=== PATIENT | female | born 1950 | race Caucasian/White ===

== ENCOUNTER 2019-09-06 15:28 | Inpatient (IN) | payer MEDICARE, SELFPAY ==
[2019-09-06] VITALS (25 sets, daily range): BP systolic 165–260; BP diastolic 93–161; PULSE 73–116; RESP 15–26; TEMP 36.6–37; O2SAT 94–97; BMI 30.2; BMI 29.3
--- NOTE | 2019-09-06 15:40 | CT_ITS ---
STUDY: CT BRAIN WITHOUT CONTRAST REASON FOR EXAM: Female, 69 years old. BLURRED VISION RADIATION DOSAGE (If Supplied By Facility): CTDIvol = ( 44.99 ) mGy, DLP = ( 796.11 ) mGycm TECHNIQUE: Transaxial CT imaging of the brain was performed without administration of intravenous contrast material. Individualized dose optimization techniques were used for this CT. COMPARISON: No relevant priors. FINDINGS: Normal soft tissue structures. Normal calvarium. Normal size ventricles and extra-axial spaces for the patient''s age. There are areas of decreased attenuation within the white matter tracts of the supratentorial brain, consistent with microvascular disease changes. Normal basal ganglia and thalami. Normal brainstem. Normal cerebellum. There is no intracranial hemorrhage. There are no findings of an acute ischemic infarction. Normal visualized paranasal sinuses. CT/Brain/Head without Contrast IMPRESSION: No acute abnormality. Moderately extensive diffuse white matter disease probably from small vessel ischemia. Electronically Signed: Jose Payne MD at 17:33 EST , Service support ,
--- NOTE | 2019-09-06 15:40 | EKG12_ITS ---
Test Reason : HTN Blood Pressure : / mmHG Vent. Rate : 103 BPM Atrial Rate : 103 BPM P-R Int : 172 ms QRS Dur : 084 ms QT Int : 342 ms P-R-T Axes : 044 -24 071 degrees QTc Int : 448 ms Sinus tachycardia Left ventricular hypertrophy with repolarization abnormality Cannot rule out Anteroseptal infarct , age undetermined Abnormal ECG Confirmed by LYNETTE IQBAL, THOMPSON ([id number]), technical writer and editor OMER MONDRAGON ([id number]) on 09/08/2019 10:05:46 AM Referred By: No Primary Care Physician Confirmed By:MARY OJEDA MD
--- NOTE | 2019-09-06 15:40 | RAD_ITS ---
STUDY: X-RAY CHEST REASON FOR EXAM: Female, 69 years old. Elevated blood pressure TECHNIQUE: Single AP portable view of the chest. COMPARISON: None. FINDINGS: The lungs are clear and expanded. There is no demonstrated pleural abnormality. Normal size heart. Normal mediastinum and nicole. Normal visualized pulmonary arteries. There is atherosclerotic tortuosity of the aortic arch and descending thoracic aorta. There are diffuse degenerative changes of the visualized thoracic spine. There is degenerative osteoarthritis of the bilateral shoulders. There is no demonstrated abnormality of the visualized soft tissue structures of the upper abdomen. RAD/Chest 1 View (Portable) IMPRESSION: No acute chest disease. Electronically Signed: Jose Payne MD at 16:11 EST , Service support ,
--- NOTE | 2019-09-06 15:41 | CT_ITS ---
STUDY: CT ABDOMEN AND PELVIS WITH CONTRAST REASON FOR EXAM: Female, 69 years old. VAGINAL BLEEDING X 2 MONTHS RADIATION DOSAGE (If Supplied By Facility): CTDIvol = ( 18.39 ) mGy, DLP = ( 1907.56 ) mGycm TECHNIQUE: Transaxial images were obtained from the dome of the diaphragm to the symphysis pubis without oral contrast. IV 100mL Isovue-300 was administered. Sagittal and coronal images were reconstructed. Individualized dose optimization techniques were used for this CT. COMPARISON: None. FINDINGS: The visualized lung bases are unremarkable. The visualized portions of the heart are within normal limits. Normal liver with several incidental subcentimeter cysts. Distended gallbladder with no definite stones, normal extrahepatic biliary system. Normal spleen. Normal pancreas. Normal bilateral adrenal glands. Normal right kidney. Mild to moderate hydronephrosis. Moderate left hydronephrosis related to obstruction from the large pelvic mass. Evaluation of the GI tract is limited by absence of oral contrast. Cannot exclude stomach wall thickening. No dilated loops of bowel or evidence for obstruction. Cannot exclude segmental thickening of the thompson of the small or large bowel. Cannot exclude enteritis or colitis. Moderate diffuse fecal retention. Appendix within normal limits. Normal abdominal aorta. Normal inferior vena cava. Normal retroperitoneum. Normal urinary bladder. Large mass in the pelvis involving the uterus. Greatest dimension approximately 13.6 x 10.8 x 14.4 cm. Possible extensive fibroids but neoplasm is not excluded. Normal abdominal wall. Normal osseous structures. CT/Abdomen/Pelvis W IV Cont ONLY IMPRESSION: Very large pelvic mass probably arising from the uterus. Likely extensive fibroids but neoplasm is not excluded. This causing obstruction and hydronephrosis of the left kidney and collecting system. Electronically Signed: Jose Payne MD at 17:31 EST , Service support ,
--- NOTE | 2019-09-06 15:43 | ED.DCSUM_ITS ---
- ER Visit Summary Date of Service: 09/06/19 Chief Complaint: [Hypertension ] History of Present Illness: The patient is a 69 F [presents to the emergency department with complaint of elevated blood pressure that was noticed today when she was visiting Dr. Medina for abnormal uterine bleeding x2 months. Patient states that she had high blood pressure 20 years ago but her insurance company stopped paying for her medications so she made some lifestyle modifications and got her blood pressure down into the 120s systolic at that time. Patient does not see a primary care physician currently. Patient states about a month ago she started hearing her heartbeat in her ears. Patient has had intermittent headaches. 2 months ago she started with abnormal vaginal bleeding. She complains of lower abdominal pain. Patient denies any blood in her stool or black tarry stools.] She denies current illness. Physical Examination: [HEENT-PERRLA, EOMI. Cranial nerves II through XII grossly intact. TMs clear. Mucous membranes moist. No adenopathy. Cardiovascular-regular rate and rhythm with 2 out of 6 systolic ejection murmur. Lungs-clear to auscultation, chest wall stable without crepitus or subcu emphysema Abdomen-normoactive bowel sounds, soft with tenderness palpation over the lower abdomen diffusely. Patient is some guarding. Some fullness palpated to the lower abdomen. Extremities-intact ?4, normal range of motion, normal pulses, atraumatic] Test Results: [EKG obtained on arrival showed a sinus rhythm with a ventricular rate of 103 bpm with LVH. CBC with differential showing a 10.8, hemoglobin 13, hematocrit 40, placed 263. Chemistries unremarkable. LFTs were normal. Troponin less than 0.15. Chest x-ray showed nothing acute. CT scan of the abdomen pelvis with IV contrast showed a large pelvic mass likely emanating from the uterus causing left ureteral obstruction. CT scan of the brain without contrast on my interpretation appears unremarkable official report pending from radiology.] Emergency Department Course and Treatment: [Patient was treated with labetalol in the department. Case was discussed with Dr. Medina as well as hospitalist will evaluate patient for admission] Treatment Plan: [Admit] Disposition: [Admit] Impression: [Hypertensive emergency Pelvic mass Left ureteral obstruction] This note was generated with [employer] Identityation software. It may contain incorrect words, spelling, and punctuation that were not noted in review of the chart prior to signing ED Disposition - Plan for ED Patient: Referrals: NOT,DEFINED [NON-STAFF] -
--- NOTE | 2019-09-06 15:49 | NURSING ---
NO OLD EKGS
[2019-09-06 16:07] LABS: Absolute Lymphocyte Count 1.61 X10^3/uL (0.83-4.51); Absolute Neutrophil Count 8.4 X10^3/uL (2.0-7.7); Basophil# 0.05 X10^3/uL; Basophil% 0.5 % (0-1); Eosinophil# 0.05 X10^3/uL; Eosinophils% 0.5 % (0-5); Hemoglobin 13.4 g/dL (12.0-15.0); Lymphocyte # 1.61 X10^3/ul (4.0); Lymphocyte % 14.9 % (19-41); Mean Corp Hgb Conc 33.5 g/dL (32-36); Mean Corpuscular Hgb 29.5 pg (27.0-32.0); Mean Corpuscular Volume 88.1 fL (81-99); Mean Platelet Vol. 10.4 fl (6.2-12.0); Monocyte% 5.6 % (0-10); NRBC Flagged by Analyzer 0 % (0-5); Neutrophil # 8.43 X10^3/uL (2.7-7.7); Neutrophil % 78.2 % (47-70); Platelet Count 263 K/mm3 (150-450); RBC Distribution Width CV 12.1 % (11.6-14.6); RBC Distribution Width SD 38.9 fl (35.1-43.9); Red Blood Count 4.54 M/mm3 (4.2-5.4); White Blood Count 10.8 K/mm3 (4.4-11.0)
[2019-09-06 16:44] LABS: ALB/GLOB Ratio 0.9 RATIO (0.9-2.4); AST(SGOT) 12 U/L (15-37); Alanine Aminotransfer ALT/SGPT 29 U/L (13-56); Albumin, Serum 3.6 g/dL (3.2-5.0); Alkaline Phosphatase 88 U/L (45-117); Anion Gap 7 (5-15); BUN 15 mg/dL (7-18); Chloride 107 mmol/L (98-107); Creatinine, Serum 0.79 mg/dL (0.55-1.02); EST Glomerular Filtration Rate 77 mL/min (>60); Est Glom Filt Rate - Afr Amer 93 mL/min (>60); Globulin 3.8 g/dL (2.2-4.2); Glucose 111 mg/dL (74-106); Potassium 3.1 mmol/L (3.5-5.1); Protein, Total 7.4 g/dL (6.4-8.2); Sodium Level 139 mmol/L (136-145)
[2019-09-06 17:13] LABS: Bacteria 0 SEEN /hpf (None Seen); Mucous, Urine 0 SEEN /hpf (<or=2+); White Blood Cells 0 SEEN /hpf (0-5)
[2019-09-06 17:23] LABS: Color, Urine Yellow (Yellow); Glucose, Dipstick Normal (Normal); Ketone-Dipstick Negative (Negative); Leukocyte Esterase-Dipstick Negative /ul (Negative); Nitrite-Dipstick Negative (Negative); Occult Blood-Urine 150 /ul (Negative); Protein-Dipstick 100 mg/dl (Negative); Urine Bilirubin Dipstick Negative (Negative); Urine Clarity Clear (Clear); Urine Urobilinogen Normal (Normal)
[2019-09-06] MEDS: 0.9% Normal Saline 1,000 ML 15 ML IV (17:23)
[2019-09-06 17:34] LABS: Red Blood Cells-Urine 5-10 SEEN /hpf (0-5); Squamous Epithelial Cells - UA 0-5 SEEN /hpf (5-10)
--- NOTE | 2019-09-06 17:51 | PCM.HP.STD ---
History of Present Illness Date of Admission: 09/06/19 Chief Complaint: elevatd blood pressure The patient is a 69 year old F with no known past medical history. She she has not seen a doctor in over 20 years. She went to see a claims auditor today with a complaint of vaginal bleeding which have been going on intermittently for some months. Also in the claims auditor office, blood pressure was checked and it was markedly elevated, been in the 260s systolic. She was therefore sent to the ED for evaluation. She denied any headache or blurred vision but did admit to ringing in her ears especially at night. She complained of shortness of breath but she thinks that she thought it was due to fullness in her abdomen. She denied any chest pain or palpitations, dizziness, headache, diarrhea vomiting. Review of systems otherwise negative. At time of review in the ED, blood pressure was 233/135 with respiratory rate of 19 though went up to 28 to my review. She was saturating at 96% on room air. Chemistry showed potassium of 3.1, CBC was unremarkable. Initial troponin was negative. Chest x-ray showed normal-sized heart with no acute chest disease. CT of the brain showed no acute intracranial process and showed moderately extensive diffuse white matter disease probably from small vessel ischemia. She had abdominopelvic CT done at the request of her claims auditor which showed very large pelvic mass probably arising from the uterus which was causing obstruction and hydronephrosis of the left kidney and collecting system. She has been admitted to be managed for hypertensive emergency as well as large pelvic mass likely malignancy. [] Past Medical History Allergies No Known Allergies Allergy (Verified 09/06/19 15:29) Home Medications: Ambulatory Orders Medication Instructions Recorded Acetaminophen [Tylenol Extra 1,000 mg PO Q6H PRN PRN 09/06/19 Strength] Aspirin E.C. [Ecotrin] 325 mg PO DAILY@0800 09/06/19 [employer] 1 ea PO DAILY 09/06/19 Zinc Amino Acid Chelate [Zinc] 100 mg PO DAILY 09/06/19 Surgical History: no surgical history Psychiatric History: No pertinent psych hx [employer] History: No pertinent [employer] history Lives: Alone Smoking Status: Former smoker Tobacco Use: Cigarettes Alcohol: None Drugs: None - *Family History Maternal History Items: Heart Disease, Hypertension Paternal History Items: Heart Disease, Hypertension Review of Systems Constitutional: Denies: Chills, Fever, Malaise, Weakness, Weight Change, Fatigue Eyes: Denies: Blurred vision HEENT: Denies: Head Aches, Sinus Congestion, Sinus Drainage Cardiovascular: Denies: Chest Pain, Palpitations Respiratory: Denies: Cough, Shortness of Breath, Shortness of breath at rest, Shortness of breath upon exertion, Sputum production Gastrointestinal: Denies: Abdominal Pain, Nausea, Vomiting Genitourinary: Denies: Dysuria Gynecological: Reports: Vaginal bleeding Musculoskeletal: Denies: Joint Pain, Joint Tenderness Skin: Denies: Rash, Wounds Neurological: Denies: Numbness, Tingling, Focal weakness Psychiatric: Denies: Anxiety, Depression, Homicidal Ideations, Suicidal Ideations Hematologic/ Lymphatic: Denies: Easy Bruising, Easy Bleeding VTE Information - Inpt Only VTE Present on Admission: No VTE Mechan Device Prophylaxis: SCD's VTE Pharm Prophylaxis ordered?: No Reason prophylaxis not ordered:: Medical Contraindication - vaginal bleeding - Physical Exam Vitals/I&O's: Vital Signs Temp Pulse Resp BP Pulse Ox 98.6 F 91 19 H 233/135 H 96 09/06/19 15:29 09/06/19 17:25 09/06/19 17:25 09/06/19 17:25 09/06/19 17:25 Oxygen Delivery Method Room Air Weight: 187 lb Body Mass Index (BMI) 30.2 General: Alert, Oriented x3, Cooperative, No apparent distress HEENT: Atraumatic, PERRLA, EOMI, Normocephalic Oral: Moist Mucosa Neck: Supple, No JVD, Negative Carotid Bruits Lungs: Clear to auscultation, Normal air movement, No rhonchi, No wheeze, No rales Cardiovascular: Regular rate, Regular Rhythm, Normal S1, Normal S2, No murmurs Abdomen: Bowel Sounds Present, Soft, Non Tender, Non-Distended, No Hepato-splenomegaly Extremities: No edema, Capillary Refill Less than 3 Seconds Skin: No rashes, No breakdown Musculoskeletal: No Tenderness to Palpation of Joints or Extremities Neurological: Cranial nerves II-XII grossly intact, Neuro grossly intact, Motor Exam 5/5 strength throughout Psych/Mental Status: Normal Affect, Appropriate, Alert and oriented to time, place, person, mood and affect Laboratory Results 09/06/19 15:53: WBC 10.8, RBC 4.54, Hgb 13.4, Hct 40.0, MCV 88.1, MCH 29.5, MCHC 33.5, RDW Std Deviation 38.9, RDW Coeff of Fernie 12.1, Plt Count 263, MPV 10.4, Immature Gran % (Auto) 0.300, Neut % (Auto) 78.2 H, Lymph % (Auto) 14.9 L, [place] % (Auto) 5.6, Eos % (Auto) 0.5, Baso % (Auto) 0.5, Absolute Neuts (auto) 8.4 H, Absolute Lymphs (auto) 1.61, Nucleated RBC % 0 09/06/19 15:53: Sodium 139, Potassium 3.1 L, Chloride 107, Carbon Dioxide 25.0, Anion Gap 7, BUN 15, Creatinine 0.79, Estim Creat Clear Calc 49.00, Est GFR (MDRD) Af Amer 93, Est GFR (MDRD) Non-Af 77, BUN/Creatinine Ratio 19.0, Glucose 111 H, Calcium 10.0, Total Bilirubin 0.40, AST 12 L, ALT 29, Alkaline Phosphatase 88, Troponin I < 0.015, Total Protein 7.4, Albumin 3.6, Globulin 3.8, Albumin/Globulin Ratio 0.9 09/06/19 17:09: Urine Color Yellow, Urine Clarity Clear, Urine pH 7.0, Ur Specific [place] 1.010, Urine Protein 100 H, Urine Glucose (UA) Normal, Urine Ketones Negative, Urine Occult Blood 150 H, Urine Nitrite Negative, Urine Bilirubin Negative, Urine Urobilinogen Normal, Ur Leukocyte Esterase Negative, Urine RBC 5-10 SEEN, Urine WBC 0 SEEN, Ur Squamous Epith Cells 0-5 SEEN, Urine Bacteria 0 SEEN, Urine Mucus 0 SEEN Diagnostic Data Brain CT 09/06/19 15:40 IMPRESSION: No acute abnormality. Moderately extensive diffuse white matter disease probably from small vessel ischemia. Electronically Signed: Jose Payne MD at 17:33 EST , Service support , Chest X-Ray 09/06/19 15:40 IMPRESSION: No acute chest disease. Electronically Signed: Jose Payne MD at 16:11 EST , Service support , Abdomen/Pelvis CT 09/06/19 15:41 IMPRESSION: Very large pelvic mass probably arising from the uterus. Likely extensive fibroids but neoplasm is not excluded. This causing obstruction and hydronephrosis of the left kidney and collecting system. Electronically Signed: Jose Payne MD at 17:31 EST , Service support , Current Medications Sodium Chloride () 1,000 mls @ 15 mls/hr IV .Q48H SAPNA Last Admin: 09/06/19 17:23 Dose: 15 mls/hr Documented by: Labetalol HCl (Trandate) 10 mg IV Q10M PRN PRN PRN Reason: Hypertensive Emergency Last Admin: 09/06/19 17:22 Dose: 10 mg Documented by: Assessment/Plan 89-year-old admitted from her oncologist office with an incidental finding on markedly elevated blood pressure. 1. Hypertensive emergency admit to ICU. She complains of shortness of breath, received IV labetalol in ED. start IV labetalol drip for target BP <160/110 EKG showed no acute ST changes. CXR showed no acute cardiopulmonary process. consult machine tool designer 2D echo 2. hyperkalemia: K is 3.1. Will replace and monitor 3. Uterine mass, likely malignancy seen by per gyneocologist today o/a of intermittent genital bleeding. Abdominopelvic CT done showed large mass likely originating from the uterus and causing left hydronephrosis. Discussed with Dr Medina on phone; Dr. Medina, patient has no acute need from gynecology perspective was in the hospital now. Her work-up will be completed on an outpatient basis and plan is to refer her to a uro-claims auditor. We will therefore hold off on consult to Dr. Medina. 4. Left Hydronephrosis: as per CT abdomen. Is an obstructive hydronephrosis due to uterine mass. Patient passing urine. Currently stable. To follow with claims auditor about pellvic mass which is causing hydronephrosis DVT prophylaxis: SCDs on account of vaginal bleeding. CODE STATUS: Full code Patient counseled extensively about different types of CODE STATUS including full code, DNR CCA and DNR CCA. Patient elects to be full code. Total [id number] time 17 minutes. Code Visit Inpatient E&M: 33283 Init Hosp L3 Procedures: 48738 Advncd Care Plan 30 Min
--- NOTE | 2019-09-06 17:59 | NURSING ---
[id number] HYPERTENSIVE EMERGENCY [facility]
[2019-09-06] MEDS: Ondansetron 4 MG/2 ML Vial IV (23:25)
[2019-09-06] MEDS: 0.9% Saline Lock 10 ML Syringe IV (23:25)
[2019-09-07] VITALS (24 sets, daily range): BP systolic 137–175; BP diastolic 73–97; PULSE 65–77; RESP 16–26; TEMP 36.6–37.1; O2SAT 93–96
[2019-09-07] MEDS: Acetaminophen 500 MG Tablet 1000 MG PO (00:30)
[2019-09-07 04:06] LABS: Absolute Lymphocyte Count 1.25 X10^3/uL (0.83-4.51); Absolute Neutrophil Count 8.5 X10^3/uL (2.0-7.7); Basophil# 0.04 X10^3/uL; Basophil% 0.4 % (0-1); Eosinophil# 0.01 X10^3/uL; Eosinophils% 0.1 % (0-5); Hematocrit 34.6 % (37-47); Hemoglobin 11.4 g/dL (12.0-15.0); Lymphocyte # 1.25 X10^3/ul (4.0); Lymphocyte % 12.1 % (19-41); Mean Corp Hgb Conc 32.9 g/dL (32-36); Mean Corpuscular Hgb 29.4 pg (27.0-32.0); Mean Corpuscular Volume 89.2 fL (81-99); Mean Platelet Vol. 10.1 fl (6.2-12.0); Monocyte# 0.52 X10^3/uL; NRBC Flagged by Analyzer 0 % (0-5); Neutrophil # 8.51 X10^3/uL (2.7-7.7); Neutrophil % 82.2 % (47-70); Platelet Count 224 K/mm3 (150-450); RBC Distribution Width CV 12.7 % (11.6-14.6); Red Blood Count 3.88 M/mm3 (4.2-5.4); White Blood Count 10.4 K/mm3 (4.4-11.0)
[2019-09-07 04:31] LABS: Anion Gap 4 (5-15); BUN 16 mg/dL (7-18); Calcium,Total 8.4 mg/dL (8.5-10.1); Chloride 108 mmol/L (98-107); EST Glomerular Filtration Rate 75 mL/min (>60); Est Glom Filt Rate - Afr Amer 91 mL/min (>60); Estimated Creatinine Clearance 61.26 ml/min; Glucose 124 mg/dL (74-106); Potassium 3.5 mmol/L (3.5-5.1); Sodium Level 141 mmol/L (136-145)
--- NOTE | 2019-09-07 05:55 | ECHOD_ITS ---
Reason For Study: HTN Emergency Procedure This was a 2D Doppler, Color Flow transthoracic echocardiogram. Exam performed portable in ICU/CCU. Left Ventricle Normal LV size. The estimated ejection fraction is 65 %. No evidence for diastolic dysfunction. No regional wall motion abnormalities noted. Right Ventricle Normal RV size. Normal systolic function. Atria Normal left atrium. Normal right atrium. No doppler evidence for ASD. Mitral Valve There is no mitral valve stenosis. Trivial mitral valve insufficiency. Tricuspid Valve There is no tricuspid stenosis. Mild tricuspid valve insufficiency. Pulmonary artery systolic pressure is 35 mmHg. Aortic Valve Trisinus/trileaflet aortic valve. Mild diffuse aortic valve thickening. Mild aortic stenosis. Trivial aortic valve insufficiency. Pulmonic Valve There is no pulmonic valvular stenosis. No pulmonic valve insufficiency. Great Vessels Normal aortic root. Pericardium/Pleural No pericardial effusion. MMode/2D Measurements & Calculations LVIDd: 3.2 cm IVSd: 1.2 cm LVOT diam: 1.9 cm LVIDs: 1.8 cm LVPWd: 1.2 cm LVOT area: 2.9 cm2 RVDd: 2.9 cm FS: 42.4 % Ao root diam: 3.6 cm LAV(MOD-bp): 58.6 ml LA A4 area: 15.9 cm2 LAV(MOD-bp) Indexed: 30.1 ml/m2 LAV(MOD-sp2): 68.3 ml LAV(MOD-sp4): 39.0 ml LA dimension(2D): 3.2 cm RA A4 area: 12.3 cm2 Doppler Measurements & Calculations MV E max von: 83.1 cm/sec Lat Peak E' Von: 6.7 cm/sec Med Peak E' Von: 4.8 cm/sec MV A max von: 127.9 cm/sec E/E' lat: 12.4 E/E' med: 17.1 MV E/A: 0.65 MV V2 max: 126.0 cm/sec MV P1/2t max von: 100.1 cm/sec Ao V2 max: 195.8 cm/sec MV max P.3 mmHg MV P1/2t: 90.4 msec Ao max P.3 mmHg MV V2 mean: 85.4 cm/sec MV dec slope: 324.2 cm/sec2 Ao V2 mean: 142.5 cm/sec MV mean P.1 mmHg MVA(P1/2t): 2.4 cm2 Ao mean P.2 mmHg MV V2 VTI: 38.0 cm Ao V2 VTI: 42.6 cm MVA(VTI): 3.7 cm2 TORRES(I,D): 3.3 cm2 TORRES(V,D): 3.1 cm2 LV V1 max: 211.4 cm/sec SV(LVOT): 141.7 ml PA V2 max: 91.2 cm/sec LV V1 max P.9 mmHg LV V1 mean P.1 mmHg LV V1 mean: 157.5 cm/sec LV V1 VTI: 49.2 cm TR max von: 255.5 cm/sec TR max P.2 mmHg Interpretation Summary The estimated ejection fraction is 65 %. No evidence for diastolic dysfunction. Trivial mitral valve insufficiency. Mild tricuspid valve insufficiency. Pulmonary artery systolic pressure is 35 mmHg. Mild diffuse aortic valve thickening. Mild aortic stenosis. Trivial aortic valve insufficiency. Ordering Physician: Ryann Aviles Referring Physician: Care Physician, No Primary Performed By: Roberta Banda RDCS
--- NOTE | 2019-09-07 06:22 | PCM.CON.CC ---
Reason for Consult Date of Consultation: 09/07/19 Reason for Consultation: Hypertensive emergency History of Present Illness: The patient is a 69-year-old female, with a history as outlined below, who presented to the emergency department on September 06 after having been referred there by the office of Dr. Medina for elevated blood pressure readings. She was apparently being evaluated in the office of Dr. Medina for abnormal uterine bleeding. The patient does report having been on antihypertensives 15+ years ago, but states that she has not required any medication intervention for elevated blood pressure since that time. On presentation to the emergency department, the patient was noted to be afebrile and hypertensive with an initial systolic pressure in excess of 200 mmHg. She was, nevertheless, maintaining appropriate oxygen saturations on room air. CBC with differential was largely unremarkable. Chemistry profile was notable for a potassium of 3.1. Creatinine was within normal limits. Troponin was negative. CT head revealed extensive diffuse white matter disease, likely secondary to small vessel ischemia. Given the patient's complaints of abnormal uterine bleeding, a CT abdomen and pelvis with contrast was obtained. A large pelvic mass involving the uterus was noted. There is also note of moderate left-sided hydronephrosis related to obstruction from the patient's large pelvic mass. The patient was subsequently started on a labetalol drip and admitted to the medical intensive care unit for further management. No issues were identified overnight by the nursing staff. The patient was able to be weaned off of the labetalol drip and is currently hemodynamically stable with a blood pressure of 157/77 mmHg. 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 Lives: Alone Smoking Status: Former smoker Tobacco Use: Cigarettes Alcohol: None Drugs: None - *Family History Maternal History Items: Heart Disease, Hypertension Paternal History Items: Heart Disease, Hypertension Review of Systems Constitutional: Denies: Chills, Fever, Weight Change HEENT: Denies: Head Aches, Sinus Congestion, Sinus Drainage Cardiovascular: Denies: Chest Pain, Palpitations Respiratory: Denies: Cough, Shortness of breath at rest, Sputum production Gastrointestinal: Denies: Abdominal Pain, Nausea, Vomiting Genitourinary: Denies: Dysuria Gynecological: Reports: Vaginal bleeding Musculoskeletal: Denies: Joint Pain, Joint Tenderness Skin: Denies: Rash, Wounds Neurological: Reports: Headaches Psychiatric: Denies: Anxiety, Depression, Homicidal Ideations, Suicidal Ideations Hematologic/ Lymphatic: Denies: Easy Bruising, Easy Bleeding Objective: The patient's most recent lab work, culture data and imaging studies have all been personally reviewed. - Physical Exam Vitals/I&O's: Vital Signs Temp Pulse Resp BP Pulse Ox 98.1 F 65 16 159/73 H 94 09/07/19 04:00 09/07/19 06:00 09/07/19 06:00 09/07/19 06:00 09/07/19 06:00 Oxygen Delivery Method Room Air Weight: 188 lb 4.396 oz Body Mass Index (BMI) 29.3 Intake and Output for Last 24 Hours 09/05/19 09/06/19 09/07/19 23:59 23:59 23:59 Intake Total 972.00 / 1153.75 493.66 / 493.66 Output Total 300 / 300 Balance 672.00 / 853.75 493.66 / 493.66 General: Alert, Cooperative, No apparent distress HEENT: Atraumatic, PERRLA, Normocephalic Oral: No Gingival or Mucosal Lesions/ Ulcerations Neck: Supple, No Nodes, Trachea Midline Lungs: Normal air movement, No rhonchi, No wheeze, No rales Cardiovascular: Regular rate, Regular Rhythm, Normal S1, Normal S2 Abdomen: Bowel Sounds Present, Soft, Non Tender Extremities: No clubbing, No cyanosis, No edema Skin: No breakdown Musculoskeletal: No Tenderness to Palpation of Joints or Extremities Lymphatic: No Cervical, Supraclavicular, or Inguinal Adenopathy Neurological: Neuro grossly intact Psych/Mental Status: Alert and oriented to time, place, person, mood and affect Labs (Last 48 Hours) 09/06/19 09/06/19 09/06/19 15:53 15:53 17:09 WBC 10.8 RBC 4.54 Hgb 13.4 Hct 40.0 MCV 88.1 MCH 29.5 MCHC 33.5 RDW Std Deviation 38.9 RDW Coeff of Fernie 12.1 Plt Count 263 MPV 10.4 Immature Gran % (Auto) 0.300 Neut % (Auto) 78.2 H Lymph % (Auto) 14.9 L Borden % (Auto) 5.6 Eos % (Auto) 0.5 Baso % (Auto) 0.5 Absolute Neuts (auto) 8.4 H Absolute Lymphs (auto) 1.61 Nucleated RBC % 0 Sodium 139 Potassium 3.1 L Chloride 107 Carbon Dioxide 25.0 Anion Gap 7 BUN 15 Creatinine 0.79 Estim Creat Clear Calc 49.00 Est GFR (MDRD) Af Amer 93 Est GFR (MDRD) Non-Af 77 BUN/Creatinine Ratio 19.0 Glucose 111 H Calcium 10.0 Total Bilirubin 0.40 AST 12 L ALT 29 Alkaline Phosphatase 88 Troponin I < 0.015 Total Protein 7.4 Albumin 3.6 Globulin 3.8 Albumin/Globulin Ratio 0.9 Urine Color Yellow Urine Clarity Clear Urine pH 7.0 Ur Specific [place] 1.010 Urine Protein 100 H Urine Glucose (UA) Normal Urine Ketones Negative Urine Occult Blood 150 H Urine Nitrite Negative Urine Bilirubin Negative Urine Urobilinogen Normal Ur Leukocyte Esterase Negative Urine RBC 5-10 SEEN Urine WBC 0 SEEN Ur Squamous Epith Cells 0-5 SEEN Urine Bacteria 0 SEEN Urine Mucus 0 SEEN 09/07/19 09/07/19 03:55 03:55 WBC 10.4 RBC 3.88 L Hgb 11.4 L Hct 34.6 L MCV 89.2 MCH 29.4 MCHC 32.9 RDW Std Deviation 41.0 RDW Coeff of Fernie 12.7 Plt Count 224 MPV 10.1 Immature Gran % (Auto) 0.200 Neut % (Auto) 82.2 H Lymph % (Auto) 12.1 L Borden % (Auto) 5.0 Eos % (Auto) 0.1 Baso % (Auto) 0.4 Absolute Neuts (auto) 8.5 H Absolute Lymphs (auto) 1.25 Nucleated RBC % 0 Sodium 141 Potassium 3.5 Chloride 108 H Carbon Dioxide 29.0 Anion Gap 4 L BUN 16 Creatinine 0.80 Estim Creat Clear Calc 61.26 Est GFR (MDRD) Af Amer 91 Est GFR (MDRD) Non-Af 75 BUN/Creatinine Ratio 20.0 Glucose 124 H Calcium 8.4 L Total Bilirubin AST ALT Alkaline Phosphatase Troponin I Total Protein Albumin Globulin Albumin/Globulin Ratio Urine Color Urine Clarity Urine pH Ur Specific [place] Urine Protein Urine Glucose (UA) Urine Ketones Urine Occult Blood Urine Nitrite Urine Bilirubin Urine Urobilinogen Ur Leukocyte Esterase Urine RBC Urine WBC Ur Squamous Epith Cells Urine Bacteria Urine Mucus Clinical Impression(s) from Imaging Studies Brain CT 09/06/19 15:40 IMPRESSION: No acute abnormality. Moderately extensive diffuse white matter disease probably from small vessel ischemia. Electronically Signed: Jose Payne MD at 17:33 EST , Service support , Chest X-Ray 09/06/19 15:40 IMPRESSION: No acute chest disease. Electronically Signed: Jose Payne MD at 16:11 EST , Service support , Abdomen/Pelvis CT 09/06/19 15:41 IMPRESSION: Very large pelvic mass probably arising from the uterus. Likely extensive fibroids but neoplasm is not excluded. This causing obstruction and hydronephrosis of the left kidney and collecting system. Electronically Signed: Jose Payne MD at 17:31 EST , Service support , Current Medications Acetaminophen (Tylenol) 1,000 mg PO Q6H PRN PRN PRN Reason: Pain 1-10 or Fever Last Admin: 09/07/19 00:30 Dose: 1,000 mg Documented by: Aspirin (Ecotrin) 325 mg PO DAILY@0800 SAPNA Glucagon () 1 mg IM .X1 PRN PRN Reason: Hypoglycemia Sodium Chloride () 1,000 mls @ 15 mls/hr IV .Q48H SAPNA Last Infusion: 09/07/19 03:55 Dose: 0 mls/hr Documented by: Labetalol HCl 200 mg/ Sodium (Chloride) 250 mls @ 37.5 mls/hr CONT INF .Q6H40M SAPNA; Protocol Last Titration: 09/07/19 06:00 Dose: 0 mg/min, 0 mls/hr Documented by: Dextrose (Dextrose 10%-Water) 250 mls @ 999 mls/hr IV .Q16M PRN; Protocol PRN Reason: HYPOGLYCEMIA Nitroglycerin (Nitrostat) 0.4 mg SUBLINGUAL Q5M PRN PRN Reason: CARDIAC/CHEST PAIN Ondansetron HCl (Zofran) 4 mg IV Q8H PRN PRN PRN Reason: NAUSEA/VOMITING Last Admin: 09/06/19 23:25 Dose: 4 mg Documented by: Sodium Chloride () 10 - 40 ml IV UD PRN PRN Reason: SALINE FLUSH Last Admin: 09/06/19 23:25 Dose: 20 ml Documented by: Assessment/Plan RECOMMENDATIONS: 1. Discontinue labetalol. 2. Start p.o. antihypertensive regimen. 3. Okay to transfer from ICU setting. Will sign off at this time. IMPRESSIONS: 1. Hypertensive urgency The patient initially presented to the hospital with systolic pressures in excess of 200 mmHg. While she did require initiation of IV labetalol infusion, she has since been weaned from said medication. The patient is asymptomatic. At this time, I would recommend that she be started on a p.o. antihypertensive regimen. I will defer the initiation of said medication regimen to the hospitalist. 2. Uterine mass with associated hydronephrosis Plan for outpatient follow-up with Dr. Medina. This note was generated with [employer] dictation software. It may contain incorrect words, spelling, and punctuation that were not noted in checking the note before signing. Code Visit Inpatient E&M: 01103 Init Hosp L3
--- NOTE | 2019-09-07 11:01 | PCM.DC ---
You will use the following diet at home:: No restrictions Your food should be the consistency of: Regular Your liquids should be the consistency of: Regular/Thin Discharge Activity: Return to Normal Activity Weight Bearing Status: Full weight bearing Allergies/Adverse Reactions: Allergies No Known Allergies Allergy (Verified 09/06/19 15:29) Medications to take at Discharge Acetaminophen [Tylenol Extra Strength] 1,000 mg PO Q6H PRN PRN 09/06/19 [place] [employer] 1 ea PO DAILY 09/06/19 Zinc Amino Acid Chelate [Zinc] 100 mg PO DAILY 09/06/19 Lisinopril [Zestril] 40 mg PO DAILY #30 tab 09/07/19 hydroCHLOROthiazide [Hydrochlorothiazide] 12.5 mg PO DAILY #30 cap 09/07/19 The following prescriptions were given: hydroCHLOROthiazide [Hydrochlorothiazide] 12.5 mg PO DAILY #30 cap Transmission Status: Pending to [facility] Lisinopril [Zestril] 40 mg PO DAILY #30 tab Transmission Status: Pending to [facility] Primary Care Physician: NOT,DEFINED [NON-STAFF] - Test Results: Test results from this visit will be discussed in further detail at your follow-up appointment, if applicable. Please Follow Up With: [facility] physician When: in 5-7 days
[2019-09-07] MEDS: hydroCHLOROthiazide 12.5mg 12.5 MG PO (11:46)
[2019-09-07] MEDS: Lisinopril 40 MG Tablet PO (11:47)
--- NOTE | 2019-09-07 12:19 | CASEMGMT ---
RN TOYIN Assessment Presentation: Hypertensive Emergency, placed on Labetelol gtt. Intro role of CM to patient in room. Pt is dressed, ready to be dc'd. Pt states she is independent, able to care for self, and no care needs. PCP: no physician, however pt has list of area doctors and RN TOYIN gave her brochure of area physicians also. Pt is aware of process and states will make call to set up. Pharmacy: [facility] retail pharmacy Prescription coverage: yes Living arrangements: independent, no care needs DME: cane only Pt's dc plan: HOME DC PLAN: home. Val GALLEGOS RN ACM
--- NOTE | 2019-09-10 09:16 | DS.PCM_ITS ---
Discharge Date and Diagnosis Date of Admission: 09/06/19 Date of Discharge: 09/07/19 - Primary Discharge Diagnosis #1 hypertensive urgency #2 large uterine mass-etiology unknown #3 hydronephrosis-probably secondary to uterine mass #4 noncompliance with medical regimen No evidence for hypertensive emergency Hospital Course and Treatment Operations: None Procedures: None Summary of Care Provided: The patient is a 69 year old F who was seen in the emergency room at [facility] with a chief complaint of elevated blood pressure after being sent over by her OB GEN physician to the emergency room for evaluation due to her blood pressure elevation. Patient has had abnormal uterine bleeding x2 months and was at the OB GEN office for evaluation. Patient has a known history of hypertension but stopped taking her medications due to the cost of her medications. Patient was not active and seeing a primary care physician. Evaluation in the emergency room included an EKG which showed sinus tachycardia with a rate of 103, CBC was unremarkable, chemistries were unremarkable, LFTs were unremarkable, troponin was normal. Chest x-ray showed no acute process, CT scan of the abdomen and pelvis with IV contrast showed a large pelvic mass likely emanating from the uterus causing left ureteral obstruction and hydronephrosis. Patient was given labetalol in the emergency room, she was admitted to ICU for further care and seen in consultation by critical care. Patient responded well to administration of blood pressure medications, there were no signs of a hypertensive emergency. I had a brief discussion with the patient by phone after she was discharged home, she was instructed to follow-up with the urologist next week concerning her hydronephrosis. I attempted to contact her OB GEN physician but was unable to contact her. On 09/07/2019, patient was seen and examined: On examination she appeared in good health and spirits. Vital signs as documented. Skin warm and dry and without overt rashes. Neck without JVD. Lungs clear. Heart exam notable for regular rhythm, normal sounds and absence of murmurs, rubs or gallops. Abdomen unremarkable and without evidence of organomegaly, masses, or abdominal aortic enlargement. Extremities nonedematous. Neuro: Cranial nerves II through XII are grossly intact, no focal motor deficits were noted, sensation to light touch and pinprick is intact. Psych: Patient is alert and oriented x3, she does not appear anxious or depressed On 09/07/2019, patient was seen and examined and felt to be in stable condition for discharge home - Physical Exam Vitals/I&O's: Vital Signs Temp Pulse Resp BP Pulse Ox 98.7 F 76 26 H 156/97 H 94 09/07/19 11:45 09/07/19 11:45 09/07/19 11:45 09/07/19 11:45 09/07/19 11:45 Oxygen Delivery Method Room Air Weight: 85.4 kg Body Mass Index (BMI) 29.3 Discharge Activity: Return to Normal Activity Weight Bearing Status: Full weight bearing Home Medications: Medications to take at Discharge Acetaminophen [Tylenol Extra Strength] 1,000 mg PO Q6H PRN PRN 09/06/19 [place] [employer] 1 ea PO DAILY 09/06/19 Zinc Amino Acid Chelate [Zinc] 100 mg PO DAILY 09/06/19 Lisinopril [Zestril] 40 mg PO DAILY #30 tab 09/07/19 hydroCHLOROthiazide [Hydrochlorothiazide] 12.5 mg PO DAILY #30 cap 09/07/19 Following Prescrptions Were Given to Patient: hydroCHLOROthiazide [Hydrochlorothiazide] 12.5 mg PO DAILY #30 cap Transmission Status: Received by [facility] Lisinopril [Zestril] 40 mg PO DAILY #30 tab Transmission Status: Received by [facility] Primary Care Physician: NOT,DEFINED [NON-STAFF] - Please Follow Up With: [facility] physician When: in 5-7 days Disposition: Home Minutes spent on discharge:: 32 Patient Condition:: Stable Medical Necessity - Tobacco Use Smoking Status: Former smoker Tobacco Use: Cigarettes Meaningful Use Info Meaningful Use Diagnoses (Choose all that apply): None applicable Code Visit Inpatient E&M: 23495 Disch Hosp
== END 2019-09-07 12:20 | disposition home or self-care (01) | DRG 305 ==
LOC: ED 16:09 → ICU 17:55
PROVIDERS: Admitting Provider Student in an Organized Health Care Education/Training Program; Emergency Provider Emergency Medicine; Visit Provider Internal Medicine
DX: I16.0 Hypertensive urgency (principal); N13.1 Hydronephrosis with ureteral stricture, not elsewhere classified; Z91.120 Patient's intentional underdosing of medication regimen due to financial hardship; T50.906A Underdosing of unspecified drugs, medicaments and biological substances, initial encounter; Y92.9 Unspecified place or not applicable; N85.9 Noninflammatory disorder of uterus, unspecified; E87.6 Hypokalemia; Z91.19 Patient's noncompliance with other medical treatment and regimen; Z23 Encounter for immunization; Z79.82 Long term (current) use of aspirin; Z79.899 Other long term (current) drug therapy; Z87.891 Personal history of nicotine dependence
CPT/HCPCS: 70450; 71045; 74177; 80048; 80053; 81001; 84484; 85025; 93005; 93306; 99285; G0008; J7030; J7050; Q9967; 90686; A4216; J2405

== ENCOUNTER 2019-09-20 13:49 | Day surgery (SDC) | payer MEDICARE, SELFPAY ==
[2019-09-06 18:42] VITALS: BMI 29.3
[2019-09-20 14:11] VITALS: BP 200/103; PULSE 80; RESP 16; TEMP 37; O2SAT 97; BMI 28.9
[2019-09-20] MEDS: Lactated Ringers 1,000 ML 100 ML IV (14:31)
[2019-09-20] MEDS: Cefazolin 2 GM in 0.9% Normal Saline 100 ML IV (15:48)
--- NOTE | 2019-09-20 15:54 | PCM.DC.URO ---
Discharge Diet: Light diet - advance as tolerated Discharge Activity: Return to Normal Activity Call your doctor if you observe: Fever of 101 or Higher Allergies/Adverse Reactions: Allergies No Known Allergies Allergy (Verified 09/20/19 14:00) Medications to take at Discharge Acetaminophen [Tylenol Extra Strength] 1,000 mg PO Q6H PRN PRN 09/06/19 [place] [employer] 1 ea PO DAILY 09/06/19 Zinc Amino Acid Chelate [Zinc] 100 mg PO DAILY 09/06/19 Lisinopril [Zestril] 40 mg PO DAILY #30 tab 09/07/19 hydroCHLOROthiazide [Hydrochlorothiazide] 12.5 mg PO DAILY #30 cap 09/07/19 Atenolol [Tenormin (beta [place])] 25 mg PO DAILY 09/19/19 Ciprofloxacin [Cipro] 500 mg PO BID #6 tab 09/20/19 Ibuprofen 600 mg PO Q6H PRN PRN 7 Days #20 tab 09/20/19 The following prescriptions were given: Ciprofloxacin [Cipro] 500 mg PO BID #6 tab Transmission Status: Pending to [facility] Ibuprofen 600 mg PO Q6H PRN PRN 7 Days #20 tab PRN Reason: Pain Score 1-10/10 Transmission Status: Pending to [facility] Primary Care Physician: Liv Winchester MD [Primary Care Provider] - Test Results: Test results from this visit will be discussed in further detail at your follow-up appointment, if applicable. Please Follow Up With: Mekhi Joseph MD When: in 2-3 weeks, please call to make an appointment.
--- NOTE | 2019-09-20 16:10 | OP.PCM_ITS ---
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 She also has vaginal bleeding. Because of this we can proceed with a cystoscopy and left stent placement to alleviate the obstruction from this mass to the left kidney she understands the stent is temporary and will need to be changed every 3 months. 69-year-old female taken back to the operating room underwent general anesthesia. Urethrovaginal area prepped and draped in usual fashion. She had ongoing vaginal bleeding. Looked inside the bladder through the urethra with a cystoscope. She has a large pelvic mass pushing on the bladder. No pathology inside her bladder the urothelium nice and clear no tumors inside the bladder but she had an obvious mass pressing on the bladder. I then identified the trigone which was distended and pulled away and oblong because of this mass. Causing mass-effect in the left trigone area. I cannulated the left ureter ureteral orifice with a wire advanced a wire up in the kidney. Performed a retrograde pyelogram could see the contrast going up coiling in the ureter and also tortuous ureter and hydronephrotic kidney. I used a Glidewire to straighten out the ureter and then over the wire advanced a stent stent went up into the kidney and coiled in the kidney and bladder good position it was a 6 [place] by 28 cm stent. Once the stent was in good position I pulled the wire repositioned the distal end of the stent so that the coil was in the bladder and the coils up in the kidney drained the bladder patient anesthetic was reversed and she is plan to see her oncologist next week told her she needs see me in a few weeks for checkup and will plan to change the stent or remove the stent in 3 months depending on her situation. Type of Anesthesia:: General Drains: stent left side. - Admit VTE Documentation VTE Present on Admission: No
[2019-09-20 16:19] VITALS: BP 125/85; BP 155/87; PULSE 74; RESP 16; TEMP 36.9; O2SAT 96
[2019-09-20 16:30] VITALS: BP 125/85; BP 149/76; PULSE 70; RESP 16; TEMP 36.9; O2SAT 96
[2019-09-20 17:43] VITALS: BP 125/85; BP 184/103; PULSE 78; RESP 16; TEMP 36.5; O2SAT 99
== END 2019-09-20 17:54 | disposition home or self-care (01) ==
LOC: SDC 13:50 → AC 13:52
PROVIDERS: PCP Internal Medicine; Referring Provider Urology; Visit Provider Urology
PROC: (CPT 52332; principal; 2019-09-20 15:40)
DX: N13.39 Other hydronephrosis (principal); R19.00 Intra-abdominal and pelvic swelling, mass and lump, unspecified site; N93.9 Abnormal uterine and vaginal bleeding, unspecified; R32 Unspecified urinary incontinence; I10 Essential (primary) hypertension; K21.9 Gastro-esophageal reflux disease without esophagitis; Z78.0 Asymptomatic menopausal state; Z79.899 Other long term (current) drug therapy; Z87.891 Personal history of nicotine dependence
CPT/HCPCS: 00910; 52332; 76000; J7120; C1769; J2405

== ENCOUNTER 2025-05-20 12:42 | Emergency (ER) | payer MEDICARE, MEDICAID, SELFPAY ==
--- OUTSIDE RECORDS SUMMARY | 2025-02-06 11:26 | XMS RPT_ITS ---
Author Name Auto Generated Organization [facility] Care Team Providers Care Passenger Car Conductor Name Role Phone COLLETTE PEREZ Primary Care Unavailable SELF Referring Unavailable EMILIA MARLOW Attending Unavailable COLLETTE PEREZ Primary Care Unavailable EMILIA MARLOW Referring Unavailable COLLETTE PEREZ Primary Care Unavailable EMILIA MARLOW Referring Unavailable EMILIA MARLOW Attending Unavailable PROBLEMS DATE TYPE CONDITION / CODE ATTENDING STATUS [facility] 02/06/2025 Active Chronic pain of both knees / M25.561(ICD-10) EMILIA MARLOW Active [facility] 02/06/2025 Active Chronic pain of both knees / M25.562(ICD-10) EMILIA MARLOW Active [facility] 02/06/2025 Active Chronic pain of both knees / G89.29(ICD-10) EMILIA MARLOW Active [facility] 02/06/2025 Active Neutrophilia / D72.828(ICD-10) EMILIA MARLOW Active [facility] 07/23/2022 Active Obesity (BMI 30- 39.9) / E66.9(ICD-10) EMILIA MARLOW Active [facility] 07/23/2022 Active Primary hyperten chi / I10(ICD-10) PB EMILIA Active [facility] 11/27/2019 Active 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) EMILIA MARLOW Active [facility] 11/14/2019 Active Hypokalemia / E87.6(ICD-10) PB EMILIA Active [facility] 01/23/2025 Active White coat syndr ome with diagnosis of hypertension / I10(ICD-10) EMILIA MARLOW Active [facility] 01/23/2025 Active Osteopenia of ayanna th hips / M85.851(ICD-10) [facility] Osteopenia of ayanna th hips / M85.852(ICD-10) PB [facility] 01/23/2025 Active Encounter for im munization / Z23(ICD-10) PB [facility] 01/23/2025 Active Screening for co ariel cancer / Z12.11(ICD-10) PB [facility] 01/23/2025 Active Screening for de pression / Z13.31(ICD-10) PB [facility] 01/23/2025 Active Encounter for sc reening examination for other mental health and behavioral disorders / Z13.39(ICD-10) PB [facility] 01/23/2025 Active Vitamin D defici ency / E55.9(ICD-10) MARLOW [facility] 01/23/2025 Active Other specified abnormal findings of blood chemistry / R79.89(ICD-10) PB [facility] 01/23/2025 Active Personal history of antineoplastic chemotherapy / Z92.21(ICD-10) PB [facility] 01/23/2025 Active Encounter for lo ng-term current use of medication / Z79.899(ICD-10) PB [facility] 01/23/2025 Active Hypomagnesemia / E83.42(ICD-10) PB [facility] PROCEDURES No Procedure Records Found RESULTS PROGRESS Observed: 04/19/2025 11:00 AM Status: COMPLETED Source: [facility] HNO ID: [id number] Author: SHAUN WOLF RN Service: ? Author Type: Registered Nurse Type: Progress Notes Filed: 04/19/2025 11:02 Note Text: Value Based Care Coordination Chart Review Provider Action / FYI: Upon review of patient chart, the patient is excluded from Chronic Disease Management Patient is not a candidate for CDM at this time and placed in the following status: Deferred Action taken: No action needed . Shaun Wolf RN April 19, 2025 11:00 AM CNPSAMREEN Observed: 04/19/2025 12:00 AM Status: COMPLETED Source: [facility] Patient Outreach ([facility]) MARLENE VILLATORO ([id number]) 1950 F Date Time Provider Department 04/19/25 SHAUN WOLF [facility] [place] During your visit today, we recorded the following information about you: Shaun Wolf RN 04/19/2025 11:02 AM Signed Value Based Care Coordination Chart Review Provider Action / FYI: Upon review of patient chart, the patient is excluded from Chronic Disease Management Patient is not a candidate for CDM at this time and placed in the following status: Deferred Action taken: No action needed . Shaun Wolf RN April 19, 2025 11:00 AM Allergies As of Date: 04/19/2025 Noted Allergy Reaction LISINOPRIL 11/13/2019 3 - Cough Date Reviewed: 02/06/2025 Reviewed by: Emilia Marlow APRN.CHEMICAL TANK WORKER - Fully Assessed Reason for Visit: Care Coordination [3861] Cmt: Chart review Prescriptions as of 04/19/2025 - cholecalciferol (VITAMIN D3) 1,000 unit tab tablet Take 1 tablet by mouth once daily. - amLODIPine (NORVASC) 10 mg tablet Take 1 tablet by mouth once daily. - atenolol (TENORMIN) 100 mg tablet Take 1 tablet by mouth two times a day. - cloNIDine HCl (CATAPRES) 0.1 mg tablet Take 2 tablets by mouth two times a day. - losartan (COZAAR) 100 mg tablet Take 1 tablet by mouth once daily. - spironolactone (ALDACTONE) 25 mg tablet Take 1 tablet by mouth once daily. for blood pressure and leg swelling - potassium chloride ER (KLOR-CON) 20 mEq tablet Take 1 tablet by mouth once daily. - magnesium oxide (MAG-OX) 400 mg (241.3 mg magnesium) tablet Take 1 tablet by mouth twice daily. - calcium carbonate 600 mg-cholecalciferol 200 units (CALCIUM 600 + D,3,) 600 mg(1,500mg) -200 unit tab Take 1 tablet by mouth twice daily. calcium supplement - acetaminophen (TYLENOL) 500 mg tablet Take 500-750 mg by mouth every 8 hours. 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 Author Type: Nurse Specialist Type: Progress Notes Filed: 02/06/2025 12:08 Note Text: Subjective Patient ID: Marlene is a 74 year old female who presents for Follow Up (Blood pressure ). HPI Presents for routine visit today. Hypertension: - Blood pressure readings have improved since starting medication. - Denies chest pain, dyspnea, or tinnitus. - Initially experienced headaches before starting medication, but none since. Arthralgias: - Generalized aching today, possibly related to sugar intake. - Consumed tea with sugar yesterday; dislikes artificial sweeteners but tolerates Stevia. - Prefers not to take medication for pain, occasionally uses half a Tylenol or half an aspirin. - Concerned about liver and kidney health due to medication use. - Takes vitamin D inconsistently. - Bilateral knee pain, previously discussed; Marlene is hesitant to see orthopedics due to financial concerns. - Ambulates around the house regularly, walks around the house four times before bed. HTN: Without report headache, chest pain, palpitations, dyspnea, peripheral edema, orthopnea, fatigue, and PND. Last 14 Encounter BP Readings: Date: BP: 02/06/2025 164/90 01/23/2025 218/128 09/24/2023 153/101 03/16/2023 142/82 07/23/2022 162/96[bp average[ 01/13/2022 138/78 06/17/2021 180/90 12/13/2020 130/68 04/11/2020 150/86 04/02/2020 172/100[checked 4 times[ 04/02/2020 199/105 03/13/2020 165/92 03/12/2020 157/90 02/20/2020 168/98[taken manually right arm[ ROS Head: (-) headache Ears/Nose/Mouth/Throat: (-) tinnitus Cardiovascular: (-) chest pain Respiratory: (-) dyspnea Musculoskeletal: (+) diffuse myalgias, (+) bilateral knee pain Objective BP 164/90 Pulse 81 Resp 16 Wt 90.6 kg (199 lb 11.8 oz) SpO2 99% BMI 34.52 kg/m? Physical Exam Vitals and nursing note reviewed. Constitutional: Appearance: Normal appearance. HENT: Head: Normocephalic and atraumatic. Eyes: Conjunctiva/sclera: Conjunctivae normal. Neck: Thyroid: No thyroid mass or thyromegaly. Vascular: Normal carotid pulses. No carotid bruit or JVD. Cardiovascular: Rate and Rhythm: Normal rate and regular rhythm. Pulses: Carotid pulses are 2+ on the right side and 2+ on the left side. Radial pulses are 2+ on the right side and 2+ on the left side. Heart sounds: Normal heart sounds. Pulmonary: Effort: Pulmonary effort is normal. Breath sounds: Normal breath sounds. Musculoskeletal: Right knee: Decreased range of motion. Tenderness present. Left knee: Decreased range of motion. Tenderness present. Right lower leg: No edema. Left lower leg: No edema. Skin: General: Skin is warm and dry. Neurological: General: No focal deficit present. Mental Status: She is alert and oriented to person, place, and time. Latest Ref Rng 01/23/2025 WBC 3.70 - 11.00 k/uL 15.07 (H) RBC 3.90 - 5.20 m/uL 4.80 Hemoglobin 11.5 - 15.5 g/dL 14.7 Hematocrit 36.0 - 46.0 % 44.1 MCV 80.0 - 100.0 fL 91.9 MCH 26.0 - 34.0 pg 30.6 MCHC 30.5 - 36.0 g/dL 33.3 RDW-CV 11.5 - 15.0 % 12.3 Platelet Count 150 - 400 k/uL 261 MPV 9.0 - 12.7 fL 11.3 Neut% % 84.1 Abs Neut (ANC) 1.45 - 7.50 k/uL 12.67 (H) Lymph% % 9.2 Abs Lymph 1.00 - 4.00 k/uL 1.39 Power% % 5.7 Abs Power <0.87 k/uL 0.86 Eosin% % 0.2 Abs Eosin <0.46 k/uL 0.03 Baso% % 0.5 Abs Baso <0.11 k/uL 0.07 Immature Gran % % 0.3 IMMATURE GRANS (ABS) <0.10 k/uL 0.05 NRBC /100 WBC 0.0 Absolute nRBC <0.01 k/uL <0.01 DTYPE Auto Protein, Total 6.3 - 8.0 g/dL 7.6 Albumin 3.9 - 4.9 g/dL 4.5 Calcium 8.5 - 10.2 mg/dL 9.5 Bilirubin, Total 0.2 - 1.3 mg/dL 0.4 Alkaline Phosphatase 34 - 123 U/L 109 AST 13 - 35 U/L 14 ALT 7 - 38 U/L 11 Glucose 74 - 99 mg/dL 108 (H) BUN 7 - 21 mg/dL 19 Creatinine 0.58 - 0.96 mg/dL 0.59 Sodium 136 - 144 mmol/L 139 Potassium 3.7 - 5.1 mmol/L 3.5 (L) Chloride 98 - 107 mmol/L 101 CO2 22 - 30 mmol/L 22 Anion Gap 8 - 15 mmol/L 16 (H) eGFR >=60 mL/min/1.73m? 94 Total Cholesterol, Nonfasting <200 mg/dL 206 (H) Triglycerides, Nonfasting <150 mg/dL 123 HDL Cholesterol, Nonfasting >39 mg/dL 63 LDL Cholesterol Calculated, Nonfasting <100 mg/dL 121 (H) Non HDL Cholesterol, Nonfasting <130 mg/dL 143 (H) VLDL Cholesterol, Nonfasting <30 mg/dL 21 Total Chol/HDL Ratio, Nonfasting <5.10 mg/dL 3.27 LDL/HDL Ratio, Nonfasting <2.54 mg/dL 1.92 Hemoglobin A1C 4.3 - 5.6 % 5.4 Estimated Average Glucose mg/dL 108 TSH 0.270 - 4.200 mIU/L 0.499 Vitamin D 25 Hydroxy 31.0 - 80.0 ng/mL 18.1 (L) 1. Primary hypertension (I10) - Blood pressure readings have improved with current medication regimen. - No changes to antihypertensive therapy at this time. 2. Chronic pain of both knees (M25.561) - Discussed potential referral to orthopedics; initially declined due to concerns about medical debt. - Educated patient on Medicare and Medicaid coverage for hospital stays and potential surgical interventions. - Placed orthopedic consult, valid for one year, for further evaluation and management. Declines medication at this time. 3. Vitamin D deficiency (E55.9) - Inconsistently taking vitamin D supplements. - Reinforced importance of daily vitamin D supplementation, may help with musculoskeletal pain. Addendum January 26, 2025. Hemoglobin A1c and TSH are normal. Vitamin D is low. WBC and neutrophils trending upward. Recommend seeing hematology. Metabolic panel is in acceptable range. Has not yet scheduled. She has concern for medical bills for her family. Endorse medication, XR, and orthopedic visit for chronic bilateral knee pain if/when willing. Medical Decision Making: Problems: Moderate: 1+ chronic illnesses with change Data: Unique test result(s) reviewed: 3+ Unique test(s) ordered: 1 Risk: Moderate: Drug management Medical Decision Making Level: 4 - Moderate CNOV Observed: 02/06/2025 11:40 AM Status: COMPLETED Source: [facility] Office Visit (INTM[facility]) MARLENE VILLATORO ([id number]) 1950 F Date Time Provider Department 02/06/25 11:40 AM EMILIA MARLOW [facility] During your visit today, we recorded the following information about you: Pulse Respiration Blood pressure Weight 81/minute 16/minute 164/90 90.6 kg Franklin MarlowJJ ravi.CHEMICAL TANK WORKER 02/06/2025 12:08 PM Signed Subjective Patient ID: Marlene is a 74 year old female who presents for Follow Up (Blood pressure ). HPI Presents for routine visit today. Hypertension: - Blood pressure readings have improved since starting medication. - Denies chest pain, dyspnea, or tinnitus. - Initially experienced headaches before starting medication, but none since. Arthralgias: - Generalized aching today, possibly related to sugar intake. - Consumed tea with sugar yesterday; dislikes artificial sweeteners but tolerates Stevia. - Prefers not to take medication for pain, occasionally uses half a Tylenol or half an aspirin. - Concerned about liver and kidney health due to medication use. - Takes vitamin D inconsistently. - Bilateral knee pain, previously discussed; Marlene is hesitant to see orthopedics due to financial concerns. - Ambulates around the house regularly, walks around the house four times before bed. HTN: Without report headache, chest pain, palpitations, dyspnea, peripheral edema, orthopnea, fatigue, and PND. Last 14 Encounter BP Readings: Date: BP: 02/06/2025 164/90 01/23/2025 218/128 09/24/2023 153/101 03/16/2023 142/82 07/23/2022 162/96[bp average[ 01/13/2022 138/78 06/17/2021 180/90 12/13/2020 130/68 04/11/2020 150/86 04/02/2020 172/100[checked 4 times[ 04/02/2020 199/105 03/13/2020 165/92 03/12/2020 157/90 02/20/2020 168/98[taken manually right arm[ ROS Head: (-) headache Ears/Nose/Mouth/Throat: (-) tinnitus Cardiovascular: (-) chest pain Respiratory: (-) dyspnea Musculoskeletal: (+) diffuse myalgias, (+) bilateral knee pain Objective BP 164/90 Pulse 81 Resp 16 Wt 90.6 kg (199 lb 11.8 oz) SpO2 99% BMI 34.52 kg/m? Physical Exam Vitals and nursing note reviewed. Constitutional: Appearance: Normal appearance. HENT: Head: Normocephalic and atraumatic. Eyes: Conjunctiva/sclera: Conjunctivae normal. Neck: Thyroid: No thyroid mass or thyromegaly. Vascular: Normal carotid pulses. No carotid bruit or JVD. Cardiovascular: Rate and Rhythm: Normal rate and regular rhythm. Pulses: Carotid pulses are 2+ on the right side and 2+ on the left side. Radial pulses are 2+ on the right side and 2+ on the left side. Heart sounds: Normal heart sounds. Pulmonary: Effort: Pulmonary effort is normal. Breath sounds: Normal breath sounds. Musculoskeletal: Right knee: Decreased range of motion. Tenderness present. Left knee: Decreased range of motion. Tenderness present. Right lower leg: No edema. Left lower leg: No edema. Skin: General: Skin is warm and dry. Neurological: General: No focal deficit present. Mental Status: She is alert and oriented to person, place, and time. Latest Ref [facility] 01/23/2025 WBC 3.70 - 11.00 k/uL 15.07 (H) RBC 3.90 - 5.20 m/uL 4.80 Hemoglobin 11.5 - 15.5 g/dL 14.7 Hematocrit 36.0 - 46.0 % 44.1 MCV 80.0 - 100.0 fL 91.9 MCH 26.0 - 34.0 pg 30.6 MCHC 30.5 - 36.0 g/dL 33.3 RDW-CV 11.5 - 15.0 % 12.3 Platelet Count 150 - 400 k/uL 261 MPV 9.0 - 12.7 fL 11.3 Neut% % 84.1 Abs Neut (ANC) 1.45 - 7.50 k/uL 12.67 (H) Lymph% % 9.2 Abs Lymph 1.00 - 4.00 k/uL 1.39 Power% % 5.7 Abs Power <0.87 k/uL 0.86 Eosin% % 0.2 Abs Eosin <0.46 k/uL 0.03 Baso% % 0.5 Abs Baso <0.11 k/uL 0.07 Immature Gran % % 0.3 IMMATURE GRANS (ABS) <0.10 k/uL 0.05 NRBC /100 WBC 0.0 Absolute nRBC <0.01 k/uL <0.01 DTYPE Auto Protein, Total 6.3 - 8.0 g/dL 7.6 Albumin 3.9 - 4.9 g/dL 4.5 Calcium 8.5 - 10.2 mg/dL 9.5 Bilirubin, Total 0.2 - 1.3 mg/dL 0.4 Alkaline Phosphatase 34 - 123 U/L 109 AST 13 - 35 U/L 14 ALT 7 - 38 U/L 11 Glucose 74 - 99 mg/dL 108 (H) BUN 7 - 21 mg/dL 19 Creatinine 0.58 - 0.96 mg/dL 0.59 Sodium 136 - 144 mmol/L 139 Potassium 3.7 - 5.1 mmol/L 3.5 (L) Chloride 98 - 107 mmol/L 101 CO2 22 - 30 mmol/L 22 Anion Gap 8 - 15 mmol/L 16 (H) eGFR >=60 mL/min/1.73m? 94 Total Cholesterol, Nonfasting <200 mg/dL 206 (H) Triglycerides, Nonfasting <150 mg/dL 123 HDL Cholesterol, Nonfasting >39 mg/dL 63 LDL Cholesterol Calculated, Nonfasting <100 mg/dL 121 (H) Non HDL Cholesterol, Nonfasting <130 mg/dL 143 (H) VLDL Cholesterol, Nonfasting <30 mg/dL 21 Total Chol/HDL Ratio, Nonfasting <5.10 mg/dL 3.27 LDL/HDL Ratio, Nonfasting <2.54 mg/dL 1.92 Hemoglobin A1C 4.3 - 5.6 % 5.4 Estimated Average Glucose mg/dL 108 TSH 0.270 - 4.200 mIU/L 0.499 Vitamin D 25 Hydroxy 31.0 - 80.0 ng/mL 18.1 (L) 1. Primary hypertension (I10) - Blood pressure readings have improved with current medication regimen. - No changes to antihypertensive therapy at this time. 2. Chronic pain of both knees (M25.561) - Discussed potential referral to orthopedics; initially declined due to concerns about medical debt. - Educated patient on Medicare and Medicaid coverage for hospital stays and potential surgical interventions. - Placed orthopedic consult, valid for one year, for further evaluation and management. Declines medication at this time. 3. Vitamin D deficiency (E55.9) - Inconsistently taking vitamin D supplements. - Reinforced importance of daily vitamin D supplementation, may help with musculoskeletal pain. Addendum January 26, 2025. Hemoglobin A1c and TSH are normal. Vitamin D is low. WBC and neutrophils trending upward. Recommend seeing hematology. Metabolic panel is in acceptable range. Has not yet scheduled. She has concern for medical bills for her family. Endorse medication, XR, and orthopedic visit for chronic bilateral knee pain if/when willing. Medical Decision Making: Problems: Moderate: 1+ chronic illnesses with change Data: Unique test result(s) reviewed: 3+ Unique test(s) ordered: 1 Risk: Moderate: Drug management Medical Decision Making Level: 4 - Moderate Referring Provider: EMILIA MARLOW [[id number]] Allergies As of Date: 02/06/2025 Noted Allergy Reaction LISINOPRIL 11/13/2019 3 - Cough Date Reviewed: 02/06/2025 Reviewed by: Emilia Marlow APRN.CHEMICAL TANK WORKER - Fully Assessed Reason for Visit: Follow Up [171] Cmt: Blood pressure Primary Visit Diagnosis:Primary hypertension [I10] Other Visit Diagnoses:Chronic pain of both knees [M25.561, M25.562, G89.29] Vitamin D deficiency [E55.9] Neutrophilia [D72.828] Order(s):CONSULT TO ORTHOPAEDICS [9072] Order #: [id number]: 1 FUTURE COMPLETE BLOOD COUNT AND DIFFERENTIAL [SQCBCDIF] Order #: [id number] FUTURE Prescriptions as of 02/06/2025 - cholecalciferol (VITAMIN D3) 1,000 unit tab tablet Take 1 tablet by mouth once daily. - amLODIPine (NORVASC) 10 mg tablet Take 1 tablet by mouth once daily. - atenolol (TENORMIN) 100 mg tablet Take 1 tablet by mouth two times a day. - cloNIDine HCl (CATAPRES) 0.1 mg tablet Take 2 tablets by mouth two times a day. - losartan (COZAAR) 100 mg tablet Take 1 tablet by mouth once daily. - spironolactone (ALDACTONE) 25 mg tablet Take 1 tablet by mouth once daily. for blood pressure and leg swelling - potassium chloride ER (KLOR-CON) 20 mEq tablet Take 1 tablet by mouth once daily. - magnesium oxide (MAG-OX) 400 mg (241.3 mg magnesium) tablet Take 1 tablet by mouth twice daily. - calcium carbonate 600 mg-cholecalciferol 200 units (CALCIUM 600 + D,3,) 600 mg(1,500mg) -200 unit tab Take 1 tablet by mouth twice daily. calcium supplement - acetaminophen (TYLENOL) 500 mg tablet Take 500-750 mg by mouth every 8 hours. 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] 11/27/2019 Level of Service: OFFICE/OUTPATIENT ESTABLISHED MOD MDM 30 MIN [57252] Additional E/M codes: VISIT CPLX INHERENT EANDM ASSOC WITH MED * Encounter Status:Closed by EMILIA MARLOW on 02/06/25 COMP METAB 2000 PNL SERPL Collected: 12:53 PM Status: F Source: [facility] Order Comment: Specimen Type : BLOOD SPECIMEN Ordering Facility: [facility] Address: [address] [place] [address] TYPE CODE TESTS RESULT OUT OF RANGE REFERENCE UNITS LAB 2885-2(LOINC) Prot SerPl-mCnc 7.6 6.3-8.0 g/dL LAB 1751-7(LOINC) Albumin SerPl-mCnc 4.5 3.9-4.9 g/dL LAB 57420-5(LOINC) Calcium SerPl-mCnc 9.5 8.5-10.2 mg/dL LAB 1975-2(LOINC) Bilirub SerPl-mCnc 0.4 0.2-1.3 mg/dL LAB 6768-6(LOINC) ALP SerPl-cCnc 109 34-123 U/L LAB 1920-8(LOINC) AST SerPl-cCnc 14 13-35 U/L LAB 1742-6(LOINC) ALT SerPl-cCnc 11 7-38 U/L LAB 2345-7(LOINC) Glucose SerPl-mCnc 108 High 74-99 mg/dL Result Comment: The [place] [employer] Association (ADA) provides guidance for cutoff values for fasting glucose and random glucose. The ADA defines fasting as no caloric intake for at least 8 hours. Fasting plasma glucose results between 100 to 125 mg/dL indicate increased risk for diabetes (prediabetes). Fasting plasma glucose results greater than or equal to 126 mg/dL meet the criteria for diagnosis of diabetes. In the absence of unequivocal hyperglycemia, results should be confirmed by repeat testing. In a patient with classic symptoms of hyperglycemia or hyperglycemic crisis, random plasma glucose results greater than or equal to 200 mg/dL meet the criteria for diagnosis of diabetes. Reference: Standards of Medical Care in Diabetes 2016, [place] [employer]. Diabetes Care. 2016.39(Suppl 1). LAB 3094-0(LOINC) BUN SerPl-mCnc 19 7-21 mg/ dL LAB 2160-0(LOINC) Creat SerPl-mCnc 0.59 0.58-0.96 mg/dL LAB 2951-2(LOINC) Sodium SerPl-sCnc 139 136-144 mmol/L LAB 2823-3(LOINC) Potassium SerPl-sCnc 3.5 Low 3.7-5.1 mmol/L LAB 2075-0(LOINC) Chloride SerPl-sCnc 101 98-107 mmol/L LAB 2028-9(LOINC) CO2 SerPl-sCnc 22 22-30 mmo l/L LAB 97143-8(LOINC) Anion Gap SerPl-sCnc 16 High 8-15 mmol/L LAB 48692-4(LOINC) Creatinine + eGFR Pnl SerPlBld 94 >=60 mL/min/1 .73m??? Result Comment: Estimated Gl omerular Filtration Rate (eGFR) is calculated using the 202 CKD-EPI creatinine equation. This equation utilizes serum creatinine, sex, and age as parameters. The creatinine assay has traceable calibration to isotope dilution-mass spectrometry. Refer to KDIGO guidelines for clinical interpretation. In patients with unstable renal function, e.g. those with acute kidney injury, the eGFR may not accurately reflect actual GFR. Performed By: #### LIPNF, 24 323-8, 3016-3 #### [facility] CLIA [id number] [address] [place] [address] [place] LIPID PANEL, NONFASTING Collected: 10/2024 12:53 PM Status: F Source: [facility] Order Comment: Specimen Type : BLOOD SPECIMEN Ordering Facility: [facility] Address: [place] [address] TYPE CODE TESTS RESULT OUT OF RANGE REFERENCE UNITS LAB CHOLNF TOTAL CHOLESTEROL NF 206 High <200 mg/dL Result Comment: <200 mg/dL, Desirable 200-239 mg/dL, Borderline high >239 mg/dL, High LAB TRIGNF TRIGLYCERIDES, NF 123 <150 mg/dL Result Comment: <150 mg/dL, Normal 150-199 mg/dL, Borderline high 200-499 mg/dL, High >499 mg/dL, Very high LAB HDLNF HDL CHOLESTEROL, NF 63 >39 mg/dL Result Comment: 40-59 mg/dL, Acceptable >59 mg/dL, High: Negative risk factor for coronary heart disease <40 mg/dL, Low: Positive risk factor for coronary heart disease LAB LDLNF LDL CHOLESTEROL CALCULATED, NF 121 High <100 mg/dL Result Comment: <100 mg/dL, Optimal 100-129 mg/dL, Near optimal/above optimal 130-159 mg/dL, Borderline high 160-189 mg/dL, High >189 mg/dL, Very high Secondary prevention optimal LDL Cholesterol levels are recommended to be <70 mg/dL LDL cholesterol is calculated using the Spears-NIH equation. LAB NOHDLN NON HDL CHOL, NF 143 High <130 mg/dL Result Comment: <130 mg/dL, Optimal 130-159 mg/dL, Near optimal/above optimal 160-189 mg/dL, Borderline high 190-219 mg/dL, High >219 mg/dL, Very high Secondary prevention optimal non HDL Cholesterol levels are recommended to be <100 mg/dL LAB VLDLNF VLDL CHOLESTEROL, NF 21 <30 mg/dL LAB TCHDLN T CHOL/HDL RATIO NF 3.27 <5.10 mg/dL LAB LDLHDN LDL/HDL RATIO, NF 1.92 <2.54 mg/dL Result Comment: Reference: 1. National Cholesterol Education Program ATP III Guideline At-A-Glance Quick Desk Reference: National Heart, Lung, and Blood [place]. National Institutes of Health. 2001: NIH Publication No. 01-3305. 2. An International Atherosclerosis Society position paper: global recommendations for the management of dyslipidemia: executive summary, Atherosclerosis. 2014: 232(2):410-413. Performed By: #### JOSESITONF, 24 323-8, 3016-3 #### [facility] CLIA [id number] [address] [place], [place] [id number] [place] TSH SERPL-ACNC Collected: 12:53 PM Status: F Source: [facility] Order Comment: Specimen Type : BLOOD SPECIMEN Ordering Facility: [facility] Address: [address] [place] [address] TYPE CODE TESTS RESULT OUT OF RANGE REFERENCE UNITS LAB 3015-3(LOINC) TSH SerPl-aCnc 0.499 0.270-4.200 mIU/L Performed By: #### JOSESITONF, 24 323-8, 3015-3 #### [facility] CLIA [id number] [address] [place] [address] [place] 25(OH)D3 SERPL-MCNC Collected: 01/24/20 12:53 PM Status: F Source: [facility] Comment: Specimen Type : BLOOD SPECIMEN Ordering Facility: [facility] Address: [address] [place] [address] TYPE CODE TESTS RESULT OUT OF RANGE REFERENCE UNITS LAB 1988-3(LOINC) 25(OH)D3 SerPl-mCnc 18.1 Low 31.0-80.0 ng/mL Result Comment: Classificati on of 25 [place] Vitamin D status: Deficiency/Insufficiency: < or = 30 ng/ml. Sufficiency/Optimal Levels: 31-80 ng/mL Toxicity: > 100 ng/mL. Test performed by chemiluminescent immunoassay. Performed By: #### 1988-10 ## ## [facility] CLIA [id number] [address] [place], [place] [id number] [place] CBC W AUTO DIFF BLD Collected: 01/23/2025 12:53 PM S tatus: F Source: [facility] Comment: Specimen Type : BLOOD SPECIMEN Ordering Facility: [facility] Address: [address] [place] [address] TYPE CODE TESTS RESULT OUT OF RANGE REFERENCE UNITS LAB 6690-2(LOINC) WBC # Bld Auto 15.07 High 3.70-11.00 k/uL LAB 789-8([facility]) RBC # Bld Auto 4.80 3.90-5.20 m/ uL LAB 718-7([facility]) Hgb Bld-mCnc 14.7 11.5-15.5 g/dL LAB 4544-3([facility]) Hct VFr Bld Auto 44.1 36.0-46.0 % LAB 787-2([facility]) MCV RBC Auto 91.9 80.0-100.0 fL LAB 785-6([facility]) MCH RBC Qn Auto 30.6 26.0-34.0 p g LAB 786-4([facility]) MCHC RBC Auto-mCnc 33.3 30.5-36.0 g/dL LAB 72524-5([facility]) RDW RBC-Rto 12.3 11.5-15.0 % LAB 777-3([facility]) Platelet # Bld Auto 261 150-400 k/uL LAB 25079-7([facility]) PMV Bld Auto 11.3 9.0-12.7 fL LAB 770-8([facility]) Neutrophils/leuk NFr Bld Auto 84.1 % LAB 751-8([facility]) Neutrophils # Bld Auto 12.67 High 1.45-7.50 k/uL LAB 736-9([facility]) Lymphocytes/leuk NFr Bld Auto 9.2 % LAB 731-0([facility]) Lymphocytes # Bld Auto 1.39 1.00-4.00 k/uL LAB 5905-5([facility]) Monocytes/leuk NFr Bld Auto 5.7 % LAB 742-7([facility]) Monocytes # Bld Auto 0.86 <0.87 k/uL LAB 713-8([facility]) Eosinophil/leuk NFr Bld Auto 0.2 % LAB 711-2([facility]) Eosinophil # Bld Auto 0.03 <0.46 k/uL LAB 706-2([facility]) Basophils/leuk NFr Bld Auto 0.5 % LAB 704-7([facility]) Basophils # Bld Auto 0.07 <0.11 k/uL LAB 48280-6([facility]) Imm Granulocytes/albert k NFr Bld Auto 0.3 % LAB 88621-1(LOINC) Imm Granulocytes # Bld Auto 0.05 <0.10 k/uL LAB 14452-1(LOINC) nRBC/100 WBC Bld-Rto 0.0 /100 WBC [facility] nRBC # Bld Auto <0.01 <0.01 k/u L LAB 39281-6([facility]) Differential method Bld Auto Performed By: #### 24582-8 # ### [facility] CLIA [id number] [address] [place] [address] OF [place] DEPRECATED HGB A1C BLD Collected: 01/23 12:53 PM Status: F Source: [facility] Order Comment: Specimen Type : BLOOD SPECIMEN Ordering Facility: [facility] Address: [address] [place] [address] TYPE CODE TESTS RESULT OUT OF RANGE REFERENCE UNITS LAB 4548-4([facility]) HbA1c MFr Bld 5.4 4.3-5.6 % Result Comment: [place] [employer] guidelines indicate that patients with HgbA1c in the range 5.7-6.4% are at increased risk for development of diabetes, and intervention by lifestyle modification may be beneficial. HgbA1c greater or equal to 6.5% is considered diagnostic of diabetes. LAB 93679-3(INC) Est. average glucose Bld gHb Est-mCnc 108 mg/dL Result Comment: eAG: (Estima radha average glucose) is a calculated value from HgbA1c and is mechanical service representative of the average blood glucose level in the last 2-3 month period. Performed By: #### 36784-6 # ### [facility] CLIA [id number] [address] [place] [address] [place] PROGRESS Observed: 01/23/2025 11:54 AM Status: COMPLETED Source: [facility] HNO ID: [id number] Author: EMILIA MARLOW APRN.CHEMICAL TANK WORKER Service: ? Author Type: Nurse Specialist Type: Progress Notes Filed: 01/26/2025 16:24 Note Text: Subjective Patient ID: Marlene is a 74 year old female who presents for Yearly Exam. HPI Presents for routine visit today. On arrival indicates she has been out of medication for her blood pressure for some time. Review in [facility] shows no recent fill of any medications. Reports she had a back log of medications, has continued on atenolol and clonidine. Hypertension: - Missed last appointment; has not been seen for a while. - Out of losartan, amlodipine, and spironolactone for a couple of months. - Continues to take atenolol BID and clonidine 0.1 mg two BID. - Reports a backlog of medication supply from [facility], leading to excess atenolol and clonidine. - Reports previously took 3 clonidine tablets daily, now taking 2 tablets BID due to limited supply. - Last BP reading approximately one month ago was 150/80 mmHg at home. - Morning headaches relieved by tea; denies chest pain, dyspnea, palpitations, or leg edema. - Reports less leg edema since last seen. - Reports not taking vitamin D supplements. - Expresses anxiety about current events, but denies significant anxiety or depression. - Lives independently; has difficulty ambulating due to knee pain. - Reluctant to see an orthopedic doctor or undergo surgery due to financial concerns. - No longer drives; relies on grandson for transportation. - Interested in receiving a [employer] booster. - Declines colon cancer screening, citing previous unpleasant experience. - Reports cessation of rectal bleeding after discontinuing aspirin use. - Has a history of hemorrhoids , now resolved. Last 14 Encounter BP Readings: Date: BP: 01/23/2025 218/128 09/24/2023 153/101 03/16/2023 142/82 07/23/2022 162/96[bp average[ 01/13/2022 138/78 06/17/2021 180/90 12/13/2020 130/68 04/11/2020 150/86 04/02/2020 172/100[checked 4 times[ 04/02/2020 199/105 03/13/2020 165/92 03/12/2020 157/90 02/20/2020 168/98[taken manually right arm[ 01/31/2020 158/86 ROS Head: (+) morning headache Cardiovascular: (-) chest pain, (-) palpitations, (-) leg swelling Respiratory: (+) dyspnea on deep inspiration Gastrointestinal: (-) change in bowel habits, (-) rectal bleeding Genitourinary: (-) dysuria Musculoskeletal: (+) knee pain, (+) gait instability Neurological: (+) word-finding difficulty Psychiatric: (-) anxiety, (-) depressed mood Objective BP (!) 218/128 Pulse 96 Resp 16 Ht 162 cm (5' 3.78) Wt 90 kg (198 lb 6.6 oz) BMI 34.29 kg/m? Physical Exam Vitals and nursing note reviewed. Constitutional: Appearance: Normal appearance. HENT: Head: Normocephalic and atraumatic. Eyes: Conjunctiva/sclera: Conjunctivae normal. Neck: Thyroid: No thyroid mass or thyromegaly. Vascular: Normal carotid pulses. No carotid bruit or JVD. Cardiovascular: Rate and Rhythm: Normal rate and regular rhythm. Pulses: Carotid pulses are 2+ on the right side and 2+ on the left side. Radial pulses are 2+ on the right side and 2+ on the left side. Heart sounds: Normal heart sounds. Pulmonary: Effort: Pulmonary effort is normal. Breath sounds: Normal breath sounds. Musculoskeletal: Right lower leg: No edema. Left lower leg: No edema. Skin: General: Skin is warm and dry. Neurological: General: No focal deficit present. Mental Status: She is alert and oriented to person, place, and time. Latest Ref Rng 01/13/2022 09/24/2023 Protein, Total 6.3 - 8.0 g/dL 7.4 7.4 Albumin 3.9 - 4.9 g/dL 4.4 4.1 Calcium 8.5 - 10.2 mg/dL 10.3 (H) 9.9 Bilirubin, Total 0.2 - 1.3 mg/dL 0.7 0.3 Alkaline Phosphatase 34 - 123 U/L 105 110 AST 13 - 35 U/L 15 24 ALT 7 - 38 U/L 13 31 Glucose 74 - 99 mg/dL 118 (H) 114 (H) BUN 7 - 21 mg/dL 16 16 Creatinine 0.58 - 0.96 mg/dL 0.67 0.68 Sodium 136 - 144 mmol/L 135 (L) 137 Potassium 3.7 - 5.1 mmol/L 3.8 3.7 Chloride 97 - 105 mmol/L 96 (L) 99 CO2 22 - 30 mmol/L 26 22 Anion Gap 9 - 18 mmol/L 13 16 eGFR >=60 mL/min/1.73m? 93 92 WBC 3.70 - 11.00 k/uL 11.65 (H) 12.55 (H) RBC 3.90 - 5.20 m/uL 4.60 4.33 Hemoglobin 11.5 - 15.5 g/dL 14.3 13.6 Hematocrit 36.0 - 46.0 % 42.5 39.6 MCV 80.0 - 100.0 fL 92.4 91.5 MCH 26.0 - 34.0 pg 31.1 31.4 MCHC 30.5 - 36.0 g/dL 33.6 34.3 RDW-CV 11.5 - 15.0 % 12.1 12.2 Platelet Count 150 - 400 k/uL 265 285 MPV 9.0 - 12.7 fL 10.2 10.6 Absolute nRBC <0.01 k/uL <0.01 <0.01 Total Cholesterol, Nonfasting <200 mg/dL 230 (H) 210 (H) Triglycerides, Nonfasting <150 mg/dL 96 97 HDL Cholesterol, Nonfasting >39 mg/dL 70 65 LDL Cholesterol Calculated, Nonfasting <100 mg/dL 141 (H) 126 (H) Non HDL Cholesterol, Nonfasting <130 mg/dL 160 (H) 145 (H) VLDL Cholesterol, Nonfasting <30 mg/dL 19 19 Total Chol/HDL Ratio, Nonfasting <5.10 mg/dL 3.29 3.23 LDL/HDL Ratio, Nonfasting <2.54 mg/dL 2.01 1.94 Hemoglobin A1C 4.3 - 5.6 % 5.4 Estimated Average Glucose mg/dL 108 Magnesium 1.7 - 2.3 mg/dL 1.7 1.6 (L) Vitamin D 25 Hydroxy 31.0 - 80.0 ng/mL 28.8 (L) 13.5 (L) 1. Primary hypertension (I10) - Blood pressure recorded at 150/80 mmHg one month ago; current reading is significantly elevated. - Resumed losartan, amlodipine, and spironolactone. - Continue atenolol 50 mg BID and clonidine 0.1 mg two tablets BID. - Refills sent to [facility] in [place]. - Advised on the importance of medication adherence to prevent complications such as stroke. - Scheduled follow-up in one week to reassess blood pressure control. - Instructed to seek immediate medical attention if experiencing chest pain, shortness of breath, or neurological symptoms. 2. Malignant neoplasm of left ovary (HCC) (C56.2) - No current issues reported. - Continue regular follow-up with oncology per recommendations. 3. Obesity (BMI 30-39.9) (E66.9) - Discussed the importance of weight management in controlling hypertension. 5. Osteopenia of both hips (M85.851) - Not currently taking vitamin D supplements. - Recommended initiation of vitamin D supplementation. Consider follow up BMD 6. Encounter for immunization (Z23) - Administered COVID-19 booster. 7. Screening for colon cancer (Z12.11) - Declined further colon cancer screening. 8. Screening for depression (Z13.31) 9. Encounter for screening examination for other mental health and behavioral disorders (Z13.39) - No signs of depression or anxiety reported. 10. Vitamin D deficiency (E55.9) - Not currently taking vitamin D supplements. - Recommended initiation of vitamin D supplementation. 11. Other specified abnormal findings of blood chemistry (R79.89) - Ordered lab work to assess current status. 12. Personal history of antineoplastic chemotherapy (Z92.21) - No current issues reported. Addendum January 26, 2025. Hemoglobin A1c and TSH are normal. Vitamin D is low. WBC and neutrophils trending upward. Recommend seeing hematology. Metabolic panel is in acceptable range. Medical Decision Making: Problems: Moderate: 2+ stable chronic illnesses Data: Unique test(s) ordered: 3+ Risk: Moderate: Drug management Medical Decision Making Level: 4 - Moderate CNOV Observed: 01/23/2025 11:40 AM Status: COMPLETED Source: [facility] Office Visit (INTMWS) MARLENE VILLATORO ([id number]) 1950 F Date Time Provider Department 01/23/25 11:40 AM EMILIA MARLOW INTMWS During your visit today, we recorded the following information about you: Pulse Respiration Blood pressure Weight 96/minute 16/minute 218/128 90 kg Height 1.62 m Emilia Marlow APRN.JÚNIOR 01/26/2025 4:24 PM Addendum Subjective Patient ID: Marlene is a 74 year old female who presents for Yearly Exam. HPI Presents for routine visit today. On arrival indicates she has been out of medication for her blood pressure for some time. Review in [facility] shows no recent fill of any medications. Reports she had a back log of medications, has continued on atenolol and clonidine. Hypertension: - Missed last appointment; has not been seen for a while. - Out of losartan, amlodipine, and spironolactone for a couple of months. - Continues to take atenolol BID and clonidine 0.1 mg two BID. - Reports a backlog of medication supply from [facility], leading to excess atenolol and clonidine. - Reports previously took 3 clonidine tablets daily, now taking 2 tablets BID due to limited supply. - Last BP reading approximately one month ago was 150/80 mmHg at home. - Morning headaches relieved by tea; denies chest pain, dyspnea, palpitations, or leg edema. - Reports less leg edema since last seen. - Reports not taking vitamin D supplements. - Expresses anxiety about current events, but denies significant anxiety or depression. - Lives independently; has difficulty ambulating due to knee pain. - Reluctant to see an orthopedic doctor or undergo surgery due to financial concerns. - No longer drives; relies on grandson for transportation. - Interested in receiving a COVID booster. - Declines colon cancer screening, citing previous unpleasant experience. - Reports cessation of rectal bleeding after discontinuing aspirin use. - Has a history of hemorrhoids , now resolved. Last 14 Encounter BP Readings: Date: BP: 01/23/2025 218/128 09/24/2023 153/101 03/16/2023 142/82 07/23/2022 162/96[bp average[ 01/13/2022 138/78 06/17/2021 180/90 12/13/2020 130/68 04/11/2020 150/86 04/02/2020 172/100[checked 4 times[ 04/02/2020 199/105 03/13/2020 165/92 03/12/2020 157/90 02/20/2020 168/98[taken manually right arm[ 01/31/2020 158/86 ROS Head: (+) morning headache Cardiovascular: (-) chest pain, (-) palpitations, (-) leg swelling Respiratory: (+) dyspnea on deep inspiration Gastrointestinal: (-) change in bowel habits, (-) rectal bleeding Genitourinary: (-) dysuria Musculoskeletal: (+) knee pain, (+) gait instability Neurological: (+) word-finding difficulty Psychiatric: (-) anxiety, (-) depressed mood Objective BP (!) 218/128 Pulse 96 Resp 16 Ht 162 cm (5' 3.78) Wt 90 kg (198 lb 6.6 oz) BMI 34.29 kg/m? Physical Exam Vitals and nursing note reviewed. Constitutional: Appearance: Normal appearance. HENT: Head: Normocephalic and atraumatic. Eyes: Conjunctiva/sclera: Conjunctivae normal. Neck: Thyroid: No thyroid mass or thyromegaly. Vascular: Normal carotid pulses. No carotid bruit or JVD. Cardiovascular: Rate and Rhythm: Normal rate and regular rhythm. Pulses: Carotid pulses are 2+ on the right side and 2+ on the left side. Radial pulses are 2+ on the right side and 2+ on the left side. Heart sounds: Normal heart sounds. Pulmonary: Effort: Pulmonary effort is normal. Breath sounds: Normal breath sounds. Musculoskeletal: Right lower leg: No edema. Left lower leg: No edema. Skin: General: Skin is warm and dry. Neurological: General: No focal deficit present. Mental Status: She is alert and oriented to person, place, and time. Latest Ref Rng 01/13/2022 09/24/2023 Protein, Total 6.3 - 8.0 g/dL 7.4 7.4 Albumin 3.9 - 4.9 g/dL 4.4 4.1 Calcium 8.5 - 10.2 mg/dL 10.3 (H) 9.9 Bilirubin, Total 0.2 - 1.3 mg/dL 0.7 0.3 Alkaline Phosphatase 34 - 123 U/L 105 110 AST 13 - 35 U/L 15 24 ALT 7 - 38 U/L 13 31 Glucose 74 - 99 mg/dL 118 (H) 114 (H) BUN 7 - 21 mg/dL 16 16 Creatinine 0.58 - 0.96 mg/dL 0.67 0.68 Sodium 136 - 144 mmol/L 135 (L) 137 Potassium 3.7 - 5.1 mmol/L 3.8 3.7 Chloride 97 - 105 mmol/L 96 (L) 99 CO2 22 - 30 mmol/L 26 22 Anion Gap 9 - 18 mmol/L 13 16 eGFR >=60 mL/min/1.73m? 93 92 WBC 3.70 - 11.00 k/uL 11.65 (H) 12.55 (H) RBC 3.90 - 5.20 m/uL 4.60 4.33 Hemoglobin 11.5 - 15.5 g/dL 14.3 13.6 Hematocrit 36.0 - 46.0 % 42.5 39.6 MCV 80.0 - 100.0 fL 92.4 91.5 MCH 26.0 - 34.0 pg 31.1 31.4 MCHC 30.5 - 36.0 g/dL 33.6 34.3 RDW-CV 11.5 - 15.0 % 12.1 12.2 Platelet Count 150 - 400 k/uL 265 285 MPV 9.0 - 12.7 fL 10.2 10.6 Absolute nRBC <0.01 k/uL <0.01 <0.01 Total Cholesterol, Nonfasting <200 mg/dL 230 (H) 210 (H) Triglycerides, Nonfasting <150 mg/dL 96 97 HDL Cholesterol, Nonfasting >39 mg/dL 70 65 LDL Cholesterol Calculated, Nonfasting <100 mg/dL 141 (H) 126 (H) Non HDL Cholesterol, Nonfasting <130 mg/dL 160 (H) 145 (H) VLDL Cholesterol, Nonfasting <30 mg/dL 19 19 Total Chol/HDL Ratio, Nonfasting <5.10 mg/dL 3.29 3.23 LDL/HDL Ratio, Nonfasting <2.54 mg/dL 2.01 1.94 Hemoglobin A1C 4.3 - 5.6 % 5.4 Estimated Average Glucose mg/dL 108 Magnesium 1.7 - 2.3 mg/dL 1.7 1.6 (L) Vitamin D 25 Hydroxy 31.0 - 80.0 ng/mL 28.8 (L) 13.5 (L) 1. Primary hypertension (I10) - Blood pressure recorded at 150/80 mmHg one month ago; current reading is significantly elevated. - Resumed losartan, amlodipine, and spironolactone. - Continue atenolol 50 mg BID and clonidine 0.1 mg two tablets BID. - Refills sent to [facility] pharmacy in [place]. - Advised on the importance of medication adherence to prevent complications such as stroke. - Scheduled follow-up in one week to reassess blood pressure control. - Instructed to seek immediate medical attention if experiencing chest pain, shortness of breath, or neurological symptoms. 2. Malignant neoplasm of left ovary (HCC) (C56.2) - No current issues reported. - Continue regular follow-up with oncology per recommendations. 3. Obesity (BMI 30-39.9) (E66.9) - Discussed the importance of weight management in controlling hypertension. 5. Osteopenia of both hips (M85.851) - Not currently taking vitamin D supplements. - Recommended initiation of vitamin D supplementation. Consider follow up BMD 6. Encounter for immunization (Z23) - Administered COVID-19 booster. 7. Screening for colon cancer (Z12.11) - Declined further colon cancer screening. 8. Screening for depression (Z13.31) 9. Encounter for screening examination for other mental health and behavioral disorders (Z13.39) - No signs of depression or anxiety reported. 10. Vitamin D deficiency (E55.9) - Not currently taking vitamin D supplements. - Recommended initiation of vitamin D supplementation. 11. Other specified abnormal findings of blood chemistry (R79.89) - Ordered lab work to assess current status. 12. Personal history of antineoplastic chemotherapy (Z92.21) - No current issues reported. Addendum January 26, 2025. Hemoglobin A1c and TSH are normal. Vitamin D is low. WBC and neutrophils trending upward. Recommend seeing hematology. Metabolic panel is in acceptable range. Medical Decision Making: Problems: Moderate: 2+ stable chronic illnesses Data: Unique test(s) ordered: 3+ Risk: Moderate: Drug management Medical Decision Making Level: 4 - Moderate Emilia Marlow APRN.CHEMICAL TANK WORKER 01/23/2025 12:24 PM Signed - Restart all your blood pressure medicines and pickling operator refills today at [facility]: Losartan Amlodipine Spironolactone Continue clonidine 2 tablets twice daily Continue atenolol twice daily (morning and evening) - Lab work was drawn today; we will review the results at your next visit. - You received a COVID-19 booster vaccine today. - Consider creating a living will and naming a healthcare proxy (for example, Christopher or your [id number]-law). - Schedule a follow-up visit in about one week (Wednesday or ) to check your blood pressure; coordinate the exact day and time with your grandson. - Seek emergency care at the hospital if you develop chest pain, shortness of breath, sudden vision or speech changes, or new weakness. Emilia Marlow APRN.CNS 01/26/2025 4:24 PM Signed Addended by: EMILIA MARLOW on: 01/26/2025 04:24 PM Modules accepted: Orders Referring Provider: SELF [200] Allergies As of Date: 01/23/2025 Noted Allergy Reaction LISINOPRIL 11/13/2019 3 - Cough Date Reviewed: 01/23/2025 Reviewed by: Emilia Marlow APRN.CHEMICAL TANK WORKER - Fully Assessed Reason for Visit: Yearly Exam [187] Primary Visit Diagnosis:Primary hypertension [I10] Other Visit Diagnoses:Malignant neoplasm of left ovary (HCC) [C56.2] Personal history of antineoplastic chemotherapy [Z92.21] Obesity (BMI 30-39.9) [E66.9] White coat syndrome with diagnosis of hypertension [I10] Osteopenia of both hips [M85.851, M85.852] Encounter for immunization [Z23] Screening for colon cancer [Z12.11] Screening for depression [Z13.31] Encounter for screening examination for other mental health and behavioral disorders [Z13.39] Vitamin D deficiency [E55.9] Other specified abnormal findings of blood chemistry [R79.89] Encounter for long-term current use of medication [Z79.899] Hypomagnesemia [E83.42] Hypokalemia [E87.6] Neutrophilia [D72.828] Order(s):[employer] COVID-19 VACCINE AGE 12+ YR (COMIRNATY) [50377EOO] Order #: [id number] ADVANCE CARE PLAN DISCUSSION [] Order #: [id number]: 1 DEPRESSION SCREENING [] Order #: [id number]: 1 ANXIETY SCREENING [] Order #: [id number]: 1 [employer] PRINTED PHARMACY INSTRUCTIONS [1014340] Order #: [id number]: 1 [employer] PRINTED PHARMACY INSTRUCTIONS [2038385] Order #: [id number]: 1 [employer] PRINTED PHARMACY INSTRUCTIONS [6153892] Order #: [id number]: 1 COMPREHENSIVE METABOLIC PANEL [SQCMP] Order #: [id number] FUTURE COMPLETE BLOOD COUNT AND DIFFERENTIAL [SQCBCDIF] Order #: [id number] FUTURE HEMOGLOBIN A1C [WRHNG6D] Order #: [id number] FUTURE LIPID PANEL, FASTING [SQLIPB] Order #: [id number] FUTURE THYROID STIMULATING HORMONE [SQTSH] Order #: [id number] FUTURE VITAMIN D 25 HYDROXY [SQVITD] Order #: [id number] FUTURE cholecalciferol (VITAMIN D3) 1,000 unit tab tabletTake 1 tablet by mouth once daily.Disp: 90 tabletRfl: 3 LIPID PANEL, NONFASTING [SQLIPNF] Order #: [id number] FUTURE amLODIPine (NORVASC) 10 mg tabletTake 1 tablet by mouth once daily.Disp: 90 tabletRfl: 3 atenolol (TENORMIN) 100 mg tabletTake 1 tablet by mouth two times a day.Disp: 180 tabletRfl: 3 cloNIDine HCl (CATAPRES) 0.1 mg tabletTake 2 tablets by mouth two times a day.Disp: 360 tabletRfl: 3 losartan (COZAAR) 100 mg tabletTake 1 tablet by mouth once daily.Disp: 90 tabletRfl: 3 spironolactone (ALDACTONE) 25 mg tabletTake 1 tablet by mouth once daily. for blood pressure and leg swellingDisp: 90 tabletRfl: 3 VITAMIN D 25 HYDROXY [SQVITD] Order #: [id number] FUTURE CONSULT TO HEMATOLOGY [9073] Order #: [id number]: 1 FUTURE Prescriptions as of 01/26/2025 - cholecalciferol (VITAMIN D3) 1,000 unit tab tablet Take 1 tablet by mouth once daily. - amLODIPine (NORVASC) 10 mg tablet Take 1 tablet by mouth once daily. - atenolol (TENORMIN) 100 mg tablet Take 1 tablet by mouth two times a day. - cloNIDine HCl (CATAPRES) 0.1 mg tablet Take 2 tablets by mouth two times a day. - losartan (COZAAR) 100 mg tablet Take 1 tablet by mouth once daily. - spironolactone (ALDACTONE) 25 mg tablet Take 1 tablet by mouth once daily. for blood pressure and leg swelling - potassium chloride ER (KLOR-CON) 20 mEq tablet Take 1 tablet by mouth once daily. - magnesium oxide (MAG-OX) 400 mg (241.3 mg magnesium) tablet Take 1 tablet by mouth twice daily. - calcium carbonate 600 mg-cholecalciferol 200 units (CALCIUM 600 + D,3,) 600 mg(1,500mg) -200 unit tab Take 1 tablet by mouth twice daily. calcium supplement - acetaminophen (TYLENOL) 500 mg tablet Take 500-750 mg by mouth every 8 hours. Problem List As Of Date 01/23/2025 Noted Resolved Endometrial cancer (HCC) [C54.1] 11/09/2019 Postoperative state [Z98.890] 11/10/2019 Postoperative pain [G89.18] 11/10/2019 Hypokalemia [E87.6] 11/10/2019 Primary hypertension [I10] 11/10/2019 Obesity (BMI 30-39.9) [E66.9] 11/10/2019 Former smoker [Z87.891] 11/10/2019 Malignant neoplasm of left ovary (HCC) [C56.2] 11/27/2019 Other instructions from your clinician: - Restart all your blood pressure medicines and pickling operator refills today at [facility] in [place]: Losartan Amlodipine Spironolactone Continue clonidine 2 tablets twice daily Continue atenolol twice daily (morning and evening) - Lab work was drawn today; we will review the results at your next visit. - You received a COVID-19 booster vaccine today. - Consider creating a living will and naming a healthcare proxy (for example, Christopher or your [id number]-law). - Schedule a follow-up visit in about one week (Wednesday or ) to check your blood pressure; coordinate the exact day and time with your grandson. - Seek emergency care at the hospital if you develop chest pain, shortness of breath, sudden vision or speech changes, or new weakness. Prescriptions ordered this encounter Disp Refills Start End AMLODIPINE 10 MG TABLET 90 e* 3 01/23/2025 01/23/2025 Route: PO Sig: Take 1 tablet by mouth once daily. ATENOLOL 100 MG TABLET 180 * 3 01/23/2025 01/23/2025 Route: PO Sig: Take 1 tablet by mouth two times a day. CHOLECALCIFEROL (VITAMIN D3) 25 MCG * 90 t* 3 01/23/2025 Route: PO Sig: Take 1 tablet by mouth once daily. LOSARTAN 100 MG TABLET 90 t* 3 01/23/2025 01/23/2025 Route: PO Sig: Take 1 tablet by mouth once daily. CLONIDINE HCL 0.1 MG TABLET 360 * 3 01/23/2025 01/23/2025 Route: PO Sig: Take 2 tablets by mouth two times a day. SPIRONOLACTONE 25 MG TABLET 90 t* 3 01/23/2025 01/23/2025 Route: PO Sig: Take 1 tablet by mouth once daily. for blood pressure and leg swelling AMLODIPINE 10 MG TABLET 90 t* 3 01/23/2025 Route: PO Sig: Take 1 tablet by mouth once daily. ATENOLOL 100 MG TABLET 180 * 3 01/23/2025 Route: PO Sig: Take 1 tablet by mouth two times a day. CLONIDINE HCL 0.1 MG TABLET 360 * 3 01/23/2025 Route: PO Sig: Take 2 tablets by mouth two times a day. LOSARTAN 100 MG TABLET 90 t* 3 01/23/2025 Route: PO Sig: Take 1 tablet by mouth once daily. SPIRONOLACTONE 25 MG TABLET 90 t* 3 01/23/2025 Route: PO Sig: Take 1 tablet by mouth once daily. for blood pressure and leg swelling Medications Discontinued During This Encounter Prescriptions - cholecalciferol (VITAMIN D3) 1,000 unit tab tablet (Discontinued) Take 1 tablet by mouth once daily. - losartan (COZAAR) 100 mg tablet (Discontinued) Take 1 tablet by mouth once daily. - amLODIPine (NORVASC) 10 mg tablet (Discontinued) Take 1 tablet by mouth once daily. - cloNIDine HCl (CATAPRES) 0.1 mg tablet (Discontinued) Take 2 tablets by mouth two times a day. - atenolol (TENORMIN) 100 mg tablet (Discontinued) Take 1 tablet by mouth two times a day. - spironolactone (ALDACTONE) 25 mg tablet (Discontinued) Take 1 tablet by mouth once daily. for blood pressure and leg swelling - amLODIPine (NORVASC) 10 mg tablet (Discontinued) Take 1 tablet by mouth once daily. - atenolol (TENORMIN) 100 mg tablet (Discontinued) Take 1 tablet by mouth two times a day. - losartan (COZAAR) 100 mg tablet (Discontinued) Take 1 tablet by mouth once daily. - cloNIDine HCl (CATAPRES) 0.1 mg tablet (Discontinued) Take 2 tablets by mouth two times a day. - spironolactone (ALDACTONE) 25 mg tablet (Discontinued) Take 1 tablet by mouth once daily. for blood pressure and leg swelling Level of Service: OFFICE/OUTPATIENT ESTABLISHED MOD MDM 30 MIN [81074] Additional E/M codes: VISIT CPLX INHERENT EANDM ASSOC WITH MED * Follow-up and Disposition History for Encounter Date Provider Department Center 01/23/2025 [id number] MARLOW [facility] Encounter Status:Closed by EMILIA MARLOW on 01/23/25 PROGRESS Observed: 01/17/2025 10:49 AM Status: COMPLETED Source: [facility] HNO ID: [id number] Author: SALINA CONNOR MA Service: ? Author Type: Hot Worker Type: Progress Notes Filed: 01/17/2025 10:50 Note Text: OPENED IN ERROR PROGRESS Observed: 01/17/2025 9:56 AM Status: COMPLETED Source: [facility] HNO ID: [id number] Author: SALINA CONNOR MA Service: ? Author Type: Hot Worker Type: Progress Notes Filed: 01/17/2025 10:02 Note Text: POPULATION HEALTH NAVIGATION OUTREACH Action/FYI Unable to LVM NO MYCHART LETTER MAILED Topic Due (Y or N) Comments Medicare Wellness y PCP Follow up Colorectal Cancer Screening y Controlling Blood Pressure y A1C HCC y Flu Vaccine Care Everywhere Reviewed MyChart Activation Updated Appointment Note Reason for Outreach Care Gap/HCC or Scheduling Wellness Visits Care Gaps due: Medicare Annual Wellness Visit Controlling Blood Pressure Colorectal Cancer Screening Patient Contacted: Unable or unnecessary to reach patient: Unable to leave message Letter mailed HCC related Navigation Signature: Salina Connor MA January 17, 2025 9:56 AM CNPTOUTREACH Observed: 01/17/2025 12:00 AM Status: COMPLETED Source: [facility] Patient Outreach (NETNAV) MARLENE VILLATORO ([id number]) 1950 F Date Time Provider Department 01/17/25 SALINA CONNOR During your visit today, we recorded the following information about you: Salina Connor MA 01/17/2025 10:02 AM Signed POPULATION HEALTH NAVIGATION OUTREACH Action/FYI Unable to LVM NO MYCHART LETTER MAILED Topic Due (Y or N) Comments Medicare Wellness y PCP Follow up Colorectal Cancer Screening y Controlling Blood Pressure y A1C HCC y Flu Vaccine Care Everywhere Reviewed MyChart Activation Updated Appointment Note Reason for Outreach Care Gap/HCC or Scheduling Wellness Visits Care Gaps due: Medicare Annual Wellness Visit Controlling Blood Pressure Colorectal Cancer Screening Patient Contacted: Unable or unnecessary to reach patient: Unable to leave message Letter mailed HCC related Navigation Signature: Salina Connor MA January 17, 2025 9:56 AM Allergies As of Date: 01/17/2025 Noted Allergy Reaction LISINOPRIL 11/13/2019 3 - Cough Date Reviewed: 09/24/2023 Reviewed by: Emilia Marlow APRN.CHEMICAL TANK WORKER - Fully Assessed Reason for Visit: Population Health Navigation Outreach [3910] Cmt: KEELEY BARAJAS PCSA Prescriptions as of 01/17/2025 - losartan (COZAAR) 100 mg tablet Take 1 tablet by mouth once daily. - amLODIPine (NORVASC) 10 mg tablet Take 1 tablet by mouth once daily. - cloNIDine HCl (CATAPRES) 0.1 mg tablet Take 2 tablets by mouth two times a day. - atenolol (TENORMIN) 100 mg tablet Take 1 tablet by mouth two times a day. - spironolactone (ALDACTONE) 25 mg tablet Take 1 tablet by mouth once daily. for blood pressure and leg swelling - potassium chloride ER (KLOR-CON) 20 mEq tablet Take 1 tablet by mouth once daily. - magnesium oxide (MAG-OX) 400 mg (241.3 mg magnesium) tablet Take 1 tablet by mouth twice daily. - calcium carbonate 600 mg-cholecalciferol 200 units (CALCIUM 600 + D,3,) 600 mg(1,500mg) -200 unit tab Take 1 tablet by mouth twice daily. calcium supplement - cholecalciferol (VITAMIN D3) 1,000 unit tab tablet Take 1 tablet by mouth once daily. - acetaminophen (TYLENOL) 500 mg tablet Take 500-750 mg by mouth every 8 hours. Problem List As Of Date 01/17/2025 Noted Resolved Endometrial cancer (HCC) [C54.1] 11/09/2019 Postoperative state [Z98.890] 11/10/2019 Postoperative pain [G89.18] 11/10/2019 Hypokalemia [E87.6] 11/10/2019 Primary hypertension [I10] 11/10/2019 Obesity (BMI 30-39.9) [E66.9] 11/10/2019 Former smoker [Z87.891] 11/10/2019 Malignant neoplasm of left ovary (HCC) [C56.2] 11/27/2019 Letter Text Encounter Status:Closed by SALINA CONNOR on 01/17/25 PROGRESS Observed: 01/08/2025 10:50 AM Status: COMPLETED Source: [facility] HNO ID: [id number] Author: FRANSISCA DOMINIQUE MA Service: ? Author Type: Hot Worker Type: Progress Notes Filed: 01/10/2025 13:39 Note Text: POPULATION HEALTH NAVIGATION OUTREACH Action/FYI Letter received and sent to be mailed Fransisca Dominique MA Navigation Signature: Fransisca Dominique MA January 10, 2025 1:39 PM POPULATION HEALTH NAVIGATION OUTREACH Action/FYi Unable to LVM NO MYCHART letter mailed Topic Due (Y or N) Comments Medicare Wellness Y PCP Follow up Colorectal Cancer Screening Controlling Blood Pressure Y A1C HCC Y Flu Vaccine Care Everywhere Reviewed MyChart Activation Updated Appointment Note A Reason for Outreach Care Gap/HCC or Scheduling Wellness Visits Care Gaps due: Medicare Annual Wellness Visit Controlling Blood Pressure Colorectal Cancer Screening Patient Contacted: Unable or unnecessary to reach patient: Unable to leave message Letter mailed HCC related Navigation Signature: Salina Connor MA January 08, 2025 10:50 AM CNPTOUTREACH Observed: 01/08/2025 12:00 AM Status: COMPLETED Source: [facility] Patient Outreach (NETNAV) MARLENE VILLATORO ([id number]) 1950 F Date Time Provider Department 01/08/25 SALINA CONNOR During your visit today, we recorded the following information about you: Salina Connor MA 01/08/2025 10:59 AM Addendum POPULATION HEALTH NAVIGATION OUTREACH Action/FYI Letter received and sent to be mailed Fransisca Dominique MA Navigation Signature: Fransisca Dominique MA January 10, 2025 1:39 PM POPULATION HEALTH NAVIGATION OUTREACH Action/FYi Unable to LVM NO MYCHART letter mailed Topic Due (Y or N) Comments Medicare Wellness Y PCP Follow up Colorectal Cancer Screening Controlling Blood Pressure Y A1C HCC Y Flu Vaccine Care Everywhere Reviewed MyChart Activation Updated Appointment Note A Reason for Outreach Care Gap/HCC or Scheduling Wellness Visits Care Gaps due: Medicare Annual Wellness Visit Controlling Blood Pressure Colorectal Cancer Screening Patient Contacted: Unable or unnecessary to reach patient: Unable to leave message Letter mailed HCC related Navigation Signature: Salina Connor MA January 08, 2025 10:50 AM Allergies As of Date: 01/08/2025 Noted Allergy Reaction LISINOPRIL 11/13/2019 3 - Cough Date Reviewed: 09/24/2023 Reviewed by: Emilia Marlow APRN.CHEMICAL TANK WORKER - Fully Assessed Reason for Visit: Population Health Navigation Outreach [3910] Cmt: KEELEY VALENZUELAA Prescriptions as of 01/10/2025 - losartan (COZAAR) 100 mg tablet Take 1 tablet by mouth once daily. - amLODIPine (NORVASC) 10 mg tablet Take 1 tablet by mouth once daily. - cloNIDine HCl (CATAPRES) 0.1 mg tablet Take 2 tablets by mouth two times a day. - atenolol (TENORMIN) 100 mg tablet Take 1 tablet by mouth two times a day. - spironolactone (ALDACTONE) 25 mg tablet Take 1 tablet by mouth once daily. for blood pressure and leg swelling - potassium chloride ER (KLOR-CON) 20 mEq tablet Take 1 tablet by mouth once daily. - magnesium oxide (MAG-OX) 400 mg (241.3 mg magnesium) tablet Take 1 tablet by mouth twice daily. - calcium carbonate 600 mg-cholecalciferol 200 units (CALCIUM 600 + D,3,) 600 mg(1,500mg) -200 unit tab Take 1 tablet by mouth twice daily. calcium supplement - cholecalciferol (VITAMIN D3) 1,000 unit tab tablet Take 1 tablet by mouth once daily. - acetaminophen (TYLENOL) 500 mg tablet Take 500-750 mg by mouth every 8 hours. Problem List As Of Date 01/08/2025 Noted Resolved Endometrial cancer (HCC) [C54.1] 11/09/2019 Postoperative state [Z98.890] 11/10/2019 Postoperative pain [G89.18] 11/10/2019 Hypokalemia [E87.6] 11/10/2019 Primary hypertension [I10] 11/10/2019 Obesity (BMI 30-39.9) [E66.9] 11/10/2019 Former smoker [Z87.891] 11/10/2019 Malignant neoplasm of left ovary (HCC) [C56.2] 11/27/2019 Letter Text Encounter Status:Closed by SALINA CONNOR on 01/08/25 CNPTOUTREACH Observed: 01/04/2025 12:00 AM Status: COMPLETED Source: [facility] Patient Outreach (PEDSWS) MARLENE VILLATORO ([id number]) 1950 F Date Time Provider Department 01/04/25 COLLETTE PEREZ PEDSWS During your visit today, we recorded the following information about you: Allergies As of Date: 01/04/2025 Noted Allergy Reaction LISINOPRIL 11/13/2019 3 - Cough Date Reviewed: 09/24/2023 Reviewed by: Emilia Marlow APRN.CHEMICAL TANK WORKER - Fully Assessed Prescriptions as of 02/05/2025 - cholecalciferol (VITAMIN D3) 1,000 unit tab tablet Take 1 tablet by mouth once daily. - amLODIPine (NORVASC) 10 mg tablet Take 1 tablet by mouth once daily. - atenolol (TENORMIN) 100 mg tablet Take 1 tablet by mouth two times a day. - cloNIDine HCl (CATAPRES) 0.1 mg tablet Take 2 tablets by mouth two times a day. - losartan (COZAAR) 100 mg tablet Take 1 tablet by mouth once daily. - spironolactone (ALDACTONE) 25 mg tablet Take 1 tablet by mouth once daily. for blood pressure and leg swelling - potassium chloride ER (KLOR-CON) 20 mEq tablet Take 1 tablet by mouth once daily. - magnesium oxide (MAG-OX) 400 mg (241.3 mg magnesium) tablet Take 1 tablet by mouth twice daily. - calcium carbonate 600 mg-cholecalciferol 200 units (CALCIUM 600 + D,3,) 600 mg(1,500mg) -200 unit tab Take 1 tablet by mouth twice daily. calcium supplement - acetaminophen (TYLENOL) 500 mg tablet Take 500-750 mg by mouth every 8 hours. Problem List As Of Date 01/04/2025 Noted Resolved Endometrial cancer (HCC) [C54.1] 11/09/2019 Postoperative state [Z98.890] 11/10/2019 Postoperative pain [G89.18] 11/10/2019 Hypokalemia [E87.6] 11/10/2019 Primary hypertension [I10] 11/10/2019 Obesity (BMI 30-39.9) [E66.9] 11/10/2019 Former smoker [Z87.891] 11/10/2019 Malignant neoplasm of left ovary (HCC) [C56.2] 11/27/2019 Encounter Status:Closed by AGATA SANCHEZUSER on 02/05/25 PROGRESS Observed: 12/26/2024 9:54 AM Status: COMPLETED Source: [facility] ID: [id number] Author: CHANTELLE ARNDT MA Service: ? Author Type: Hot Worker Type: Progress Notes Filed: 12/26/2024 09:54 Note Text: POPULATION HEALTH NAVIGATION OUTREACH Action/FYI Letter received and sent to be mailed Chantelle Arndt MA Navigation Signature: Chantelle Arndt MA December 26, 2024 9:54 AM PROGRESS Observed: 12/07/2024 2:34 PM Status: COMPLETED Source: [facility] HNO ID: [id number] Author: SALINA CONNOR MA Service: ? Author Type: Hot Worker Type: Progress Notes Filed: 12/07/2024 15:53 Note Text: POPULATION HEALTH NAVIGATION OUTREACH Action/FYI Someone pickling operator the phone and hung up. No MyChart [id number] mailed Topic Due (Y or N) Comments Medicare Wellness Y PCP Follow up Colorectal Cancer Screening Y Controlling Blood Pressure Y A1C HCC Y Flu Vaccine Care Everywhere Reviewed MyChart Activation Updated Appointment Note Reason for Outreach Care Gap/HCC or Scheduling Wellness Visits Care Gaps due: Medicare Annual Wellness Visit Controlling Blood Pressure Colorectal Cancer Screening Patient Contacted: Unable or unnecessary to reach patient: Unable to leave message Letter mailed HCC related Navigation Signature: Salina Connor MA December 07, 2024 2:35 PM CNPTOUTREACH Observed: 12/07/2024 12:00 AM Status: COMPLETED Source: [facility] Patient Outreach (NETNAV) MARLENE VILLATORO ([id number]) 1950 F Date Time Provider Department 12/07/24 SALINA CONNOR During your visit today, we recorded the following information about you: Salina Connor MA 12/07/2024 3:53 PM Signed POPULATION HEALTH NAVIGATION OUTREACH Action/FYI Someone pickling operator the phone and hung up. No MyChart [id number] mailed Topic Due (Y or N) Comments Medicare Wellness Y PCP Follow up Colorectal Cancer Screening Y Controlling Blood Pressure Y A1C HCC Y Flu Vaccine Care Everywhere Reviewed MyChart Activation Updated Appointment Note Reason for Outreach Care Gap/HCC or Scheduling Wellness Visits Care Gaps due: Medicare Annual Wellness Visit Controlling Blood Pressure Colorectal Cancer Screening Patient Contacted: Unable or unnecessary to reach patient: Unable to leave message Letter mailed HCC related Navigation Signature: Salina Connor MA December 07, 2024 2:35 PM Chantelle Arndt MA 12/26/2024 9:54 AM Signed POPULATION HEALTH NAVIGATION OUTREACH Action/FYI Letter received and sent to be mailed Chantelle Arndt MA Navigation Signature: Chantelle Arndt MA December 26, 2024 9:54 AM Allergies As of Date: 12/07/2024 Noted Allergy Reaction LISINOPRIL 11/13/2019 3 - Cough Date Reviewed: 09/24/2023 Reviewed by: Emilia Marlow APRN.CHEMICAL TANK WORKER - Fully Assessed Reason for Visit: Population Health Navigation Outreach [3910] Cmt: ACO WORKBENCH BARAJAS PCSA Prescriptions as of 12/26/2024 - losartan (COZAAR) 100 mg tablet Take 1 tablet by mouth once daily. - amLODIPine (NORVASC) 10 mg tablet Take 1 tablet by mouth once daily. - cloNIDine HCl (CATAPRES) 0.1 mg tablet Take 2 tablets by mouth two times a day. - atenolol (TENORMIN) 100 mg tablet Take 1 tablet by mouth two times a day. - spironolactone (ALDACTONE) 25 mg tablet Take 1 tablet by mouth once daily. for blood pressure and leg swelling - potassium chloride ER (KLOR-CON) 20 mEq tablet Take 1 tablet by mouth once daily. - magnesium oxide (MAG-OX) 400 mg (241.3 mg magnesium) tablet Take 1 tablet by mouth twice daily. - calcium carbonate 600 mg-cholecalciferol 200 units (CALCIUM 600 + D,3,) 600 mg(1,500mg) -200 unit tab Take 1 tablet by mouth twice daily. calcium supplement - cholecalciferol (VITAMIN D3) 1,000 unit tab tablet Take 1 tablet by mouth once daily. - acetaminophen (TYLENOL) 500 mg tablet Take 500-750 mg by mouth every 8 hours. Problem List As Of Date 12/07/2024 Noted Resolved Endometrial cancer (HCC) [C54.1] 11/09/2019 Postoperative state [Z98.890] 11/10/2019 Postoperative pain [G89.18] 11/10/2019 Hypokalemia [E87.6] 11/10/2019 Primary hypertension [I10] 11/10/2019 Obesity (BMI 30-39.9) [E66.9] 11/10/2019 Former smoker [Z87.891] 11/10/2019 Malignant neoplasm of left ovary (HCC) [C56.2] 11/27/2019 Letter Text Encounter Status:Closed by SALINA CONNOR on 12/07/24 PROGRESS Observed: 11/09/2024 8:40 AM Status: COMPLETED Source: [facility] HNO ID: [id number] Author: HUMERA BOONE MA Service: ? Author Type: Hot Worker Type: Progress Notes Filed: 11/09/2024 08:42 Note Text: POPULATION HEALTH NAVIGATION OUTREACH Action/FYI Letter not sent due to one was already sent for HM in 2024. Navigation Signature: Humera Boone MA November 09, 2024 8:40 AM PROGRESS Observed: 11/02/2024 3:37 PM Status: COMPLETED Source: [facility] HNO ID: [id number] Author: SALINA CONNOR MA Service: ? Author Type: Hot Worker Type: Progress Notes Filed: 11/02/2024 15:46 Note Text: POPULATION HEALTH NAVIGATION OUTREACH Action/FYI UNABLE TO LVM,MAILBOX ISN'T SET UP NO MYCHART LETTER MAIL Topic Due (Y or N) Comments Medicare Wellness Y PCP Follow up Colorectal Cancer Screening Y Controlling Blood Pressure Y A1C HCC Y Flu Vaccine Y Care Everywhere Reviewed MyChart Activation Updated Appointment Note Reason for Outreach Care Gap/HCC or Scheduling Wellness Visits Care Gaps due: Medicare Annual Wellness Visit Controlling Blood Pressure Colorectal Cancer Screening Flu Vaccine Patient Contacted: Unable or unnecessary to reach patient: Unable to leave message Letter mailed Navigation Signature: Salina Connor MA November 02, 2024 3:37 PM CNPTOUTREACH Observed: 11/02/2024 12:00 AM Status: COMPLETED Source: [facility] Patient Outreach (NETNAV) SHAUNAMARLENE Peña ([id number]) 1950 F Date Time Provider Department 11/02/24 SALINA CONNOR During your visit today, we recorded the following information about you: Salina Connor MA 11/02/2024 3:46 PM Signed POPULATION HEALTH NAVIGATION OUTREACH Action/FYI UNABLE TO LVM,MAILBOX ISN'T SET UP NO MYCHART LETTER MAIL Topic Due (Y or N) Comments Medicare Wellness Y PCP Follow up Colorectal Cancer Screening Y Controlling Blood Pressure Y A1C HCC Y Flu Vaccine Y Care Everywhere Reviewed MyChart Activation Updated Appointment Note Reason for Outreach Care Gap/HCC or Scheduling Wellness Visits Care Gaps due: Medicare Annual Wellness Visit Controlling Blood Pressure Colorectal Cancer Screening Flu Vaccine Patient Contacted: Unable or unnecessary to reach patient: Unable to leave message Letter mailed Navigation Signature: Salina Connor MA November 02, 2024 3:37 PM Humera Boone MA 11/09/2024 8:42 AM Addendum POPULATION HEALTH NAVIGATION OUTREACH Action/FYI Letter not sent due to one was already sent for in 2024. Navigation Signature: Humera Boone MA November 09, 2024 8:40 AM Allergies As of Date: 11/02/2024 Noted Allergy Reaction LISINOPRIL 11/13/2019 3 - Cough Date Reviewed: 09/24/2023 Reviewed by: Emilia Marlow APRN.CHEMICAL TANK WORKER - Fully Assessed Reason for Visit: Population Health Navigation Outreach [3910] Cmt: ACO WORKBENC KARL PCSA Prescriptions as of 11/09/2024 - losartan (COZAAR) 100 mg tablet Take 1 tablet by mouth once daily. - amLODIPine (NORVASC) 10 mg tablet Take 1 tablet by mouth once daily. - cloNIDine HCl (CATAPRES) 0.1 mg tablet Take 2 tablets by mouth two times a day. - atenolol (TENORMIN) 100 mg tablet Take 1 tablet by mouth two times a day. - spironolactone (ALDACTONE) 25 mg tablet Take 1 tablet by mouth once daily. for blood pressure and leg swelling - potassium chloride ER (KLOR-CON) 20 mEq tablet Take 1 tablet by mouth once daily. - magnesium oxide (MAG-OX) 400 mg (241.3 mg magnesium) tablet Take 1 tablet by mouth twice daily. - calcium carbonate 600 mg-cholecalciferol 200 units (CALCIUM 600 + D,3,) 600 mg(1,500mg) -200 unit tab Take 1 tablet by mouth twice daily. calcium supplement - cholecalciferol (VITAMIN D3) 1,000 unit tab tablet Take 1 tablet by mouth once daily. - acetaminophen (TYLENOL) 500 mg tablet Take 500-750 mg by mouth every 8 hours. Problem List As Of Date 11/02/2024 Noted Resolved Endometrial cancer (HCC) [C54.1] 11/09/2019 Postoperative state [Z98.890] 11/10/2019 Postoperative pain [G89.18] 11/10/2019 Hypokalemia [E87.6] 11/10/2019 Primary hypertension [I10] 11/10/2019 Obesity (BMI 30-39.9) [E66.9] 11/10/2019 Former smoker [Z87.891] 11/10/2019 Malignant neoplasm of left ovary (HCC) [C56.2] 11/27/2019 Letter Text Encounter Status:Closed by SALINA CONNOR on 11/02/24 PROGRESS Observed: 09/29/2024 9:34 AM Status: COMPLETED Source: [facility] HNO ID: [id number] Author: HUMERA BOONE MA Service: ? Author Type: Hot Worker Type: Progress Notes Filed: 09/29/2024 09:35 Note Text: POPULATION HEALTH NAVIGATION OUTREACH Action/FYI Letter received and sent to be mailed. Navigation Signature: Humera Boone MA September 29, 2024 9:34 AM PROGRESS Observed: 09/26/2024 7:50 AM Status: COMPLETED Source: [facility] HNO ID: [id number] Author: SALINA CONNOR MA Service: ? Author Type: Hot Worker Type: Progress Notes Filed: 09/26/2024 09:11 Note Text: POPULATION HEALTH NAVIGATION OUTREACH Action/FYI UNABLE TO LVM. MAILBOX ISN'T SETUP. NO MYCHART LETTER MAILED Topic Due (Y or N) Comments Medicare Wellness Y PCP Follow up Mammogram Colorectal Cancer Screening Y A1C Dilated Retinal Exam (EVY) KED (UACR and eGFR) HCC Y Flu Vaccine Y Care Everywhere Reviewed MyChart Activation Updated Appointment Note BP CONTROL Y Reason for Outreach Care Gap/HCC or Scheduling Wellness Visits Care Gaps due: Medicare Annual Wellness Visit Controlling Blood Pressure Colorectal Cancer Screening Flu Vaccine Patient Contacted: Unable or unnecessary to reach patient: Unable to leave message Letter mailed HCC related Navigation Signature: Salina Connor MA September 26, 2024 7:50 AM CNPTOUTREACH Observed: 09/26/2024 12:00 AM Status: COMPLETED Source: [facility] Patient Outreach (NETNAV) MARLENE VILLATORO ([id number]) 1950 F Date Time Provider Department 09/26/24 SALINA CONNOR NETHANNAV During your visit today, we recorded the following information about you: Salina Connor MA 09/26/2024 9:11 AM Signed POPULATION HEALTH NAVIGATION OUTREACH Action/FYI UNABLE TO LVM. MAILBOX ISN'T SETUP. NO MYCHART LETTER MAILED Topic Due (Y or N) Comments Medicare Wellness Y PCP Follow up Mammogram Colorectal Cancer Screening Y A1C Dilated Retinal Exam (EVY) KED (UACR and eGFR) HCC Y Flu Vaccine Y Care Everywhere Reviewed MyChart Activation Updated Appointment Note BP CONTROL Y Reason for Outreach Care Gap/HCC or Scheduling Wellness Visits Care Gaps due: Medicare Annual Wellness Visit Controlling Blood Pressure Colorectal Cancer Screening Flu Vaccine Patient Contacted: Unable or unnecessary to reach patient: Unable to leave message Letter mailed HCC related Navigation Signature: Salina Connor MA September 26, 2024 7:50 AM Humera Boone MA 09/29/2024 9:35 AM Signed POPULATION HEALTH NAVIGATION OUTREACH Action/FYI Letter received and sent to be mailed. Navigation Signature: Humera Boone MA September 29, 2024 9:34 AM Allergies As of Date: 09/26/2024 Noted Allergy Reaction LISINOPRIL 11/13/2019 3 - Cough Date Reviewed: 09/24/2023 Reviewed by: Emilia Marlow APRN.CHEMICAL TANK WORKER - Fully Assessed Reason for Visit: Population Health Navigation Outreach [3910] Cmt: KEELEY BARAJAS PCSA Prescriptions as of 09/29/2024 - losartan (COZAAR) 100 mg tablet Take 1 tablet by mouth once daily. - amLODIPine (NORVASC) 10 mg tablet Take 1 tablet by mouth once daily. - cloNIDine HCl (CATAPRES) 0.1 mg tablet Take 2 tablets by mouth two times a day. - atenolol (TENORMIN) 100 mg tablet Take 1 tablet by mouth two times a day. - spironolactone (ALDACTONE) 25 mg tablet Take 1 tablet by mouth once daily. for blood pressure and leg swelling - potassium chloride ER (KLOR-CON) 20 mEq tablet Take 1 tablet by mouth once daily. - magnesium oxide (MAG-OX) 400 mg (241.3 mg magnesium) tablet Take 1 tablet by mouth twice daily. - calcium carbonate 600 mg-cholecalciferol 200 units (CALCIUM 600 + D,3,) 600 mg(1,500mg) -200 unit tab Take 1 tablet by mouth twice daily. calcium supplement - cholecalciferol (VITAMIN D3) 1,000 unit tab tablet Take 1 tablet by mouth once daily. - acetaminophen (TYLENOL) 500 mg tablet Take 500-750 mg by mouth every 8 hours. Problem List As Of Date 09/26/2024 Noted Resolved Endometrial cancer (HCC) [C54.1] 11/09/2019 Postoperative state [Z98.890] 11/10/2019 Postoperative pain [G89.18] 11/10/2019 Hypokalemia [E87.6] 11/10/2019 Primary hypertension [I10] 11/10/2019 Obesity (BMI 30-39.9) [E66.9] 11/10/2019 Former smoker [Z87.891] 11/10/2019 Malignant neoplasm of left ovary (HCC) [C56.2] 11/27/2019 Encounter Status:Closed by SALINA CONNOR on 09/26/24 PROGRESS Observed: 07/25/2024 2:40 PM Status: COMPLETED Source: [facility] HNO ID: [id number] Author: WIL FIGUEROA MA Service: ? Author Type: Hot Worker Type: Progress Notes Filed: 07/25/2024 14:46 Note Text: POPULATION HEALTH NAVIGATION OUTREACH Action/FYI Called patient but was unable to leave message. Letter Printed. Reason for Outreach Care Gap/HCC or Scheduling Wellness Visits Care Gaps due: Medicare Annual Wellness Visit Controlling Blood Pressure Flu Vaccine Patient Contacted: Unable or unnecessary to reach patient: Unable to leave message Letter mailed Navigation Signature: Wil Figueroa MA July 25, 2024 2:40 PM CNPTOUTREACH Observed: 07/25/2024 12:00 AM Status: COMPLETED Source: [facility] Patient Outreach (NETNAV) MARLENE VILLATORO ([id number]) 1950 F Date Time Provider Department 07/25/24 WIL FIGUEROA During your visit today, we recorded the following information about you: Wil Figueroa MA 07/25/2024 2:46 PM Signed POPULATION HEALTH NAVIGATION OUTREACH Action/FYI Called patient but was unable to leave message. Letter Printed. Reason for Outreach Care Gap/HCC or Scheduling Wellness Visits Care Gaps due: Medicare Annual Wellness Visit Controlling Blood Pressure Flu Vaccine Patient Contacted: Unable or unnecessary to reach patient: Unable to leave message Letter mailed Navigation Signature: Wil Figueroa MA July 25, 2024 2:40 PM Allergies As of Date: 07/25/2024 Noted Allergy Reaction LISINOPRIL 11/13/2019 3 - Cough Date Reviewed: 09/24/2023 Reviewed by: Emilia Marlow APRN.CHEMICAL TANK WORKER - Fully Assessed Reason for Visit: Population Health Navigation Outreach [3910] Cmt: ACO QAE Surge list 2023 Prescriptions as of 07/25/2024 - losartan (COZAAR) 100 mg tablet Take 1 tablet by mouth once daily. - amLODIPine (NORVASC) 10 mg tablet Take 1 tablet by mouth once daily. - cloNIDine HCl (CATAPRES) 0.1 mg tablet Take 2 tablets by mouth two times a day. - atenolol (TENORMIN) 100 mg tablet Take 1 tablet by mouth two times a day. - spironolactone (ALDACTONE) 25 mg tablet Take 1 tablet by mouth once daily. for blood pressure and leg swelling - potassium chloride ER (KLOR-CON) 20 mEq tablet Take 1 tablet by mouth once daily. - magnesium oxide (MAG-OX) 400 mg (241.3 mg magnesium) tablet Take 1 tablet by mouth twice daily. - calcium carbonate 600 mg-cholecalciferol 200 units (CALCIUM 600 + D,3,) 600 mg(1,500mg) -200 unit tab Take 1 tablet by mouth twice daily. calcium supplement - cholecalciferol (VITAMIN D3) 1,000 unit tab tablet Take 1 tablet by mouth once daily. - acetaminophen (TYLENOL) 500 mg tablet Take 500-750 mg by mouth every 8 hours. Problem List As Of Date 07/25/2024 Noted Resolved Endometrial cancer (HCC) [C54.1] 11/09/2019 Postoperative state [Z98.890] 11/10/2019 Postoperative pain [G89.18] 11/10/2019 Hypokalemia [E87.6] 11/10/2019 Primary hypertension [I10] 11/10/2019 Obesity (BMI 30-39.9) [E66.9] 11/10/2019 Former smoker [Z87.891] 11/10/2019 Malignant neoplasm of left ovary (HCC) [C56.2] 11/27/2019 Encounter Status:Closed by WIL FIGUEROA on 07/25/24 CNCO Observed: 07/25/2024 12:00 AM Status: COMPLETED Source: [facility] Letter Text ALLERGIES DATE TYPE / CODE NAME / CODE REACTION SEVERITY SOURCE 11/13/2019 DRUG INGREDI/[id number](SN OMED CT) LISINOPRIL COUGH [facility] ENCOUNTERS ADMIT/DISCHARGE ACCOUNT NUMBER ADMITTING ENCOUNTER CLASS LOC ATION SOURCE 02/06/2025/ [id number] [facility] HospitalBuild ing:DHRUV [facility] 01/23/2025/ [id number] [facility] HospitalBuild ing:WILLAM [facility] 01/23/2025/ [id number] [facility] HospitalBuild ing:DHRUV [facility] PAYERS ENCOUNTER GUARANTOR PAYER SUBSCRIBER SOURCE 02/06/2025 Primary Insurance:MEDICARE A AND BPolicy Number: [id number] Date:[id number] Name:Annette MCHUGHROBERT: [id number] [place] [address] [facility] 01/23/2025 Primary Insurance:MEDICARE A AND BPolicy Number: [id number] Date:[id number] Name:Annette VASQUEZ EVELYN: [id number] [place] [address] [facility] 01/23/2025 Primary Insurance:MEDICARE A AND BPolicy Number: [id number] Date:[id number] Name:Annette VASQUEZ EVELYN: [id number] [address] [place] [address] [facility]
[2025-05-20] VITALS (15 sets, daily range): BP systolic 162–191; BP diastolic 92–119; PULSE 56–94; RESP 14–18; TEMP 36–36.7; O2SAT 96–100; BMI 32.3
--- NOTE | 2025-05-20 13:26 | CT_ITS ---
PROCEDURE: ABDOMEN/PELVIS WITHOUT CONT 05/20/2025 REASON FOR EXAM: HEMATURIA Abrupt hematuria today. No pain. History of stent in kidney. TECHNIQUE: Procedure Code: CTABDPEL Modality: CT Procedure: ABDOMEN/PELVIS WITHOUT CONT Noncontrast technique limits evaluation of the abdominal and pelvic viscera. Coronal and Sagittal reconstruction series were provided. One or more dose reduction techniques were used (e.g., Automated exposure control, adjustment of the mA and/or kV according to patient size, use of iterative reconstruction technique). RADIATION DOSE SUMMARY: CTDlvol: 13.9 mGy DLP: 712 mGycm FINDINGS: Lung bases: There is no atelectasis, consolidation, effusion or pneumonic infiltrate. Liver: There are several low-attenuation masses in the liver. The largest measures 13 mm. The 13 mm mass is larger when compared to the prior exam. Previously it appears to have measured a proximally 2 mm. Gallbladder: There are no stones identified. Spleen: A few splenic granulomas are seen. Pancreas: Diffuse fatty infiltration of the pancreas is noted. Adrenals: The right adrenal gland demonstrates normal contour and attenuation. The left adrenal gland is prominent along the most superior aspect and this may correlate to a small adenoma. Kidneys: The right kidney demonstrates normal size, contour and attenuation. There are no stones, masses or hydronephrosis. There is a left ureteral stent noted. There is a 2.3 cm increased attenuation identified in the midpole of the left kidney extending into the ureteral pelvic junction. There is a large hydroureter at this location and hydronephrosis. There is very subtle stranding of the perinephric fat surrounding the left kidney. Bladder: There is a Griffin catheter within the urinary bladder. A right ureteral stent tip is in the urinary bladder. There is a 3 cm increased attenuation identified in the urinary bladder. Reproductive Organs: There is a 12 mm low-attenuation mass in the right adnexal region. This may represent an ovarian cyst or bowel loop. Targeted ultrasound may be of value for further evaluation. Bowel: Small bowel and colonic loops are unremarkable. There is no evidence of ileus or bowel obstruction. A moderate amount of stool and gas is present throughout a nondistended colon. Lymph nodes: With a lack of IV contrast lymph node evaluation is suboptimal. No obvious lymphadenopathy is seen based upon CT criteria. Vasculature: Extensive arteriosclerotic vascular disease of the aorta is noted. No aortic aneurysms are noted. There is no ascites. Bones: Mild spondylosis of the thoracic and lumbar spine is noted. There is a proximally 3 mm of anterolisthesis of L4 in relationship to L5. The vertebral body heights are unremarkable. There is no spondylolysis. Degenerative disc disease is seen involving several of the lower thoracic and lumbar spine discs. CT/Abdomen/Pelvis without Cont IMPRESSION: There are several liver lesions seen. These have. Represent probable cysts ho wever targeted ultrasound is recommended of the liver for further evaluation. 1 of the masses is larger in size. There is prominence of the left adrenal gland along the superior margin. This may represent a small adenoma. Increased attenuation in the left kidney and urinary bladder may represent a st one or stent. Ultrasound is recommended for further evaluation. Reading Location: [id number]
--- NOTE | 2025-05-20 13:29 | ED.VIS.FEGU ---
HPI HPI - Female History of Present Illness Chief Complaint: Complaint Narrative Narrative: Chief complaint and HPI: 74-year-old female with past medical history of ovarian and endometrial cancer status post resection and total hysterectomy presents for evaluation of gross hematuria. Onset this morning. Associated symptom is abdominal fullness. She denies any fever, chills, shortness of breath, chest pain, abdominal pain, nausea, vomiting, diarrhea, dysuria, back pain. Patient states that she has a history of a left ureteral stent placement by a urologist in which she never had it removed. Review of systems: See HPI Medications: As listed on the chart Allergies: As listed on the chart PFSH: Per chart Vital signs: As listed on the chart. Reviewed. Physical exam: Gen: A&O x3, NAD Head: Normocephalic, atraumatic Eyes: No sclera icterus, conjunctiva clear ENT: Moist mucous membranes CV: RRR, no murmurs Resp: Lungs CTA BL, no w/r/c GI: Abd soft, non-distended, non-tender, no r/r/g : No CVA tenderness Musc: Full ROM, no deformity Skin: Warm, dry Neuro: Alert, oriented, grossly intact Psych: Cooperative, appropriate mood and affect [facility] Medical History (Updated 05/20/25 @ 16:[address] Santiago Ac DO) Former smoker Hypertension Home Medications ?Medication ?Instructions ?Recorded ?Last Taken ?Type acetaminophen 500 mg tablet 1,000 mg PO Q6H PRN PRN Pain 09/06/19 05/20/25 History zinc amino acid chelate 50 mg 100 mg PO DAILY cold prevention 09/06/19 09/05/19 History tablet amlodipine 10 mg tablet 10 mg PO DAILY 05/20/25 05/20/25 History aspirin 325 mg capsule 81.25 mg PO DAILY PRN pain 05/20/25 Unknown History atenolol 100 mg tablet 100 mg PO BID 05/20/25 05/20/25 History clonidine HCl 0.1 mg tablet 0.2 mg PO BID 05/20/25 05/20/25 History losartan 100 mg tablet 100 mg PO DAILY 05/20/25 05/20/25 History sodium chloride 1,000 mg soluble 1,000 mg PO DAILY 3 days #3 tabs 05/20/25 Unknown Rx tablet spironolactone 25 mg tablet 25 mg PO DAILY blood pressure 05/20/25 05/20/25 History Allergy/AdvReac Type Severity Reaction Status Date / Time No Known Allergies Allergy Verified 05/20/25 12:43 Social History Smoking Status: Former smoker EXAM Physical Exam Const Vital Signs: 05/20/25 12:46 05/20/25 14:43 05/20/25 15:00 Temperature 96.8 F L Temperature Source Temporal Pulse Rate 94 82 86 Respiratory Rate 18 14 14 Blood Pressure 178/101 H 162/105 H 165/102 H Blood Pressure Mean 126 124 123 Pulse Ox 97 98 98 Oxygen Delivery Method Room Air Room Air Room Air MDM MDM MDM Narrative Medical decision making narrative: 74-year-old female with past medical history of ovarian and endometrial cancer status post resection and total hysterectomy presents for evaluation of gross hematuria. Onset this morning. Associated symptom is abdominal fullness. On chart review, patient was seen by Dr. Linares on 09/20/2019. She had left hydronephrosis pelvic mass and vaginal bleeding. She had surgery with a left stent placement. The stent was supposed to be removed in 3 months. On presentation, patient no acute distress. She has gross hematuria. Griffin catheter in place with bladder irrigation. Basic labs ordered with CT abdomen pelvis. Differential diagnosis includes but is not limited to UTI, urolithiasis, cancer, stent migration. CBC with leukocytosis of 17.5. No anemia. Platelet count unremarkable. BMP shows mild dehydration with hyponatremia of 127. Previous labs are from 2019. No JUAN M. UA positive for blood. Negative for UTI. Patient states she has no history of hyponatremia that she knows of. She is asymptomatic from the hyponatremia. NS bolus ordered. Will place her on a couple days of salt tabs and have her repeat her sodium outpatient. Follow-up with primary care physician. She confirmed understanding. On reevaluation, urine is almost clear in the Griffin catheter. CT abdomen and pelvis pending. Patient signed out to oncoming provider who will await results and final disposition. Impression: 1. Gross hematuria 2. Mild dehydration 3. Asymptomatic hyponatremia Lab Data Labs: Laboratory Results - last 24 hr 05/20/25 13:40 WBC 17.5 H RBC 4.16 L Hgb 13.1 Hct 36.8 L MCV 88.5 MCH 31.5 MCHC 35.6 RDW Std Deviation 38.1 RDW Coeff of Fernie 11.9 Plt Count 304 MPV 10.1 Immature Gran % (Auto) 0.300 Neut % (Auto) 89.2 H Lymph % (Auto) 6.7 L [place] % (Auto) 3.3 Eos % (Auto) 0.1 Baso % (Auto) 0.4 Absolute Neuts (auto) 15.6 H Absolute Lymphs (auto) 1.17 Nucleated RBC % 0 Sodium 127 L Potassium 4.1 Chloride 94 L Carbon Dioxide 17.8 L Anion Gap 16 H BUN 17 Creatinine 0.90 Estim Creat Clear Calc 61.34 Est GFR (MDRD) Non-Af 67 BUN/Creatinine Ratio 18.8 Glucose 158 H Calcium 8.7 Urine Color Red Urine Clarity Turbid Urine pH 7.0 Ur Specific [place] 1.010 Urine Protein 500 H Urine Glucose (UA) Normal Urine Ketones Negative Urine Occult Blood 250 H Urine Nitrite Negative Urine Bilirubin Negative Urine Urobilinogen Normal Ur Leukocyte Esterase Negative Urine RBC > 100 SEEN Urine WBC 0 SEEN Ur Squamous Epith Cells 0 SEEN Urine Bacteria 0 SEEN Urine Mucus 0 SEEN Discharge Plan Triage Chief Complaint: Complaint ED Provider: Santiago Ac Dx/Rx/DC Orders Clinical Impression: Hyponatremia, Hematuria Prescriptions: New sodium chloride 1,000 mg tablet,soluble 1,000 mg PO DAILY 3 Days Qty: 3 0RF No Action acetaminophen 500 MG tablet 1,000 mg PO Q6H PRN PRN (Reason: Pain ) zinc amino acid chelate 50 MG tablet 100 mg PO DAILY clonidine HCl 0.1 mg tablet 0.2 mg PO BID atenolol 100 mg tablet 100 mg PO BID spironolactone 25 mg tablet 25 mg PO DAILY amlodipine 10 mg tablet 10 mg PO DAILY losartan 100 mg tablet 100 mg PO DAILY aspirin 325 mg capsule 81.25 mg PO DAILY PRN (Reason: pain) Other Ambulatory Orders: Basic Metabolic Profile (BMP) (Routine) Timeframe: 3 Days Facility: [facility] - Location: Laboratory Ordered By: Dr. Santiago Ac Primary Care Provider: Liv Winchester Referrals: Liv Winchester MD [Primary Care Provider, Internal Medicine] Print Language: Sami
[2025-05-20 13:51] LABS: Mucous, Urine 0 SEEN /hpf (<or=2+); Squamous Epithelial Cells - UA 0 SEEN /hpf (5-10)
[2025-05-20 13:55] LABS: Hematocrit 36.8 % (37-47); Hemoglobin 13.1 g/dL (12.0-15.0); Immature Granulocytes Count 0.060 X10^3/uL (0.0-0.0); Mean Corp Hgb Conc 35.6 g/dL (32-36); Mean Corpuscular Volume 88.5 fL (81-99); Mean Platelet Vol. 10.1 fl (6.2-12.0); NRBC Flagged by Analyzer 0 % (0-5); Platelet Count 304 K/mm3 (150-450); RBC Distribution Width CV 11.9 % (11.6-14.6); RBC Distribution Width SD 38.1 fl (35.1-43.9); Red Blood Count 4.16 M/mm3 (4.2-5.4); White Blood Count 17.5 K/mm3 (4.4-11.0)
[2025-05-20 14:00] LABS: Color, Urine Red (Yellow); Glucose, Dipstick Normal (Normal); Ketone-Dipstick Negative (Negative); Leukocyte Esterase-Dipstick Negative /ul (Negative); Nitrite-Dipstick Negative (Negative); Occult Blood-Urine 250 /ul (Negative); Protein-Dipstick 500 mg/dl (Negative); Specific Gravity, Urine 1.010 (1.002-1.030); Urine Bilirubin Dipstick Negative (Negative)
[2025-05-20 14:11] LABS: Red Blood Cells-Urine > 100 SEEN /hpf (0-5)
[2025-05-20 14:13] LABS: Anion Gap 16 (5-15); BUN 17 mg/dL (4-19); BUN/Creat Ratio 18.8 RATIO (10-20); Calcium,Total 8.7 mg/dL (7.6-11.0); Carbon Dioxide 17.8 mmol/L (21.0-32.0); Chloride 94 mmol/L (98-108); Estimated Creatinine Clearance 61.34 ml/min (50-250); Glucose 158 mg/dL (70-99); Potassium 4.1 mmol/L (3.3-5.1)
--- NOTE | 2025-05-20 16:09 | ED.RN ---
RADIOLOGY CALLED FOR DELAY IN CT RESULTS. RESPONSE THEY HAVE BEEN REALLY BEHIND, BUT I WILL CALL TO SEE
[2025-05-20] MEDS: 0.9% Normal Saline (1000mL) 1,000 ML 999 ML IV (16:56)
--- NOTE | 2025-05-20 17:10 | ED.RN ---
CT CALLED FOR DELAY IN RESULTS. RESPONSE THEY WERE HUNG UP ON A FEW. I WILL CALL AGAIN
--- NOTE | 2025-05-20 17:44 | ED.RN ---
CT CALLED AGAIN PER DOCTOR REQUEST. RESPONSE BY RADIOLOGY I HAS BEEN PICKED UP FOR AWHILE NOW. I CALLED [facility]
== END 2025-05-20 19:38 | disposition home or self-care (01) ==
PROVIDERS: Emergency Provider Surgery; PCP Internal Medicine; Visit Provider Surgery
DX: R31.0 Gross hematuria (principal); E86.0 Dehydration; E87.1 Hypo-osmolality and hyponatremia; I10 Essential (primary) hypertension; Z96.0 Presence of urogenital implants; Z79.82 Long term (current) use of aspirin; Z79.899 Other long term (current) drug therapy; Z87.891 Personal history of nicotine dependence
CPT/HCPCS: 51702; 74176; 80048; 81001; 82962; 85025; 96360; 96361; 99285; A4216

== ENCOUNTER 2025-06-15 08:54 | Day surgery (SDC) | payer MEDICARE, MEDICAID, SELFPAY ==
--- NOTE | 2025-06-07 12:30 | PAT.ANESEVAL ---
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 When Was Last Pacemaker Check QUESTION #4 FULL TEXT: You/Your Family Experience fever (hyperthermia) with Anesthesia Last Oral Intake Last Oral intake: Last Oral Intake NPO since Meds taken in AM with sips of water? Meds patient instructed to take am of surgery PONV PONV - vacuum bottle assembler: PONV - vacuum bottle assembler Female Yes 06/07/25 08:31 HX of Motion Sickness No 06/07/25 08:31 HX of N/V After Surgery No 06/07/25 08:31 Non-Smoker Yes 06/07/25 08:31 Duration of Surgery greater No 06/07/25 08:31 than 60 minutes Number of Risk Factors 2 06/07/25 08:31 PONV Score Moderate Risk 06/07/25 08:31 Height & Weight Height & Weight: Anesthesia: Height & Weight Height 5 ft 6 in 05/20/25 12:46 Respiratory Assessment Respiratory Assessment - vacuum bottle assembler: Respiratory Tract Infection Hx - vacuum bottle assembler Hx Respiratory Tract Infection No 06/07/25 08:31 STOP Sleep Apnea STOP Sleep Apnea - vacuum bottle assembler: STOP Sleep Apnea - vacuum bottle assembler Hx Hypertension Yes: ON MED, UNCONTROLLED 06/07/25 08:31 PER PT Hx Sleep Apnea No 06/07/25 08:31 CPAP No 06/07/25 08:31 BIPAP Do you snore loudly (louder No 06/07/25 08:31 than talking or can be heard Do you often feel tired/ No 06/07/25 08:31 fatigued/ sleepy during daytime? Has anyone observed you stop No 06/07/25 08:31 breathing during sleep? STOP Results Negative 06/07/25 08:31 QUESTION #5 FULL TEXT : Do you snore loudly (louder than talking or can be heard through closed doors)? 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 Specify any problems Hx of Preganancy in last 3 No 06/07/25 08:31 Months Nurse Filling Out Transfusion VCHRISTIN 06/07/25 08:31 & Questions: Date: 06/07/25 06/07/25 08:31 Time: 08:33 06/07/25 08:31 Patient unable to answer at this time (ie. confused, unrespo /Reproduction History /Reproductive History - vacuum bottle assembler: /Reproductive Hx- vacuum bottle assembler Hx Now No 06/07/25 08:31 Gestational Age (in weeks): EDC: Hx Hx Para Hx Section SAB No 06/07/25 08:31 PFSH Medical History (Updated 06/07/25 @ 08:31 by Conchita Tavares) Wears glasses Hx of hysterectomy Cancer Arthritis Kidney stone Back pain Difficulty swallowing History of IBS Gastric reflux Shortness of breath on exertion History of edema History of echocardiogram History of irregular heartbeat Former smoker Hypertension Home Medications Medication Instructions Recorded Last Taken Type acetaminophen 500 mg tablet 1,000 mg PO Q6H PRN PRN Pain 09/06/19 05/20/25 History zinc amino acid chelate 50 mg 100 mg PO DAILY cold prevention 09/06/19 09/05/19 History tablet amlodipine 10 mg tablet 10 mg PO DAILY 05/20/25 05/20/25 History atenolol 100 mg tablet 100 mg PO BID 05/20/25 05/20/25 History clonidine HCl 0.1 mg tablet 0.2 mg PO BID 05/20/25 05/20/25 History losartan 100 mg tablet 100 mg PO DAILY 05/20/25 05/20/25 History spironolactone 25 mg tablet 25 mg PO DAILY blood pressure 05/20/25 05/20/25 History Allergy/AdvReac Type Severity Reaction Status Date / Time Dressing: Non-Medicated Allergy Severe rash Verified 06/07/25 08:14 (band aid) latex Allergy Severe rash Verified 06/07/25 08:14 Surgical History (Updated 06/07/25 @ 08:31 by Conchita Tavares) Hx of vaginal surgery History of lumpectomy of both breasts History of cystoscopy Social History Smoking Status: Former smoker Audit: Pertinent Findings Pertinent Findings EKG Perinent findings: EKG 09/06/2019. Sinus tachycardia. Left ventricular hypertrophy with repolarization abnormality. Echo (EF%) pertinent findings: Echo 09/07/2019. The estimated ejection fraction is 65%. No evidence for diastolic dysfunction. Trivial mitral valve insufficiency. Mild tricuspid valve insufficiency. Pulmonary artery systolic pressure is 35 mmHg. Mild aortic stenosis. Recommendation Anesthesia Recommendation Anesthesia recommendation: OPTIMIZED for anesthesia
[2025-06-15] VITALS (9 sets, daily range): BP systolic 118–151; BP diastolic 79–125; PULSE 79–93; RESP 16–18; TEMP 36.5–36.8; O2SAT 97–100; BMI 31.9
[2025-06-15] MEDS: Lactated Ringers 1,000 ML 15 ML IV (09:36)
--- NOTE | 2025-06-15 10:46 | PCM.PRE.AN2 ---
ASA Classification* ASA Classification ASA Classification: 2 Assessment & Plan Anesthesia* Anesthesia Assessment Anesthesia Assessment: Discussed sedation and/or anesthesia options, risks, benefits, and alternatives with patient/parents/legal guardian/POA. Questions invited. The patient/parents/legal guardian/POA seems to understand and agrees to proceed with anesthesia plan. Reviewed the physical assessment, medical history, allergy history and patient home medications list prior to surgery/procedure/anesthetic and documented any changes. Performed airway and anesthesia risk assessments. Anesthesia Type Anesthesia Type: General (Patient has mild aortic stenosis. Avoid increased heart rate and decrease blood pressure. Phenylephrine is drug of choice.) History Source History Obtained from:: Patient and Chart Anesthesia Focused Assessment* Temperature: 98.2 F Pulse Rate: 79 Blood Pressure: 151/87 Respiratory Rate: 16 Pulse Ox: 98 Oxygen Delivery Method: Room Air Airway Assessment Mouth opens: >3 cm Mallampati Score: III Teeth Condition: Chipped/Broken (Multiple chipped and broken teeth.) and Missing (Multiple missing teeth. Rest are tight per the patient.) Neck Range of motion (ROM): Limited ROM (Somewhat Decreased) Labs Anesthesia Preop lab: CBC WBC, (4.4-11.0) 17.5 K/mm3 H 05/20/25, 13:40 RBC, (4.2-5.4) 4.16 M/mm3 L 05/20/25, 13:40 Hgb, (12.0-15.0) 13.1 g/dL 05/20/25, 13:40 Hct, (37-47) 36.8 % L 05/20/25, 13:40 Plt Count, (150-450) 304 K/mm3 05/20/25, 13:40 CHEMISTRY Potassium, (3.3-5.1) 4.1 mmol/L 05/20/25, 13:40 Sodium, (133-145) 127 mmol/L L 05/20/25, 13:40 BUN, (4-19) 17 mg/dL 05/20/25, 13:40 Creatinine, (0.70-1.20) 0.90 mg/dL 05/20/25, 13:40 Glucose, (70-99) 158 mg/dL H 05/20/25, 13:40 POC Glucose, (74-106) 113 mg/dL H 05/20/25, 18:32 COAG Pre-Assessment Diagnosis/Proposed Procedure Planned Operative Procedure(s): (L) L URETEROSCOPY AND STENT REMOVAL Anesthesia History 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 When Was Last Pacemaker Check QUESTION #4 FULL TEXT: You/Your Family Experience fever (hyperthermia) with Anesthesia Last Oral Intake Last Oral intake: Last Oral Intake NPO since 23:00 06/15/25 09:21 Meds taken in AM with sips of Yes 06/15/25 09:21 water? 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 Female Yes 06/07/25 08:31 HX of Motion Sickness No 06/07/25 08:31 HX of N/V After Surgery No 06/07/25 08:31 Non-Smoker Yes 06/07/25 08:31 Duration of Surgery greater No 06/07/25 08:31 than 60 minutes Number of Risk Factors 2 06/07/25 08:31 PONV Score Moderate Risk 06/07/25 08:31 Height & Weight Height & Weight: Anesthesia: Height & Weight Height 5 ft 6 in 06/15/25 09:21 Weight: 89.9 kg 06/15/25 09:21 Body Mass Index (BMI) 31.9 06/15/25 09:21 Respiratory Assessment Respiratory Assessment - metal riveting machine operator: Respiratory Tract Infection Hx - metal riveting machine operator Hx Respiratory Tract Infection No 06/07/25 08:31 STOP Sleep Apnea STOP Sleep Apnea - metal riveting machine operator: STOP Sleep Apnea - metal riveting machine operator Hx Hypertension Yes: ON MED, UNCONTROLLED 06/07/25 08:31 PER PT Hx Sleep Apnea No 06/07/25 08:31 CPAP No 06/07/25 08:31 BIPAP Do you snore loudly (louder No 06/07/25 08:31 than talking or can be heard Do you often feel tired/ No 06/07/25 08:31 fatigued/ sleepy during daytime? Has anyone observed you stop No 06/07/25 08:31 breathing during sleep? STOP Results Negative 06/07/25 08:31 QUESTION #5 FULL TEXT : Do you snore loudly (louder than talking or can be heard through closed doors)? 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 Specify any problems Hx of Preganancy in last 3 No 06/07/25 08:31 Months Nurse Filling Out Transfusion VCHRISTIN 06/07/25 08:31 & Questions: Date: 06/07/25 06/07/25 08:31 Time: 08:33 06/07/25 08:31 Patient unable to answer at this time (ie. confused, unrespo /Reproduction History /Reproductive History - metal riveting machine operator: /Reproductive Hx- metal riveting machine operator Hx Now No 06/07/25 08:31 Gestational Age (in weeks): EDC: Hx Hx Para Hx Section SAB No 06/07/25 08:31 Active Medications Active Medications: Current Medications Generic Name Dose Route Start Last Admin Trade Name Freq PRN Reason Stop Dose Admin Cefazolin Sodium 2 gm/ Sodium 110 mls @ 200 mls/hr 06/15/25 11:00 Chloride IV 06/15/25 11:32 INTRAOP ONE Lactated Ringer's 1,000 mls @ 15 mls/hr 06/15/25 09:15 06/15/25 09:36 IV 15 mls/hr .Q48H SAPNA Administration PFSH Medical History Wears glasses Hx of hysterectomy Cancer Arthritis Kidney stone Back pain Difficulty swallowing History of IBS Gastric reflux Shortness of breath on exertion History of edema History of echocardiogram History of irregular heartbeat Former smoker Hypertension Home Medications Medication Instructions Recorded Last Taken Type acetaminophen 500 mg tablet 1,000 mg PO Q6H PRN PRN Pain 09/06/19 05/20/25 History zinc amino acid chelate 50 mg 100 mg PO DAILY cold prevention 09/06/19 09/05/19 History tablet amlodipine 10 mg tablet 10 mg PO DAILY 05/20/25 06/15/25 06:30 History atenolol 100 mg tablet 100 mg PO BID 05/20/25 06/15/25 06:30 History clonidine HCl 0.1 mg tablet 0.2 mg PO BID 05/20/25 06/15/25 06:30 History losartan 100 mg tablet 100 mg PO DAILY 05/20/25 06/15/25 06:30 History spironolactone 25 mg tablet 25 mg PO DAILY blood pressure 05/20/25 05/20/25 History ciprofloxacin HCl 500 mg tablet 500 mg PO BID #10 tabs 06/15/25 Unknown Rx (Cipro) Allergy/AdvReac Type Severity Reaction Status Date / Time Dressing: Non-Medicated Allergy Severe rash Verified 06/15/25 09:17 (band aid) latex Allergy Severe rash Verified 06/15/25 09:17 Surgical History Hx of vaginal surgery History of lumpectomy of both breasts History of cystoscopy Social History Smoking Status: Former smoker Review of Systems (Anesthesia) ROS Narrative System reviewed and no additional complaints, except as documented.
--- NOTE | 2025-06-15 10:59 | DCINST_ITS ---
Discharge Instructions DC O2, CPAP, BIPAP needs Home O2 Discharge instructions: No Dressing / Incision Discharge Activity: Return to Normal Activity and May Not Drive (while taking narcotic pain medications.) Dressing / Incision Call your doctor if you observe: Fever of 101 or Higher Follow Up Care Please Follow Up With: Mekhi Joseph MD When: Call [phone] for an appointment Test Results: Test results from this visit will be discussed in further detail at your follow- up appointment, if applicable. Discharge Plan Admission Primary Reason for Your Visit: laser bladder stones Attending Provider: Mekhi Joseph Primary Care Provider: Liv Winchester Instructions Print Language: Belarusian Discharge Orders/Prescriptions Prescriptions: New ciprofloxacin HCl [Cipro] 500 mg tablet 500 mg PO BID Qty: 10 0RF Continued acetaminophen 500 MG tablet 1,000 mg PO Q6H PRN PRN (Reason: Pain ) zinc amino acid chelate 50 MG tablet 100 mg PO DAILY clonidine HCl 0.1 mg tablet 0.2 mg PO BID atenolol 100 mg tablet 100 mg PO BID spironolactone 25 mg tablet 25 mg PO DAILY amlodipine 10 mg tablet 10 mg PO DAILY losartan 100 mg tablet 100 mg PO DAILY Referrals / Follow Up: Mekhi Joseph MD [Med Staff - Active Staff, Urology] Liv Winchester MD [Primary Care Provider, Internal Medicine] Disposition Disposition (needs filled in before D/C Order can be placed): Home, Self Care
[2025-06-15] MEDS: Cefazolin 1 GM/5 ML Vial 2 GM IV (11:00)
--- NOTE | 2025-06-15 11:00 | MISC_PTH ---
PATIENT: PEDRO VILLATORO LOC: [facility] – [place] U#:[id number] AGE/SX: 75/F ROOM: RE06/15/[address]: Dr. Mekhi Joseph MD : 1950 BED: DIS: 06/15/2025 SPEC #: [id number] RECD: 06/15/25 14:05 STATUS: MANASA TOLENTINO #: [id number] HECTOR: 06/15/25 11:[address]: Mekhi Joseph DEPT: SURGICAL PATHOLOGY RECD BY: Ish Varma ENTERED: 06/15/25 15:29 [place] [facility] [place]: Dr. Liv Winchester MD Tissues: A - FOREIGN BODY Procedures: Surgery Specimen Level IV HEADER OPERATION: Stent removal, cysto lithopaxy, left ureteroscopy PRE-OP DIAGNOSIS: Calculus bladder, calculus of left kidney TISSUE SUBMITTED: A- Stent pieces MICROSCOPIC DIAGNOSIS A. Stent, cystoscopy lithopaxy, left ureteroscopy: - Fragments of benign urothelium. - Abundant fragmented calcific material consistent with uroloithasis. MICROSCOPIC DESCRIPTION Slides are reviewed. GROSS DESCRIPTION A. Received in formalin labeled with the patient's name and date of . Designated as " stent pieces" are 3 black synthetic fragments of hardware (consistent with stent) 4.4 cm to 10.4 cm in length by 0.2 cm in diameter. 2 of the fragments have firm, calcified adherent tissue. Additionally, there are tissue fragments free-floating within the container. Traffic Division Commanding Officer sections of the tissue are submitted in 1 cassette. PR 06/15/2025PT:[id number]
[2025-06-15] MEDS: Lidocaine 1% (5 ml sdv) 5 ML Vial IV (11:09)
[2025-06-15] MEDS: fentaNYL 100 MCG/2 ML Ampul IV (11:54)
--- NOTE | 2025-06-15 12:20 | PCM.OPRPT ---
Operative Report (Standard) Operative Information Date of Procedure: 06/15/25 Pre-Operative Diagnosis: Bladder stone, retained stent and retained broken stent fragments Post-Operative Diagnosis: Same Surgery/Procedure Performed: Cystoscopy litholapaxy and removal of large bladder stone 5 cm, right ureteroscopy removal of retained broken stent fragments and right stent placement right retrograde pyelogram oil heaterman: No Type of Anesthesia: General RN Documented Start/Stop Times: Operation Date: 06/15/25 11:00 Case Time Into Pre-Op 06/15/25 09:07 Out of Pre-Op 06/15/25 10:55 Anesthesia Start 06/15/25 11:00 Into Room 06/15/25 11:00 Procedure Start 06/15/25 11:13 Procedure End 06/15/25 12:19 Procedure Start Time: 11:13 Procedure Stop Time: 12:22 Select all DRAINS/GRAFTS/IMPLANTS that apply: Drains Drain details: 6 German by 26 cm stent Estimated Blood Loss: None Specimen collected: Yes Description of specimen(s) removed: Retained stents Description of surgery: Indication this is a 75-year-old female who several years ago I saw her as an emergency consultation for obstruction of her 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 she was instructed to follow-up in my office to have the stent removed at a future date or stent changed she had an appointment but she canceled her appointment and continued with her cancer care she then presents several years later to me in the office and her cancer is stable after treatment but CAT scan reveals that she has a large stone around the stent in the bladder and broken stent fragments in the ureter and a large stone around the stent up in the kidney in the renal pelvis so my plan is to approach this problem with 2 separate surgeries today plan to take her to surgery and use the ultrasonic lithotripter to remove the stone from her bladder and remove the fragment from her bladder and then we can attempt to remove the stone fragments in the ureter. Patient is taken back to the operating room after induction of anesthesia she was placed in dorsolithotomy position the urethrovaginal area prepped and draped in usual fashion went into the bladder with a offset cystoscope and used the Photo Rankr wand lithotripter with ultrasound lithotripter and there was a large 5 cm stone that was encased around the stent to quite some time to treat the stone completely but the stone was treated broken up small fragments and all suctioned out and then eventually the stent was free the stone was encrusted all the way around the stent completely after removing his large stone around the stent and the stent was removed from the bladder I then put a wire up on the right side we looked under fluoroscopy and under with a retrograde we could see that there was 2 broken stent fragments in the mid ureter and there was a large stone in the renal pelvis with also also a broken stent fragment attached to the stone in the renal pelvis at this point I was just can remove the broken stent fragments from the mid ureter I went up the ureter with a flexible ureteroscope and was able to identify the 2 pieces they look like they were straight and hard so I thought I should be able to to remove the stents there was a little bit narrow area right proximal to where the stents were we used a engage basket but the basket kept on coming off the stents so then we switched over to the helical basket to place a helical basket was able to get the basket around the end of the stent pull it tight and then very gently remove the encrusted stent from the mid ureter removed removed 2 fragments from the mid ureter and then I went up with the ureteroscope and checked there was no perforation or damage to the ureter but for safety sake I decided to place a stent to make sure the ureter heal properly after removing these encrusted stones so to put a stent up in that right kidney and put a new stent the stent coil in the kidney bladder good position she still has the old stone up in her kidney and a large stone in the renal pelvis encrusted around the prior stent shot to come back for a separate procedure to do a percutaneous removal of the stone fragment and stent patient understood this first part of the procedure with success patient anesthetic is being reversed and taken back to PACU in stable condition we will get her set up for the second part of procedure next week or two Surgical Findings: Successfully removed the stone from her bladder and remove the stent in her bladder and then successfully removed 2 broken stent fragments in the ureter new stent placed Complications Complications: No Admit VTE Documentation VTE Present on Admission: No VTE Mechan Device Prophylaxis: SCD's VTE Pharm Prophylaxis ordered?: No
--- NOTE | 2025-06-15 12:34 | PCM.POST.ANE ---
Anesthesia: Postop Eval I Current Vital Signs Temperature: 97.7 F Pulse Rate: 93 Blood Pressure: 132/107 Respiratory Rate: 18 Pulse Ox: 98 Assessment Airway patent: Yes Spontaneous unlabored respirations: Yes nausea: No Vomiting: No Anesthesia Complication: No Fluid Hydration Crystalloid volume administer (ml): 1,500 Total IV fluid infused: 1,500 Progress Note Anesthesia document: Postop Eval 1 completed: Yes
--- NOTE | 2025-06-15 13:52 | POSTOPAN2_ITS ---
Anesthesia Postop Eval I Sum Postop Eval Completion status Anesthesia document: Postop Eval 1 completed: Yes Anesthesia Postop Eval I Summary Anesthesia Postop Eval I Summary: Anesthesia Postop Eval I: Assessment Summary Airway patent Yes 06/15/25 12:34 NEON [email or web address] Spontaneous unlabored Yes 06/15/25 12:34 NEON [email or web address] respirations Mental status nausea No 06/15/25 12:34 NEON [email or web address] Vomiting No 06/15/25 12:34 NEON [email or web address] Anesthesia Postop Eval I: Fluid Summary Crystalloid volume administer 1,500 06/15/25 12:34 NEON [email or web address] (ml) Colloids volume administered ( ml) Blood Product volume administered (ml) Total IV fluid infused 1,500 06/15/25 12:34 NEON [email or web address] Anesthesia Postop Eval I: Summary Notes Anesthesia Complication No 06/15/25 12:34 NEON [email or web address] Anesthesia Complication Comment: Post-operative progress note Anesthesia: Postop Eval II Evaluation Mental status: Awake Pain Level: 2 nausea: No Vomiting: No
--- NOTE | 2025-06-15 13:52 | PCM.POSTANE2 ---
Anesthesia Postop Eval I Sum Postop Eval Completion status Anesthesia document: Postop Eval 1 completed: Yes Anesthesia Postop Eval I Summary Anesthesia Postop Eval I Summary: Anesthesia Postop Eval I: Assessment Summary Airway patent Yes 06/15/25 12:34 CARD TAPE CONVERTER [email or web address] Spontaneous unlabored Yes 06/15/25 12:34 CARD TAPE CONVERTER [email or web address].[email or web address] respirations Mental status nausea No 06/15/25 12:34 CARD TAPE CONVERTER [email or web address].[email or web address] Vomiting No 06/15/25 12:34 CARD TAPE CONVERTER [email or web address].[email or web address] Anesthesia Postop Eval I: Fluid Summary Crystalloid volume administer 1,500 06/15/25 12:34 CARD TAPE CONVERTER [email or web address].[email or web address] (ml) Colloids volume administered ( ml) Blood Product volume administered (ml) Total IV fluid infused 1,500 06/15/25 12:34 CARD TAPE CONVERTER [email or web address].[email or web address] Anesthesia Postop Eval I: Summary Notes Anesthesia Complication No 06/15/25 12:34 CARD TAPE CONVERTER [email or web address].[email or web address] Anesthesia Complication Comment: Post-operative progress note Anesthesia: Postop Eval II Evaluation Mental status: Awake Pain Level: 2 nausea: No Vomiting: No
== END 2025-06-15 13:54 | disposition home or self-care (01) ==
LOC: SDC 08:57 → AC 08:59
PROVIDERS: PCP Internal Medicine; Referring Provider Urology; Visit Provider Urology
PROC: 0TJ98ZZ Inspection of Ureter, Via Natural or Artificial Opening Endoscopic (ICD-10-PCS; CPT 52352; principal; 2025-06-15 10:45)
DX: N21.0 Calculus in bladder (principal); N20.0 Calculus of kidney; I10 Essential (primary) hypertension; T83.112A Breakdown (mechanical) of indwelling ureteral stent, initial encounter
CPT/HCPCS: 52318; 52332; 00910; 76000; 88300; 88305; C1769; C2617; J2405

== ENCOUNTER 2025-07-04 12:23 | Observation (INO) | payer MEDICARE, MEDICAID, SELFPAY ==
--- NOTE | 2025-06-26 10:55 | EKG12_ITS ---
Test Reason : PREOP Blood Pressure : */* mmHG Vent. Rate : 74 BPM Atrial Rate : 74 BPM P-R Int : 180 ms QRS Dur : 74 ms QT Int : 400 ms P-R-T Axes : 29 -17 10 degrees QTcB Int : 444 ms Normal sinus rhythm Moderate voltage criteria for LVH, may be normal variant Borderline ECG Confirmed by Ehsan Grover ([id number]), newspaper editor RUFINO PENG ([id number]) on 06/27/2025 7:16:49 AM Referred By: Mekhi Joseph Confirmed By: Ehsan Grover
--- NOTE | 2025-06-27 10:14 | PAT.ANESEVAL ---
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 When Was Last Pacemaker Check QUESTION #4 FULL TEXT: You/Your Family Experience fever (hyperthermia) with Anesthesia Last Oral Intake Last Oral intake: Last Oral Intake NPO since Meds taken in AM with sips of water? Meds patient instructed to take am of surgery PONV PONV - vice president of compliance: PONV - vice president of compliance Female Yes 06/22/25 08:42 HX of Motion Sickness Yes 06/22/25 08:42 HX of N/V After Surgery Yes 06/22/25 08:42 Non-Smoker Yes 06/22/25 08:42 Duration of Surgery greater No 06/22/25 08:42 than 60 minutes Number of Risk Factors 4 06/22/25 08:42 PONV Score Severe Risk 06/22/25 08:42 Height & Weight Height & Weight: Anesthesia: Height & Weight Height 5 ft 6 in 06/15/25 09:21 Respiratory Assessment Respiratory Assessment - vice president of compliance: Respiratory Tract Infection Hx - vice president of compliance Hx Respiratory Tract Infection No 06/22/25 08:42 STOP Sleep Apnea STOP Sleep Apnea - vice president of compliance: STOP Sleep Apnea - vice president of compliance Hx Hypertension Yes: ON MED, UNCONTROLLED 06/22/25 08:42 PER PT Hx Sleep Apnea No 06/22/25 08:42 CPAP No 06/22/25 08:42 BIPAP Do you snore loudly (louder No 06/22/25 08:42 than talking or can be heard Do you often feel tired/ No 06/22/25 08:42 fatigued/ sleepy during daytime? Has anyone observed you stop No 06/22/25 08:42 breathing during sleep? STOP Results Negative 06/22/25 08:42 QUESTION #5 FULL TEXT : Do you snore loudly (louder than talking or can be heard through closed doors)? 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 Specify any problems Hx of Preganancy in last 3 N/A 06/22/25 08:42 Months Nurse Filling Out Transfusion NBUCHER 06/22/25 08:42 & Questions: Date: 06/22/25 06/22/25 08:42 Time: 08:43 06/22/25 08:42 Patient unable to answer at this time (ie. confused, unrespo /Reproduction History /Reproductive History - vice president of compliance: /Reproductive Hx- vice president of compliance Hx Now No 06/22/25 08:42 Gestational Age (in weeks): EDC: Hx Hx Para Hx Section SAB No 06/22/25 08:42 PFSH Medical History Wears glasses Hx of hysterectomy Cancer Arthritis Kidney stone Back pain Difficulty swallowing History of IBS Gastric reflux Shortness of breath on exertion History of edema History of echocardiogram History of irregular heartbeat Former smoker Hypertension Home Medications ?Medication ?Instructions ?Recorded ?Last Taken ?Type acetaminophen 500 mg tablet 1,000 mg PO Q6H PRN PRN Pain 09/06/19 05/20/25 History zinc amino acid chelate 50 mg 100 mg PO DAILY cold prevention 09/06/19 09/05/19 History tablet amlodipine 10 mg tablet 10 mg PO DAILY 05/20/25 06/15/25 06:30 History atenolol 100 mg tablet 100 mg PO BID 05/20/25 06/15/25 06:30 History clonidine HCl 0.1 mg tablet 0.2 mg PO BID 05/20/25 06/15/25 06:30 History losartan 100 mg tablet 100 mg PO DAILY 05/20/25 06/15/25 06:30 History spironolactone 25 mg tablet 25 mg PO DAILY blood pressure 05/20/25 05/20/25 History Allergy/AdvReac Type Severity Reaction Status Date / Time Dressing: Non-Medicated Allergy Severe rash Verified 06/15/25 09:17 (band aid) latex Allergy Severe rash Verified 06/15/25 09:17 Environmental Allergies: AdvReac Severe Hives Verified 06/22/25 08:40 Uncoded (metals) Surgical History (Updated 06/22/25 @ 08:46 by Ayse Hayes) History of ureteroscopy Hx of vaginal surgery History of lumpectomy of both breasts History of cystoscopy Social History Smoking Status: Former smoker Audit: Pertinent Findings Pertinent Findings EKG Perinent findings: 08/2019: Sinus bradycardia , LVH with repolarization Echo (EF%) pertinent findings: 08/2019: The estimated ejection fraction is 65%. No evidence for diastolic dysfunction. Trivial mitral valve insufficiency. Mild tricuspid valve insufficiency. Pulmonary artery systolic pressure is 35 mmHg. Mild aortic stenosis. Recommendation Anesthesia Recommendation Anesthesia recommendation: OPTIMIZED for anesthesia (Patient recently had anesthesia, uncomplicated. )
--- NOTE | 2025-06-27 10:48 | PAT.ANESEVAL ---
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 When Was Last Pacemaker Check QUESTION #4 FULL TEXT: You/Your Family Experience fever (hyperthermia) with Anesthesia Last Oral Intake Last Oral intake: Last Oral Intake NPO since Meds taken in AM with sips of water? Meds patient instructed to take am of surgery PONV PONV - blending machine feeder: PONV - blending machine feeder Female Yes 06/22/25 08:42 HX of Motion Sickness Yes 06/22/25 08:42 HX of N/V After Surgery Yes 06/22/25 08:42 Non-Smoker Yes 06/22/25 08:42 Duration of Surgery greater No 06/22/25 08:42 than 60 minutes Number of Risk Factors 4 06/22/25 08:42 PONV Score Severe Risk 06/22/25 08:42 Height & Weight Height & Weight: Anesthesia: Height & Weight Height 5 ft 6 in 06/15/25 09:21 Respiratory Assessment Respiratory Assessment - blending machine feeder: Respiratory Tract Infection Hx - blending machine feeder Hx Respiratory Tract Infection No 06/22/25 08:42 STOP Sleep Apnea STOP Sleep Apnea - blending machine feeder: STOP Sleep Apnea - blending machine feeder Hx Hypertension Yes: ON MED, UNCONTROLLED 06/22/25 08:42 PER PT Hx Sleep Apnea No 06/22/25 08:42 CPAP No 06/22/25 08:42 BIPAP Do you snore loudly (louder No 06/22/25 08:42 than talking or can be heard Do you often feel tired/ No 06/22/25 08:42 fatigued/ sleepy during daytime? Has anyone observed you stop No 06/22/25 08:42 breathing during sleep? STOP Results Negative 06/22/25 08:42 QUESTION #5 FULL TEXT : Do you snore loudly (louder than talking or can be heard through closed doors)? 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 Specify any problems Hx of Preganancy in last 3 N/A 06/22/25 08:42 Months Nurse Filling Out Transfusion [facility]BU[facility] 06/22/25 08:42 & Questions: Date: 06/22/25 06/22/25 08:42 Time: 08:43 06/22/25 08:42 Patient unable to answer at this time (ie. confused, unrespo /Reproduction History /Reproductive History - blending machine feeder: /Reproductive Hx- blending machine feeder Hx Now No 06/22/25 08:42 Gestational Age (in weeks): EDC: Hx Hx Para Hx Section SAB No 06/22/25 08:42 PFSH Medical History Wears glasses Hx of hysterectomy Cancer Arthritis Kidney stone Back pain Difficulty swallowing History of IBS Gastric reflux Shortness of breath on exertion History of edema History of echocardiogram History of irregular heartbeat Former smoker Hypertension Home Medications ?Medication ?Instructions ?Recorded ?Last Taken ?Type acetaminophen 500 mg tablet 1,000 mg PO Q6H PRN PRN Pain 09/06/19 05/20/25 History zinc amino acid chelate 50 mg 100 mg PO DAILY cold prevention 09/06/19 09/05/19 History tablet amlodipine 10 mg tablet 10 mg PO DAILY 05/20/25 06/15/25 06:30 History atenolol 100 mg tablet 100 mg PO BID 05/20/25 06/15/25 06:30 History clonidine HCl 0.1 mg tablet 0.2 mg PO BID 05/20/25 06/15/25 06:30 History losartan 100 mg tablet 100 mg PO DAILY 05/20/25 06/15/25 06:30 History spironolactone 25 mg tablet 25 mg PO DAILY blood pressure 05/20/25 05/20/25 History Allergy/AdvReac Type Severity Reaction Status Date / Time Dressing: Non-Medicated Allergy Severe rash Verified 06/15/25 09:17 (band aid) latex Allergy Severe rash Verified 06/15/25 09:17 Environmental Allergies: AdvReac Severe Hives Verified 06/22/25 08:40 Uncoded (metals) Surgical History (Updated 06/22/25 @ 08:46 by Ayse Hayes) History of ureteroscopy Hx of vaginal surgery History of lumpectomy of both breasts History of cystoscopy Social History Smoking Status: Former smoker Audit: Pertinent Findings HISTORY of Pertinent Findings History of Pertinent Findings: EKG Pertinent Findings EKG Perinent findings 08/2019: Sinus bradycardia , 06/27/25 10:17 LVH with repolarization Echo Pertinent Findings Echo (EF%) pertinent findings 08/2019: The estimated 06/27/25 10:17 ejection fraction is 65%. No evidence for diastolic dysfunction. Trivial mitral valve insufficiency. Mild tricuspid valve insufficiency. Pulmonary artery systolic pressure is 35 mmHg. Mild aortic stenosis. Recommendation Anesthesia Recommendation Anesthesia recommendation: OPTIMIZED for anesthesia (Can get CBC and BMP on DOS. Most likely labs will be corrected. ) Follow up Details CBC Recommendation: Yes CBC Rec Details: On DOS BMP Recommendation: Yes BMP Rec Details: On DOS
[2025-07-04] VITALS (15 sets, daily range): BP systolic 128–150; BP diastolic 76–99; PULSE 64–79; RESP 16–18; TEMP 36.4–36.9; O2SAT 94–100; BMI 31.6
--- OUTSIDE RECORDS SUMMARY | 2025-07-04 06:53 | XMS RPT_ITS | CCD ---
Author Organization [facility] CliniSysd Care Team Providers Care Soaping Machine Back Tender Name Role Phone Collette Perez MD Primary Care Provider Sheryl CARMONA, Unavailable Unavailable Karohl FUSING MACHINE TENDER.Humera BLOOD Unavailable Manuel Kurtz Unavailable Francis RN, Alyson Unavailable Unavailable Collette Perez MD Primary Care Provider Sheryl CARMONA, Unavailable Unavailable Karohl FUSING MACHINE TENDER.Humera BLOOD Unavailable Manuel Kurtz MD Unavailable Francis RN, Alyson Unavailable Unavailable Marlow FUSING MACHINE TENDER.CAPTURE MANAGER, Margo Unavailable Constantin FUSING MACHINE TENDER.PASSPORT SUPPORT ASSOCIATE, Kerry Unavailable Constantin FUSING MACHINE TENDER.PASSPORT SUPPORT ASSOCIATE, Kerry Unavailable Constantin FUSING MACHINE TENDER.PASSPORT SUPPORT ASSOCIATE, Kerry Unavailable Marlow FUSING MACHINE TENDER.CAPTURE MANAGER, Margo Unavailable Marlow FUSING MACHINE TENDER.CAPTURE MANAGER, Margo Unavailable Dr. Collette Perez MD Primary Care Physician Dr. Santiago Ac DO Attending Physician Dr. Santiago Ac DO Emergency Departmen t Physician SELF Referring Unavailable MARLOW, MARGO Attending Unavailable TALAMPAS, COLLETTE Primary Care Unavailable MARLOW, MARGO Referring Unavailable MARIOAMPAS, COLLETTE Primary Care Unavailable MARLOW, MARGO Referring Unavailable MARLOW, MARGO Attending Unavailable CHRIS, COLLETTE Primary Care Unavailable Mekhi Joseph Attending Unavailable Mekhi Joseph Referring Unavailable Talampas, Collette D Primary Care Unavailable JakeMekhi Referring Unavailable Talampas, Collette D Primary Care Unavailable Mekhi Joseph Admitting Unavailable Mekhi Joseph Attending Unavailable JakeMekhi Referring Unavailable Talampas, Collette D Primary Care Unavailable Mekhi Joseph Attending Unavailable Santiago Ac Attending Unavailabl e Talampas, Collette D Primary Care Unavailable Allergies Allergy Classification Reported Allergen(s) Allergy Type Date of Onset Reaction(s) Facility (18 sources) Lisinopril; Translations: [LISINOPRIL] Drug Allergy 0 Cough [facility] Work Phone: (1 source) Latex Drug allergy (disorder) 5 [facility] (1 source) Environmental Allergies: Uncoded; Translations: [Environmental Allergies: Uncoded] Propensity to adverse reactions (disorder) 5 [facility] (1 source) Dressing: Non-Medicated; Translations: [Dressing: Non-Medicated] Propensity to adverse reactions (disorder) 5 [facility] Medications Current Medications Medication Drug Class(es) Dates Sig (Normalized) Sig (Original) acetaminophen 500 mg oral tablet (18 sources) Start: 09-06-2019 take 2 tablets by mouth every six hours as needed for pain Acetaminophen 500 MG tablet Active 1000 mg PO EVERY 6 HOURS NEEDED as needed for Pain September 06, 2019 1:00am Complies with drug therapy acetaminophen (T YLENOL) 500 mg tablet Take 500-750 mg by mouth every 8 hours. Active Comment on above: Take 500-750 mg by m outh every 8 hours. amLODIPine 10 mg oral tablet (20 sources) Dihydropyridine Calcium Channel Roosevelt Start: 5 take 1 tablet by mouth once daily Amlodipine 10 mg tablet Active 10 mg PO DAILY May 20, 2025 12:00am Complies with drug therapy Start: 06-17-2021 End: 01-23-2025 take 1 tablet by mouth once daily amLODIPine (NORVASC) 10 mg tablet Indications: Primary hypertension , White coat syndrome with diagnosis of hypertension Take 1 tablet by mouth once daily. 90 tablet 3 01/23/2025 Active Comment on above: Take 1 tablet by jose once daily. aspirin 325 mg oral tablet (2 sources) Platelet Aggregation Inhibitor, Nonsteroidal Anti-inflammatory Drug Start: 05-20-2025 Aspirin 325 mg capsule Active 81.25 mg PO DAILY as needed for pain May 20, 2025 12:00am Complies with drug therapy Start: 09-06-2019 End: 09-07-2019 take 1 tablet by mouth once daily Aspirin 325 MG tablet Discontinued 325 mg PO DAILY@0800 September 06, 2019 1:00am September 07, 2019 12:00pm atenolol 100 mg oral tablet (20 sources) beta-Adrenergic Roosevelt Start: 05-20-2025 take 1 tablet by mouth twice daily Atenolol 100 mg tablet Active 100 mg PO TWICE A DAY May 20, 2025 12:00am Complies with drug therapy Start: 06-17-2021 End: 01-23-2025 take 1 tablet by mouth twice daily atenolol (TENORMIN) 100 mg tablet Take 1 tablet by mouth two times a day. 180 tablet 3 01/23/2025 Active Start: 09-19-2019 End: 05-20-2025 take 1 tablet by mouth once daily Atenolol 25 MG tablet Discontinued 25 mg PO DAILY September 19, 2019 1:00am May 20, 2025 1:31pm Comment on above: Take 1 tablet by jose twice daily. Take 1 tablet by [facility] two times a day. calcium carbonate 1500 mg / cholecalciferol 200 unt oral tablet (17 sources) Vitamin D Start: 01-03-20 take 1 tablet by mouth twice daily calcium carbonate 600 mg-cholecalciferol 200 units (CALCIUM 600 + D,3,) 600 mg(1,500mg) -200 unit tab Indications: Osteopenia of both hips Take 1 tablet by mouth twice daily. calcium supplement 01/02/2021 Active Comment on above: Take 1 tablet by jose twice daily. calcium supplement cholecalciferol 0.025 mg oral tablet (17 sources) Vitamin D Start: 01-03-20 End: 01-24-20 take 1 tablet by mouth once daily cholecalciferol (VITAMIN D3) 1,000 unit tab tablet Indications: Osteopenia of both hips Take 1 tablet by mouth once daily. 90 tablet 3 01/23/2025 Active Comment on above: Take 1 tablet by jose once daily. cloNIDine hydrochloride 0.1 mg oral tablet (20 sources) Central alpha-2 Adrenergic Agonist Start: 05-20-20 take 2 tablets by mouth twice daily Clonidine Hcl 0.1 mg tablet Active 0.2 mg PO TWICE A DAY May 20, 2025 12:00am Complies with drug therapy Start: 06-17-2021 End: 01-23-2025 take 2 tablets by mouth twice daily cloNIDine HCl (CATAPRES) 0.1 mg tablet Indications: White coat syndrome with diagnosis of hypertension Take 2 tablets by mouth two times a day. 360 tablet 3 01/23/2025 Active Comment on above: Take 2 tablets by mo [facility] twice daily. Take 2 tablets by mo [facility] two times a day. losartan potassium 100 mg oral tablet (20 sources) Angiotensin 2 Receptor Roosevelt Start: 05-20-2025 take 1 tablet by mouth once daily Losartan 100 mg tablet Active 100 mg PO DAILY May 20, 2025 12:00am Complies with drug therapy Start: 06-17-2021 End: 01-23-2025 take 1 tablet by mouth once daily losartan (COZAAR) 100 mg tablet Indications: White coat syndrome with diagnosis of hypertension Take 1 tablet by mouth once daily. 90 tablet 3 01/23/2025 Active Comment on above: Take 1 tablet by jose once daily. magnesium oxide 400 mg oral tablet (18 sources) Start: End: take 1 tablet by mouth twice daily magnesium oxide (MAG-OX) 400 mg (241.3 mg magnesium) tablet Indications: White coat syndrome with diagnosis of hypertension , Encounter for long-term current use of medication , Hypomagnesemia Take 1 tablet by mouth twice daily. 60 tablet 03/16/2023 Active Comment on above: Take 1 tablet by jose twice daily. microencapsulated potassium chloride 20 meq extended release oral tablet (18 sources) Start: End: take 1 tablet by mouth once daily potassium chloride ER (KLOR-CON) 20 mEq tablet Indications: White coat syndrome with diagnosis of hypertension , Encounter for long-term current use of medication , Hypokalemia Take 1 tablet by mouth once daily. 30 tablet 03/16/2023 Active Comment on above: Take 1 tablet by jose th once daily. sodium chloride 1000 mg oral tablet (1 source) Start: take 1 tablet by mouth once daily spironolactone 25 mg oral tablet (18 sources) Aldosterone Antagonist Start: 025 take 1 tablet by mouth once daily Spironolactone 25 mg tablet Active 25 mg PO DAILY May 20, 2025 12:00am blood pressure Complies with drug therapy Start: 07-23-2022 End: 01-23-2025 take 1 tablet by mouth once daily spironolactone (ALDACTONE) 25 mg tablet Take 1 tablet by mouth once daily. for blood pressure and leg swelling 90 tablet 3 01/23/2025 Active Comment on above: Take 1 tablet by jose th once daily. for blood pressure and leg swelling Zinc Amino Acid Chelate 50 MG tablet (1 source) Start: 09-06-2019 Zinc Amino Acid Chelate 50 MG tablet Active 100 mg PO DAILY September 06, 2019 1:00am cold prevention Complies with drug therapy Completed/Discontinued Medications Medication Drug Class(es) Dates Sig (Normalized) Sig (Original) Ascorbic Acid (1 source) Vitamin C Start: 09-06-2019 End: 05-20-2025 [place] [employer] Discontinued 1 NMA PO DAILY September 06, 2019 1:00am May 20, 2025 2:02pm cold prevention Blood Pressure Monitor (BLOOD PRESSURE KIT) kit (3 sources) Start: 09-13-2019 End: 07-23-2022 Blood Pressure Monitor (BLOOD PRESSURE KIT) kit Indications: Essential hypertension , Palpitation Dispense BP kit for managing hypertension I10; labile and high blood pressures--adjusting medications 1 Kit 0 09/13/2019 07/23/2022 Discontinued Start: 09-13-2019 Blood Pressure Monitor (BLOOD PRESSURE KIT) kit Indications: Essential hypertension , Palpitation Dispense BP kit for managing hypertension I10; labile and high blood pressures--adjusting medications 1 Kit 0 09/13/2019 Active Comment on above: Dispense BP kit for managing hypertension I10; labile and high blood pressures--adjusting medications ciprofloxacin 500 mg oral tablet (1 source) Quinolone Antimicrobial Start: 020 End: 025 take 1 tablet by mouth twice daily Ciprofloxacin Hcl 500 MG tablet Discontinued 500 mg PO TWICE A DAY 6 0 September 20, 2019 1:00am May 20, 2025 1:31pm enteric contrast (will be provided with radiology test) (3 sources) Start: 020 End: enteric contrast (will be provided with radiology test) For CT CHESTABD/PEL W IVCON Routine order Administer, As Directed One Time Only, via Oral, Rectal, both Oral and Rectal, Enteric Tube, Stoma or Indwelling Catheter, Enteric Contrast as designated per enteric contrast guidelines 1 Each 0 02/19/2020 07/23/2022 Discontinued Start: 02-19-[address] (will be provided with radiology test) For CT CHESTABD/PEL W IVCON Routine order Administer, As Directed One Time Only, via Oral, Rectal, both Oral and Rectal, Enteric Tube, Stoma or Indwelling Catheter, Enteric Contrast as designated per enteric contrast guidelines 1 Each 0 02/19/2020 Active Comment on above: For CT CHESTABD/PEL W IVCON Routine order Administer, As Directed One Time Only, via Oral, Rectal, both Oral and Rectal, Enteric Tube, Stoma or Indwelling Catheter, Enteric Contrast as designated per enteric contrast guidelines hydroCHLOROthiazide 12.5 mg oral capsule (1 source) Thiazide Diuretic Start: 2019 End: 2024 take 1 capsule by mouth once daily Hydrochlorothiazide 12.5 MG capsule Discontinued 12.5 mg PO DAILY 30 0 September 07, 2019 1:00am May 20, 2025 1:31pm ibuprofen 600 mg oral tablet (1 source) Nonsteroidal Anti-inflammatory Drug Start: 2019 End: 2019 take 1 tablet by mouth every six hours as needed for pain Ibuprofen 600 MG tablet Discontinued 600 mg PO EVERY 6 HOURS NEEDED as needed for Pain Score 1-10/10 20 7 0 September 20, 2019 4:52pm September 26, 2019 1:00am September 27, 2019 1:08am iv contrast (will be provided with radiology test) (3 sources) Start: 2019 End: 2021 iv contrast (will be provided with radiology test) CT Chest ABD/PEL-Inject, intravenously, once for 1 dose.No IV access, insert saline lock prior to the beginning of sedation, infusion, injection of imaging exam. Discontinue saline lock post exam. If Pt. has a central line or IVAD, may access for administration according to line specific nursing protocol. Once exam is complete flush line and de-access according to line specific nursing protocol in the CT contrast administration guidelines link. 1 Each 0 02/19/2020 07/23/2022 Discontinued Start: 02-19-2020 iv contrast (w ill be provided with radiology test) CT Chest ABD/PEL-Inject, intravenously, once for 1 dose.No IV access, insert saline lock prior to the beginning of sedation, infusion, injection of imaging exam. Discontinue saline lock post exam. If Pt. has a central line or IVAD, may access for administration according to line specific nursing protocol. Once exam is complete flush line and de-access according to line specific nursing protocol in the CT contrast administration guidelines link. 1 Each 0 02/19/2020 Active Comment on above: CT Chest ABD/PEL-Inj ect, intravenously, once for 1 dose.No IV access, insert saline lock prior to the beginning of sedation, infusion, injection of imaging exam. Discontinue saline lock post exam. If Pt. has a central line or IVAD, may access for administration according to line specific nursing protocol. Once exam is complete flush line and de-access according to line specific nursing protocol in the CT contrast administration guidelines link. lisinopril 40 mg oral tablet (1 source) Angiotensin Converting Enzyme Inhibitor Start: 09-07-19 End: 05-20-20 25 take 1 tablet by mouth once daily Lisinopril 40 MG tablet Discontinued 40 mg PO DAILY 30 0 September 07, 2019 1:00am May 20, 2025 1:31pm ondansetron 8 mg oral tablet (3 sources) Serotonin-3 Receptor Antagonist Start: 12-14-19 End: 07-23-20 22 take 1 tablet by mouth every eight hours as needed for nausea ondansetron (ZOFRAN) 8 mg tablet Indications: cancer chemotherapy-induced nausea and vomiting Take 1 tablet by mouth every 8 hours as needed for Nausea/Vomiting. 30 tablet 2 12/14/2019 07/23/2022 Discontinued Comment on above: Take 1 tablet by jose th every 8 hours as needed for Nausea/Vomiting. 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] Onset: 11-27-2019 11-27-2019 Chronic Cancer of uterus (17 sources) Malignant neoplasm of endometrium of corpus uteri ; Translations: [Malignant neoplasm of endometrium] Onset: 11-09-2019 11-14-2019 Chronic Diabetes mellitus without complication (1 source) Hyperglycemia; Translations: [Impaired fasting glucose] 03-16-2023 Episodic Diseases of white blood cells (2 sources) Neutrophilia; Translations: [Other elevated white blood cell count] Onset: 02-06-2025 02-06-2025 Chronic Disorders of lipid metabolism (1 source) Hyperlipidemia; Translations: [Hyperlipidemia, unspecified] 03-16-2023 Chronic Essential hypertension (20 sources) Essential hypertension; Translations: [Essential (primary) hypertension] Onset: 11-10-2019 11-14-2019 Chronic Genitourinary symptoms and ill-defined conditions (3 sources) Microscopic hematuria; Translations: [Other microscopic hematuria] Onset: 05-23-2025 Episodic Nutritional deficiencies (4 sources) Vitamin D deficiency; Translations: [Vitamin D deficiency, unspecified] Onset: 01-23-2025 03-16-2023 Chronic Other aftercare (1 source) Long-term current use of drug therapy; Translations: [Other fpc (current) drug therapy] 01-23-2025 Episodic Other bone disease and musculoskeletal deformities (1 source) Osteopenia; Translations: [Other specified disorders of bone density and structure, right thigh] 01-23-2025 Episodic Other connective tissue disease (1 source) Swelling of lower limb; Translations: [Other specified soft tissue disorders] Episodic Other nervous system disorders (1 source) Other chronic pain; Translations: [Chronic pain of both knees] Onset: 02-06-2025 Chronic Other nutritional; endocrine; and metabolic disorders (17 sources) Body mass index 30+ - obesity; Translations: [Obesity, unspecified] Onset: 11-10-2019 Chronic Other nutritional; endocrine; and metabolic disorders (2 sources) Hypomagnesemia; Translations: [Hypomagnesemia] 03-16-2023 Chronic Other nutritional; endocrine; and metabolic disorders (1 source) Obesity, unspecified; Translations: [Obesity (BMI 30-39.9)] Onset: 07-23-2022 Chronic Other nutritional; endocrine; and metabolic disorders (1 source) Hypomagnesemia; Translations: [Hypomagnesemia] Onset: 01-23-2025 Chronic Other nutritional; endocrine; and metabolic disorders (1 source) Weight gain; Translations: [Abnormal weight gain] 09-24-2023 Episodic Residual codes; unclassified (1 source) History of antineoplastic chemotherapy; Translations: [Personal history of antineoplastic chemotherapy] 01-23-2025 Episodic Unclassified (1 source) Chronic pain of both knees 02-06-2025 Past or Other Problems Problem Classification Problem Date Documented Da te Episodic/Chronic Fluid and electrolyte disorders (20 sources) Hypokalemia; Translations: [Hypokalemia] Onset: 11-10-2019 11-14-2019 Episodic Immunizations and screening for infectious disease (3 sources) Requires varicella vaccination; Translations: [Encounter for immunization] Onset: 01-23-2025 Episodic Other aftercare (1 source) Other watermelon inspector (current) drug therapy; Translations: [Encounter for long-term current use of medication] Onset: 01-23-2025 Episodic Other bone disease and musculoskeletal deformities (1 source) Other specified disorders of bone density and structure, right thigh; Translations: [Osteopenia of both hips] Onset: 01-23-2025 Episodic Other bone disease and musculoskeletal deformities (1 source) Other specified disorders of bone density and structure, left thigh; Translations: [Osteopenia of both hips] Onset: 01-23-2025 Episodic Other nervous system disorders (17 sources) Postoperative pain ; Translations: [Other acute postprocedural pain] Onset: 11-10-2019 11-14-2019 Episodic Other non-traumatic joint disorders (2 sources) Pain in right knee; Translations: [Pain in joint, lower leg] Onset: 02-06-2025 02-06-2025 Episodic Other non-traumatic joint disorders (1 source) Pain in left knee; Translations: [Chronic pain of both knees] Onset: 02-06-2025 Episodic Other nutritional; endocrine; and metabolic disorders (2 sources) Overweight; Translations: [Overweight] Onset: 11-10-2019 11-14-2019 Episodic Other screening for suspected conditions (not mental disorders or infectious disease) (12 sources) Patient encounter status; Translations: [Encounter for screening mammogram for malignant neoplasm of breast] Onset: 01-23-2025 Episodic Residual codes; unclassified (17 sources) Postoperative state; Translations: [Other specified postprocedural states] Onset: 11-10-2019 11-14-2019 Episodic Residual codes; unclassified (1 source) Personal history of antineoplastic chemotherapy; Translations: [Personal history of antineoplastic chemotherapy] Onset: 01-23-2025 Episodic Screening and history of mental health and substance abuse codes (19 sources) Ex-smoker; Translations: [Personal history of nicotine dependence] Onset: 11-10-2019 11-14-2019 Episodic Results Test Name Value Interpretation Reference Range Facility MR/PAT[facility]ITNEYon 06-27-2025 MR/PAT.[facility] Medical Records Department [address] [place] [address] PAT - Anesthesia 06/27/25 1048 MR#: [id number] Acct: [id number] Name: MARLENE VILLATORO Rep #: [id number] : 1950 75 From: Carlos Leiva MD PCP: Dr. Collette Perez MD [place] [facility] [place] C [place] [facility] [place]Assessment Diagnosis/Proposed Procedure Planned Operative Procedure(s): (L) Percutaneous,Nephros tolithomy Anesthesia History Anesthesia History - picture frame maker: Anesthesia History - picture frame maker Hx Hospitalization No 06/22/25 08:42 Any Problems With Anesthesia Yes: N V, SENSITIVITY, HARD 06/22/25 08:42 TIME WAKING POST-OP Cholinesterase deficiency No 06/22/25 08:42 You/Your Family Experience No 06/22/25 08:42 fever (hyperthermia) with Relationship Recent Exposure to Contagious No 09/20/19 14:11 Disease Does patient have nerve No 06/22/25 08:42 stimulator Patient instructed to have device shut off --Does patient have Pacemaker or ICD? When Was Last Pacemaker Check QUESTION #4 FULL TEXT: You/Your Family Experience fever (hyperthermia) with Anesthesia Last Oral Intake Last Oral intake: Last Oral Intake NPO since Meds taken in AM with sips of water? Meds patient instructed to take am of surgery PONV PONV - picture frame maker: PONV - picture frame maker Female Yes 06/22/25 08:42 HX of Motion Sickness Yes 06/22/25 08:42 HX of N/V After Surgery Yes 06/22/25 08:42 Non-Smoker Yes 06/22/25 08:42 Duration of Surgery greater No 06/22/25 08:42 than 60 minutes Number of Risk Factors 4 06/22/25 08:42 PONV Score Severe Risk 06/22/25 08:42 Height Weight Height Weight: Anesthesia: Height Weight Height 5 ft 6 in 06/15/25 09:21 Respiratory Assessment Respiratory Assessment - picture frame maker: Respiratory Tract Infection Hx - picture frame maker Hx Respiratory Tract Infection No 06/22/25 08:42 STOP Sleep Apnea STOP Sleep Apnea - picture frame maker: STOP Sleep Apnea - picture frame maker Hx Hypertension Yes: ON MED, UNCONTROLLED 06/22/25 08:42 PER PT Hx Sleep Apnea No 06/22/25 08:42 CPAP No 06/22/25 08:42 BIPAP Do you snore loudly (louder No 06/22/25 08:42 than talking or can be heard Do you often feel tired/ No 06/22/25 08:42 fatigued/ sleepy during daytime? Has anyone observed you stop No 06/22/25 08:42 breathing during sleep? STOP Results Negative 06/22/25 08:42 QUESTION #5 FULL TEXT : Do you snore loudly (louder than talking or can be heard through closed doors)? 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 Specify any problems Hx of Preganancy in last 3 N/A 06/22/25 08:42 Months Nurse Filling Out Transfusion NBUCHER 06/22/25 08:42 Questions: Date: 06/22/25 06/22/25 08:42 Time: 08:43 10/31/25 08:42 Patient unable to answer at this time (ie. confused, unrespo /Reproducti on History /Reproducti ve History - picture frame maker: /Reproducti ve Hx- picture frame maker Hx Now No 06/22/25 08:42 Gestational Age (in weeks): EDC: Hx Hx Para Hx Section SAB No 06/22/25 08:42 [facility] Medical History Wears glasses Hx of hysterectomy Cancer Arthritis Kidney stone Back pain Difficulty swallowing History of IBS Gastric reflux Shortness of breath on exertion History of edema History of echocardiogram History of irregular heartbeat Former smoker Hypertension Home Medications ???Medication ???Instructions ???Recorded ???Last Taken ???Type acetaminophen 500 mg tablet 1,000 mg PO Q6H PRN PRN Pain 09/0605/20/25 History zinc amino acid chelate 50 mg 100 mg PO DAILY cold prevention 09/05/19 History tablet amlodipine 10 mg tablet 10 mg PO DAILY 05/20/25 06/15/25 0 6:30 History atenolol 100 mg tablet 100 mg PO BID 05/20/25 06/15/25 06 :30 History clonidin (more content not included)... Normal [facility] MR/PAT.[facility] Medical Records Department [address] [place] [address] PAT - Anesthesia 06/27/25 1014 MR#: [id number] Acct: [id number] Name: MARLENE VILLATORO Rep #: [id number] : 1950 75 From: Carlos Leiva MD PCP: Dr. Collette Perez MD [place] [facility] [place] C [place] [facility] [place] Pre[place]Assessment Diagnosis/Proposed Procedure Planned Operative Procedure(s): (L) Percutaneous,Nephros tolithomy Anesthesia History Anesthesia History - picture frame maker: Anesthesia History - picture frame maker Hx Hospitalization No 06/22/25 08:42 Any Problems With Anesthesia Yes: N V, SENSITIVITY, HARD 06/22/25 08:42 TIME WAKING POST-OP Cholinesterase deficiency No 06/22/25 08:42 You/Your Family Experience No 06/22/25 08:42 fever (hyperthermia) with Relationship Recent Exposure to Contagious No 09/20/19 14:11 Disease Does patient have nerve No 06/22/25 08:42 stimulator Patient instructed to have device shut off --Does patient have Pacemaker or ICD? When Was Last Pacemaker Check QUESTION #4 FULL TEXT: You/Your Family Experience fever (hyperthermia) with Anesthesia Last Oral Intake Last Oral intake: Last Oral Intake NPO since Meds taken in AM with sips of water? Meds patient instructed to take am of surgery PONV PONV - picture frame maker: PONV - picture frame maker Female Yes 06/22/25 08:42 HX of Motion Sickness Yes 06/22/25 08:42 HX of N/V After Surgery Yes 06/22/25 08:42 Non-Smoker Yes 06/22/25 08:42 Duration of Surgery greater No 06/22/25 08:42 than 60 minutes Number of Risk Factors 4 06/22/25 08:42 PONV Score Severe Risk 06/22/25 08:42 Height Weight Height Weight: Anesthesia: Height Weight Height 5 ft 6 in 06/15/25 09:21 Respiratory Assessment Respiratory Assessment - picture frame maker: Respiratory Tract Infection Hx - picture frame maker Hx Respiratory Tract Infection No 06/22/25 08:42 STOP Sleep Apnea STOP Sleep Apnea - picture frame maker: STOP Sleep Apnea - picture frame maker Hx Hypertension Yes: ON MED, UNCONTROLLED 06/22/25 08:42 PER PT Hx Sleep Apnea No 06/22/25 08:42 CPAP No 06/22/25 08:42 BIPAP Do you snore loudly (louder No 06/22/25 08:42 than talking or can be heard Do you often feel tired/ No 06/22/25 08:42 fatigued/ sleepy during daytime? Has anyone observed you stop No 06/22/25 08:42 breathing during sleep? STOP Results Negative 06/22/25 08:42 QUESTION #5 FULL TEXT : Do you snore loudly (louder than talking or can be heard through closed doors)? 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 Specify any problems Hx of Preganancy in last 3 N/A 06/22/25 08:42 Months Nurse Filling Out Transfusion NBUCHER 06/22/25 08:42 Questions: Date: 06/22/25 06/22/25 08:42 Time: 08:43 06/22/25 08:42 Patient unable to answer at this time (ie. confused, unrespo /Reproducti on History /Reproducti ve History - picture frame maker: /Reproducti ve Hx- picture frame maker Hx Now No 06/22/25 08:42 Gestational Age (in weeks): EDC: Hx Hx Para Hx Section SAB No 06/22/25 08:42 PFSH Medical History Wears glasses Hx of hysterectomy Cancer Arthritis Kidney stone Back pain Difficulty swallowing History of IBS Gastric reflux Shortness of breath on exertion History of edema History of echocardiogram History of irregular heartbeat Former smoker Hypertension Home Medications ???Medication ???Instructions ???Recorded ???Last Taken ???Type acetaminophen 500 mg tablet 1,000 mg PO Q6H PRN PRN Pain 09/0605/20/25 History zinc amino acid chelate 50 mg 100 mg PO DAILY cold prevention 09/05/19 History tablet amlodipine 10 mg tablet 10 mg PO DAILY 05/20/25 06/15/25 0 6:30 History atenolol 100 mg tablet 100 mg PO BID 05/20/25 06/15/25 06 :30 History clonidin (more content not included)... [facility] 12 Lead EKGon 06-26-[address] [facility] Cardiovascular Services [address] [place] [address] 12 Lead EKG 06/26/25 1101 MR#: [id number] Acct: [id number] Name: MARLENE VILLATORO Rep #: [id number] : 1950 75 From: Ehsan Grover MD Attending Dr: Dr. Mekhi Joseph MD [place] [facility] [place]: Mekhi Joseph MD Date: 06/26/25 [place] [facility] [place] Sex: F C Admitted: Test Reason : PREOP Blood Pressure : */* mmHG Vent. Rate : 74 BPM Atrial Rate : 74 BPM P-R Int : 180 ms QRS Dur : 74 ms QT Int : 400 ms P-R-T Axes : 29 -17 10 degrees QTcB Int : 444 ms Normal sinus rhythm Moderate voltage criteria for LVH, may be normal variant Borderline ECG Confirmed by Ehsan Grover ([id number]), web content editor RUFINO PENG ([id number]) on 06/27/2025 7:16:49 AM Referred By: Mekhi Joseph Confirmed By: Ehsan Grover 06/27/25 0716 Date Ehsan Grover MD CC: Dr. Mekhi Joseph MD; Dr. Collette Perez MD Signed [facility] Discharge Instructionon 05-24 Discharge Instruction [facility] Medical Records Department [address] [place] [address] Instructions for Home/Discharge Instructions 06/15/25 1059 MR#: [id number] Acct: [id number] Name: MARLENE VILLATORO Rep #: [id number] : 1950 75 From: Mekhi Joseph MD PCP: Dr. Collette Perez MD [place] [facility] [place]charge Instructions DC O2, CPAP, BIPAP needs Home O2 Discharge instructions: No Dressing / Incision Discharge Activity: Return to Normal Activity and May Not Drive (while taking narcotic pain medications.) Dressing / Incision Call your doctor if you observe: Fever of 101 or Higher Follow Up Care Please Follow Up With: Mekhi Joseph MD When: Call [phone] for an appointment Test Results: Test results from this visit will be discussed in further detail at your follow-up appointment, if applicable. Discharge Plan Admission Primary Reason for Your Visit: laser bladder stones Attending Provider: Mekhi Joseph Primary Care Provider: Collette Perez Instructions Print Language: American Discharge Orders/Prescriptions Prescriptions: New ciprofloxacin HCl [Cipro] 500 mg tablet 500 mg PO BID Qty: 10 0RF Continued acetaminophen 500 MG tablet 1,000 mg PO Q6H PRN PRN (Reason: Pain ) zinc amino acid chelate 50 MG tablet 100 mg PO DAILY clonidine HCl 0.1 mg tablet 0.2 mg PO BID atenolol 100 mg tablet 100 mg PO BID spironolactone 25 mg tablet 25 mg PO DAILY amlodipine 10 mg tablet 10 mg PO DAILY losartan 100 mg tablet 100 mg PO DAILY Referrals / Follow Up: Mekhi Joseph MD [Med Staff - Active Staff, Urology] Collette Perez MD [Primary Care Provider, Internal Medicine] Disposition Disposition (needs filled in before D/C Order can be placed): Home, Self Care 06/15/25 1059 Mekhi Joseph MD CC: Dr. Collette Perez MD Signed [facility] MR/POSTOP.[facility] 06-15-2025 MR/POSTOP.[facility] Medical Records Department [address] [place] [address] Anesthesia Postop Eval I 06/15/25 1234 MR#: [id number] Acct: [id number] Name: MARLENE VILLATORO Rep #: [id number] : 1950 75 From: Ramón Saini CRNA PCP: Dr. Collette Perez MD Status:REG [facility] Y Race: C Location: [place] [address] Anesthesia: Postop Eval I Current Vital Signs Temperature: 97.7 F Pulse Rate: 93 Blood Pressure: 132/107 Respiratory Rate: 18 Pulse Ox: 98 Assessment Airway patent: Yes Spontaneous unlabored respirations: Yes nausea: No Vomiting: No Anesthesia Complication: No Fluid Hydration Crystalloid volume administer (ml): 1,500 Total IV fluid infused: 1,500 Progress Note Anesthesia document: Postop Eval 1 completed: Yes 06/15/25 1234 Date Ramón Saini FLEXOGRAPHIC PRINTING PRESS OPERATOR Cosigner Signature: Date CC: Signed [facility] MR/[id number] 06-15-2025 MR/POSTOPAN2 [facility] Medical Records Department [address] [place] [address] Anesthesia Postop Eval II 06/15/25 1352 MR#: [id number] Acct: [id number] Name: MARLENE VILLATORO Rep #: [id number] : 1950 75 From: Karena Ramos CRNA PCP: Dr. Collette Perez MD [place] [facility] [place] Race[place] C Location: [place] [address] Anesthesia Postop Eval I Sum Postop Eval Completion status Anesthesia document: Postop Eval 1 completed: Yes Anesthesia Postop Eval I Summary Anesthesia Postop Eval I Summary: Anesthesia Postop Eval I: Assessment Summary Airway patent Yes 06/15/25 12:34 FLEXOGRAPHIC PRINTING PRESS OPERATOR.ABAR Spontaneous unlabored Yes 06/15/25 12:34 FLEXOGRAPHIC PRINTING PRESS OPERATOR.ABAR respirations Mental status nausea No 06/15/25 12:34 FLEXOGRAPHIC PRINTING PRESS OPERATOR.ABAR Vomiting No 06/15/25 12:34 FLEXOGRAPHIC PRINTING PRESS OPERATOR.ABAR Anesthesia Postop Eval I: Fluid Summary Crystalloid volume administer 1,500 06/15/25 12:34 FLEXOGRAPHIC PRINTING PRESS OPERATOR.ABAR (ml) Colloids volume administered ( ml) Blood Product volume administered (ml) Total IV fluid infused 1,500 06/15/25 12:34 FLEXOGRAPHIC PRINTING PRESS OPERATOR.ABAR Anesthesia Postop Eval I: Summary Notes Anesthesia Complication No 06/15/25 12:34 FLEXOGRAPHIC PRINTING PRESS OPERATOR.ABAR Anesthesia Complication Comment: Post-operative progress note Anesthesia: Postop Eval II Evaluation Mental status: Awake Pain Level: 2 nausea: No Vomiting: No 06/15/25 1352 Date Karena Hatfieldigner Signature: Date CC: Signed [facility] Operative Reporton 5 Operative Report [facility] Medical Records Department [address] [place] [address] Operative Report 06/15/25 1220 MR#: [id number] Acct: [id number] Name: MARLENE VILLATORO Rep #: [id number] : 1950 75 From: Mekhi Joseph MD PCP: Dr. Collette Perez MD Status:[facility] Location: [place] [address] Operative Report (Standard) Operative Information Date of Procedure: 06/15/25 Pre-Operative Diagnosis: Bladder stone, retained stent and retained broken stent fragments Post-Operative Diagnosis: Same Surgery/Procedure Performed: Cystoscopy litholapaxy and removal of large bladder stone 5 cm, right ureteroscopy removal of retained broken stent fragments and right stent placement right retrograde pyelogram resin mixer: No Type of Anesthesia: General RN Documented Start/Stop Times: Operation Date: 06/15/25 11:00 Case Time Into Pre-Op 06/15/25 09:07 Out of Pre-Op 06/15/25 10:55 Anesthesia Start 06/15/25 11:00 Into Room 06/15/25 11:00 Procedure Start 06/15/25 11:13 Procedure End 06/15/25 12:19 Procedure Start Time: 11:13 Procedure Stop Time: 12:22 Select all DRAINS/GRAFTS/IMPLAN TS that apply: Drains Drain details: 6 Kinyarwanda by 26 cm stent Estimated Blood Loss: None Specimen collected: Yes Description of specimen(s) removed: Retained stents Description of surgery: Indication this is a 75-year-old female who several years ago I saw her as an emergency consultation for obstruction of her 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 she was instructed to follow-up in my office to have the stent removed at a future date or stent changed she had an appointment but she canceled her appointment and continued with her cancer care she then presents several years later to me in the office and her cancer is stable after treatment but CAT scan reveals that she has a large stone around the stent in the bladder and broken stent fragments in the ureter and a large stone around the stent up in the kidney in the renal pelvis so my plan is to approach this problem with 2 separate surgeries today plan to take her to surgery and use the ultrasonic lithotripter to remove the stone from her bladder and remove the fragment from her bladder and then we can attempt to remove the stone fragments in the ureter. Patient is taken back to the operating room after induction of anesthesia she was placed in dorsolithotomy position the urethrovaginal area prepped and draped in usual fashion went into the bladder with a offset cystoscope and used the judge.med lithotripter with ultrasound lithotripter and there was a large 5 cm stone that was encased around the stent to quite some time to treat the stone completely but the stone was treated broken up small fragments and all suctioned out and then eventually the stent was free the stone was encrusted all the way around the stent completely after removing his large stone around the stent and the stent was removed from the bladder I then put a wire up on the right side we looked under fluoroscopy and under with a retrograde we could see that there was 2 broken stent fragments in the mid ureter and there was a large stone in the renal pelvis with also also a broken stent fragment attached to the stone in the renal pelvis at this point I was just can remove the broken stent fragments from the mid ureter I went up the ureter with a flexible ureteroscope and was able to identify the 2 pieces they look like they were straight and hard so I thought I should be able to to remove the stents there was a little bit narrow area right proximal to where the stents were we used a engage basket but the basket kept on coming off the stents so then we switched over to the helical basket to place a helical basket was able to get the basket around the end of the stent pull it tight and then very gently remove the encrusted stent from the mid ureter removed removed 2 fragments from the mid ureter and then I went up with the ureteroscope and checked there was no perforation or damage to the ureter but for safety sake I decided to place a stent to make sure the ureter heal properly after removing these encrusted stones so to put a stent up in that right kidney and put a new stent the stent coil in the kidney bladder good position she still has the old stone up in her kidney and a large stone in the renal pelvis encrusted around the prior stent shot to come back for a separate procedure to do a percutaneous removal of the stone fragment and stent patient understood this first part of the procedure with success patient anesthetic is being reversed and taken back to PACU in stable condition we will get her set up for the second part of procedure next week or two Surgical Findings: Successfully removed the stone from her bladder and remove the stent in her bladder and then successfully removed 2 broken stent fragments in the ureter new stent placed Com (more content not included)... [facility] Surgery Specimen Level Ion 1 Surgery Specimen Level I ----- Patient Age/Sex Location Account Attending Physician MARLENE VILLATORO 75/[place] [facility] [id number]. Mekhi Joseph MD Specimen: [id number] Received: 06/15/25 Status: MANASA Nolen Num: [id number] Spec Type: MIS Subm Dr: Dr. Mekhi Joseph MD HEADER OPERATION: Stent removal, cysto lithopaxy, left ureteroscopy PRE-OP DIAGNOSIS: Calculus bladder, calculus of left kidney TISSUE SUBMITTED: A- Stent pieces MICROSCOPIC DIAGNOSIS A. Stent, cystoscopy lithopaxy, left ureteroscopy: - Fragments of benign urothelium. - Abundant fragmented calcific material consistent with uroloithasis. MICROSCOPIC DESCRIPTION Slides are reviewed. GROSS DESCRIPTION A. Received in formalin labeled with the patient's name and date of . Designated as stent pieces are 3 black synthetic fragments of hardware (consistent with stent) 4.4 cm to 10.4 cm in length by 0.2 cm in diameter. 2 of the fragments have firm, calcified adherent tissue. Additionally, there are tissue fragments free-floating within the container. Pinion And Wheel Truer sections of the tissue are submitted in 1 cassette. PA 06/15/2025PT:[id number] Patient Age/Sex Location Account Attending Physician MARLENE VILLATORO 75/[place] [facility] [id number]. Mekhi Joseph MD Signed (signature on file) Dr. Rica Bob MD 06/22/25 1040 [facility] Comment on above: Performed By: #### P BUCKY #### [facility] [address] [place], [address] MR/Triny 06-07-2025 MR/[facility] Medical Records Department [address] [place] [address] PAT - Anesthesia 06/07/25 1230 MR#: [id number] Acct: [id number] Name: MARLENE VILLATORO Raza Rep #: [id number] : 1950 75 From: Yonny Grover MD PCP: Dr. Collette Perez MD Status:[place] [facility] [place] Race: C [place] [facility] Pre-Assessment Diagnosis/Proposed Procedure Planned Operative Procedure(s): (L) L URETEROSCOPY AND STENT REMOVAL Anesthesia History Anesthesia History - picture frame maker: Anesthesia History - picture frame maker Hx Hospitalization No 06/07/25 08:31 Any Problems With Anesthesia Yes: N V, SENSITIVITY, HARD 06/07/25 08:31 TIME WAKING POST-OP Cholinesterase deficiency No 06/07/25 08:31 You/Your Family Experience No 06/07/25 08:31 fever (hyperthermia) with Relationship Recent Exposure to Contagious No 09/20/19 14:11 Disease Does patient have nerve No 06/07/25 08:31 stimulator Patient instructed to have device shut off --Does patient have Pacemaker or ICD? When Was Last Pacemaker Check QUESTION #4 FULL TEXT: You/Your Family Experience fever (hyperthermia) with Anesthesia Last Oral Intake Last Oral intake: Last Oral Intake NPO since Meds taken in AM with sips of water? Meds patient instructed to take am of surgery PONV PONV - picture frame maker: PONV - picture frame maker Female Yes 06/07/25 08:31 HX of Motion Sickness No 06/07/25 08:31 HX of N/V After Surgery No 06/07/25 08:31 Non-Smoker Yes 06/07/25 08:31 Duration of Surgery greater No 06/07/25 08:31 than 60 minutes Number of Risk Factors 2 06/07/25 08:31 PONV Score Moderate Risk 06/07/25 08:31 Height Weight Height Weight: Anesthesia: Height Weight Height 5 ft 6 in 05/20/25 12:46 Respiratory Assessment Respiratory Assessment - picture frame maker: Respiratory Tract Infection Hx - picture frame maker Hx Respiratory Tract Infection No 06/07/25 08:31 STOP Sleep Apnea STOP Sleep Apnea - picture frame maker: STOP Sleep Apnea - picture frame maker Hx Hypertension Yes: ON MED, UNCONTROLLED 06/07/25 08:31 PER PT Hx Sleep Apnea No 06/07/25 08:31 CPAP No 06/07/25 08:31 BIPAP Do you snore loudly (louder No 06/07/25 08:31 than talking or can be heard Do you often feel tired/ No 06/07/25 08:31 fatigued/ sleepy during daytime? Has anyone observed you stop No 06/07/25 08:31 breathing during sleep? STOP Results Negative 06/07/25 08:31 QUESTION #5 FULL TEXT : Do you snore loudly (louder than talking or can be heard through closed doors)? 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 Specify any problems Hx of Preganancy in last 3 No 06/07/25 08:31 Months Nurse Filling Out Transfusion VCHRISTIN 06/07/25 08:31 Questions: Date: 06/07/25 06/07/25 08:31 Time: 08:33 06/07/25 08:31 Patient unable to answer at this time (ie. confused, unrespo /Reproducti on History /Reproducti ve History - picture frame maker: /Reproducti ve Hx- picture frame maker Hx Now No 06/07/25 08:31 Gestational Age (in weeks): EDC: Hx Hx Para Hx Section SAB No 06/07/25 08:31 PFSH Medical History (Updated 06/07/25 @ 08:31 by Conchita Tavares) Wears glasses Hx of hysterectomy Cancer Arthritis Kidney stone Back pain Difficulty swallowing History of IBS Gastric reflux Shortness of breath on exertion History of edema History of echocardiogram History of irregular heartbeat Former smoker Hypertension Home Medications ???Medication ???Instructions ???Recorded ???Last Taken ???Type acetaminophen 500 mg tablet 1,000 mg PO Q6H PRN PRN Pain 09/0605/20/25 History zinc amino acid chelate 50 mg 100 mg PO DAILY cold prevention 09/05/19 History tablet amlodipine 10 mg tablet 10 mg PO DAILY 05/20/25 05/20/25 H istory atenolol 100 mg tablet 100 mg PO BID 05/20/25 05/20/25 Hi story clonidine HCl 0. (more content not included)... [facility] Abdomen/Pelvis without Conto n 05-20-2025 Abdomen/Pelvis without Cont [facility] Imaging Services [address] [place] [address] Abdomen/Pelvis without Cont MR#: [id number] Acct: [id number] Name: MARLENE VILLATORO Rep #: [id number] : 1950 F 74 From: Idalia Martinez PCP: Dr. Collette Perez MD Status: REG ER Study: Abdomen/Pelvis without Cont Date of Exam: 04/24 04/16 Exam# [id number] Ordering Dr: Santiago Ac DO PROCEDURE: ABDOMEN/PELVIS WITHOUT CONT 05/20/2025 REASON FOR EXAM: HEMATURIA Abrupt hematuria today. No pain. History of stent in kidney. TECHNIQUE: Procedure Code: CTABDPEL Modality: CT Procedure: ABDOMEN/PELVIS WITHOUT CONT Noncontrast technique limits evaluation of the abdominal and pelvic viscera. Coronal and Sagittal reconstruction series were provided. One or more dose reduction techniques were used (e.g., Automated exposure control, adjustment of the mA and/or kV according to patient size, use of iterative reconstruction technique). RADIATION DOSE SUMMARY: CTDlvol: 13.9 mGy DLP: 712 mGycm FINDINGS: Lung bases: There is no atelectasis, consolidation, effusion or pneumonic infiltrate. Liver: There are several low-attenuation masses in the liver. The largest measures 13 mm. The 13 mm mass is larger when compared to the prior exam. Previously it appears to have measured a proximally 2 mm. Gallbladder: There are no stones identified. Spleen: A few splenic granulomas are seen. Pancreas: Diffuse fatty infiltration of the pancreas is noted. Adrenals: The right adrenal gland demonstrates normal contour and attenuation. The left adrenal gland is prominent along the most superior aspect and this may correlate to a small adenoma. Kidneys: The right kidney demonstrates normal size, contour and attenuation. There are no stones, masses or hydronephrosis. There is a left ureteral stent noted. There is a 2.3 cm increased attenuation identified in the midpole of the left kidney extending into the ureteral pelvic junction. There is a large hydroureter at this location and hydronephrosis. There is very subtle stranding of the perinephric fat surrounding the left kidney. Bladder: There is a Griffin catheter within the urinary bladder. A right ureteral stent tip is in the urinary bladder. There is a 3 cm increased attenuation identified in the urinary bladder. Reproductive Organs: There is a 12 mm low-attenuation mass in the right adnexal region. This may represent an ovarian cyst or bowel loop. Targeted ultrasound may be of value for further evaluation. Bowel: Small bowel and colonic loops are unremarkable. There is no evidence of ileus or bowel obstruction. A moderate amount of stool and gas is present throughout a nondistended colon. Lymph nodes: With a lack of IV contrast lymph node evaluation is suboptimal. No obvious lymphadenopathy is seen based upon CT criteria. Vasculature: Extensive arteriosclerotic vascular disease of the aorta is noted. No aortic aneurysms are noted. There is no ascites. Bones: Mild spondylosis of the thoracic and lumbar spine is noted. There is a proximally 3 mm of anterolisthesis of L4 in relationship to L5. The vertebral body heights are unremarkable. There is no spondylolysis. Degenerative disc disease is seen involving several of the lower thoracic and lumbar spine discs. CT/Abdomen/Pelvis without Cont IMPRESSION: There are several liver lesions seen. These have. Represent probable cysts however targeted ultrasound is recommended of the liver for further evaluation. 1 of the masses is larger in size. There is prominence of the left adrenal gland along the superior margin. This may represent a small adenoma. Increased attenuation in the left kidney and urinary bladder may represent a stone or stent. Ultrasound is recommended for further evaluation. Reading Location: [id number] CC: Dr. Santiago Ac DO; Dr. Collette Perez MD Mobile Application Developer: Signed [facility] Absolute lymphocyte countOrd ered By: Santiago Ac on 05-20-2025 Lymphocytes Auto (Unsp spec) [#/Vol] 1.17 10*3/uL 0.83-4.51 [facility] Absolute neutrophil countOrd ered By: Santiago Ac on 05-20-2025 Neutrophils (Bld) [#/Vol] 15.6 10*3/uL High 2.0-7.7 [facility] Anion gap in Serum or Plasma Ordered By: Santiago Ac on 05-20-2025 Anion gap [Moles/Vol] 16 mmol/L High 5-15 [facility] Automated lymphocyte count a s percentage of total leukocytesOrdered By: Santiago Ac on 05-20-2025 Lymphocytes/100 WBC Auto (Unsp spec) 6.7 % Low 19-41 [facility] BUN/creatinine ratioOrdered By: Santiago Ac on 05-20-2025 Urea nitrogen/Creatinine [Mass ratio] 18.8 mg/mg 10- [facility] Basic Metabolic Profile (BMP )on 05-20-2025 BUN/CRE 18.8 RATIO Normal - [facility] Comment on above: Performed By: #### L 100.0100, L500.2500 #### [facility] [address] [place], [address] Calcium [Mass/Vol] 8.7 mg/dL Normal 7.6-11.0 [facility] Comment on above: Performed By: #### L 100.0100, L500.2500 #### [facility] [address] [place], [address] Chloride [Moles/Vol] 94 mmol/L Low 98-108 [facility] Comment on above: Performed By: #### L 100.0100, L500.2500 #### [facility] [address] [place], [address] CO2 [Moles/Vol] 17.8 mmol/L Low 21.0-32.0 [facility] Comment on above: Performed By: #### L 100.0100, L500.2500 #### [facility] [address] [place], [address] Creatinine [Mass/Vol] 0.90 mg/dL Normal 0.70-1.20 [facility] Comment on above: Performed By: #### L 100.0100, L500.2500 #### [facility] [address] [place], [address] ECRCL 61.34 ml/min Normal 50-250 [facility] Comment on above: Performed By: #### L 100.0100, L500.2500 #### [facility] [address] [place], [address] GAP 16 High 5-15 [facility] Comment on above: Performed By: #### L 100.0100, L500.2500 #### [facility] [address] [place], [address] GFR/1.73 sq M.predicted among non-blacks MDRD (S/P/Bld) [Vol rate/Area] 67 mL/min/{1.73_m2} Normal >60 [facility] Comment on above: Result Comment: mL/m in/1.73m2 CKD-EPI Creatinine Equation (2020) Performed By: #### L 100.0100, L500.2500 #### [facility] [address] [place], [address] Glucose [Mass/Vol] 158 mg/dL High 70-99 [facility] Comment on above: Performed By: #### L 100.0100, L500.2500 #### [facility] [address] [place], [address] Potassium [Moles/Vol] 4.1 mmol/L Normal 3.3-5.1 [facility] Comment on above: Performed By: #### L 100.0100, L500.2500 #### [facility] [address] [place], [address] Sodium [Moles/Vol] 127 mmol/L Low 133-145 [facility] Comment on above: Performed By: #### L 100.0100, L500.2500 #### [facility] [address] [place], [address] Urea nitrogen [Mass/Vol] 17 mg/dL Normal 4-19 [facility] Comment on above: Performed By: #### L 100.0100, L500.2500 #### [facility] [address] [place], [address] Basophil percentageOrdered B y: Santiago Ac on 05-20-2025 Basophils/100 WBC (Bld) 0.4 % 0-1 [facility] Bedside Glucoseon 05-20-2025 FINGERSTICK GLU 113 mg/dL High 74-106 [facility] Comment on above: Result Comment: NANCY PRETTY OF PATIENT CARE PER NURSING PROTOCOL Performed By: #### L 501.080 #### [facility] [address] [place], [address] Bilirubin Test strip Ql (U)O rdered By: Santiago Ac on 05-20-2025 Bilirubin Ql (U) Negative Negative [facility] CBC W/Diff, Automatedon 04-24 Absolute Lymph 1.17 X10 3/uL Normal 0.83-4.51 [facility] Comment on above: Performed By: #### L 100.0100, L500.2500 #### [facility] [address] [place], [address] Absolute Neut 15.6 X10 3/uL High 2.0-7.7 [facility] Comment on above: Performed By: #### L 100.0100, L500.2500 #### [facility] [address] [place], [address] Basophils/100 WBC (Bld) 0.4 % Normal 0-1 [facility] Comment on above: Performed By: #### L 100.0100, L500.2500 #### [facility] [address] [place], [address] Eosinophils/100 WBC (Bld) 0.1 % Normal 0-5 [facility] Comment on above: Performed By: #### L 100.0100, L500.2500 #### [facility] [address] [place], [address] Erythrocyte distribution width (RBC) [Ratio] 11.9 % Normal 11.6-14.6 [facility] Comment on above: Performed By: #### L 100.0100, L500.2500 #### [facility] [address] [place], [address] Hematocrit (Bld) [Volume fraction] 36.8 % Low 37-47 [facility] Comment on above: Performed By: #### L 100.0100, L500.2500 #### [facility] [address] [place], [address] Hemoglobin (Bld) [Mass/Vol] 13.1 g/dL Normal 12.0-15.0 [facility] Comment on above: Performed By: #### L 100.0100, L500.2500 #### [facility] [address] [facility] [place], [address] IG% 0.300 Normal 0.0-0.9 [facility] Comment on above: Result Comment: IG% - Immature Granulocytes (promyelocytes, myelocytes and metamyelocytes) > 1% indicates that a LEFT SHIFT is Present. Performed By: #### L 100.0100, L500.2500 #### [facility] [address] [place], [address] Lymphocytes/100 WBC (Bld) 6.7 % Low 19-41 [facility] Comment on above: Performed By: #### L 100.0100, L500.2500 #### [facility] [address] [place], [address] MCH (RBC) [Entitic mass] 31.5 pg Normal 27.0-32.0 [facility] Comment on above: Performed By: #### L 100.0100, L500.2500 #### [facility] [address] [place], [address] MCHC (RBC) [Mass/Vol] 35.6 g/dL Normal 32-36 [facility] Comment on above: Performed By: #### L 100.0100, L500.2500 #### [facility] [address] [place], [address] MCV (RBC) [Entitic vol] 88.5 fL Normal 81-99 [facility] Comment on above: Performed By: #### L 100.0100, L500.2500 #### [facility] [address] [place], [address] Monocytes/100 WBC (Bld) 3.3 % Normal 0-10 [facility] Comment on above: Performed By: #### L 100.0100, L500.2500 #### [facility] [address] [place], [address] Neutrophils/100 WBC (Bld) 89.2 % High 47-70 [facility] Comment on above: Performed By: #### L 100.0100, L500.2500 #### [facility] [address] [place], [address] Nucleated RBC (Bld) [#/Vol] 0 10*3/uL Normal 0-5 [facility] Comment on above: Performed By: #### L 100.0100, L500.2500 #### [facility] [address] [place], [address] Platelet mean volume (Bld) [Entitic vol] 10.1 fL Normal 6.2-12.0 [facility] Comment on above: Performed By: #### L 100.0100, L500.2500 #### [facility] [address] [place], [address] Platelets (Bld) [#/Vol] 304 10*3/uL Normal 150-450 [facility] Comment on above: Performed By: #### L 100.0100, L500.2500 #### [facility] [address] [place], [address] RBC (Bld) [#/Vol] 4.16 10*6/uL Low 4.2-5.4 [facility] Comment on above: Performed By: #### L 100.0100, L500.2500 #### [facility] [address] [place], [address] RDW SD 38.1 fl Normal 35.1-43.9 [facility] Comment on above: Performed By: #### L 100.0100, L500.2500 #### [facility] [address] [place], [address] WBC (Bld) [#/Vol] 17.5 10*3/uL High 4.4-11.0 [facility] Comment on above: Performed By: #### L 100.0100, L500.2500 #### [facility] [address] [place], [address] Carbon dioxide, total [Moles /volume] in Central venous bloodOrdered By: Santiago Ac on 05-20-2025 CO2 [Moles/Vol] 17.8 mmol/L Low 21.0-32.0 [facility] Chloride assayOrdered By: Matthieu Ac on 05-20-2025 Chloride [Moles/Vol] 94 mmol/L Low 98-108 [facility] Emergency Department Summary on 05-20-2025 Emergency Department Summary [facility] Medical Records Department [address] [place] [address] Emergency Department Summary 05/20/25 MR#: [id number] Acct: [id number] Name: MARLENE VILLATORO Rep #: [id number] : 1950 74 From: Santiago Ac DO PCP: Dr. Collette Perez MD Status:REG ER Location: ED HPI HPI - Female History of Present Illness Chief Complaint: Complaint Narrative Narrative: Chief complaint and HPI: 74-year-old female with past medical history of ovarian and endometrial cancer status post resection and total hysterectomy presents for evaluation of gross hematuria. Onset this morning. Associated symptom is abdominal fullness. She denies any fever, chills, shortness of breath, chest pain, abdominal pain, nausea, vomiting, diarrhea, dysuria, back pain. Patient states that she has a history of a left ureteral stent placement by a urologist in which she never had it removed. Review of systems: See HPI Medications: As listed on the chart Allergies: As listed on the chart PFSH: Per chart Vital signs: As listed on the chart. Reviewed. Physical exam: Gen: A O x3, NAD Head: Normocephalic, atraumatic Eyes: No sclera icterus, conjunctiva clear ENT: Moist mucous membranes CV: RRR, no murmurs Resp: Lungs CTA BL, no w/r/c GI: Abd soft, non-distended, non-tender, no r/r/g : No CVA tenderness Musc: Full ROM, no deformity Skin: Warm, dry Neuro: Alert, oriented, grossly intact Psych: Cooperative, appropriate mood and affect [facility] Medical History (Updated 05/20/25 @ 16:[address] Santiago Ac, ) Former smoker Hypertension Home Medications ???Medication ???Instructions ???Recorded ???Last Taken ???Type acetaminophen 500 mg tablet 1,000 mg PO Q6H PRN PRN Pain 09/0605/20/25 History zinc amino acid chelate 50 mg 100 mg PO DAILY cold prevention 09/05/19 History tablet amlodipine 10 mg tablet 10 mg PO DAILY 05/20/25 05/20/25 H istory aspirin 325 mg capsule 81.25 mg PO DAILY PRN pain 5 Unknown History atenolol 100 mg tablet 100 mg PO BID 05/20/25 05/20/25 Hi story clonidine HCl 0.1 mg tablet 0.2 mg PO BID 05/20/25 05/20/25 Hi story losartan 100 mg tablet 100 mg PO DAILY 05/20/25 05/20/25 History sodium chloride 1,000 mg soluble 1,000 mg PO DAILY 3 days #3 tabs 0 05/20/25 Unknown Rx tablet spironolactone 25 mg tablet 25 mg PO DAILY blood pressure 04/2405/20/25 History Allergy/AdvReac Type Severity Reaction Status Date / Time No Known Allergies Allergy Verified 05/20/25 12:43 Social History Smoking Status: Former smoker EXAM Physical Exam Const Vital Signs: 05/20/25 12:46 05/20/25 14:43 05/20/25 15:00 Temperature 96.8 F L Temperature Source Temporal Pulse Rate 94 82 86 Respiratory Rate 18 14 14 Blood Pressure 178/101 H 162/105 H 165/102 H Blood Pressure Mean 126 124 123 Pulse Ox 97 98 98 Oxygen Delivery Method Room Air Room Air Room Air MDM MDM MDM Narrative Medical decision making narrative: 74-year-old female with past medical history of ovarian and endometrial cancer status post resection and total hysterectomy presents for evaluation of gross hematuria. Onset this morning. Associated symptom is abdominal fullness. On chart review, patient was seen by Dr. Linares on 09/20/2019. She had left hydronephrosis pelvic mass and vaginal bleeding. She had surgery with a left stent placement. The stent was supposed to be removed in 3 months. On presentation, patient no acute distress. She has gross hematuria. Griffin catheter in place with bladder irrigation. Basic labs ordered with CT abdomen pelvis. Differential diagnosis includes but is not limited to UTI, urolithiasis, cancer, stent migration. CBC with leukocytosis of 17.5. No anemia. Platelet count unremarkable. BMP shows mild dehydration with hyponatremia of 127. Previous labs are from 2019. No JUAN M. UA positive for blood. Negative for UTI. Patient states she has no history of hyponatremia that she knows of. She is asymptomatic from the hyponatremia. NS bolus ordered. Will place her on a couple days of salt tabs and have her repeat her sodium outpatient. Follow-up with primary care physician. She confirmed understanding. On reevaluation, urine is almost clear in the Griffin catheter. CT abdomen and pelvis pending. Patient signed out to oncoming provider who will await results and final disposition. Impression: 1. Gross hematuria 2. Mild dehydration 3. Asymptomatic hyponatremia Lab Data Labs: Laboratory Results - last 24 hr 05/20/25 13:40 WBC 17.5 H RBC 4.16 L Hgb 13.1 Hct 36.8 L MCV 88.5 MCH 31.5 MCHC 35.6 RDW Std Deviation 38.1 RDW Coeff of Fernie 11.9 Plt Count 304 MPV 10.1 Immature Gran % (Auto) 0.300 Neut (more content not included)... Normal [facility] Eosinophil percentageOrdered By: Santiago Ac on 05-20-2025 Eosinophils/100 WBC (Bld) 0.1 % 0-5 [facility] Erythrocyte distribution wid th ratioOrdered By: Bowers Osorio on 05-20-2025 Erythrocyte distribution width (RBC) [Ratio] 11.9 % 11.6-14.6 [facility] Erythrocyte distribution wid th standard deviationOrdered By: Bowers Jorge Vera on 05-20-2025 Erythrocyte distribution width (RBC) [Ratio] 38.1 fl 35.1-43.9 [facility] Glomerular filtration rate ( GFR) estimation/1.73 sq m using serum, plasma, or whole bOrdered By: Santiagoellie Ac on 05-20-2025 GFR/1.73 sq M.predicted among non-blacks MDRD (S/P/Bld) [Vol rate/Area] 67 mL/min/{1.73_m2} >60 [facility] Comment on above: mL/min/1.73m2 CKD-EP I Creatinine Equation (2020) [facility] de[facility]dered By: Santiago Ac on 05-20-2025 Glucose [Mass/Vol] 113 mg/dL High 74-106 [facility] Comment on above: MANAGEMENT OF PATIEN T CARE PER NURSING PROTOCOL Hematocrit Auto (Bld) [Volum e fraction]Ordered By: Santiago Ac on 05-20-2025 Hematocrit (Bld) [Volume fraction] 36.8 % Low 37-47 [facility] Hemoglobin measurementOrdere d By: Santiago Ac on 05-20-2025 Hemoglobin (Bld) [Mass/Vol] 13.1 g/dL 12.0-15.0 [facility] Immature granulocytes/100 WB C Auto (Bld)Ordered By: Santiago Ac on 05-20-2025 Immature granulocytes/100 WBC (Bld) 0.300 % 0.0-0.9 [facility] Comment on above: IG% - Immature Granu locytes (promyelocytes, myelocytes and metamyelocytes) > 1% indicates that a LEFT SHIFT is Present. Ketones Test strip Ql (U)Ord ered By: Santiago Ac on 05-20-2025 Ketones Ql (U) Negative Negative [facility] MCV (mean corpuscular volume ) determinationOrdered By: Santiago Ac on 05-20-2025 MCV (RBC) [Entitic vol] 88.5 fL 81-99 [facility] Mean corpuscular hemoglobin (MCH) determinationOrdered By: Santiago Ac on 05-20-2025 MCH (RBC) [Entitic mass] 31.5 pg 27.0-32.0 [facility] Mean corpuscular hemoglobin concentration (MCHC) determinationOrdered By: Santiago Ac on 05-20-2025 MCHC (RBC) [Mass/Vol] 35.6 g/dL 32-36 [facility] Mean platelet volume determi nationOrdered By: Santiago Ac on 05-20-2025 Platelet mean volume (Bld) [Entitic vol] 10.1 fL 6.2-12.0 [facility] Microscopic analysis of urin e for red blood cells (RBC)Ordered By: Santiago Ac on 05-20-2025 Microscopic analysis of urine for red blood cells (RBC) > 100 SEEN /hpf 0-5 [facility] Comment on above: Microscopic field is filled. Other elements may be obscured. Monocyte percentageOrdered B y: Santiago Ac on 05-20-2025 Monocytes/100 WBC (Bld) 3.3 % 0-10 [facility] Mucus LM Ql (Urine sed)Order ed By: Santiago Ac on 05-20-2025 Mucus Ql (Urine sed) 0 SEEN /hpf [facility] Neutrophil percentageOrdered By: Santiago Ac on 05-20-2025 Neutrophils/100 WBC (Bld) 89.2 % High 47-70 [facility] Nitrite Test strip Ql (U)Ord ered By: Santiago Ac on 09-28-2025 Nitrite Ql (U) Negative Negative [facility] Nucleated red blood cell per centageOrdered By: Santiago Ac on 05-20-2025 Nucleated RBC/100 WBC (Bld) [Ratio] 0 % 0-5 [facility] Platelet countOrdered By: Matthieu Ac on 05-20-2025 Platelets (Bld) [#/Vol] 304 10*3/uL 150-450 [facility] Potassium measurement (mass/ volume)Ordered By: Santiago Ac on 05-20-2025 Potassium (Unsp spec) [Mass/Vol] 4.1 mmol/L 3.3-5.1 [facility] Protein Test strip Ql (U)Ord ered By: Santiago Ac on 05-20-2025 Protein Ql (U) 500 mg/dl High Negative [facility] RBC Auto (Bld) [#/Vol]Ordere d By: Santiago Ac on 05-20-2025 RBC (Bld) [#/Vol] 4.16 10*6/uL Low 4.2-5.4 [facility] Serum creatinine measurement (mass/volume)Ordered By: Santiago Ac on 05-20-2025 Creatinine [Mass/Vol] 0.90 mg/dL 0.70-1.20 [facility] Serum glucose measurement (m ass/volume)Ordered By: Santiago Ac on 05-20-2025 Glucose [Mass/Vol] 158 mg/dL High 70-99 [facility] Serum or plasma calcium elkin urement (mass/volume)Ordered By: Santiago Vera on 05-20-2025 Calcium [Mass/Vol] 8.7 mg/dL 7.6-11.0 [facility] Serum or plasma urea nitroge n measurement (mass/volume)Ordered By: Santiago Ac on 05-20-2025 Urea nitrogen [Mass/Vol] 17 mg/dL 4-19 [facility] Sodium levelOrdered By: Sathya Ac on 05-20-2025 Sodium [Moles/Vol] 127 mmol/L Low 133-145 [facility] Squamous epithelial cells de tection in urine sediment by light microscopyOrdered By: Santiago Ac on 05-20-2025 Epithelial cells.squamous LM Ql (Urine sed) 0 SEEN /hpf 5-10 [facility] Urinalysis, Completeon 05-20 RBC > 100 SEEN Normal 0-5 [facility] Comment on above: Order Comment: COLOR OF URINE MAY AFFECT DIPSTICK RESULTS. CATHETER SPECIMEN Result Comment: Micr oscopic field is filled. Other elements may be obscured. Performed By: #### L 400.0001 #### [facility] [address] [place], [address] BACTERIA 0 SEEN Normal None Seen [facility] Comment on above: Order Comment: COLOR OF URINE MAY AFFECT DIPSTICK RESULTS. CATHETER SPECIMEN Performed By: #### L 400.0001 #### [facility] [address] [place], [address] EPI,SQUAMOUS 0 SEEN Normal 5-10 [facility] Comment on above: Order Comment: COLOR OF URINE MAY AFFECT DIPSTICK RESULTS. CATHETER SPECIMEN Performed By: #### L 400.0001 #### [facility] [address] [place], [address] Mucus Ql (Urine sed) 0 SEEN Normal [facility] Comment on above: Order Comment: COLOR OF URINE MAY AFFECT DIPSTICK RESULTS. CATHETER SPECIMEN Performed By: #### L 400.0001 #### [facility] [address] [place], [address] WBC 0 SEEN Normal 0-5 [facility] Comment on above: Order Comment: COLOR OF URINE MAY AFFECT DIPSTICK RESULTS. CATHETER SPECIMEN Performed By: #### L 400.0001 #### [facility] [address] [place], [address] Urine clarityOrdered By: Farhat Ac on 05-20-2025 Clarity (U) Turbid Clear [facility] Urine color determinationOrd ered By: Santiago Ac on 05-20-2025 Color (U) Red Yellow [facility] Urine glucose detectionOrder ed By: Santiago Ac on 05-20-2025 Glucose Ql (U) Normal mg/dl Normal [facility] Urine leukocyte esterase det ection by dipstickOrdered By: Santiago Ac on 05-20-2025 Leukocyte esterase Test strip Ql (U) Negative Negative [facility] Urine pHOrdered By: Santiago Root on 05-20-2025 pH (U) 7.0 [pH] 5.0 - 8.0 [facility] Urine sediment bacteria coun t by microscopy (number/high power field)Ordered By: Santiago Ac on 05-20-2025 Bacteria LM.HPF (Urine sed) [#/Area] 0 /[HPF] None Seen [facility] Urine specific gravity measu rementOrdered By: Santiago Ac on 05-20-2025 Specific gravity (U) [Rel density] 1.010 1.002-1.030 [facility] Urine urobilinogen measureme ntOrdered By: Santiago Ac on 05-20-2025 Urobilinogen Ql (U) Normal mg/dl Normal [facility] White blood cell (WBC) count Ordered By: Santiago Ac on 05-20-2025 WBC (Bld) [#/Vol] 17.5 10*3/uL High 4.4-11.0 [facility] White blood cell countOrdere d By: Santiago Ac on 05-20-2025 White blood cell count 0 SEEN /hpf 0-5 [facility] CNOVon 02-06-2025 CNOV Office Visit (INTMWS) MARLENE VILLATORO ([id number]) 1950 F Date Time Provider Department 02/06/25 11:40 AM MARGO MARLOW INTMWS During your visit today, we recorded the following information about you: Pulse Respiration Blood pressure Weight 81/minute 16/minute 164/90 90.6 kg Margo Marlow APRN.CAPTURE MANAGER 02/06/2025 12:08 PM Signed Subjective Patient ID: [...] manually right arm[ ROS Head: (-) headache Ears/Nose/Mouth/Thro at: (-) tinnitus Cardiovascular: (-) chest pain Respiratory: [...] to person, place, and time. Latest Ref [facility] 01/23/2025 WBC 3.70 - 11.00 k/uL 15.07 [...] Abs Lymph 1.00 - 4.00 k/uL 1.39 [place]% % 5.7 Abs [place] <0.87 k/uL 0.86 E[place]% % 0.2 Abs [...] have improved with current medication regimen. - (more content not included)... Normal [facility] 25(OH)D3 [facility] 25-hydroxyvitamin D3 [Mass/Vol] 18.1 ng/mL Low 31.0-80.0 [facility] Comment on above: Order Comment: Speci men Type: BLOOD SPECIMENOrdering Facility: [facility] Address: [address] [place] [address] Result Comment: Clas sification of 25 [place] Vitamin D status: Deficiency/Insufficiency: < or = 30 ng/ml. Sufficiency/Optimal Levels: 31-80 ng/mL Toxicity: > 100 ng/mL. Test performed by chemiluminescent immunoassay. Performed By: #### 1 989-3 ####[facility] LABCLIA [id number] [place] [address] [place] CBC W Auto Differential pane l (Bld)on 01-23-2025 Basophils (Bld) [#/Vol] 0.07 10*3/uL [facility] Basophils/100 WBC (Bld) 0.5 % C [facility] Differential cell count method Nom (Bld) Auto [facility] Eosinophils (Bld) [#/Vol] 0.03 10*3/uL [facility] Eosinophils/100 WBC (Bld) 0.2 % [facility] Erythrocyte distribution width (RBC) [Ratio] 12.3 % 11.5 - 15.0 % [facility] Hematocrit (Bld) [Volume fraction] 44.1 % 36.0 - 46.0 % [facility] Hemoglobin (Bld) [Mass/Vol] 14.7 g/dL 11.5 - 15.5 g/dL [facility] Immature granulocytes (Bld) [#/Vol] 0.05 10*3/uL [facility] Immature granulocytes/100 WBC (Bld) 0.3 % [facility] Interpretation and review of laboratory results Abnormal [facility] Lymphocytes (Bld) [#/Vol] 1.39 10*3/uL [facility] Lymphocytes/100 WBC (Bld) 9.2 % [facility] MCH (RBC) [Entitic mass] 30.6 pg 26. 0 - 34.0 pg [facility] MCHC (RBC) [Mass/Vol] 33.3 g/dL 30.5 - 36.0 g/dL [facility] MCV (RBC) [Entitic vol] 91.9 fL 80.0 - 100.0 fL [facility] Monocytes (Bld) [#/Vol] 0.86 10*3/uL [facility] Monocytes/100 WBC (Bld) 5.7 % [facility] Neutrophils (Bld) [#/Vol] 12.67 10*3/uL High [facility] Neutrophils/100 WBC (Bld) 84.1 % [facility] Nucleated RBC (Bld) [#/Vol] NINF [facility] Nucleated RBC/100 WBC (Bld) [Ratio] 0 % /100 WBC [facility] Platelet mean volume (Bld) [Entitic vol] 11.3 fL 9.0 - 12.7 fL [facility] Platelets (Bld) [#/Vol] 261 10*3/uL [facility] RBC (Bld) [#/Vol] 4.8 10*6/uL 3.90 - 5.2 0 m/uL [facility] WBC (Bld) [#/Vol] 15.07 10*3/uL High [facility] Basophils (Bld) [#/Vol] 0.07 10*3/uL Normal <0.11 [facility] Comment on above: Order Comment: Speci men Type: BLOOD SPECIMENOrdering Facility: [facility] Address: [address] [place] [address] Performed By: #### 5 7021-8 ####[facility] LABCLIA [id number] [place] [address] [place] Basophils/100 WBC (Bld) 0.5 % Normal [facility] Comment on above: Order Comment: Speci men Type: BLOOD SPECIMENOrdering Facility: [facility] Address: [address] [place] [address] Performed By: #### 5 7021-8 ####[facility] LABCLIA [id number] [place] [address] [place] Differential cell count method Nom (Bld) Auto Normal [facility] Comment on above: Order Comment: Speci men Type: BLOOD SPECIMENOrdering Facility: [facility] Address: [address] [place] [address] Performed By: #### 5 7021-8 ####[facility] LABCLIA [id number] [place] [address] [place] Eosinophils (Bld) [#/Vol] 0.03 10*3/uL Normal <0.46 [facility] Comment on above: Order Comment: Speci men Type: BLOOD SPECIMENOrdering Facility: [facility] Address: [address] [place] [address] Performed By: #### 5 7021-8 ####[facility] LABCLIA [id number] [facility] [address], [place] [address] [place] Eosinophils/100 WBC (Bld) 0.2 % Normal [facility] Comment on above: Order Comment: Speci men Type: BLOOD SPECIMENOrdering Facility: [facility] Address: [address] [place] [address] Performed By: #### 5 7021-8 ####[facility] LABIA [id number] [address], [place] [address] [place] Erythrocyte distribution width (RBC) [Ratio] 12.3 % Normal 11.5-15.0 [facility] Comment on above: Order Comment: Speci men Type: BLOOD SPECIMENOrdering Facility: [facility] Address: [address] [place] [address] Performed By: #### 5 7021-8 ####[facility] LABIA [id number] [place] [address] [place] Hematocrit (Bld) [Volume fraction] 44.1 % Normal 36.0-46.0 [facility] Comment on above: Order Comment: Speci men Type: BLOOD SPECIMENOrdering Facility: [facility] Address: [address] [place] [address] Performed By: #### 5 7021-8 ####[facility] LABCLIA [id number] [place] [id number] [place] Hemoglobin (Bld) [Mass/Vol] 14.7 g/dL Normal 11.5-15.5 [facility] Comment on above: Order Comment: Speci men Type: BLOOD SPECIMENOrdering Facility: [facility] Address: [address] [place] [address] Performed By: #### 5 7021-8 ####[facility] LABCLIA [id number] [place] [address] [place] Immature granulocytes (Bld) [#/Vol] 0.05 10*3/uL Normal <0.10 [facility] Comment on above: Order Comment: Speci men Type: BLOOD SPECIMENOrdering Facility: [facility] Address: [address] [place] [address] Performed By: #### 5 7021-8 ####[facility] LABCLIA [id number] [place] [address] [place] Immature granulocytes/100 WBC (Bld) 0.3 % Normal [facility] Comment on above: Order Comment: Speci men Type: BLOOD SPECIMENOrdering Facility: [facility] Address: [address] [place] [address] Performed By: #### 5 7021-8 ####[facility] LABCLIA [id number] [place] [address] [place] Lymphocytes (Bld) [#/Vol] 1.39 10*3/uL Normal 1.00-4.00 [facility] Comment on above: Order Comment: Speci men Type: BLOOD SPECIMENOrdering Facility: [facility] Address: [address] [place] [address] Performed By: #### 5 7021-8 ####[facility] LABCLIA [id number] [place] [address] [place] Lymphocytes/100 WBC (Bld) 9.2 % Normal [facility] Comment on above: Order Comment: Speci men Type: BLOOD SPECIMENOrdering Facility: [facility] Address: [address] [place] [address] Performed By: #### 5 7021-8 ####[facility] LABCLIA [id number] [place] [address] [place] MCH (RBC) [Entitic mass] 30.6 pg Normal 26.0-34.0 [facility] Comment on above: Order Comment: Speci men Type: BLOOD SPECIMENOrdering Facility: [facility] Address: [address] [place] [address] Performed By: #### 5 7021-8 ####[facility] LABCLIA [id number] [place] [address] [place] MCHC (RBC) [Mass/Vol] 33.3 g/dL Normal 30.5-36.0 [facility] Comment on above: Order Comment: Speci men Type: BLOOD SPECIMENOrdering Facility: [facility] Address: [address] [place] [address] Performed By: #### 5 7021-8 ####[facility] LABIA [id number] [place] [address] [place] MCV (RBC) [Entitic vol] 91.9 fL Normal 80.0-100.0 [facility] Comment on above: Order Comment: Speci men Type: BLOOD SPECIMENOrdering Facility: [facility] Address: [address] [place] [address] Performed By: #### 5 7021-8 ####[facility] LABIA [id number] [place] [address] [place] Monocytes (Bld) [#/Vol] 0.86 10*3/uL Normal <0.87 [facility] Comment on above: Order Comment: Speci men Type: BLOOD SPECIMENOrdering Facility: [facility] Address: [address] [place] [address] Performed By: #### 5 7021-8 ####[facility] LABCLIA [id number] [address] [place] Monocytes/100 WBC (Bld) 5.7 % Normal [facility] Comment on above: Order Comment: Speci men Type: BLOOD SPECIMENOrdering Facility: [facility] Address: [address] [place] [address] Performed By: #### 5 7021-8 ####[facility] LABCLIA [id number] [address], [place] [address] [place] Neutrophils (Bld) [#/Vol] 12.67 10*3/uL High 1.45-7.50 [facility] Comment on above: Order Comment: Speci men Type: BLOOD SPECIMENOrdering Facility: [facility] Address: [address] [place] [address] Performed By: #### 5 7021-8 ####[facility] LABCLIA [id number] [address], [place] [address] [place] Neutrophils/100 WBC (Bld) 84.1 % Normal [facility] Comment on above: Order Comment: Speci men Type: BLOOD SPECIMENOrdering Facility: [facility] Address: [address] [place] [address] Performed By: #### 5 7021-8 ####[facility] LABCLIA [id number] [address], [place] [address] [place] Nucleated RBC (Bld) [#/Vol] 10*3/uL Normal <0.01 [facility] Comment on above: Order Comment: Speci men Type: BLOOD SPECIMENOrdering Facility: [facility] Address: [address] [place] [address] Performed By: #### 5 7021-8 ####[facility] LABCLIA [id number] [facility] [address], [facility] [place] Nucleated RBC/100 WBC (Bld) [Ratio] 0.0 /100 WBC Normal [facility] Comment on above: Order Comment: Speci men Type: BLOOD SPECIMENOrdering Facility: [facility] Address: [address] [place] [address] Performed By: #### 5 7021-8 ####[facility] LABCLIA [id number] [place] [id number] [place] Platelet mean volume (Bld) [Entitic vol] 11.3 fL Normal 9.0-12.7 [facility] Comment on above: Order Comment: Speci men Type: BLOOD SPECIMENOrdering Facility: [facility] Address: [address] [place] [address] Performed By: #### 5 7021-8 ####[facility] LABIA [id number] [place] [address] [place] Platelets (Bld) [#/Vol] 261 10*3/uL Normal 150-400 [facility] Comment on above: Order Comment: Speci men Type: BLOOD SPECIMENOrdering Facility: [facility] Address: [address] [place] [address] Performed By: #### 5 7021-8 ####[facility] [id number] [place] [address] [place] RBC (Bld) [#/Vol] 4.80 10*6/uL Normal 3.90-5.20 [facility] Comment on above: Order Comment: Speci men Type: BLOOD SPECIMENOrdering Facility: [facility] Address: [address] [place] [address] Performed By: #### 5 7021-8 ####[facility] LABIA [id number] [place] [address] [place] WBC (Bld) [#/Vol] 15.07 10*3/uL High 3.70-11.00 [facility] Comment on above: Order Comment: Speci men Type: BLOOD SPECIMENOrdering Facility: [facility] Address: [address] [place] [address] Performed By: #### 5 7021-8 ####[facility] LABIA [id number] [place] [id number] [place] CNOVon 01-23-2025 CNOV Office Visit (INTMWS) SHAUNAMARLENE Peña ([id number]) 1950 F Date Time Provider Department 01/23/25 11:40 AM MARGO MARLOW During your visit today, we recorded the following information about you: Pulse Respiration Blood pressure Weight 96/minute 16/minute 218/128 90 kg Height 1.62 m Margo Marlow, JJ.CAPTURE MANAGER 01/26/2025 4:24 PM Addendum Subjective Patient ID: Marlene is a 74 year old female who presents for Yearly Exam. HPI Presents for routine visit today. On arrival indicates she has been out of medication for her blood pressure for some time. Review in [employer] shows no recent fill of any medications. [...] Reports a backlog of medication supply from [facility] [employer], leading to excess atenolol and clonidine. - [...] Nonfasting >39 mg/dL 70 65 LDL Cholesterol Ca (more content not included)... Normal [facility] Comprehensive metabolic 2000 panelon 01-23-2025 Albumin [Mass/Vol] 4.5 g/dL Normal 3.9-4.9 [facility] Comment on above: Order Comment: Speci men Type: BLOOD SPECIMENOrdering Facility: [facility] Address: [address] [place] [address] Performed By: #### L IPNF, , 3015-3 ####[facility] LABCLIA [id number] [place] [address] [place] ALP [Catalytic activity/Vol] 109 U/L Normal 34-123 [facility] Comment on above: Order Comment: Speci men Type: BLOOD SPECIMENOrdering Facility: [facility] Address: [address] [place] [address] Performed By: #### L IPNF, , 3015-3 ####[facility] LABCLIA [id number] [place] [address] [place] ALT [Catalytic activity/Vol] 11 U/L Normal 7-38 [facility] Comment on above: Order Comment: Speci men Type: BLOOD SPECIMENOrdering Facility: [facility] Address: [address] [place] [address] Performed By: #### L IPNF, , 3015-3 ####[facility] LABCLIA [id number] [place] [address] [place] Anion gap [Moles/Vol] 16 mmol/L High 8-15 [facility] Comment on above: Order Comment: Speci men Type: BLOOD SPECIMENOrdering Facility: [facility] Address: [address] [place] [address] Performed By: #### L IPNF, , 3015-3 ####[facility] LABCLIA [id number] [place] [id number] [place] AST [Catalytic activity/Vol] 14 U/L Normal 13-35 [facility] Comment on above: Order Comment: Speci men Type: BLOOD SPECIMENOrdering Facility: [facility] Address: [address] [place] [address] Performed By: #### L IPNF, , 3016-3 ####[facility] LABCLIA [id number] [address] [address] [place] Bilirubin [Mass/Vol] 0.4 mg/dL Normal 0.2-1.3 [facility] Comment on above: Order Comment: Speci men Type: BLOOD SPECIMENOrdering Facility: [facility] Address: [address] [place], [place] [address] Performed By: #### L IPNF, , 3 ####[facility] LABCLIA [id number] [address] [address] [place] Calcium [Mass/Vol] 9.5 mg/dL Normal 8.5-10.2 [facility] Comment on above: Order Comment: Speci men Type: BLOOD SPECIMENOrdering Facility: [facility] Address: [address] [place] [address] Performed By: #### L IPNF, , 3 ####[facility] LABCLIA [id number] [address] [address] [place] Chloride [Moles/Vol] 101 mmol/L Normal 98-107 [facility] Comment on above: Order Comment: Speci men Type: BLOOD SPECIMENOrdering Facility: [facility] Address: [address] [place] [address] Performed By: #### L IPNF, , 3015-10 ####[facility] LABCLIA [id number] [address] [address] [place] CO2 [Moles/Vol] 22 mmol/L Normal 22-30 [facility] Comment on above: Order Comment: Speci men Type: BLOOD SPECIMENOrdering Facility: [facility] Address: [address] [place] [address] Performed By: #### L IPNF, , 3 ####[facility] LABCLIA [id number] [place] [id number] [place] Creatinine [Mass/Vol] 0.59 mg/dL Normal 0.58-0.96 [facility] Comment on above: Order Comment: Love martinez Type: BLOOD SPECIMENOrdering Facility: [facility] Address: [address] [place] [address] Performed By: #### [place], 48[address]-9, 3016-3 ####[facility] LABIA [id number] [place] [address] [place] [facility] [place] Creatinine and Glomerular filtration rate.predicted panel (S/P/Bld) 94 mL/min/1.73m??? Normal >=60 [facility] Comment on above: Order Comment: Love martinez Type: BLOOD SPECIMENOrdering Facility: [facility] Address: [address] [place] [address] Result Comment: Delphine mated Glomerular Filtration Rate (eGFR) is calculated using the 2020 CKD-EPI creatinine equation. This equation utilizes serum creatinine, sex, and age as parameters. The creatinine assay has traceable calibration to isotope dilution-mass spectrometry. Refer to KDIGO guidelines for clinical interpretation. In patients with unstable renal function, e.g. those with acute kidney injury, the eGFR may not accurately reflect actual GFR. Performed By: #### L IPNF, 65787-9, 6-3 ####[facility] LABIA [id number] [place] [id number] [place] Glucose [Mass/Vol] 108 mg/dL High 74-99 [facility] Comment on above: Order Comment: Love martinez Type: BLOOD SPECIMENOrdering Facility: [facility] Address: [address] [place] [address] Result Comment: The [place] Diabetes Association (ADA) provides guidance for cutoff [...] Standards of Medical Care in Diabetes 2016, [place] Diabetes Association. Diabetes Care. 2016.39(Suppl 1). Performed By: #### L IPNF, , 6-3 ####[facility] LABCLIA [id number] [address] [address] [place] Potassium [Moles/Vol] 3.5 mmol/L Low 3.7-5.1 [facility] Comment on above: Order Comment: Speci men Type: BLOOD SPECIMENOrdering Facility: [facility] Address: [address] [place] [address] Performed By: #### L IPNF, , 3 ####[facility] LABCLIA [id number] [address] [address] [place] Protein [Mass/Vol] 7.6 g/dL Normal 6.3-8.0 [facility] Comment on above: Order Comment: Speci men Type: BLOOD SPECIMENOrdering Facility: [facility] Address: [address] [place] [address] Performed By: #### L IPNF, , 3 ####[facility] LABCLIA [id number] [address] [address] [place] Sodium [Moles/Vol] 139 mmol/L Normal 136-144 [facility] Comment on above: Order Comment: Speci men Type: BLOOD SPECIMENOrdering Facility: [facility] Address: [address] [place] [address] Performed By: #### L IPNF, , 3 ####[facility] LABCLIA [id number] [address] [address] [place] Urea nitrogen [Mass/Vol] 19 mg/dL Normal 7-21 [facility] Comment on above: Order Comment: Love martinez Type: BLOOD SPECIMENOrdering Facility: [facility] Address: [address] [place] [address] Performed By: #### L IPNF, 47565-2, 3016-3 ####[facility] LABCLIA [id number] [address] [address] [facility] [place] HbA1c (Bld)on 01-23-2025 Average glucose Estimated from glycated hemoglobin (Bld) [Mass/Vol] 108 mg/dL Normal [facility] Comment on above: Order Comment: Love martinez Type: BLOOD SPECIMENOrdering Facility: [facility] Address: [address] [place] [address] Result Comment: eAG: (Estimated average glucose) is a calculated value from HgbA1c and is sales representative canvas products of the average blood glucose level in the last 2-3 month period. Performed By: #### 5 5454-3 ####[facility] LABCLIA [id number] [address] [facility] HbA1c (Bld) [Mass fraction] 5.4 % Normal 4.3-5.6 [facility] Comment on above: Order Comment: Love martinez Type: BLOOD SPECIMENOrdering Facility: [facility] Address: [address] [place] [address] Result Comment: Amer [place] Diabetes Association guidelines indicate that patients with HgbA1c in the range 5.7-6.4% are at increased risk for development of diabetes, and intervention by lifestyle modification may be beneficial. HgbA1c greater or equal to 6.5% is considered diagnostic of diabetes. Performed By: #### 5 5454-3 ####[facility] LABCLIA [id number] [place] [id number] [place] LIPID PANEL, NONFASTINGon Cholesterol [Mass/Vol] 206 mg/dL High <200 Cl [facility] Comment on above: Order Comment: Love martinez Type: BLOOD SPECIMENOrdering Facility: [facility] Address: [address] [place] [address] Result Comment: <200 mg/dL, Desirable 200-239 mg/dL, Borderline high >239 mg/dL, High Performed By: #### L SUSY, 17805-7, 3015-3 ####[facility] LABCLIA [id number] [address] [address] [facility] [place] HDL CHOLESTEROL, NF 63 mg/dL Normal >39 [facility] Comment on above: Order Comment: Speci men Type: BLOOD SPECIMENOrdering Facility: [facility] Address: [address] [place] [address] Result Comment: 40-5 9 mg/dL, Acceptable >59 mg/dL, High: Negative risk factor for coronary heart disease <40 mg/dL, Low: Positive risk factor for coronary heart disease Performed By: #### L SUSY, 15694-9, 3 ####[facility] LABCLIA [id number] [address], [address] [place] LDL CHOLESTEROL CALCULATED, NF 121 mg/dL High <100 [facility] Comment on above: Order Comment: Love juan Type: BLOOD SPECIMENOrdering Facility: [facility] Address: [address] [place] [address] Result Comment: <100 mg/dL, Optimal 100-129 mg/dL, Near optimal/above optimal 130-159 mg/dL, Borderline high 160-189 mg/dL, High >189 mg/dL, Very high Secondary prevention optimal LDL Cholesterol levels are recommended to be <70 mg/dL LDL cholesterol is calculated using the Spears-NIH equation. Performed By: #### L SUSY, 51088-8, 3 ####[facility] LABCLIA [id number] [place] [id number] [facility] [place] LDL/HDL RATIO, NF 1.92 mg/dL Normal <2.54 [facility] Comment on above: Order Comment: Jerryi men Type: BLOOD SPECIMENOrdering Facility: [facility] Address: [address] [place] [address] Result Comment: Odalys machado: 1. National Cholesterol Education Program ATP III Guideline At-A-Glance Quick Desk Reference: National Heart, Lung, and Blood [place]. National Institutes of Health. 2001: NIH Publication No. 01-3305. 2. An International Atherosclerosis Society position paper: global recommendations for the management of dyslipidemia: executive summary, Atherosclerosis. 2014: 232(2):410-413. Performed By: #### L IPNF, 48258-1, 3016-3 ####[facility] LABCLIA [id number] [address] [place] NON HDL CHOL, NF 143 mg/dL High <130 [facility] Comment on above: Order Comment: Speci men Type: BLOOD SPECIMENOrdering Facility: [facility] Address: [address] [place] [address] Result Comment: <130 mg/dL, Optimal 130-159 mg/dL, Near optimal/above optimal 160-189 mg/dL, Borderline high 190-219 mg/dL, High >219 mg/dL, Very high Secondary prevention optimal non HDL Cholesterol levels are recommended to be <100 mg/dL Performed By: #### L IPNF, 54892-2, 6-3 ####[facility] LABCLIA [id number] [address] [place] T CHOL/HDL RATIO NF 3.27 mg/dL Normal <5.10 [facility] Comment on above: Order Comment: Love martinez Type: BLOOD SPECIMENOrdering Facility: [facility] Address: [address] [place] [address] Performed By: #### L IPNF, 48002-4, 6-3 ####[facility] LABCLIA [id number] [place] [address] [place] TRIGLYCERIDES, NF 123 mg/dL Normal <150 [facility] Comment on above: Order Comment: Love men Type: BLOOD SPECIMENOrdering Facility: [facility] Address: [address] [place] [address] Result Comment: <150 mg/dL, Normal 150-199 mg/dL, Borderline high 200-499 mg/dL, High >499 mg/dL, Very high Performed By: #### L IPNF, 56482-5, 3016-3 ####[facility] LABCLIA [id number] [place] [address] [place] VLDL CHOLESTEROL, NF 21 mg/dL Normal <30 [facility] Comment on above: Order Comment: Speci men Type: BLOOD SPECIMENOrdering Facility: [facility] Address: [address] [place] [address] Performed By: #### L IPNF, 17457-2, 3016-3 ####[facility] LABCLIA [id number] [place] [address] [place] TSH SerPl-aCncon 01-23-2025 TSH Qn 0.499 m[IU]/L Normal 0.270-4.200 [facility] Comment on above: Order Comment: Speci men Type: BLOOD SPECIMENOrdering Facility: [facility] Address: [address] [place] [address] Performed By: #### L IPNF, 25053-3, 3016-3 ####[facility] LABCLIA [id number] [place] [address] [place] CNCOon 07-25-2024 CNCO Letter Text Normal [facility] Vital Signs Date Time Vital Sign Value Performing Clinician Laura hoyos 05-20-2025 19:10-0400 Body temperature 98.1 [degF] Dr. Collette Perez MD Work Phone: [facility] 05-20-2025 19:10-0400 Diastolic blood pressure 92 mm[Hg] Dr. Collette Perez MD Work Phone: [facility] 05-20-2025 19:10-0400 Heart rate 56 /min Dr. Collette Perez MD Work Phone: [facility] 05-20-2025 19:10-0400 Respiratory rate 16 /min Dr. Collette Perez MD Work Phone: [facility] 05-20-2025 19:10-0400 SaO2% (BldA) [Mass fraction] 98 % Dr. Collette Perez MD Work Phone: [facility] 05-20-2025 19:10-0400 Systolic blood pressure 176 mm[Hg] Dr. Collette Perez MD Work Phone: [facility] 05-20-2025 13:51-0400 Body mass index (BMI) [Ratio] 32.3 kg/m2 Dr. Collette Perez MD Work Phone: 1(832)[phone] [place] [address] 05-20-2025 13:51-0400 Body weight 90.[address] Collette Perez MD Work Phone: 4([phone])[phone] [place] [address] 05-20-2025 12:46-0400 Body height 167.[address] Collette Perez MD Work Phone: 8([phone] [place] [address] 02-06-2025 11:36-0400 Body mass index (BMI) [Ratio] 34.52 kg/m2 Margo Marlow FUSING MACHINE TENDER.CAPTURE MANAGER Work Phone: [facility] 02-06-2025 11:36-0400 Body weight 90.6 kg Margo Marlow FUSING MACHINE TENDER.CAPTURE MANAGER Work Phone: [facility] 02-06-2025 11:36-0400 Diastolic blood pressure 90 mm[Hg] Margo Marlow FUSING MACHINE TENDER.CAPTURE MANAGER Work Phone: [facility] 02-06-2025 11:36-0400 Heart rate 81 /min Margo Marlow FUSING MACHINE TENDER.CAPTURE MANAGER Work Phone: [facility] 02-06-2025 11:36-0400 Respiratory rate 16 /min Margo Marlow FUSING MACHINE TENDER.CAPTURE MANAGER Work Phone: [facility] 02-06-2025 11:36-0400 SaO2% (BldA) [Mass fraction] 99 % Margo Marlow FUSING MACHINE TENDER.CAPTURE MANAGER Work Phone: [facility] 02-06-2025 11:36-0400 Systolic blood pressure 164 mm[Hg] Margo Marlow FUSING MACHINE TENDER.CAPTURE MANAGER Work Phone: [facility] 01-23-2025 11:33-0400 Body height 162 cm Margo Marlow FUSING MACHINE TENDER.CAPTURE MANAGER Work Phone: [facility] 01-23-2025 11:33-0400 Body mass index (BMI) [Ratio] 34.29 kg/m2 Margo Marlow FUSING MACHINE TENDER.CAPTURE MANAGER Work Phone: [facility] 01-23-2025 11:33-0400 Body weight 90 kg Margo Marlow FUSING MACHINE TENDER.CAPTURE MANAGER Work Phone: [facility] 01-23-2025 11:33-0400 Diastolic blood pressure 128 mm[Hg] Margo Marlow FUSING MACHINE TENDER.CAPTURE MANAGER Work Phone: [facility] 01-23-2025 11:33-0400 Heart rate 96 /min Margo Marlow FUSING MACHINE TENDER.CAPTURE MANAGER Work Phone: [facility] 01-23-2025 11:33-0400 Respiratory rate 16 /min Margo Marlow FUSING MACHINE TENDER.CAPTURE MANAGER Work Phone: [facility] 01-23-2025 11:33-0400 Systolic blood pressure 218 mm[Hg] Margo Marlow FUSING MACHINE TENDER.CAPTURE MANAGER Work Phone: [facility] 09-24-2023 14:05-0500 Diastolic blood pressure 101 mm[Hg] Margo Marlow FUSING MACHINE TENDER.CAPTURE MANAGER Work Phone: [facility] 09-24-2023 14:05-0500 Heart rate 92 /min Margo Marlow FUSING MACHINE TENDER.CAPTURE MANAGER Work Phone: [facility] 09-24-2023 14:05-0500 Systolic blood pressure 153 mm[Hg] Margo Marlow FUSING MACHINE TENDER.CAPTURE MANAGER Work Phone: [facility] 09-24-2023 14:02-0500 Body weight 90.72 kg Margo Marlow FUSING MACHINE TENDER.CAPTURE MANAGER Work Phone: [facility] 09-24-2023 14:02-0500 Respiratory rate 16 /min Margo Marlow FUSING MACHINE TENDER.CAPTURE MANAGER Work Phone: [facility] 03-16-2023 16:11-0400 Body temperature 97.5 [degF] Collette Perez MD Work Phone: [facility] 03-16-2023 16:11-0400 Body weight 85.28 kg Collette Perez MD Work Phone: [facility] 03-16-2023 16:11-0400 Diastolic blood pressure 82 mm[Hg] Collette Perez MD Work Phone: [facility] 03-16-2023 16:11-0400 Heart rate 73 /min Collette Perez MD Work Phone: [facility] 03-16-2023 16:11-0400 Respiratory rate 18 /min Collette Perez MD Work Phone: [facility] 03-16-2023 16:11-0400 SaO2% (BldA) [Mass fraction] 96 % Collette Perez MD Work Phone: [facility] 03-16-2023 16:11-0400 Systolic blood pressure 142 mm[Hg] Collette Perez MD Work Phone: [facility] 07-23-2022 09:39-0500 Diastolic blood pressure 96 mm[Hg] Margo Marlow FUSING MACHINE TENDER.CAPTURE MANAGER Work Phone: [facility] 07-23-2022 09:39-0500 Heart rate 78 /min Margo Marlow FUSING MACHINE TENDER.CAPTURE MANAGER Work Phone: [facility] 07-23-2022 09:39-0500 Systolic blood pressure 162 mm[Hg] Margo Marlow FUSING MACHINE TENDER.CAPTURE MANAGER Work Phone: [facility] 07-23-2022 09:36-0500 Body weight 85.28 kg Margo Marlow FUSING MACHINE TENDER.CAPTURE MANAGER Work Phone: [facility] 07-23-2022 09:36-0500 Respiratory rate 16 /min Margo Marlow FUSING MACHINE TENDER.CAPTURE MANAGER Work Phone: [facility] 07-23-2022 09:36-0500 SaO2% (BldA) [Mass fraction] 98 % Margo Marlow FUSING MACHINE TENDER.CAPTURE MANAGER Work Phone: [facility] Encounters Encounter Date Encounter Type Care Provider Facility Start: 07-04-2025 ambulatory Mekhi Joseph [facility] lity:[facility] Start: 07-02-2025 Encounter for other preprocedural examination [place] Start: 06-26-2025 ambulatory [facility] lity:[facility] Start: 06-15-2025 End: 06-15-2025 ambulatory [facility] Facility:[facility] Start: 05-20-2025 End: 05-20-2025 Emergency department patient visit Dr. Santiago PatelJody -Emergency Department Work Phone: Start: 04-19-2025 End: 04-19-2025 ambulatory Shaun Wolf RN Work Phone: [facility] Start: 04-19-2025 End: 04-19-2025 Coordination of care plan Shaun Wolf RN Work Phone: [facility] Management Comment on above: Care Coordination (C boland review) Start: 02-06-2025 End: 02-06-2025 Office outpatient visit 25 minutes Margo Marlow FUSING MACHINE TENDER.CAPTURE MANAGER Work Phone: [facility] [place] Comment on above: Primary hypertension (Primary Dx); Chronic pain of both knees; Vitamin D deficiency; Neutrophilia Start: 02-06-2025 End: 02-06-2025 ambulatory [facility] Facility:[facility] Start: 01-23-2025 End: 01-23-2025 ambulatory [facility] Facility:[facility] Start: 01-23-2025 End: 01-23-2025 Office outpatient visit 25 minutes Margo Marlow FUSING MACHINE TENDER.CAPTURE MANAGER Work Phone: [facility] [place] Comment on above: Primary hypertension (Primary Dx); Malignant neoplasm of left ovary (HCC); Personal history of antineoplastic chemotherapy; Obesity (BMI 30-39.9); White coat syndrome with diagnosis of hypertension; Osteopenia of both hips; Encounter for immunization; Screening for colon cancer; Screening for depression; Encounter for screening examination for other mental health and behavioral disorders; Vitamin D deficiency; Other specified abnormal findings of blood chemistry; Encounter for long-term current use of medication; Hypomagnesemia; Hypokalemia Start: 01-23-2025 End: 01-23-2025 ambulatory SELF Facility:[facility] Start: 01-17-2025 End: 01-17-2025 ambulatory Salina Fu MA [facility] Start: 01-17-2025 End: 01-17-2025 Patient encounter procedure Salina Fu MA [facility] Comment on above: Population Health Na vigation Outreach ([facility] Opened In Error Start: 01-08-2025 End: 01-08-2025 ambulatory Salina Fu MA [facility] Start: 01-08-2025 End: 01-08-2025 Patient encounter procedure Salina Fu MA [facility] Comment on above: Population Health Na vigation Outreach ([facility] ) Start: 01-04-2025 End: 02-05-2025 ambulatory Collette Perez MD Work Phone: [facility] Start: 12-07-2024 End: 12-07-2024 ambulatory Salina Fu MA [facility] Start: 12-07-2024 End: 12-07-2024 Patient encounter procedure Salina Fu MA [facility] Comment on above: Population Health Na vigation Outreach ([facility] ) Start: 11-02-2024 End: 11-02-2024 ambulatory Salina Brenda Fu MA [facility] Start: 11-02-2024 End: 11-02-2024 Patient encounter procedure Salina Fu MA [facility] Comment on above: Population Health Na vigation Outreach ([facility] ) Start: 09-26-2024 End: 09-26-2024 ambulatory Salina Fu MA [facility] Start: 09-26-2024 End: 09-26-2024 Patient encounter procedure Salina L [facility] [place] Comment on above: Population Health Na vigation Outreach ([facility]) Start: 07-25-2024 End: 07-25-2024 ambulatory Wil Rodriguez MA [facility] [place] Start: 07-25-2024 End: 07-25-2024 [facility] Comment on above: Population Health Na vigation Outreach (ACO QAE Surge list 2023/) Start: 01-12-2024 ambulatory Collette salazar MD Work Phone: Internal [facility] Start: 09-24-2023 End: 09-24-2023 Office outpatient visit 25 minutes Margo Marlow APRN.CAPTURE MANAGER Work Phone: [facility] [place] Comment on above: Primary hypertension (Primary Dx); Weight gain; White coat syndrome with diagnosis of hypertension; Encounter for immunization Start: 03-16-2023 End: 03-16-2023 Office outpatient visit 25 minutes Collette Perez MD Work Phone: [facility] [place] Comment on above: White coat syndrome with diagnosis of hypertension (Primary Dx); Hypokalemia; Hypomagnesemia; Elevated fasting glucose; Vitamin D deficiency; Hyperlipidemia, unspecified hyperlipidemia type; Need for vaccination; Malignant neoplasm of left ovary (HCC); Encounter for long-term current use of medication Start: 07-23-2022 End: 07-23-2022 Office outpatient visit 25 minutes Margo Marlow APRN.CAPTURE MANAGER Work Phone: [facility] [place] Comment on above: Primary hypertension (Primary Dx); Hypokalemia; Obesity (BMI 30-39.9); Leg swelling; White coat syndrome with diagnosis of hypertension; Need for shingles vaccine; Encounter for immunization; Microhematuria Start: 04-08-2022 Telephone encounter Collette ramirez MD Work Phone: [facility] [place] Comment on above: Results Start: 02-25-2022 ambulatory Collette salazar MD Work Phone: Internal [facility] Procedures Date Procedure Procedure Detail Performing Clinician Start: 05-20-[address] Collette Perez MD Work Phone: Start: 05-20-2025 Urnls dip stick/tabl et reagent auto microscopy Dr. Collette Perez MD Work Phone: Start: 05-20-2025 CT of abdomen and pe lvis without contrast Dr. Collette Perez MD Work Phone: Start: 01-23-2025 PFIZER-BIONTECH COVI D-19 VACCINE AGE 12+ YR (COMIRNATY) [facility] FUSING MACHINE TENDER.CAPTURE MANAGER Work Phone: Start: 01-23-2025 Adult depression scr eening assessment [facility] FUSING MACHINE TENDER.CAPTURE MANAGER Work Phone: Start: 01-23-2025 Lipid 1996 panel - S marcella or Plasma Collette Perez MD Work Phone: Start: 09-24-2023 INFLUENZA VACCINE, P RSV FREE, AGE 65+ YR, HIGH DOSE, QUADRIVALENT (FLUZONE HIGH-DOSE) [facility] FUSING MACHINE TENDER.CAPTURE MANAGER Work Phone: Start: 09-24-2023 PFIZER-BIONTECH COVI D-19 VACCINE ( SEASON) AGE 12+ YR [facility] FUSING MACHINE TENDER.CAPTURE MANAGER Work Phone: Start: 09-24-2023 Lipid 1996 panel - S marcella or Plasma Collette Perez MD Work Phone: Start: 07-23-2022 INFLUENZA SEASONAL QUADRIVALENT HIGH DOSE AGE 65+ [facility] FUSING MACHINE TENDER.CAPTURE MANAGER Work Phone: Start: 07-23-2022 PFIZER-BIONTECH COVI D-19 BIVALENT BOOSTER VACCINE, AGE 12+ YR [facility] FUSING MACHINE TENDER.CAPTURE MANAGER Work Phone: Start: 01-13-2022 Lipid 1996 panel - S marcella or Plasma [facility] FUSING MACHINE TENDER.CAPTURE MANAGER Work Phone: Start: 06-17-2021 Adult depression scr eening assessment Collette Perez MD Work Phone: Start: 01-01-2021 Mammography Collette subramanian MD Work Phone: Start: 11-08-2019 Colonoscopy Collette subramanian MD Work Phone: Plan of Treatment Date Care Activity Detail Author Start: 01-23-2030 Lipid panel Lipid Screening [facility] Start: 09-24-2028 Lipid [facility] Start: 01-24-2028 Diabetes Screening Diabetes Screenin g [facility] Start: 01-13-2027 Lipid panel Lipid Screening [facility] Start: 01-13-2027 LIPID SCREEN LIPID SCREEN [facility] Start: 09-24-2026 Diabetes Screening Diabetes Screenin g [facility] Start: 02-06-2026 Annual PCP Team Loan Reviewer clari Disease Visit Annual PCP Team Chronic Disease Visit [facility] Start: 01-23-2026 Annual PCP Team Loan Reviewer clari Disease Visit Annual PCP Team Chronic Disease Visit [facility] Start: 01-23-2026 Anxiety Screening Anxiety Screening [facility] Start: 01-23-2026 Depression Screening Depression Scre ening [facility] Start: 08-23-2025 Screening for malign ant neoplasm of colon Colorectal Cancer Screening [facility] Comment on above: Postponed from 10/09 (Postponed To Appropriate Date) Start: 07-31-2025 End: 07-31-2025 Patient encounter procedure 07/31/2025 2:20 PM EST Office Visit [facility] [place] [address] [place], [place] [id number] Collette Perez MD [address] [place], [place] [id number] 6 month f/u [facility] [place] Comment on above: 6 month f/u Start: 07-25-2025 Covid-19 Vaccine ( season) Covid-19 Vaccine () [facility] Start: 07-25-2025 Covid-19 Vaccine (6 - Mixed Product risk ) Covid-19 Vaccine (6 - Mixed Product risk ) [facility] Start: [facility] Start: 05-09-2025 End: 08-08-2025 CBC W Auto Differential panel - Blood COMPLETE BLOOD COUNT AND DIFFERENTIAL Lab Routine Neutrophilia Expected: 05/09/2025 (Approximate), Expires: 08/08/2025 [facility] Work Phone: Comment on above: Expected: 05/09/2025 (Approximate), Expires: 08/08/2025 Start: 04-23-2025 Influenza vaccination [facility] Start: 02-06-2025 End: 02-06-2025 Patient encounter procedure 02/06/2025 11:40 AM EDT Office Visit [facility] [place] [address] [place], [place] [phone] Margo Marlow APRN.CAPTURE MANAGER [address] [place], [place] [id number] blood presssure f/u [facility] [place] Comment on above: blood presssure f/u Start: 01-23-2025 End: 04-24-2025 25-hydroxyvitamin D3 [Mass/volume] in Serum or Plasma [facility] Comment on above: Expected: 01/23/2025 , Expires: 04/24/2025 Start: 01-23-2025 End: 04-24-2025 Comprehensive metabolic 2000 panel - Serum or Plasma [facility] Work Phone: Comment on above: Expected: 01/23/2025 , Expires: 04/24/2025 Start: 01-23-2025 End: 04-24-2025 Hemoglobin A1c in Blood [facility] Comment on above: Expected: 01/23/2025 , Expires: 04/24/2025 Start: 01-23-2025 End: 04-24-2025 Lipid 1996 panel - Serum or Plasma LIPID PANEL, FASTING Lab Routine Obesity (BMI 30-39.9) Expected: 01/23/2025, Expires: 04/24/2025 [facility] Comment on above: Expected: 01/23/2025 , Expires: 04/24/2025 Start: 01-23-2025 End: 04-24-2025 LIPID PANEL, NONFASTING [facility] Comment on above: Expected: 01/23/2025 , Expires: 04/24/2025 Start: 01-23-2025 End: 04-24-2025 Thyrotropin [Units/volume] in Serum or Plasma [facility] Comment on above: Expected: 01/23/2025 , Expires: 04/24/2025 Start: 01-13-2025 DI[facility]ET[facility]CRE[facility] Start: 01-13-2025 Diabetes Screening Diabetes Screenin g [facility] Start: 11-07-2024 Colonoscopy COLONOSCOPY [facility] Start: 11-07-2024 COLORECTAL CANCER SCREENING COLORECTAL CANCER SCREENING [facility] Start: 11-07-2024 Screening for malign ant neoplasm of colon [facility] Start: 10-09-2024 Screening for malign ant neoplasm of colon Sigmoidoscopy [facility] Start: 10-09-2024 SIGMOIDOSCOPY SIGMOIDOSCOPY [facility] Start: 08-23-2024 Advance Directive Discussion Advance Directive Discussion [facility] Start: 2024 RSV Vaccine (1 - 1-d ose 75+ series) RSV Vaccine (1 - 1-dose 75+ series) [facility] Start: 04-23-2024 Covid-19 Vaccine ( season) Covid-19 Vaccine ( season) [facility] Start: 04-23-2024 Influenza vaccination Influenza Vacc ine (#1) [facility] Start: 03-17-2024 End: 03-17-2024 Patient encounter procedure 03/17/2024 1:40 PM EDT Office Visit [facility] [place] [address] [place], [place] [phone] Collette Perez MD [address] [place], [place] [id number] 6 month f/u [facility] [place] Comment on above: 6 month f/u Start: 03-16-2024 ANNUAL PCP TEAM PLATE MOLDER CLARI DISEASE VISIT ANNUAL PCP TEAM CHRONIC DISEASE VISIT [facility] Start: 03-16-2024 SHINGRIX VACCINE (1 of 2) SHINGRIX VACCINE (1 of 2) [facility] Comment on above: Postponed from 06/06 (Declined at this time) Start: 03-16-2024 Urine microalbumin profile [facility] Comment on above: Postponed from 06/06 (Declined at this time) Start: 01-23-2024 Covid-19 Vaccine () Covid-19 Vaccine () [facility] Start: 09-16-2023 End: 11-16-2023 25-hydroxyvitamin D3 [Mass/volume] in Serum or Plasma VITAMIN D 25 HYDROXY Lab Routine Vitamin D deficiency Expected: 09/16/2023 (Approximate), Expires: 11/16/2023 [facility] Work Phone: Comment on above: Expected: 09/16/2023 (Approximate), Expires: 11/16/2023 Start: 09-16-2023 End: 11-16-2023 CBC panel - Blood by Automated count CBC Lab Routine White coat syndrome with diagnosis of hypertension Expected: 09/16/2023 (Approximate), Expires: 11/16/2023 [facility] Work Phone: Comment on above: Expected: 09/16/2023 (Approximate), Expires: 11/16/2023 Start: 09-16-2023 End: 11-16-2023 Comprehensive metabolic 2000 panel - Serum or Plasma COMP METABOLIC PANEL Lab Routine White coat syndrome with diagnosis of hypertension Hypokalemia Expected: 09/16/2023 (Approximate), Expires: 11/16/2023 [facility] Work Phone: Comment on above: Expected: 09/16/2023 (Approximate), Expires: 11/16/2023 Start: 09-16-2023 End: 11-16-2023 LIPID PANEL, NONFASTING LIPID PANEL, NONFASTING Lab Routine Hyperlipidemia, unspecified hyperlipidemia type Expected: 09/16/2023 (Approximate), Expires: 11/16/2023 [facility] Work Phone: Comment on above: Expected: 09/16/2023 (Approximate), Expires: 11/16/2023 Start: 09-16-2023 End: 11-16-2023 Magnesium [Mass/volume] in Serum or Plasma MAGNESIUM BLD Lab Routine Hypomagnesemia Expected: 09/16/2023 (Approximate), Expires: 11/16/2023 [facility] Work Phone: Comment on above: Expected: 09/16/2023 (Approximate), Expires: 11/16/2023 Start: 08-23-2023 Behavioral Health Screening Behavioral Health Screening [facility] Start: 04-23-2023 Influenza vaccination INFLUENZA (#1) [facility] Start: 01-13-2023 ANNUAL PCP TEAM PLATE MOLDER CLARI DISEASE VISIT ANNUAL PCP TEAM CHRONIC DISEASE VISIT [facility] Start: 11-21-2022 COVID-19 VACCINE (4 - Moderna series) COVID-19 VACCINE (4 - Moderna series) [facility] Start: 08-24-2022 SHINGRIX VACCINE (1 of 2) SHINGRIX VACCINE (1 of 2) [facility] Comment on above: Postponed from 06/06 (Insurance Coverage) Start: 08-24-2022 Urine microalbumin profile DTAP,TDAP,TD (1 - Tdap) [facility] Comment on above: Postponed from 06/06 (Insurance Coverage) Start: 08-23-2022 ADVANCE DIRECTIVE DISCUSSION ADVANCE DIRECTIVE DISCUSSION [facility] Start: 07-23-2022 End: 09-22-2022 Urinalysis complete panel - Urine URINALYSIS, WITH MICROSCOPIC Lab Routine Microhematuria Expected: 07/23/2022, Expires: 09/22/2022 [facility] Work Phone: Comment on above: Expected: 07/23/2022 , Expires: 09/22/2022 Start: 06-17-2022 Adult depression screening assessment DEPRESSION SCREENING [facility] Start: 06-17-2022 SHINGRIX VACCINE (1 of 2) SHINGRIX VACCINE (1 of 2) [facility] Comment on above: Postponed from 06/06 (Declined at this time) Start: 06-17-2022 Urine microalbumin profile DTAP,TDAP,TD (1 - Tdap) [facility] Comment on above: Postponed from 06/06 (Declined at this time) Start: 04-23-2022 Influenza vaccination INFLUENZA (#1) [facility] Start: 01-01-2022 Mammography MAMMOGRAM [facility] Start: 01-01-2022 Screening for malign ant neoplasm of breast Mammogram Screening [facility] Start: 12-13-2021 BP CONTROLLED (<130/80) BP CONTROLLE D (<130/80) [facility] Start: 08-25-2021 COVID-19 VACCINE (3 - Booster for Moderna series) COVID-19 VACCINE (3 - Booster for Moderna series) [facility] Start: 08-23-2021 ADVANCE DIRECTIVE DISCUSSION ADVANCE DIRECTIVE DISCUSSION [facility] Start: 11-13-2020 Pneumococcal Vaccine : 50+ (2 of 2 - PCV) Pneumococcal Vaccine: 50+ (2 of 2 - PCV) [facility] Start: 11-13-2020 Pneumococcal Vaccine : 65+ (2 of 2 - PCV) Pneumococcal Vaccine: 65+ (2 of 2 - PCV) [facility] Start: 11-13-2020 PNEUMOCOCCAL: 65+ (2 - PCV) PNEUMOCOCCAL: 65+ (2 - PCV) [facility] Start: 09-06-2020 Screening for malign ant neoplasm of cervix Cervical Cancer Screening [facility] Start: 05-23-2014 Medicare Annual Wellness Visit Medicare Annual Wellness Visit [facility] Start: 2009 RSV Vaccine (1 - 1-d ose 60+ series) RSV Vaccine (1 - 1-dose 60+ series) [facility] Start: 1999 Shingrix Vaccine (1 of 2) Shingrix Vaccine (1 of 2) [facility] Start: 1994 COLOGUARD (FIT-DNA) COLOGUARD (FIT-D NA) [facility] Start: [address] COLONOGRAPHY [facility] Start: 1994 FECAL OCCULT BLOOD FECAL OCCULT BLOO D [facility] Start: 1994 Screening for malign ant neoplasm of colon [facility] Start: 1968 Shingrix Vaccine (1 of 2) Shingrix Vaccine (1 of 2) [facility] Start: 1968 Urine microalbumin profile DTaP,Tdap,Td Vaccine (1 - Tdap) [facility] Start: 1967 Anxiety Screening Anxiety Screening [facility] Start: 1967 Depression Screening Depression Scre ening [facility] Basic metabolic 2008 panel with ionized calcium - Serum or Plasma [facility] End: 02-10-2025 MG Breast Screening DONAL SCREENING Radiology Routine Encounter for screening mammogram for breast cancer 1 Occurrences starting 01/12/2024 until 02/10/2025 [facility] Work Phone: Comment on above: 1 Occurrences starti ng 01/12/2024 until 02/10/2025 Patient Education ED Hematuria E D Hyponatremia [facility] Work Phone: Pneumococcal vaccination PNEUMOCOCCAL VACCINE (PREVNAR 20) Immunization/Injection Routine Encounter for immunization Ordered: 07/23/2022 [facility] Work Phone: Comment on above: Ordered: 07/23/2022 Pneumococcal vaccination PNEUMOCOCCAL VACCINE, 20 VALENT (PREVNAR 20) Immunization/Injection Routine Encounter for immunization 1 Occurrences starting 09/24/2023 [facility] Work Phone: Comment on above: 1 Occurrences starti ng 09/24/2023 End: 03-27-2023 Screening mammography bi 2-view breast inc cad DONAL SCREENING Radiology Routine Encounter for screening mammogram for breast cancer 1 Occurrences starting 02/25/2022 until 03/27/2023 [facility] Work Phone: Comment on above: 1 Occurrences starti ng 02/25/2022 until 03/27/2023 [facility] Immunizations Immunization Date Immunization Notes Care Provider Ada cortés 01-23-2025 COVID-19 vaccine, ag e 12+ yr (PFIZER-BIONTECH COMIRNATY) Margo Marlow FUSING MACHINE TENDER.CAPTURE MANAGER Work Phone: [facility] 09-24-2023 COVID-19 vaccine, ag e 12+ yr, 2022- season (PFIZER-BIONTECH) Margo Marlow FUSING MACHINE TENDER.CAPTURE MANAGER Work Phone: [facility] 09-24-2023 influenza (HD-IIV4) vaccine, age 65+ yr, high dose, quadrivalent, PF (FLUZONE HIGH-DOSE) Margo Marlow FUSING MACHINE TENDER.CAPTURE MANAGER Work Phone: [facility] 09-24-2023 influenza virus vaccine, unspecified formulation Wil Rodriguez MA [facility] 07-23-2022 COVID-19 booster vaccine, age 12+ yr, bivalent (PFIZER-BIONTECH) Margo Marlow FUSING MACHINE TENDER.CAPTURE MANAGER Work Phone: [facility] Work Phone: 07-23-2022 influenza, high-dose , quadrivalent vaccine (FLUZONE HIGH DOSE QUADRIVALENT) Margo Marlow FUSING MACHINE TENDER.CAPTURE MANAGER Work Phone: [facility] Work Phone: 06-17-2021 influenza, high-dose , quadrivalent vaccine (FLUZONE HIGH DOSE QUADRIVALENT) Collette Perez MD Work Phone: [facility] 03-25-2021 COVID-19 vaccine, fu ll dose (MODERNA) Collette Perez MD Work Phone: [facility] Work Phone: 02-25-2021 COVID-19 vaccine, fu ll dose (MODERNA) Collette Perez MD Work Phone: [facility] Work Phone: 11-14-2019 pneumococcal polysaccharide vaccine, 23 valent Collette Perez MD Work Phone: [facility] 09-07-2019 influenza, injectabl e, quadrivalent, preservative free Dr. Collette Perez MD Work Phone: [facility] 09-07-2019 influenza, seasonal, injectable, preservative free Margo Marlow FUSING MACHINE TENDER.CAPTURE MANAGER Work Phone: [facility] 09-06-2019 influenza, high dose seasonal, preservative-free Collette Perez MD Work Phone: [facility] NEGATED: Highlighted row has not occurred!07-23-2022 pneumococcal (PCV20) vaccine, 20 valent (PREVNAR 20) Margo Marlow FUSING MACHINE TENDER.CAPTURE MANAGER Work Phone: [facility] Work Phone: Payers Date Payer Category Payer Medicaid [id number] 2025 Self-pay 2014 Medicare MEDICARE MEDICAR E A AND B [id number] 2014-Present [phone] [place] [address] Medicare [id number] 2014 Medicare [id number] 2014 Medicare [id number] Unknown [id number] Unknown [id number] Unknown [id number] Unknown [id number] Social History Date Type Detail Facility Start: 08-30-2019 End: 05-20-2025 Tobacco smoking status NHIS Ex-smoker [facility] Start: 08-23-1972 End: 08-23-2002 History of tobacco use Current smoker [facility] Start: 08-23-1972 End: 08-23-2002 History of tobacco use Cigarette Smoker [facility] Start: 08-30-2019 End: 03-16-2023 Cigarettes smoked current (pack per day) - Reported 1.5 [facility] Work Phone: Start: 08-30-2019 End: 01-23-2025 Tobacco use and exposure Smokeless tobacco non-user [facility] Start: 01-13-2022 End: 02-06-2025 Alcohol intake Ex-drinker (finding) [facility] Start: 1950 Sex Assigned At Not on file [facility] Start: 07-13-2022 End: 07-23-2022 Exposure to SARS-CoV-2 (event) Not sure [facility] Work Phone: Start: 03-16-2023 End: 01-23-2025 Tobacco use panel [facility] Work Phone: Start: 08-29-2019 Adult Depression Screening Assessment 0 [facility] Work Phone: Start: 09-06-2019 Alcohol Alcohol [facility] Start: 09-06-2019 Lives Lives [facility] Start: 09-19-2019 Tobacco Use Tobacco Use [facility] Start: 1950 Sex Assigned At Female W [facility] Medical Equipment Procedure Code Equipment Code Equipment Origin al Text Equipment Identifier Dates STENT,6x28 TYRONE PIG FDA Start: 09-20-2019 Clinical Notes 04-15-2022 to 06-28-2025 Note Date & Type Note Facility 06-28-2025 Note HNO ID: [id number] Author: CAITLIN ROMERO MA Service: ? Author Type: Zigzagger Type: Progress Notes Filed: 06/28/2025 16:20 Note Text: POPULATION HEALTH NAVIGATION OUTREACH Action/FYI Spoke to patient and Medicare Wellness scheduled. Patient will go to pharmacy or [facility] for flu shot. She declines colorectal cancer screening. Reason for Outreach Community Monitoring/Network Navigator Pools AND Phone Line: CM Pool Care Gaps due: Medicare Annual Wellness Visit Colorectal Cancer Screening Flu Vaccine Patient Contacted: Spoke to patient/parent/or legal guardian Patient identified by name and : Yes Community Monitoring/Network Navigator Pools AND Phone Line actions taken: Patient scheduled / pended orders: Medicare Annual Wellness Visit 07/31/2025 in [facility] with COLLETTE PEREZ - 6 month f/u 02/18/2026 in [facility] with COLLETTE PEREZ - Medicare Wellness Navigation Signature: Caitlin Romero MA June 28, 2025 4:19 PM [facility] 06-28-2025 Note HNO ID: [id number] Author: CAITLIN ROMERO MA Service: ? Author Type: Zigzagger Type: Progress Notes Filed: 06/28/2025 13:50 Note Text: POPULATION HEALTH NAVIGATION OUTREACH Action/FYI Voicemail not set up and no My CHart. Will retry this afternoon. Patient is due for medicare wellness visit. Please assist with scheduling Reason for Outreach Community Monitoring/Network Navigator Pools AND Phone Line: CM Pool Care Gaps due: Medicare Annual Wellness Visit Colorectal Cancer Screening Flu Vaccine Patient Contacted: Unable or unnecessary to reach patient: Unable to leave message Navigation Signature: Caitlin Romero MA June 28, 2025 1:49 PM [facility] 06-28-2025 Note HNO ID: [id number] Author: YARA COOLEY RN Service: ? Author Type: Registered Nurse Type: Progress Notes Filed: 06/28/2025 11:48 Note Text: Value Based Care Coordination Chart Review Navigation Action / FYI: Patient is due for medicare wellness visit. Please assist with scheduling Upon review of patient chart, the patient is excluded from Chronic Disease Management Patient is not a candidate for CDM at this time and placed in the following status: Unable to reach Action taken: Patient routed to Navigation Team Schedule PCP appointment(s) . Yara Cooley RN June 28, 2025 11:46 AM [facility] 06-28-2025 Note Patient Outreach (AM BC) MARLENE VILLATORO ([id number]) 1950 F Date Time Provider Department 06/28/25 YARA COOLEY [facility] During your visit today, we recorded the following information about you: Yara Cooley RN 06/28/2025 11:48 AM Signed Value Based Care Coordination Chart Review Navigation Action / I: Patient is due for medicare wellness visit. Please assist with scheduling Upon review of patient chart, the patient is excluded from Chronic Disease Management Patient is not a candidate for CDM at this time and placed in the following status: Unable to reach Action taken: Patient routed to Navigation Team Schedule PCP appointment(s) . Yara Cooley RN June 28, 2025 11:46 AM Caitlin Romero MA 06/28/2025 1:50 PM Signed POPULATION HEALTH NAVIGATION OUTREACH Action/I Voicemail not set up and no My CHart. Will retry this afternoon. Patient is due for medicare wellness visit. Please assist with scheduling Reason for Outreach Community Monitoring/Network Navigator Pools AND Phone Line: Pool Care Gaps due: Medicare Annual Wellness Visit Colorectal Cancer Screening Flu Vaccine Patient Contacted: Unable or unnecessary to reach patient: Unable to leave message Navigation Signature: Caitlin Romero MA June 28, 2025 1:49 PM Caitlin Romero MA 06/28/2025 4:20 PM Signed POPULATION HEALTH NAVIGATION OUTREACH Action/FYI Spoke to patient and Medicare Wellness scheduled. [facility]. She declines colorectal cancer screening. Reason for Outreach Community Monitoring/Network Navigator Pools AND Phone Line: CM Pool Care Gaps due: Medicare Annual Wellness Visit Colorectal Cancer Screening Flu Vaccine Patient Contacted: Spoke to patient/parent/or legal guardian Patient identified by name and : Yes Community Monitoring/Network Navigator Pools AND Phone Line actions taken: Patient scheduled / pended orders: Medicare Annual Wellness Visit 07/31/2025 in [facility] with COLLETTE PEREZ - 6 month f/u 02/18/2026 in [facility] with COLLETTE PEREZ - Medicare Wellness Navigation Signature: Caitlin Romero MA June 28, 2025 4:19 PM Allergies As of Date: 06/28/2025 Noted Allergy Reaction LISINOPRIL 11/13/2019 3 - Cough Date Reviewed: 02/06/2025 Reviewed by: Margo Marlow APRN.CAPTURE MANAGER - Fully Assessed Reason for Visit: Assistant Hairstylist - Other [3602] Prescriptions as of 06/28/2025 - cholecalciferol (VITAMIN D3) 1,000 unit tab [...] 8 hours. Problem List As Of Date 06/28/2025 Noted Resolved Endometrial cancer (HCC) [C54.1] 11/09/2019 Postoperative state [Z98.890] 11/10/2019 Postoperative pain [G89.18] 11/10/2019 Hypokalemia [E87.6] 11/10/2019 Primary hypertension [I10] 11/10/2019 Obesity (BMI 30-39.9) [E66.9] 11/10/2019 Former smoker [Z87.891] 11/10/2019 Malignant neoplasm of left ovary (HCC) [C56.2] 11/27/2019 Encounter Status:Closed by YARA COOLEY on 06/28/25 [facility] 05-20-2025 Discharge summary [facility] 05-20-2025 Radiology Diagnostic study note [facility] Imaging Services [address] [place] [address] [id number] Abdomen/Pelvis without Cont MR#: [id number] Acct: [id number] Name: MARLENE VILLATORO Rep #: [id number] : 1950 F 74 From: Surinder Solano DO PCP: Dr. Collette Perez MD Status: RE G ER Study:Abdomen/Pelvis without Cont Date of Exa m: 05/20/25 Exam# [id number] Ordering Dr: Santiago Shepard DO PROCEDURE: ABDOMEN/PELVIS WITHOUT CONT 05/20/2025 REASON FOR EXAM: HEMATURIA Abrupt hematuria today. No pain. History of stent in kidney. TECHNIQUE: Procedure Code: CTABDPEL Modality: CT Procedure: ABDOMEN/PELVIS WITHOUT CONT Noncontrast technique limits evaluation of the abdominal and pelvic viscera. Coronal and Sagittal reconstruction series were provided. One or more dose reduction techniques were used (e.g., Automated exposure control, adjustment of the mA and/or kV according to patient size, use of iterative reconstruction technique). RADIATION DOSE SUMMARY: CTDlvol: 13.9 mGy DLP: 712 mGycm FINDINGS: Lung bases: There is no atelectasis, consolidation, effusion or pneumonic infiltrate. Liver: There are several low-attenuation masses in the liver. The largest measures 13 mm. The 13 mm mass is larger when compared to the prior exam. Previously it appears to have measured a proximally2 mm. Gallbladder: There are no stones identified. Spleen: A few splenic granulomas are seen. Pancreas: Diffuse fatty infiltration of the pancreas is noted. Adrenals: The right adrenal gland demonstrates normal contour and attenuation. The left adrenal gland is prominent along the most superior aspect and this may correlate to a small adenoma. Kidneys: The right kidney demonstrates normal size, contour and attenuation. There are no stones, masses or hydronephrosis. There is a left ureteral stent noted. There is a 2.3 cm increased attenuation identified in the midpole of the left kidney extending into the ureteral pelvic junction. There is a large hydroureter at this location and hydronephrosis. There is very subtle stranding of the perinephric fat surrounding the left kidney. Bladder: There is a Griffin catheter within the urinary bladder. A right ureteralstent tip is in the urinary bladder. There is a 3 cm increased attenuation identified in the urinary bladder. Reproductive Organs: There is a 12 mm low-attenuation mass in the right adnexal region. This may represent an ovarian cyst or bowel loop. Targeted ultrasound may be of value for further evaluation. Bowel: Small bowel and colonic loops are unremarkable. There is no evidence of ileus or bowel obstruction. A moderate amount of stool and gas is present throughout a nondistended colon. Lymph nodes: With a lack of IV contrast lymph node evaluation is suboptimal. Noobvious lymphadenopathy is seen based upon CT criteria. Vasculature: Extensive arteriosclerotic vascular disease of the aorta is noted. No aortic aneurysms are noted. There is no ascites. Bones: Mild spondylosis of the thoracic and lumbar spine is noted. There is a proximally 3 mm of anterolisthesis of L4 in relationship to L5. The vertebral body heights are unremarkable. There is no spondylolysis. Degenerative disc disease is seen involving several of the lower thoracic and lumbar spine discs. CT/Abdomen/Pelvis without Cont IMPRESSION: There are several liver lesions seen. These have. Represent probable cysts however targeted ultrasound is recommended of the liver for further evaluation. 1 of the masses is larger in size. There is prominence of the left adrenal gland along the superior margin. This may represent a small adenoma. Increased attenuation in the left kidney and urinary bladder may represent a stone or stent. Ultrasound is recommended for further evaluation. Reading Location: [id number] CC: Dr. Santiago Ac DO; Dr. Collette Perez MD ~ Mobile Application Developer: Signed [facility] 05-20-2025 Discharge summary Note Date/Time May 20, 2025 7:11pm [facility] Medical Records Department [address] [place] [address] Emergency Department Summary 05/20/25 MR#: [id number] Acct: [id number] Name: MARLENE VILLATORO Rep #:[id number] : 1950 74 From: Santiago ramos DO PCP: Dr. Collette Perez MD Status:RE G ER Location: ED HPI HPI - Female History of Present Illness Chief Complaint: Complaint Narrative Narrative: Chief complaint and HPI: 74-year-old female with past medical history of ovarianand endometrial cancer status post resection and total hysterectomy presents forevaluation of gross hematuria. Onset this morning. Associated symptom is abdominal fullness. She denies any fever, chills, shortness of breath, chest pain, abdominal pain, nausea, vomiting, diarrhea, dysuria, back pain. Patient states that she has a history of a left ureteral stent placement by a urologist in which she never had it removed. Review of systems: See HPI Medications: As listed on the chart Allergies: As listed on the chart PFSH: Per chart Vital signs: As listed on the chart. Reviewed. Physical exam: Gen: A&O x3, NAD Head: Normocephalic, atraumatic Eyes: No sclera icterus, conjunctiva clear ENT: Moist mucous membranes CV: RRR, no murmurs Resp: Lungs CTA BL, no w/r/c GI: Abd soft, non-distended, non-tender, no r/r/g : No CVA tenderness Musc: Full ROM, no deformity Skin: Warm, dry Neuro: Alert, oriented, grossly intact Psych: Cooperative, appropriate mood and affect [facility] Medical History (Updated 05/20/25 @ 16:[address] Santiago Ac, DO) Former smoker Hypertension Home Medications ?Medication ?Instructions ?Recorded ?Last Taken ?Type acetaminophen 500 mg tablet 1,000 mg PO Q6H PRN PRN Pa in 09/06/19 05/20/25 History zinc amino acid chelate 50 mg 100 mg PO DAILY cold pre vention 09/06/19 09/05/19 History tablet amlodipine 10 mg tablet 10 mg PO DAILY 05/20/25 09/04/16 History aspirin 325 mg capsule 81.25 mg PO DAILY PRN pain 0 05/20/25 Unknown History atenolol 100 mg tablet 100 mg PO BID 05/20/2505/20 History clonidine HCl 0.1 mg tablet 0.2 mg PO BID 05/20/25 History losartan 100 mg tablet 100 mg PO DAILY 05/20/25 History sodium chloride 1,000 mg soluble 1,000 mg PO DAILY 3 d ays #3 tabs 05/20/25 Unknown Rx tablet spironolactone 25 mg tablet 25 mg PO DAILY blood press ure 05/20/25 05/20/25 History Allergy/AdvReac Type Severity Reaction Status Date / Time No Known Allergies Allergy Verified 05/20/25 12:43 Social History Smoking Status: Former smoker EXAM Physical Exam Const Vital Signs: 05/20/25 12:46 05/20/25 14:43 05/20/25 15:00 Temperature 96.8 F L Temperature Source Temporal Pulse Rate 94 82 86 Respiratory Rate 18 14 14 Blood Pressure 178/101 H 162/105 H 165/102 H Blood Pressure Mean 126 124 123 Pulse Ox 97 98 98 Oxygen Delivery Method Room Air Room Air Room Air MDM MDM MDM Narrative Medical decision making narrative: 74-year-old female with past medical history of ovarian and endometrial cancer status post resection and total hysterectomy presents for evaluation of gross hematuria. Onset this morning. Associated symptom is abdominal fullness. On chart review, patient was seen by Dr. Linares on 09/20/2019. She had left hydronephrosis pelvic mass and vaginal bleeding. She had surgery with a left stent placement. The stent was supposed to be removed in 3 months. On presentation, patient no acute distress. She has gross hematuria. Griffin catheter in place with bladder irrigation. Basic labs ordered with CT abdomen pelvis. Differential diagnosis includes but is not limited to UTI, urolithiasis, cancer, stent migration. CBC with leukocytosis of 17.5. No anemia. Platelet count unremarkable. BMP shows mild dehydration with hyponatremia of 127. Previous labs are from 2019. No JUAN M. UA positive for blood. Negative for UTI. Patient states she has no history of hyponatremia that she knows of. She is asymptomatic from the hyponatremia. NS bolus ordered. Will place her on a couple days of salt tabs and have her repeat her sodium outpatient. Follow-up with primary care physician. She confirmed understanding. On reevaluation, urine is almost clear in the Griffin catheter. CT abdomen and pelvis pending. Patient signed out to oncoming provider who willawait results and final disposition. Impression: 1. Gross hematuria 2. Mild dehydration 3. Asymptomatic hyponatremia Lab Data Labs: Laboratory Results - last 24 hr 05/20/25 13:40 WBC 17.5 H RBC 4.16 L Hgb 13.1 Hct 36.8 L MCV 88.5 MCH 31.5 MCHC 35.6 RDW Std Deviation 38.1 RDW Coeff of Fernie 11.9 Plt Count 304 MPV 10.1 Immature Gran % (Auto) 0.300 Neut % (Auto) 89.2 H Lymph % (Auto) 6.7 L Washita % (Auto) 3.3 Eos % (Auto) 0.1 Baso % (Auto) 0.4 Absolute Neuts (auto) 15.6 H Absolute Lymphs (auto) 1.17 Nucleated RBC % 0 Sodium 127 L Potassium 4.1 Chloride 94 L Carbon Dioxide 17.8 L Anion Gap 16 H BUN 17 Creatinine 0.90 Estim Creat Clear Calc 61.34 Est GFR (MDRD) Non-Af 67 BUN/Creatinine Ratio 18.8 Glucose 158 H Calcium 8.7 Urine Color Red Urine Clarity Turbid Urine pH 7.0 Ur Specific Murtaugh 1.010 Urine Protein 500 H Urine Glucose (UA) Normal Urine Ketones Negative Urine Occult Blood 250 H Urine Nitrite Negative Urine Bilirubin Negative Urine Urobilinogen Normal Ur Leukocyte Esterase Negative Urine RBC > 100 SEEN Urine WBC 0 SEEN Ur Squamous Epith Cells 0 SEEN Urine Bacteria 0 SEEN Urine Mucus 0 SEEN Discharge Plan Triage Chief Complaint: Complaint ED Provider: Santiago Ac Dx/Rx/DC Orders Clinical Impression: Hyponatremia, Hematuria Prescriptions: New sodium chloride 1,000 mg tablet,soluble 1,000 mg PO DAILY 3 Days Qty: 3 0RF No Action acetaminophen 500 MG tablet 1,000 mg PO Q6H PRN PRN (Reason: Pain ) zinc amino acid chelate 50 MG tablet 100 mg PO DAILY clonidine HCl 0.1 mg tablet 0.2 mg PO BID atenolol 100 mg tablet 100 mg PO BID spironolactone 25 mg tablet 25 mg PO DAILY amlodipine 10 mg tablet 10 mg PO DAILY losartan 100 mg tablet 100 mg PO DAILY aspirin 325 mg capsule 81.25 mg PO DAILY PRN (Reason: pain) Other Ambulatory Orders: Basic Metabolic Profile (BMP) (Routine) Timeframe: 3 Days Facility: [facility] - Location: Laboratory Ordered By: Dr. Santiago Ac Primary Care Provider: Collette Perez Referrals: Collette Perez MD [Primary Care Provider, Internal Medicine] Print Language: American What to do if you have Problems For any increased pain, shortness of breath, bleeding, nausea or vomiting, chestpain, or any unexpected problems, contact your Primary Care Provider. Call [facility] ([phone]) or report to the closest Emergency Room. Call 911 if necessary. 05/20/25 1700 <Electronically signed by Santiago Ac DO> Cosigner Signature (if applicable): CC: Dr. Collette Perez MD ~ Signed ADDENDUM by Dr. Lavell Duenas MD on 05/20/25 at 1911 Patient endorsed to me by Dr. Bansal to review the CT radiology report on this patient having gross hematuria. Her bladder has been irrigated to at least a light pink color. She did require Tums at her request for dyspepsia/acid indigestion. There was significant delay in IT problems and obtaining the radiology read. It does show attenuation of the left kidney and ureter with concern for stent. I discussed patient with Dr. Joseph. Patient does need to follow-up closely as an outpatient for stent removal. I asked him about removalof the Griffin catheter and he is in agreements with that as well. She is to callthe office first thing tomorrow morning for an appointment to be seen this week for follow-up for stent removal. At this point in time I feel she can be discharged to follow-up. Return instructions to the emergency department were reviewed. Patient motivated for discharge. Disposition is discharged home in stable condition. 05/20/251910<Electronically signed by Lavell Duenas MD> Cosigner Signature (if applicable): cc: Dr. Collette Perez MD ~* Signed [facility] Work Phone: 1(645) 414-316709-28-2025 Hospital Discharge instructionsAdditional Instructions You need to have your urinary stent removed. Follow-up with Dr. Joseph this week. Call the office first thing tomorrow morning for an appointment. Return to the emergency department with increased hematuria, fever, new or worsening symptoms.[facility] Work Phone: 1(818) 463-161108-28-2025 NoteHNO ID: [id number] Author: SHAUN WOLF RN Service: ? Author [...] Deferred Action taken: No action needed . Shanu Wolf RN April 19, 2025 11:00 [facility]08-28-2025 History of Present illness Narrative* Shaun Wolf RN - 04/19/2025 11:00 AM EDT Value Based Care Coordination Chart Review Provider Action / FYI: Upon review of patient chart, the patient is excluded from Chronic Disease Management Patient is not a candidate for CDM at this time and placed in the following status: Deferred Action taken: No action needed . Shaun Wolf RN April 19, 2025 11:00 AM [facility] NotePatient Outreach (AMBCMG) SHAUNAMARLENE HASASN ([id number]) 1950 F Date Time Provider Department 04/19/25 SHAUN WOLF During your visit today, we recorded the following information about you: Shaun Wolf, KRISTINE 04/19/2025 11:02 AM Signed Value Based Care [...] - Cough Date Reviewed: 02/06/2025 Reviewed by: Margo Marlow APRN.CAPTURE MANAGER - Fully Assessed Reason for Visit: Care Coordination [3491] Cmt: Chart review Prescriptions as of 04/19/2025 [...] 11/27/2019 Encounter Status:Closed by SHAUN WOLF on 04/19/25[facility]06-17-2025 History of Present illness Narrative* Margo Marlow, JJ.CAPTURE MANAGER - 02/06/2025 11:40 AM EDT Subjective Patient ID: Marlene is a 74 [...] lb 11.8 oz) SpO2 99% BMI 34.52 kg/m Physical Exam Vitals and nursing note reviewed. [...] to person, place, and time. Latest Ref [facility] 01/23/2025 WBC 3.70 - 11.00 k/uL 15.07 [...] Abs Lymph 1.00 - 4.00 k/uL 1.39 Washita% % 5.7 Abs Washita <0.87 k/uL 0.86 Eosin% % 0.2 Abs [...] - 15 mmol/L 16 (H) eGFR >=60 mL/min/1.73m 94 Total Cholesterol, Nonfasting <200 mg/dL 206 [...] is low. WBC and neutrophils trending upward. Recommendseeing hematology. Metabolic panel is in acceptable range. [...] Medical Decision Making Level: 4 - Moderate documented in this encounterSumma Health Akron Campus06-17-2025 NoteHNO ID: [id number] Author: MARGO MARLOW APRN.CNS Service: ? 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: Losartan Amlodipine Spironolactone Continue clonidine 2 tablets twice daily Continue atenolol twice daily (morning and evening) - Lab work was drawn today; we will review the results at your next visit. - You received a COVID-19 booster vaccine today. - Consider creating a living will and naming a healthcare proxy (for example, Christopher or your [id number]-law). - Schedule a follow-up visit in about one week (Wednesday or ) to check your blood pressure; coordinate the exact day and time with your grandson. - Seek emergency care at the hospital if you develop chest pain, shortness of breath, sudden visionor speech changes, or new weakness. documented in this encounterSumma Health [facility]06-03-2025 NoteHNO ID: [id number] Author: MARGO MARLOW APRN.CNS Service: ? Author Type: Nurse Specialist Type: Progress Notes Filed: 01/26/2025 16:24 Note Text: Subjective Patient ID: Marlene is a 74 year old female who presents for Yearly Exam. HPI Presents for routine visit today. On arrival indicates she has been out of medication for her blood pressure for some time. Review in [facility] shows no recent fill of any medications. [...] Reports a backlog of medication supply from [facility], leading to excess atenolol and clonidine. - [...] Ratio, Nonfasting <2.54 mg/dL 2.01 1.94 Hemoglobin A1 (more content not included)...[facility]06-03-2025 History of Present illness Narrative* Margo Marlow APRN.CAPTURE MANAGER - 01/23/2025 11:54 AM EDT Subjective Patient ID: Marlene is a 74 year old female who presents for Yearly Exam. HPI Presents for routine visit today. On arrival indicates she has been out of medication for her bloodpressure for some time. Review in [facility] shows no recent fill of any medications. [...] Reports a backlog of medication supply from [facility], leading to excess atenolol and clonidine. - [...] kg (198 lb 6.6 oz) BMI 34.29 kg/m Physical Exam Vitals and nursing note reviewed. [...] - 18 mmol/L 13 16 eGFR >=60 mL/min/1.73m 93 92 WBC 3.70 - 11.00 k/uL [...] two tablets BID. - Refills sent to [facility]. - Advised on the importance of medication [...] chemotherapy (Z92.21) - No current issues reported. Medical Decision Making: Problems: Moderate: 2+ stable chronic illnesses Data: Unique test(s) ordered: 3+ Risk: Moderate: Drug management Medical Decision Making Level: 4 - Moderate documented in this encounterSumma Health [facility] Campus05-28-2025 NoteHNO ID: [id number] Author: SALINA FU MA Service: ? Author Type: Zigzagger Type: Progress Notes Filed: 01/17/2025 10:50 Note Text: OPENED IN ERRORMedina Hospital05-28-2025 History of Present illness Narrative* Salina Fu MA - 01/17/2025 10:49 AM EDT OPENED IN ERROR documented in this encounterSumma Health Ak[facility]05-28-2025 NoteHNO ID: [id number] Author: SALINA FU MA Service: ? Author Type: Zigzagger Type: Progress Notes Filed: 01/17/2025 10:02 Note [...] Letter mailed HCC related Navigation Signature: Salina Fu MA January 17, 2025 9:56 [facility]05-28-2025 History of Present illness Narrative* Salian Fu MA - 01/17/2025 9:56 AM EDT POPULATION HEALTH NAVIGATION OUTREACH Action/FYI Unable to [...] Letter mailed HCC related Navigation Signature: Salina Fu MA January 17, 2025 9:56 AM documented in this encounterSumma Health Akron Campus05-28-2025 NotePatient Outreach (NETNAV) MARLENE VILLATORO ([id number]) 1950 F Date Time Provider Department 01/17/25 SALINA FU NETNAV During your visit today, we recorded the following information about you: Salina Fu MA 01/17/2025 10:02 AM Signed POPULATION HEALTH [...] Letter mailed HCC related Navigation Signature: Salina Fu MA January 17, 2025 9:56 AM Allergies As of Date: 01/17/2025 Noted Allergy Reaction LISINOPRIL 11/13/2019 3 - Cough Date Reviewed: 09/24/2023 Reviewed by: Margo Marlow APRN.CAPTURE MANAGER - Fully Assessed Reason for Visit: Population Health Navigation Outreach [3910] Cmt: ACO GABRIELLE BARAJAS PCSA Prescriptions as of 01/17/2025 - [...] 11/27/2019 Letter Text Encounter Status:Closed by SALINA FU on 01/17/25[facility]05-19-[facility] History of Present illness Narrative* Salina Fu MA - 01/08/2025 10:50 AM EDT POPULATION HEALTH NAVIGATION OUTREACH Action/FYi Unable to [...] Letter mailed HCC related Navigation Signature: Salina Fu MA January 08, 2025 10:50 AM documented in this encounterSumma Health Ak[facility] Campus05-19-2025 NoteHNO ID: [id number] Author: FRANSISCA PEARL MA Service: ? Author Type: Zigzagger Type: Progress Notes Filed: 01/10/2025 13:39 Note Text: POPULATION HEALTH NAVIGATION OUTREACH Action/FYI Letter received and sent to be mailed Fransisca Pearl MA Navigation Signature: Fransisca Pearl MA January 10, 2025 1:39 PM POPULATION [...] Letter mailed HCC related Navigation Signature: Salina Fu MA January 08, 2025 10:50 [facility]05-19-2025 NotePatient Outreach (NETNAV) SHAUNAMARLENE Peña ([id number]) 1950 F Date Time Provider Department 01/08/25 SALINA FU During your visit today, we recorded the following information about you: Salina Fu MA 01/08/2025 10:59 AM Addendum POPULATION HEALTH NAVIGATION OUTREACH Action/FYI Letter received and sent to be mailed Fransisca Pearl MA Navigation Signature: Fransisca Pearl MA January 10, 2025 1:39 PM POPULATION [...] Letter mailed HCC related Navigation Signature: Salina Fu MA January 08, 2025 10:50 AM Allergies As of Date: 01/08/2025 Noted Allergy Reaction LISINOPRIL 11/13/2019 3 - Cough Date Reviewed: 09/24/2023 Reviewed by: Margo Marlow APRN.CAPTURE MANAGER - Fully Assessed Reason for Visit: Population Health Navigation Outreach [3910] Cmt: [facility] Prescriptions as of 01/10/2025 - losartan (COZAAR) [...] 11/27/2019 Letter Text Encounter Status:Closed by SALINA FU on 01/08/25[facility]05-15-2025 NotePatient Outreach (PEDSWS) MARLENE VILLATORO ([id number]) 1950 F Date Time Provider Department 01/04/25 COLLETTE PEREZ PEDSWS During your visit today, we recorded the following information about you: Allergies As of Date: 01/04/2025 Noted Allergy Reaction LISINOPRIL 11/13/2019 3 - Cough Date Reviewed: 09/24/2023 Reviewed by: Margo Marlow APRN.CAPTURE MANAGER - Fully Assessed Prescriptions as of 02/05/2025 [...] ovary (HCC) [C56.2] 11/27/2019 Encounter Status:Closed by Arradiance, FOLUPUSER on 02/05/25[facility] 12-26-2024 NoteHNO ID: [id number] Author: CHANTELLE PORTER MA Service: ? Author Type: Zigzagger Type: Progress Notes Filed: 12/26/2024 09:54 Note Text: POPULATION HEALTH NAVIGATION OUTREACH Action/FYI Letter received and sent to be mailed Chantelle Porter MA Navigation Signature: Chantelle Porter MA December 26, 2024 9:54 [facility]04-17-2025 NoteHNO ID: [id number] Author: SALINA FU MA Service: ? Author Type: Zigzagger Type: Progress Notes Filed: 12/07/2024 15:53 Note Text: POPULATION HEALTH NAVIGATION OUTREACH Action/FYI Someone continuous pickling line pickler the phone and hung up. No MyChart [id number] mailed Topic Due (Y or N) Comments [...] Letter mailed HCC related Navigation Signature: Salina Fu MA December 07, 2024 2:[address] [facility]04-17-2025 History of Present illness Narrative* Salina Fu MA - 12/07/2024 2:34 PM EDT POPULATION HEALTH NAVIGATION OUTREACH Action/FYI Someone continuous pickling line pickler the phone and hung up. No MyChart [id number] mailed Topic Due (Y or N) Comments [...] Letter mailed HCC related Navigation Signature: Salina Fu MA December 07, 2024 2:35 PM documented in this encounterSumma Health [facility] Campus04-17-2025 NotePatient Outreach (NETNAV) MARLENE VILLATORO ([id number]) 1950 F Date Time Provider Department 12/07/24 TANKSALINA SULLIVAN During your visit today, we recorded the following information about you: Salina Fu MA 12/07/2024 3:53 PM Signed POPULATION HEALTH NAVIGATION OUTREACH Action/FYI Someone continuous pickling line pickler the phone and hung up. No MyChart [email or web address] mailed Topic Due (Y or N) Comments [...] Letter mailed HCC related Navigation Signature: Salina Fu MA December 07, 2024 2:35 PM Chantelle Porter MA 12/26/2024 9:54 AM Signed POPULATION HEALTH NAVIGATION OUTREACH Action/FYI Letter received and sent to be mailed Chantelle Porter MA Navigation Signature: Chantelle Porter MA December 26, 2024 9:54 AM Allergies As of Date: 12/07/2024 Noted Allergy Reaction LISINOPRIL 11/13/2019 3 - Cough Date Reviewed: 09/24/2023 Reviewed by: Margo Marlow APRN.CAPTURE MANAGER - Fully Assessed Reason for Visit: Population Health Navigation Outreach [3910] Cmt: EKELEY BARAJAS PCSA Prescriptions as of 12/26/2024 - [...] 11/27/2019 Letter Text Encounter Status:Closed by SALINA FU on 12/07/24[facility]03-20-2025 NoteHNO ID: [id number] Author: HUMERA BALDWIN MA Service: ? Author Type: Zigzagger Type: Progress Notes Filed: 11/09/2024 08:42 Note Text: POPULATION HEALTH NAVIGATION OUTREACH Action/FYI Letter not sent due to one was already sent for in 2024. Navigation Signature: Humera Baldwin MA November 09, 2024 8:40 [facility]03-13-2025 NoteHNO ID: [id number] Author: SALINA FU MA Service: ? Author Type: Zigzagger Type: Progress Notes Filed: 11/02/2024 15:46 Note [...] leave message Letter mailed Navigation Signature: Salina Fu MA November 02, 2024 3:[address] [facility]03-13-2025 History of Present illness Narrative* Salina Fu MA - 11/02/2024 3:37 PM EDT POPULATION HEALTH NAVIGATION OUTREACH Action/FYI UNABLE TO [...] leave message Letter mailed Navigation Signature: Salina Fu MA November 02, 2024 3:37 PM documented in this encounterSumma Health [facility]03-13-2025 NotePatient Outreach (NETNAV) MARLENE VILLATORO ([id number]) 1950 F Date Time Provider Department 11/02/24 SALINA FU NETPATRIZIA During your visit today, we recorded the following information about you: Salina Fu MA 11/02/2024 3:46 PM Signed POPULATION HEALTH [...] leave message Letter mailed Navigation Signature: Salina Fu MA November 02, 2024 3:37 PM Humera Baldwin MA 11/09/2024 8:42 AM Addendum POPULATION HEALTH NAVIGATION OUTREACH Action/FYI Letter not sent due to one was already sent for in 2024. Navigation Signature: Humera Baldwin MA November 09, 2024 8:40 AM Allergies As of Date: 11/02/2024 Noted Allergy Reaction LISINOPRIL 11/13/2019 3 - Cough Date Reviewed: 09/24/2023 Reviewed by: Margo Marlow APRN.CAPTURE MANAGER - Fully Assessed Reason for Visit: Population Health Navigation Outreach [3910] Cmt: KEELEY BARAJAS PCSA Prescriptions as of 11/09/2024 - losartan [...] 11/27/2019 Letter Text Encounter Status:Closed by SALINA FU on 11/02/24[facility]02-07-2025 NoteHNO ID: [id number] Author: HUMERA BALDWIN MA Service: ? Author Type: Zigzagger Type: Progress Notes Filed: 09/29/2024 09:35 Note Text: POPULATION HEALTH NAVIGATION OUTREACH Action/FYI Letter received and sent to be mailed. Navigation Signature: Humera Baldwin MA September 29, 2024 9:34 [facility]02-04-2025 NoteHNO ID: [id number] Author: SALINA FU MA Service: ? Author Type: Zigzagger Type: Progress Notes Filed: 09/26/2024 09:11 Note [...] Letter mailed HCC related Navigation Signature: Salina Fu MA September 26, 2024 7:50 [facility]02-04-2025 History of Present illness Narrative* Salina Fu MA - 09/26/2024 7:50 AM EST POPULATION HEALTH NAVIGATION OUTREACH Action/FYI UNABLE TO [...] Letter mailed HCC related Navigation Signature: Salina Fu MA September 26, 2024 7:50 AM documented in this encounterSumma Health [facility]02-04-2025 NotePatient Outreach (NETNAV) MARLENE VILLATORO ([id number]) 1950 F Date Time Provider Department 09/26/24 SALINA FU NETPATRIZIA During your visit today, we recorded the following information about you: Salina Fu MA 09/26/2024 9:11 AM Signed POPULATION HEALTH [...] Letter mailed HCC related Navigation Signature: Salina Fu MA September 26, 2024 7:50 AM Humera Baldwin MA 09/29/2024 9:35 AM Signed POPULATION HEALTH NAVIGATION OUTREACH Action/FYI Letter received and sent to be mailed. Navigation Signature: Humera Baldwin MA September 29, 2024 9:34 AM Allergies As of Date: 09/26/2024 Noted Allergy Reaction LISINOPRIL 11/13/2019 3 - Cough Date Reviewed: 09/24/2023 Reviewed by: Margo Marlow APRN.CAPTURE MANAGER - Fully Assessed Reason for Visit: Population Health Navigation Outreach [3910] Cmt: ACO ANUPMITCHCora BARAJAS PCSA Prescriptions as of 09/29/2024 - [...] (HCC) [C56.2] 11/27/2019 Encounter Status:Closed by SALINA FU on 09/26/24[facility]12-03-2024 NoteHNO ID: [id number] Author: WIL RODRIGUEZ MA Service: ? Author Type: Zigzagger Type: Progress Notes Filed: 07/25/2024 14:46 Note Text: POPULATION HEALTH NAVIGATION OUTREACH Action/FYI Called patient but was unable to leave message. Letter Printed. Reason for Outreach Care Gap/HCC or Scheduling Wellness Visits Care Gaps due: Medicare Annual Wellness Visit Controlling Blood Pressure Flu Vaccine Patient Contacted: Unable or unnecessary to reach patient: Unable to leave message Letter mailed Navigation Signature: Wil Rodriguez MA July 25, 2024 2:40 [facility] History of Present illness Narrative* Wil Rodriguez MA - 07/25/2024 2:40 PM EST POPULATION HEALTH NAVIGATION OUTREACH Action/FYI Called patient but was unable to leave message. Letter Printed. Reason for Outreach Care Gap/HCC or Scheduling Wellness Visits Care Gaps due: Medicare Annual Wellness Visit Controlling Blood Pressure Flu Vaccine Patient Contacted: Unable or unnecessary to reach patient: Unable to leave message Letter mailed Navigation Signature: Wil Rodriguez MA July 25, 2024 2:40 PM documented in this encounterSumma Health [facility]12-03-2024 NotePatient Outreach (NETNAV) MARLENE VILLATORO ([id number]) 1950 F Date Time Provider Department 07/25/24 WIL RODRIGUEZ During your visit today, we recorded the following information about you: Wil Rodriguez MA 07/25/2024 2:46 PM Signed POPULATION HEALTH NAVIGATION OUTREACH Action/FYI Called patient but was unable to leave message. Letter Printed. Reason for Outreach Care Gap/HCC or Scheduling Wellness Visits Care Gaps due: Medicare Annual Wellness Visit Controlling Blood Pressure Flu Vaccine Patient Contacted: Unable or unnecessary to reach patient: Unable to leave message Letter mailed Navigation Signature: Wil Rodriguez MA July 25, 2024 2:40 PM Allergies As of Date: 07/25/2024 Noted Allergy Reaction LISINOPRIL 11/13/2019 3 - Cough Date Reviewed: 09/24/2023 Reviewed by: Margo Marlow APRN.CAPTURE MANAGER - Fully Assessed Reason for Visit: Population Health Navigation Outreach [3910] Cmt: KEELEY SAAVEDRA [employer] list 2023 Prescriptions as of 07/25/2024 [...] (HCC) [C56.2] 11/27/2019 Encounter Status:Closed by WIL RODRIGUEZ on 07/25/24[facility]02-02-2024 Instructions* Patient Instructions* Margo Marlow APRN.CAPTURE MANAGER - 09/24/2023 2:29 PM EST Ok to take two spironolactone per day for the next 3 days. documented in this encounterSumma Health [facility]02-02-2024 History of Present illness Narrative* Margo Marlow APRN.CNS - 09/24/2023 2:20 PM EST SUBJECTIVE: RSV Vaccine(1 - 1-dose 60+ series) Never done Pneumococcal Vaccine: 65+(2 of 2 - PCV) due on 11/13/2020 BP Controlled (<130/80) due on 12/13/2021 Mammogram Screening due on 01/01/2022 Influenza Vaccine(1) due on 04/23/2023 Covid-19 Vaccine( season) due on 04/23/2023 Advance Directive Discussion due on 08/23/2023 Depression Assessment due on 08/23/2023 HPI Marlene Villatoro is a 73 year old female. PMH significant for ACTIVE PROBLEM LIST Endometrial Cancer (Hcc) Postoperative State Postoperative Pain Hypokalemia Primary Hypertension Obesity (Bmi 30-39.9) Former Smoker Malignant Neoplasm of Left Ovary (Hcc) Presents for routine follow-up visit today. HPI excerpted from previous visit: Had mass of colon and endometrial cancer. Seen by Dr. Bautista and Dr. Munoz for malignant neoplasm of left ovary and endometrial cancer She underwent laparoscopic hysterectomy October 2019. Seen by Dr. Romero for colon mass. Obtained today reports that she ran out of medication about a month ago and pharmacy told her she could have more refills. Today notes weight gain and leg swelling, legs feeling heavy. HTN: Without report of symptoms referable to elevated blood pressure. Specifically denies headache,chest pain, palpitations, dyspnea, peripheral edema, orthopnea, fatigue and PND. She is without report of vision changes speech changes mobility changes. No facial drooping. Reports taking her blood p ressure medications as ordered. Last 14 Encounter BP Readings: Date: BP: 09/24/2023 153/101 03/16/2023 142/82 07/23/2022 162/96[bp average[ 01/13/2022 138/78 06/17/2021 180/90 12/13/2020 130/68 04/11/2020 150/86 04/02/2020 172/100[checked 4 times[ 04/02/2020 199/105 03/13/2020 165/92 03/12/2020 157/90 02/20/2020 168/98[taken manually right arm[ 01/31/2020 158/86 01/30/2020 164/96 Review of Systems Constitutional: Negative. Respiratory: Negative. Cardiovascular: Negative. Objective BP 153/101 Pulse 92 Resp 16 Wt 90.7 kg (200 lb) BMI 32.92 kg/m Physical Exam Vitals and nursing note reviewed. Constitutional: General: She is not in acute distress. Appearance: She is not diaphoretic. HENT: Head: Normocephalic and atraumatic. Eyes: Conjunctiva/sclera: Conjunctivae normal. Neck: Thyroid: No thyromegaly or thyroid tenderness. Vascular: Normal carotid pulses. No carotid bruit or JVD. Cardiovascular: Rate and Rhythm: Normal rate and regular rhythm. Pulses: Carotid pulses are 2+ on the right side and 2+ on the left side. Radial pulses are 2+ on the right side and 2+ on the left side. Heart sounds: Normal heart sounds. Pulmonary: Effort: Pulmonary effort is normal. Breath sounds: Normal breath sounds. Abdominal: General: Bowel sounds are normal. Palpations: Abdomen is soft. Musculoskeletal: Cervical back: No muscular tenderness. Right lower leg: Edema (1-2+) present. Left lower leg: Edema (1-2+) present. Lymphadenopathy: Cervical: No cervical adenopathy. Skin: General: Skin is warm and dry. Neurological: General: No focal deficit present. Mental Status: She is alert and oriented to person, place, and time. ALLERGIES Allergen Reactions Lisinopril Cough Medications potassium chloride ER (KLOR-CON) 20 mEq tablet Take 1 tablet by mouth once daily. magnesium oxide (MAG-OX) 400 mg (241.3 mg magnesium) tablet Take 1 tablet by mouth twice daily. calcium carbonate 600 mg-cholecalciferol 200 units (CALCIUM 600 + D,3,) 600 mg(1,500mg) -200 unit tab Take 1 tablet by mouth twice daily. calcium supplement cholecalciferol (VITAMIN D3) 1,000 unit tab tablet Take 1 tablet by mouth once daily. acetaminophen (TYLENOL) 500 mg tablet Take 500-750 mg by mouth every 8 hours. losartan (COZAAR) 100 mg tablet Take 1 tablet by mouth once daily. amLODIPine (NORVASC) 10 mg tablet Take 1 tablet by mouth once daily. cloNIDine HCl (CATAPRES) 0.1 mg tablet Take 2 tablets by mouth two times a day. atenolol (TENORMIN) 100 mg tablet Take 1 tablet by mouth two times a day. spironolactone (ALDACTONE) 25 mg tablet Take 1 tablet by mouth once daily. for blood pressure and leg swelling PAST MEDICAL HISTORY Diagnosis Date Cervical dysplasia Endometrial cancer (HCC) 09/13/2019 FIGO grage 2, Stage IA Endometriosis Fibroid Hypertension Ovarian cancer, left (HCC) 11/09/2019 Stage IC endometrioid Social History Tobacco Use Smoking status: Former Packs/day: 1.50 Years: 30.00 Additional pack years: 0.00 Total pack years: 45.00 Types: Cigarettes Quit date: 2002 Years since quittin.1 Smokeless tobacco: Never Vaping Use Vaping Use: Never used Substance Use Topics Alcohol use: Not Currently Drug use: Never Component Latest Ref Rng & Units 01/13/2022 Protein, Total 6.3 - 8.0 g/dL 7.4 Albumin 3.9 - 4.9 g/dL 4.4 Calcium 8.5 - 10.2 mg/dL 10.3 (H) Bilirubin, Total 0.2 - 1.3 mg/dL 0.7 Alkaline Phosphatase 34 - 123 U/L 105 AST 13 - 35 U/L 15 ALT 7 - 38 U/L 13 Glucose 74 - 99 mg/dL 118 (H) BUN 7 - 21 mg/dL 16 Creatinine 0.58 - 0.96 mg/dL 0.67 Sodium 136 - 144 mmol/L 135 (L) Potassium 3.7 - 5.1 mmol/L 3.8 Chloride 97 - 105 mmol/L 96 (L) CO2 22 - 30 mmol/L 26 Anion Gap 9 - 18 mmol/L 13 eGFR >=60 mL/min/1.73m 93 WBC 3.70 - 11.00 k/uL 11.65 (H) RBC 3.90 - 5.20 m/uL 4.60 Hemoglobin 11.5 - 15.5 g/dL 14.3 Hematocrit 36.0 - 46.0 % 42.5 MCV 80.0 - 100.0 fL 92.4 MCH 26.0 - 34.0 pg 31.1 MCHC 30.5 - 36.0 g/dL 33.6 RDW-CV 11.5 - 15.0 % 12.1 Platelet Count 150 - 400 k/uL 265 MPV 9.0 - 12.7 fL 10.2 Absolute nRBC <0.01 k/uL <0.01 Total Cholesterol, Nonfasting <200 mg/dL 230 (H) Triglycerides, Nonfasting <150 mg/dL 96 HDL Cholesterol, Nonfasting >39 mg/dL 70 LDL Cholesterol, Nonfasting <100 mg/dL 141 (H) Non HDL Cholesterol, Nonfasting <130 mg/dL 160 (H) VLDL Cholesterol, Nonfasting <30 mg/dL 19 Total Chol/HDL Ratio, Nonfasting <5.10 mg/dL 3.29 LDL/HDL Ratio, Nonfasting <2.54 mg/dL 2.01 Hemoglobin A1C 4.3 - 5.6 % 5.4 Estimated Average Glucose mg/dL 108 Magnesium 1.7 - 2.3 mg/dL 1.7 Vitamin D 25 Hydroxy 31.0 - 80.0 ng/mL 28.8 (L) ASSESSMENT/PLAN: 1. Primary hypertension - ICD9: 401.9, ICD10: I10 (primary diagnosis) Suboptimal control, has been out of medication for about a month. Discussed calling the office for refills in the future if needed consider discussing with the pharmacy. - Continue current medications - Encouraged sodium restriction, DASH or Mediterranean diet - Recommend regular aerobic exercise 2. Weight gain - ICD9: 783.1, ICD10: R63.5 Appears to be from volume overload, will take 2 spironolactone for the next 3 days then resume daily dosing 3. White coat syndrome with diagnosis of hypertension - ICD9: 401.9, ICD10: I10 - LOSARTAN 100 MG TABLET - AMLODIPINE 10 MG TABLET - CLONIDINE HCL 0.1 MG TABLET 4. Encounter for immunization - ICD9: V03.89, ICD10: Z23 Influenza and COVID boosters today. - RSV PRINTED PHARMACY INSTRUCTIONS - PNEUMOCOCCAL VACCINE, 20 VALENT (PREVNAR 20) - INFLUENZA VACCINE, PRSV FREE, AGE 65+ YR, HIGH DOSE, QUADRIVALENT (FLUZONE HIGH-DOSE) - [employer] COVID-19 VACCINE ( SEASON) AGE 12+ YR check labs and BP one month Margo Marlow APRN.CAPTURE MANAGER 6 mo follow up MD Magro Christian APRN.JÚNIOR Medical Decision Making: Problems: Moderate: 1+ chronic illnesses with change Risk: Moderate: Drug management Medical Decision Making Level: 4 - Moderate documented in this encounterSumma Health [facility]07-25-2023 Instructions* Patient Instructions* Collette Perez MD - 03/16/2023 4:36 PM EDT Add another 1000 units Vitamin D3 daily (currently 1000 units Vitamin D3 plus what is in [employer]). Vitamin D3 2000 unit capsules are available. Make sure to keep Calcium intake no more than 1200 to 1500 mg total with food and supplements. Get enough sodium in diet. documented in this encounterSumma Health [facility]07-25-2023 History of Present illness Narrative* Collette Perez MD - 03/16/2023 4:24 PM EDT This note was created using [employer]. Subjective Marlene Villatoro is a 72 year old female. Patient presents with: F/U 6 months SUBJECTIVE: Marlene Villatoro is a 72 year old year old lady here today for 6 month follow up appointment for reviewof medical conditions. BP better today. Doing pretty good overall. Trouble sleeping noted. Can go to sleep. Trouble staying asleep. 4 to 5 hours for stretch--was just3. New neighbors so quieter and able to sleep better. Street of rentals so about every 2 years. Hot milk works. Plans to be more careful with diet and move more. Some right ankle puffiness noted by end of day. PAST MEDICAL HISTORY Diagnosis Date Cervical dysplasia Endometrial cancer (HCC) 09/13/2019 FIGO grage 2, Stage IA Endometriosis Fibroid Hypertension Ovarian cancer, left (HCC) 11/09/2019 Stage IC endometrioid Current Outpatient Medications Medication Sig losartan (COZAAR) 100 mg tablet Take 1 tablet by mouth once daily. amLODIPine (NORVASC) 10 mg tablet Take 1 tablet by mouth once daily. cloNIDine HCl (CATAPRES) 0.1 mg tablet Take 2 tablets by mouth twice daily. atenolol (TENORMIN) 100 mg tablet Take 1 tablet by mouth twice daily. spironolactone (ALDACTONE) 25 mg tablet Take 1 tablet by mouth once daily. for blood pressure and leg swelling potassium chloride ER (K-DUR, KLOR-CON) 20 mEq tablet Take 1 tablet by mouth once daily. magnesium oxide (MAG-OX) 400 mg (241.3 mg magnesium) tablet Take 1 tablet by mouth twice daily. calcium carbonate 600 mg-cholecalciferol 200 units (CALCIUM 600 + D,3,) 600 mg(1,500mg) -200 unit tab Take 1 tablet by mouth twice daily. calcium supplement cholecalciferol (VITAMIN D3) 1,000 unit tab tablet Take 1 tablet by mouth once daily. acetaminophen (TYLENOL) 500 mg tablet Take 500-750 mg by mouth every 8 hours. No current facility-administered medications for this visit. Review of Systems Objective BP 142/82 Pulse 73 Temp 36.4 C (97.5 F) Resp 18 Wt 85.3 kg (188 lb) SpO2 96% BMI 30.95 kg/m Last 5 Encounter Wt Readings: Date: Wt: 03/16/2023 85.3 kg (188 lb) 07/23/2022 85.3 kg (188 lb) 01/13/2022 86.2 kg (190 lb) 06/17/2021 89.4 kg (197 lb) 12/13/2020 86.6 kg (191 lb) No waist measurement recorded Estimated body mass index is 30.95 kg/m as calculated from the following: Height as of 12/14/19: 166 cm (5' 5.35). Weight as of this encounter: 85.3 kg (188 lb). Last 5 Encounter BP Readings: Date: BP: 03/16/2023 142/82 07/23/2022 162/96[bp average[ 01/13/2022 138/78 06/17/2021 180/90 12/13/2020 130/68 Physical Exam Constitutional: Appearance: Normal appearance. HENT: Head: Normocephalic. Eyes: Conjunctiva/sclera: Conjunctivae normal. Cardiovascular: Rate and Rhythm: Normal rate and regular rhythm. Heart sounds: Normal heart sounds. Pulmonary: Effort: Pulmonary effort is normal. Breath sounds: Normal breath sounds. Musculoskeletal: Right lower leg: Edema (mild ankle swelling; no pain or tenderness) present. Skin: General: Skin is warm and dry. Neurological: General: No focal deficit present. Mental Status: She is alert and oriented to person, place, and time. Psychiatric: Mood and Affect: Mood normal. Behavior: Behavior normal. Thought Content: Thought content normal. Judgment: Judgment normal. Component Latest Ref Rng & Units 03/12/2020 04/02/2020 04/25/2020 12/10/2020 01/13/2022 WBC 3.70 - 11.00 k/uL 6.53 5.02 3.07 (L) 11.62 (H) 11.65 (H) RBC 3.90 - 5.20 m/uL 3.65 (L) 3.51 (L) 3.15 (L) 4.23 4.60 Hemoglobin 11.5 - 15.5 g/dL 11.4 (L) 11.1 (L) 10.3 (L) 13.4 14.3 Hematocrit 36.0 - 46.0 % 33.0 (L) 32.3 (L) 30.6 (L) 39.6 42.5 MCV 80.0 - 100.0 fL 90.4 92.0 97.1 93.6 92.4 MCH 26.0 - 34.0 pg 31.2 31.6 32.7 31.7 31.1 MCHC 30.5 - 36.0 g/dL 34.5 34.4 33.7 33.8 33.6 RDW-CV 11.5 - 15.0 % 16.9 (H) 15.8 (H) 14.1 12.1 12.1 Platelet Count 150 - 400 k/uL 128 (L) 140 (L) 128 (L) 216 265 MPV 9.0 - 12.7 fL 8.8 (L) 8.7 (L) 10.2 10.3 10.2 Neut% % 66.7 56.8 45.0 73.3 Abs Neut (ANC) 1.45 - 7.50 k/uL 4.34 2.84 1.37 (L) 8.52 (H) Lymph% % 22.5 29.5 33.2 18.0 Abs Lymph 1.00 - 4.00 k/uL 1.47 1.48 1.02 2.09 [place]% % 10.0 12.7 19.5 7.0 Abs [place] <0.87 k/uL 0.65 0.64 0.60 0.81 Eosin% % 0.3 0.4 2.0 1.1 Abs Eosin <0.46 k/uL <0.03 <0.03 0.06 0.13 Baso% % 0.5 0.6 0.3 0.6 Abs Baso <0.11 k/uL 0.03 0.03 <0.03 0.07 Nucleated Reds 0 /100 WBC 0.0 0.0 0.0 0.0 Absolute nRBC <0.01 k/uL <0.01 <0.01 <0.01 <0.01 <0.01 Diff Type Auto Diff Auto Diff Auto Diff Auto Diff Protein, Total 6.3 - 8.0 g/dL 6.8 6.6 6.2 (L) 7.4 Albumin 3.9 - 4.9 g/dL 4.2 4.1 3.8 (L) 4.4 Calcium 8.5 - 10.2 mg/dL 9.4 9.5 8.8 9.2 10.3 (H) Bilirubin, Total 0.2 - 1.3 mg/dL 0.3 0.3 0.3 0.7 Alkaline Phosphatase 34 - 123 U/L 114 104 86 105 AST 13 - 35 U/L 18 13 15 15 Glucose 74 - 99 mg/dL 106 (H) 110 (H) 148 (H) 103 (H) 118 (H) BUN 7 - 21 mg/dL 16 11 14 19 16 Creatinine 0.58 - 0.96 mg/dL 0.63 0.57 (L) 0.49 (L) 0.69 0.67 Sodium 136 - 144 mmol/L 143 137 137 137 135 (L) Potassium 3.7 - 5.1 mmol/L 3.7 3.8 3.7 4.0 3.8 Chloride 97 - 105 mmol/L 106 (H) 99 104 99 96 (L) CO2 22 - 30 mmol/L 26 28 24 30 26 Anion Gap 9 - 18 mmol/L 11 10 9 8 (L) 13 ALT 7 - 38 U/L 17 13 12 13 eGFR- >60 >60 >60 >60 eGFR-All Other Races . >60 >60 >60 >60 eGFR >=60 mL/min/1.73m 93 Total Cholesterol, Nonfasting <200 mg/dL 200 (H) 230 (H) Triglycerides, Nonfasting <150 mg/dL 141 96 HDL Cholesterol, Nonfasting >39 mg/dL 61 70 LDL Cholesterol, Nonfasting <100 mg/dL 111 (H) 141 (H) Non HDL Cholesterol, Nonfasting <130 mg/dL 139 (H) 160 (H) VLDL Cholesterol, Nonfasting <30 mg/dL 28 19 Total Chol/HDL Ratio, Nonfasting <5.10 mg/dL 3.28 3.29 LDL/HDL Ratio, Nonfasting <2.54 mg/dL 1.82 2.01 Bilirubin, Conjug <0.2 mg/dL <0.2 Hemoglobin A1C 4.3 - 5.6 % 5.4 Estimated Average Glucose mg/dL 108 Magnesium 1.7 - 2.3 mg/dL 1.7 1.5 (L) 1.7 Vitamin D 25 Hydroxy 31.0 - 80.0 ng/mL 28.8 (L) Assessment and Plan Encounter Diagnosis ICD-10-CM 1. White coat syndrome with diagnosis of hypertension I10 potassium chloride ER (KLOR-CON) 20 mEq tablet magnesium oxide (MAG-OX) 400 mg (241.3 mg magnesium) tablet COMP METABOLIC PANEL CBC 2. Hypokalemia E87.6 potassium chloride ER (KLOR-CON) 20 mEq tablet COMP METABOLIC PANEL 3. Hypomagnesemia E83.42 magnesium oxide (MAG-OX) 400 mg (241.3 mg magnesium) tablet MAGNESIUM BLD 4. Elevated fasting glucose R73.01 5. Encounter for long-term current use of medication Z79.899 potassium chloride ER (KLOR-CON) 20 mEq tablet magnesium oxide (MAG-OX) 400 mg (241.3 mg magnesium) tablet 6. Vitamin D deficiency E55.9 VITAMIN D 25 HYDROXY 7. Hyperlipidemia, unspecified hyperlipidemia type E78.5 LIPID PANEL, NONFASTING 8. Need for vaccination Z23 CANCELED: PNEUMOCOCCAL VACCINE (PREVNAR 20) 9. Malignant neoplasm of left ovary (HCC) C56.2 Had been seen and treated by Alexander Gordon Above issues addressed with patient. Patient involved in shared decision making for management of medical issues. History and medications reviewed. Epic updated as needed Refills and/or prescriptions taken care of and meds adjusted as indicated after reviewed history, exam and labs. Health Maintenance reviewed. Updated record and/or ordered tests as recorded. Encouraged on efforts at healthy diet and regular exercise and adequate sleep. Collette Perez MD documented [facility] Instructions* Patient Instructions* Margo Marlow APRN.CNS - 07/23/2022 9:50 AM EST Check routine lab work and urinalysis today Start taking spironolactone 25 mg once daily in a.m. for blood pressure. Stop taking and let us know if any problems with taking this Check to see if your insurance covers Tdap and shingles vaccine and what location to get the vaccine -usually best covered at your local pharmacy where you get prescriptions filled documented in this encounterSum[facility]12-01-2022 History of Present illness Narrative* Margo Marlow APRN.CNS - 07/23/2022 9:40 AM EST SUBJECTIVE: DTAP,TDAP,TD(1 - Tdap) Never done SHINGRIX VACCINE(1 of 2) Never done PNEUMOCOCCAL: 65+(2 - PCV) due on 11/13/2020 COVID-19 VACCINE(3 - Booster for Moderna series) due on 05/20/2021 ADVANCE DIRECTIVE DISCUSSION Never done DEPRESSION ASSESSMENT Never done BP CONTROLLED (<130/80) due on 12/13/2021 MAMMOGRAM due on 01/01/2022 INFLUENZA(1) due on 04/23/2022 HPI Marlene Villatoro is a 72 year old female. PMH significant for ACTIVE PROBLEM LIST Endometrial Cancer (Hcc) Postoperative State Postoperative Pain Hypokalemia Essential Hypertension Overweight Former Smoker Malignant Neoplasm of Left Ovary (Hcc) Seen in follow-up. Had mass of colon and endometrial cancer. Seen by Dr. Bautista and Dr. Munoz for malignant neoplasm of left ovary and endometrial cancer She underwent laparoscopic hysterectomy October 2019. Seen by Dr. Romero for colon mass. Notes minor ankle swelling that progresses with prolonged sitting or standing and resolves overnight. Can present as well if eating foods higher in sodium. Weight is stable. Notes financial constraints, she previously was not taking supplemental vitamin D and calcium but currently is. Notes wearing a wrap/brace OTC for knees, does help.No falls, no locking up reported. Sodium: limiting NSAIDS: none reported Taking medications routinely/missing doses/taken today: Took today, no missed doses reported She notes home blood pressure readings are typically similar to today's when taking before her medicine in the morning. 1 or 2 hours later blood pressures typically in the 140s over the 70s to 80s. HTN: Without report of symptoms referable to elevated blood pressure. Specifically denies headache,chest pain, palpitations, dyspnea, peripheral edema, orthopnea, fatigue and PND. She is without report of vision changes speech changes mobility changes. No facial drooping. Reports taking her blood p ressure medications as ordered. Last 14 Encounter BP Readings: Date: BP: 07/23/2022 162/96[bp average[ 01/13/2022 138/78 06/17/2021 180/90 12/13/2020 130/68 04/11/2020 150/86 04/02/2020 172/100[checked 4 times[ 04/02/2020 199/105 03/13/2020 165/92 03/12/2020 157/90 02/20/2020 168/98[taken manually right arm[ 01/31/2020 158/86 01/30/2020 164/96 01/10/2020 153/94 01/09/2020 168/85 Review of Systems Constitutional: Negative. Respiratory: Negative. Cardiovascular: Negative. Objective BP 178/94 Pulse 84 Resp 16 Wt 85.3 kg (188 lb) SpO2 98% BMI 30.95 kg/m Physical Exam Vitals and nursing note reviewed. Constitutional: General: She is not in acute distress. Appearance: She is not diaphoretic. HENT: Head: Normocephalic and atraumatic. Neck: Thyroid: No thyromegaly or thyroid tenderness. Vascular: Normal carotid pulses. No carotid bruit or JVD. Cardiovascular: Rate and Rhythm: Normal rate and regular rhythm. Pulses: Carotid pulses are 2+ on the right side and 2+ on the left side. Radial pulses are 2+ on the right side and 2+ on the left side. Heart sounds: Normal heart sounds. Pulmonary: Effort: Pulmonary effort is normal. Breath sounds: Normal breath sounds. Abdominal: General: Bowel sounds are normal. Palpations: Abdomen is soft. Musculoskeletal: Cervical back: No muscular tenderness. Right lower leg: Edema (scant) present. Left lower leg: Edema (scant) present. Lymphadenopathy: Cervical: No cervical adenopathy. Skin: General: Skin is warm and dry. Neurological: General: No focal deficit present. Mental Status: She is alert and oriented to person, place, and time. ALLERGIES Allergen Reactions Lisinopril Cough Medications potassium chloride ER (K-DUR, KLOR-CON) 20 mEq tablet Take 1 tablet by mouth once daily. magnesium oxide (MAG-OX) 400 mg (241.3 mg magnesium) tablet Take 1 tablet by mouth twice daily. losartan (COZAAR) 100 mg tablet Take 1 tablet by mouth once daily. amLODIPine (NORVASC) 10 mg tablet Take 1 tablet by mouth once daily. cloNIDine HCl (CATAPRES) 0.1 mg tablet Take 2 tablets by mouth twice daily. atenolol (TENORMIN) 100 mg tablet Take 1 tablet by mouth twice daily. calcium carbonate 600 mg-cholecalciferol 200 units (CALCIUM 600 + D,3,) 600 mg(1,500mg) -200 unit tab Take 1 tablet by mouth twice daily. calcium supplement cholecalciferol (VITAMIN D3) 1,000 unit tab tablet Take 1 tablet by mouth once daily. acetaminophen (TYLENOL) 500 mg tablet Take 500-750 mg by mouth every 8 hours. iv contrast (will be provided with radiology test) CT Chest ABD/PEL-Inject, intravenously, once for1 dose.No IV access, insert saline lock prior to the beginning of sedation, infusion, injection of imaging exam. Discontinue saline lock post exam. If Pt. has a central line or IVAD, may access for administration according to line specific nursing protocol. Once exam is complete flush line and de-access according to line specific nursing protocol in the CT contrast administration guidelines link.(Patient not taking: No sig reported) enteric contrast (will be provided with radiology test) For CT CHESTABD/PEL W IVCON Routine order Administer, As Directed One Time Only, via Oral, Rectal, both Oral and Rectal, Enteric Tube, Stoma orIndwelling Catheter, Enteric Contrast as designated per enteric contrast guidelines (Patient not taking: No sig reported) ondansetron (ZOFRAN) 8 mg tablet Take 1 tablet by mouth every 8 hours as needed for Nausea/Vomiting. (Patient not taking: No sig reported) Blood Pressure Monitor (BLOOD PRESSURE KIT) kit Dispense BP kit for managing hypertension I10; labile and high blood pressures--adjusting medications (Patient not taking: No sig reported) PAST MEDICAL HISTORY Diagnosis Date Cervical dysplasia Endometrial cancer ([facility]) 09/13/2019 FIGO grage 2, Stage IA Endometriosis Fibroid Hypertension Ovarian cancer, left ([facility]) 11/09/2019 Stage IC endometrioid Social History Tobacco Use Smoking status: Former Packs/day: 1.50 Years: 30.00 Pack years: 45.00 Types: Cigarettes Quit date: 2002 Years since quittin.9 Smokeless tobacco: Never Vaping Use Vaping Use: Never used Substance Use Topics Alcohol use: Not Currently Drug use: Never Component Latest Ref Rng & Units 12/10/2020 01/13/2022 WBC 3.70 - 11.00 k/uL 11.62 (H) 11.65 (H) RBC 3.90 - 5.20 m/uL 4.23 4.60 Hemoglobin 11.5 - 15.5 g/dL 13.4 14.3 Hematocrit 36.0 - 46.0 % 39.6 42.5 MCV 80.0 - 100.0 fL 93.6 92.4 MCH 26.0 - 34.0 pg 31.7 31.1 MCHC 30.5 - 36.0 g/dL 33.8 33.6 RDW-CV 11.5 - 15.0 % 12.1 12.1 Platelet Count 150 - 400 k/uL 216 265 MPV 9.0 - 12.7 fL 10.3 10.2 Neut% % 73.3 Abs Neut (ANC) 1.45 - 7.50 k/uL 8.52 (H) Lymph% % 18.0 Abs Lymph 1.00 - 4.00 k/uL 2.09 [place]% % 7.0 Abs [place] <0.87 k/uL 0.81 Eosin% % 1.1 Abs Eosin <0.46 k/uL 0.13 Baso% % 0.6 Abs Baso <0.11 k/uL 0.07 Nucleated Reds 0 /100 WBC 0.0 Absolute nRBC <0.01 k/uL <0.01 <0.01 Diff Type Auto Diff Protein, Total 6.3 - 8.0 g/dL 7.4 Albumin 3.9 - 4.9 g/dL 4.4 Calcium 8.5 - 10.2 mg/dL 9.2 10.3 (H) Bilirubin, Total 0.2 - 1.3 mg/dL 0.7 Alkaline Phosphatase 34 - 123 U/L 105 AST 13 - 35 U/L 15 ALT 7 - 38 U/L 13 Glucose 74 - 99 mg/dL 103 (H) 118 (H) BUN 7 - 21 mg/dL 19 16 Creatinine 0.58 - 0.96 mg/dL 0.69 0.67 Sodium 136 - 144 mmol/L 137 135 (L) Potassium 3.7 - 5.1 mmol/L 4.0 3.8 Chloride 97 - 105 mmol/L 99 96 (L) CO2 22 - 30 mmol/L 30 26 Anion Gap 9 - 18 mmol/L 8 (L) 13 eGFR >=60 mL/min/1.73m 93 eGFR- >60 eGFR-All Other Races . >60 Total Cholesterol, Nonfasting <200 mg/dL 200 (H) 230 (H) Triglycerides, Nonfasting <150 mg/dL 141 96 HDL Cholesterol, Nonfasting >39 mg/dL 61 70 LDL Cholesterol, Nonfasting <100 mg/dL 111 (H) 141 (H) Non HDL Cholesterol, Nonfasting <130 mg/dL 139 (H) 160 (H) VLDL Cholesterol, Nonfasting <30 mg/dL 28 19 Total Chol/HDL Ratio, Nonfasting <5.10 mg/dL 3.28 3.29 LDL/HDL Ratio, Nonfasting <2.54 mg/dL 1.82 2.01 Hemoglobin A1C 4.3 - 5.6 % 5.4 Estimated Average Glucose mg/dL 108 Magnesium 1.7 - 2.3 mg/dL 1.7 Vitamin D 25 Hydroxy 31.0 - 80.0 ng/mL 28.8 (L) ASSESSMENT/PLAN: 1. Primary hypertension - ICD9: 401.9, ICD10: I10 (primary diagnosis) Suboptimal control Continue current medications. Add spironolactone 25 mg once daily. If she does not feel well with the addition of spironolactone can increase dose of clonidine. - Continue current medication(s) - Encouraged dietary sodium restriction/DASH diet - Recommended regular aerobic exercise. 2. Hypokalemia - ICD9: 276.8, ICD10: E87.6 check labs 3. Obesity (BMI 30-39.9) - ICD9: 278.00, ICD10: E66.9 Endorse portion control and routine exercise such as walking 4. Leg swelling - ICD9: 729.81, ICD10: M79.89 Scant ankle swelling, weight stable. 5. White coat syndrome with diagnosis of hypertension - ICD9: 401.9, ICD10: I10 - LOSARTAN 100 MG TABLET - AMLODIPINE 10 MG TABLET - CLONIDINE HCL 0.1 MG TABLET 6. Need for shingles vaccine - ICD9: V04.89, ICD10: Z23 7. Encounter for immunization - ICD9: V03.89, ICD10: Z23 - PNEUMOCOCCAL VACCINE (PREVNAR 20) -future - [employer] COVID-19 BIVALENT BOOSTER VACCINE, AGE 12+ YR-today - INFLUENZA SEASONAL QUADRIVALENT HIGH DOSE AGE 65+-today 8. Microhematuria - ICD9: 599.72, ICD10: R31.29 previous positives, recheck for clearing - URINALYSIS, WITH MICROSCOPIC Advised: Collette Perez MD check labs today, add urinalysis 1 mo recheck BP schedule mammogram Check routine lab work and urinalysis today Start taking spironolactone 25 mg once daily in a.m. for blood pressure. Stop taking and let us know if any problems with taking this Check to see if your insurance covers Tdap and shingles vaccine and what location to get the vaccine -usually best covered at your local pharmacy where you get prescriptions filled Margo Marlow APRN.CNS Medical Decision Making: Problems: Moderate: 2+ stable chronic illnesses Data: Unique test(s) ordered: 3+ Risk: Moderate: Drug management Medical Decision Making Level: 4 - Moderate documented in this encounterSum[facility]08-24-2022 Miscellaneous Notes* Telephone Encounter - Brianna Santi EARL - 04/15/2022 1:53 PM EDT Still no response. Letter and results mailed to pt. * Telephone Encounter - Brianna Hancock LPN - 04/14/2022 9:55 AM EDT Message left for pt to return call to a nurse. * Telephone Encounter - Brianna Hancock LPN - 04/09/2022 9:46 AM EDT Message left for pt return call to a nurse. * Telephone Encounter - Brianna Hancock LPN - 04/09/2022 9:44 AM EDT These results are from December. * Telephone Encounter - Brianna Hancock LPN - 04/08/2022 11:16 AM EDT ----- Message from Collette Perez MD sent at 04/08/2022 12:02 AM EDT ----- No anemia--hemoglobin staying up after anemic in 2019. Glucose fine for nonfasting labs. Sodium and chloride just slightly below normal. Calcium level slightly elevated (just 0.1 above normal). Rest of metabolic panel within normal limit. Magnesium levelwithin normal limits . Vitamin D level is low. Recommend add another 1000 units Vitamin D to get up to around 40 range. Triglycerides and HDL improved some more; LDL elevated to 141. Last time 111. May consider statin to get risk over next 10 years of heart attack down below 10% since at 17.9% asnoted below (with BP 138/78--last BP in [facility] site) The 10-year ASCVD risk score (Tori BARRETT Jr., et al., 2013) is: 17.9% Values used to calculate the score: Age: 71 years Sex: Female Is Non- : No Diabetic: No Tobacco smoker: No Systolic Blood Pressure: 138 mmHg Is BP treated: Yes HDL Cholesterol: 70 mg/dL Total Cholesterol: 230 mg/dL Can get labs before next appointment if wants to discuss results at next appointment [facility] Diagnosis Encounter for screening mammogram for breast cancer documented [facility]* Diagnosis Primary hypertension- Primary Unspecified essential hypertension Hypokalemia Hypopotassemia Obesity (BMI 30-39.9) Obesity, unspecified Leg swelling Swelling of limb White coat syndrome with diagnosis of hypertension Need for shingles vaccine Need for prophylactic vaccination and inoculation against other viral diseases Encounter for immunization Need for other specified prophylactic vaccination against single bacterial disease Microhematuria Microscopic hematuria documented in this [facility]* Diagnosis White coat syndrome with diagnosis of hypertension- Primary Hypokalemia Hypopotassemia Hypomagnesemia Disorders of magnesium metabolism Elevated fasting glucose Impaired fasting glucose Vitamin D deficiency Unspecified vitamin D deficiency Hyperlipidemia, unspecified hyperlipidemia type Need for vaccination Need for prophylactic vaccination and inoculation against unspecified single disease Malignant neoplasm of left ovary (HCC) Malignant neoplasm of ovary Encounter for long-term current use of medication documented in this encounter [facility]* Diagnosis Primary hypertension- Primary Unspecified essential hypertension Weight gain Abnormal weight gain White coat syndrome with diagnosis of hypertension Encounter for immunization Need for other specified prophylactic vaccination against single bacterial disease documented in this encounter [facility]* Diagnosis Encounter for screening mammogram for breast cancer documented in this encounter [facility]* Diagnosis Endometrial cancer (HCC) Malignant neoplasm of corpus uteri, except isthmus Endometrial cancer (HCC) Malignant neoplasm of corpus uteri, except isthmus Postoperative state Other postprocedural status Postoperative pain Other acute postoperative pain Hypokalemia Hypopotassemia Former smoker Personal history of tobacco use, presenting hazards to health Primary hypertension- Primary Unspecified essential hypertension Malignant neoplasm of left ovary (HCC) Malignant neoplasm of ovary Personal history of antineoplastic chemotherapy Obesity (BMI 30-39.9) Obesity, unspecified White coat syndrome with diagnosis of hypertension Osteopenia of both hips Encounter for immunization Need for other specified prophylactic vaccination against single bacterial disease Screening for colon cancer Special screening for malignant neoplasms, colon Screening for depression Encounter for screening examination for other mental health and behavioral disorders Vitamin D deficiency Unspecified vitamin D deficiency Other specified abnormal findings of blood chemistry Encounter for long-term current use of medication Hypomagnesemia Disorders of magnesium metabolism Hypokalemia Hypopotassemia [facility]* Diagnosis Endometrial cancer (HCC) Malignant neoplasm of corpus uteri, except isthmus Endometrial cancer (HCC) Malignant neoplasm of corpus uteri, except isthmus Postoperative state Other postprocedural status Postoperative pain Other acute postoperative pain Hypokalemia Hypopotassemia Former smoker Personal history of tobacco use, presenting hazards to health Primary hypertension- Primary Unspecified essential hypertension Chronic pain of both knees Vitamin D deficiency Unspecified vitamin D deficiency Neutrophilia Other specified disease of white blood cells documented in this encounter [facility]Eval[facility] noteNo assessment information availableWMetroHealth [facility] Work Phone: Reason for referral (narrative)* Diagnostic Procedure Only (Routine) - Pending Review Specialty Diagnoses / Procedures Referred By Darrel florentino Referred To Contact [facility] Diagnoses Encounter for screening mammogram for breast cancer Procedures DONAL SCREENING SCREENING MAMMOGRAPHY BI 2-VIEW BREAST INC Collette Long MD [address] [place] [phone] [facility] [address] [place] [address] Referral ID Status Reason Start Date Expiration Date Visits Requested Visits Authorized [id number] Pending Review Auto-Generat ed Referral 02/25/2022 03/27/2023 1 1 [facility] for referral (narrative)* Diagnostic Procedure Only (Routine) - Pending Review Specialty Diagnoses / Procedures Referred By Contyvon florentino Referred To Contact [facility] Diagnoses Encounter for screening mammogram for breast cancer Procedures DONAL SCREENING SCREENING MAMMOGRAPHY BI 2-VIEW BREAST INC Collette Long MD [address] [place] [id number] [facility] [address] [place] [address] Referral ID Status Reason Start Date Expiration Date Visits Requested Visits Authorized [id number] Pending Review Auto-Generat ed Referral 01/12/2024 02/10/2025 1 1 [facility] referral (narrative)No reason for referral information availableWMetroHealth [facility] Work Phone: Advance Directives No Advanced Directives Records FoundDocuments on File Type Date Recorded Patient [employer] Expl anation Advance Directive(s) 10/27/2019 8:40 AM Advance Directive(s) 10/09/2019 1:12 PM Advance Directive(s) 10/06/2019 5:05 PM Advance Directive Response Recorded Date/ Time Do you have a Healthcare Power of Housing Specialist? No May 20, 2025 1:53pm Chief Complaint and Reason for Visit Chief Complaint Admit Date urinary symptoms May 20, 2025 12:42pm Family History No Family History Records Found Relationship Condition Age at Onset Recorded Date/T seun Unknown Family History?Heart Disease, Hypertension Unknown September 19, 2019 2:59pm Family History?Heart Disease, Hypertension Unknown September 19, 2019 2:59pm Summary Purpose Additional Source Comments Source Comments (unrecognize d section and content) In the event this informatio n is protected by the Federal Confidentiality of Alcohol and Drug Abuse Patient Records regulations: The Federal rules restrict any use of the information to criminally investigate or prosecute any alcohol or drug abuse patient.[facility] the event this information is protected by the Federal Confidentiality of Alcohol and Drug Abuse Patient Records regulations: The Federal rules restrict any use of the information to criminally investigate or prosecute any alcohol or drug abuse patient.[facility] CampusIn the event this information is protected by the Federal Confidentiality of Alcohol and Drug Abuse Patient Records regulations: The Federal rules restrict any use of the information to criminally investigate or prosecute any alcohol or drug abuse patient.[facility] CampusIn the event this information is protected by the Federal Confidentiality of Alcohol and Drug Abuse Patient Records regulations: The Federal rules restrict any use of the information to criminally investigate or prosecute any alcohol or drug abuse patient.[facility] CampusIn the event this information is protected by the Federal Confidentiality of Alcohol and Drug Abuse Patient Records regulations: The Federal rules restrict any use of the information to criminally investigate or prosecute any alcohol or drug abuse patient.[facility] CampusIn the event this information is protected by the Federal Confidentiality of Alcohol and Drug Abuse Patient Records regulations: The Federal rules restrict any use of the information to criminally investigate or prosecute any alcohol or drug abuse patient.[facility] CampusIn the event this information is protected by the Federal Confidentiality of Alcohol and Drug Abuse Patient Records regulations: The Federal rules restrict any use of the information to criminally investigate or prosecute any alcohol or drug abuse patient.[facility] CampusIn the event this information is protected by the Federal Confidentiality of Alcohol and Drug Abuse Patient Records regulations: The Federal rules restrict any use of the information to criminally investigate or prosecute any alcohol or drug abuse patient.[facility] CampusIn the event this information is protected by the Federal Confidentiality of Alcohol and Drug Abuse Patient Records regulations: The Federal rules restrict any use of the information to criminally investigate or prosecute any alcohol or drug abuse patient.[facility] CampusIn the event this information is protected by the Federal Confidentiality of Alcohol and Drug Abuse Patient Records regulations: The Federal rules restrict any use of the information to criminally investigate or prosecute any alcohol or drug abuse patient.[facility] CampusIn the event this information is protected by the Federal Confidentiality of Alcohol and Drug Abuse Patient Records regulations: The Federal rules restrict any use of the information to criminally investigate or prosecute any alcohol or drug abuse patient.[facility] CampusIn the event this information is protected by the Federal Confidentiality of Alcohol and Drug Abuse Patient Records regulations: The Federal rules restrict any use of the information to criminally investigate or prosecute any alcohol or drug abuse patient.[facility] CampusIn the event this information is protected by the Federal Confidentiality of Alcohol and Drug Abuse Patient Records regulations: The Federal rules restrict any use of the information to criminally investigate or prosecute any alcohol or drug abuse patient.[facility] CampusIn the event this information is protected by the Federal Confidentiality of Alcohol and Drug Abuse Patient Records regulations: The Federal rules restrict any use of the information to criminally investigate or prosecute any alcohol or drug abuse patient.[facility] CampusIn the event this information is protected by the Federal Confidentiality of Alcohol and Drug Abuse Patient Records regulations: The Federal rules restrict any use of the information to criminally investigate or prosecute any alcohol or drug abuse patient.[facility] CampusIn the event this information is protected by the Federal Confidentiality of Alcohol and Drug Abuse Patient Records regulations: The Federal rules restrict any use of the information to criminally investigate or prosecute any alcohol or drug abuse patient.[facility] CampusIn the event this information is protected by the Federal Confidentiality of Alcohol and Drug Abuse Patient Records regulations: The Federal rules restrict any use of the information to criminally investigate or prosecute any alcohol or drug abuse patient.[facility] Care Teams (unrecognized sec tion and content) Soaping Machine Back Tender Relationship Specialty Start Date End Date Collette ePrez MD [address] [place] [address] PCP - General Internal Medicine 10/06/19 Lisa Saucedo, RN Specialty Assistant Hairstylist Oncology 11/27/19 Humera Roland, FUSING MACHINE TENDER.PASSPORT SUPPORT ASSOCIATE [address] [place] [address] Nurse Practitioner SHADE CUTTER 11/27/19 Mahdi Manuel [address] [place] [address] Physician SHADE CUTTER 11/27/19 Alyson Blanco RN Specialty Assistant Hairstylist Oncology 12/18/19 Soaping Machine Back Tender Relationship Specialty Start Date End Date Collette Perez MD [address] [place] [address] PCP - General Internal Medicine 10/06/19 Lisa Saucedo, RN Specialty Assistant Hairstylist Oncology 11/27/19 Humera Roland, FUSING MACHINE TENDER.PASSPORT SUPPORT ASSOCIATE [address] [place] [address] Nurse Practitioner SHADE CUTTER 11/27/19 [facility] [address] [place] [address] Physician SHADE CUTTER 11/27/19 Alyson Blanco RN Specialty Assistant Hairstylist Oncology 12/18/19 Soaping Machine Back Tender Relationship Specialty Start Date End Date Collette Perez MD [address] [place] [address] PCP - General Internal Medicine 10/06/19 Lisa Saucedo, RN Specialty Assistant Hairstylist Oncology 11/27/19 Humera Roland, FUSING MACHINE TENDER.PASSPORT SUPPORT ASSOCIATE [address] [place] [address] Nurse Practitioner SHADE CUTTER 11/27/19 Mahdi [facility] [address] [place] [address] Physician SHADE CUTTER 11/27/19 Alyson Blanco RN Specialty Assistant Hairstylist Oncology 12/18/19 Soaping Machine Back Tender Relationship Specialty Start Date End Date Collette Perez MD [address] [place] [address] PCP - General Internal Medicine 10/06/19 Lisa Saucedo, RN Specialty Assistant Hairstylist Oncology 11/27/19 Humera Roland, FUSING MACHINE TENDER.PASSPORT SUPPORT ASSOCIATE [address] [place] [address] Nurse Practitioner SHADE CUTTER 11/27/19 Manuel Kurtz [address] [place] [address] Physician SHADE CUTTER 11/27/19 Alyson Blanco RN Specialty Assistant Hairstylist Oncology 12/18/19 Soaping Machine Back Tender Relationship Specialty Start Date End Date Collette Perez MD [address] [place] [address] PCP - General Internal Medicine 10/06/19 Lisa Saucedo, RN Specialty Assistant Hairstylist Oncology 11/27/19 Humera Roland, FUSING MACHINE TENDER.PASSPORT SUPPORT ASSOCIATE [address] [place] [address] Nurse Practitioner Sales Engagement Executive 11/27/19 Manuel Kurtz [address] [place] [address] Physician Sales Engagement Executive 11/27/19 Alyson Blanco RN Specialty Assistant Hairstylist Oncology 12/18/19 Soaping Machine Back Tender Relationship Specialty Start Date End Date Collette Perez MD [address] [place] [address] PCP - General Internal Medicine 10/06/19 Lisa Saucedo, RN Specialty Assistant Hairstylist Oncology 11/27/19 Humera Roland, FUSING MACHINE TENDER.PASSPORT SUPPORT ASSOCIATE [address] [place], [place] [id number] Nurse Practitioner Sales Engagement Executive 11/27/19 Manuel Kurtz [address] [place] [address] Physician Sales Engagement Executive 11/27/19 Alyson Blanco RN Specialty Assistant Hairstylist Oncology 12/18/19 Soaping Machine Back Tender Relationship Specialty Start Date End Date Collette Perez MD [address] [place] [address] PCP - General Internal Medicine 10/06/19 Lisa Saucedo, RN Specialty Assistant Hairstylist Oncology 11/27/19 Humera Roland FUSING MACHINE TENDER.PASSPORT SUPPORT ASSOCIATE [address] [place], [place] [id number] Nurse Practitioner Sales Engagement Executive 11/27/19 Manuel Kurtz [address] [place], [place] [id number] Physician Sales Engagement Executive 11/27/19 Alyson Blanco RN Specialty Assistant Hairstylist Oncology 12/18/19 Soaping Machine Back Tender Relationship Specialty Start Date End Date Collette Perez MD [address] [place] [address] PCP - General Internal Medicine 10/06/19 Lisa Saucedo, RN Specialty Assistant Hairstylist Oncology 11/27/19 Humera Roland, FUSING MACHINE TENDER.PASSPORT SUPPORT ASSOCIATE [address] [place] [address] Nurse Practitioner Sales Engagement Executive 11/27/19 Manuel Kurtz MD [address] [place] [address] Physician Sales Engagement Executive 11/27/19 Alyson Blanco RN Specialty Assistant Hairstylist Oncology 12/18/19 Margo Marlow, FUSING MACHINE TENDER.CAPTURE MANAGER [address] [place] [address] [employer]pga Design Engineer Internal Medicine 07/31/24 Kerry Killian, FUSING MACHINE TENDER.PASSPORT SUPPORT ASSOCIATE [address] [place] [address] Fpga Design Engineer Internal Medicine 07/31/24 Soaping Machine Back Tender Relationship Specialty Start Date End Date Collette Perez MD [address] [place] [address] PCP - General Internal Medicine 10/06/19 Lisa Saucedo, RN Specialty Assistant Hairstylist Oncology 11/27/19 Humera Roland, FUSING MACHINE TENDER.PASSPORT SUPPORT ASSOCIATE [address] [place] [address] Nurse Practitioner Sales Engagement Executive 11/27/19 Manuel Kurtz MD [address] [place] [address] Physician Sales Engagement Executive 11/27/19 Alyson Blanco RN Specialty Assistant Hairstylist Oncology 12/18/19 Margo Marlow, FUSING MACHINE TENDER.CAPTURE MANAGER [address] [place] [address] Fpga Design Engineer Internal Medicine 07/31/24 Kerry Killian, FUSING MACHINE TENDER.PASSPORT SUPPORT ASSOCIATE [address] [place] [address] Fpga Design Engineer Internal Medicine 07/31/24 Soaping Machine Back Tender Relationship Specialty Start Date End Date Collette Perez MD [address] [place] [address] PCP - General Internal Medicine 10/06/19 Lisa Saucedo, RN Specialty Assistant Hairstylist Oncology 11/27/19 Humera Roland, FUSING MACHINE TENDER.PASSPORT SUPPORT ASSOCIATE [address] [place], [place] [address] Nurse Practitioner Sales Engagement Executive 11/27/19 Manuel Kurtz MD [address] [facility] [place] [address] Physician Sales Engagement Executive 11/27/19 Alyson Blanco, RN Specialty Assistant Hairstylist Oncology 12/18/19 Margo Marlow, FUSING MACHINE TENDER.CAPTURE MANAGER [address] [place] [address] Fpga Design Engineer Internal Medicine 07/31/24 Kerry Killian FUSING MACHINE TENDER.PASSPORT SUPPORT ASSOCIATE [address] [place] [address] Fpga Design Engineer Internal Medicine 11/14/24 Soaping Machine Back Tender Relationship Specialty Start Date End Date Collette Perez MD [address] [place] [address] PCP - General Internal Medicine 10/06/19 Lisa Saucedo, RN Specialty Assistant Hairstylist Oncology 11/27/19 Humera Roland, FUSING MACHINE TENDER.PASSPORT SUPPORT ASSOCIATE [address] [place] [address] Nurse Practitioner Sales Engagement Executive 11/27/19 Manuel Kurtz MD [address] [place] [address] Physician Sales Engagement Executive 11/27/19 Alyson Blanco, RN Specialty Assistant Hairstylist Oncology 12/18/19 Kerry Killian, FUSING MACHINE TENDER.PASSPORT SUPPORT ASSOCIATE [address] [place] [address] Fpga Design Engineer Internal Medicine 11/14/24 Margo Marlow FUSING MACHINE TENDER.CAPTURE MANAGER [address] [place] [address] Fpga Design Engineer Internal Medicine 01/10/25 Soaping Machine Back Tender Relationship Specialty Start Date End Date Collette Perez MD [address] [place] [address] PCP - General Internal Medicine 10/06/19 Lisa Saucedo, RN Specialty Assistant Hairstylist Oncology 11/27/19 Humera Roland, FUSING MACHINE TENDER.PASSPORT SUPPORT ASSOCIATE [address] [place], [place] [id number] Nurse Practitioner Sales Engagement Executive 11/27/19 Manuel Kurtz MD [address] [place] [address] Physician Sales Engagement Executive 11/27/19 Alyson Blanco RN Specialty Assistant Hairstylist Oncology 12/18/19 Margo Marlow, FUSING MACHINE TENDER.CAPTURE MANAGER [address] [place] [address] Fpga Design Engineer Internal Medicine 07/31/24 01/09/25 Kerry Killian, FUSING MACHINE TENDER.PASSPORT SUPPORT ASSOCIATE [address] [place] [address] Fpga Design Engineer Internal Medicine 11/14/24 Margo Marlow, FUSING MACHINE TENDER.CAPTURE MANAGER [address] [place] [address] Fpga Design Engineer Internal Medicine 01/10/25 Soaping Machine Back Tender Relationship Specialty Start Date End Date Collette Perez MD [address] [place] [address] PCP - General Internal Medicine 10/06/19 Lisa Saucedo, RN Specialty Assistant Hairstylist Oncology 11/27/19 Humera Roland, FUSING MACHINE TENDER.PASSPORT SUPPORT ASSOCIATE [address] [place], [place] [id number] Nurse Practitioner Sales Engagement Executive 11/27/19 Manuel Kurtz MD [address] [place] [address] Physician Sales Engagement Executive 11/27/19 Alyson Blanco, RN Specialty Assistant Hairstylist Oncology 12/18/19 Kerry Killian FUSING MACHINE TENDER.PASSPORT SUPPORT ASSOCIATE [address] [place] [address] Fpga Design Engineer Internal Medicine 11/14/24 Margo Marlow, FUSING MACHINE TENDER.CAPTURE MANAGER [address] [place] [address] Fpga Design Engineer Internal Medicine 01/10/25 Soaping Machine Back Tender Relationship Specialty Start Date End Date Collette Perez MD [address] [place] [address] PCP - General Internal Medicine 10/06/19 Lisa Saucedo, KRISTINE Specialty Assistant Hairstylist Oncology 11/27/19 Humera Roland, FUSING MACHINE TENDER.PASSPORT SUPPORT ASSOCIATE [address] [place] [address] Nurse Practitioner Sales Engagement Executive 11/27/19 Manuel Kurtz MD [address] [place] [address] Physician Sales Engagement Executive 11/27/19 Alyson Blanco, KRISTINE Specialty Assistant Hairstylist Oncology 12/18/19 Kerry Killian FUSING MACHINE TENDER.PASSPORT SUPPORT ASSOCIATE [address] [place] [address] Fpga Design Engineer Internal Medicine 11/14/24 Margo Marlow, FUSING MACHINE TENDER.CAPTURE MANAGER [address] [place] [address] Fpga Design Engineer Internal Medicine 01/10/25 Soaping Machine Back Tender Relationship Specialty Start Date End Date Collette Perez MD [address] [place] [address] PCP - General Internal Medicine 10/06/19 Lisa Saucedo, RN Specialty Assistant Hairstylist Oncology 11/27/19 Humera Roland, FUSING MACHINE TENDER.PASSPORT SUPPORT ASSOCIATE [address] [place] [address] Nurse Practitioner Sales Engagement Executive 11/27/19 Manuel Kurtz MD [address] [place] [address] Physician Sales Engagement Executive 11/27/19 Alyson Blanco RN Specialty Assistant Hairstylist Oncology 12/18/19 Kerry Killian, FUSING MACHINE TENDER.PASSPORT SUPPORT ASSOCIATE [address] [place] [address] Fpga Design Engineer Internal Medicine 11/14/24 Margo Marlow, FUSING MACHINE TENDER.CAPTURE MANAGER [address] [place] [address] Fpga Design Engineer Internal Medicine 01/10/25 Team Status: Active Member Role/Relationship Status Dates Dr. Collette Perez MD Primary care physician Active Team Status: Inactive Member Role/Relationship Status Dates Dr. Collette Perez MD Primary care physician Active Start: May 20, 2025 End: May 20, 2025 Dr. Santiago Ac DO Attending physician Active Start: April End: May 20, 2025 Dr. Santiago Ac DO Emergency Department Physician Active Start: May 20, 2025 End: May 20, 2025 Reason for Visit (unrecogniz ed section and content) Reason Comments Results Reason Comments F/U 6 Month Reason Comments F/U 6 months Reason Onset Date Comments Population Health Navigation Outreach 07/25/2024 [facility] 2023 Reason Onset Date Comments Population Health Navigation Outreach 09/26[facility]2024 [facility] Reason Onset Date Comments Population Health Navigation Outreach 11/02/2024 [facility] Reason Onset Date Comments Population Health Navigation Outreach 12/07/2024 [facility] Reason Onset Date Comments Population Health Navigation Outreach 01/08/2025 [facility] Reason Onset Date Comments Population Health Navigation Outreach 01/17/2025 [facility] Reason Onset Date Comments Opened In Error 01/17/2025 Reason Comments Yearly Exam Reason Comments Follow Up Blood pressure Reason Onset Date Comments Care Coordination 04/19/2025 Chart review Goals (unrecognized section and content) Goals may be documented in a n alternate section INFORMATION SOURCE (unrecogn ized section and content) DATE CREATED AUTHOR 06/30/2025 [facility] DATE CREATED AUTHOR AUTHOR'S ORGANIZ ATION 07/03/2025 [facility] FOR RECORDS PERTAINING TO PATIENTS WHO ARE OR HAVE BEEN ENROLLED IN A CHEMICAL DEPENDENCY/SUBSTANCEABUSE PROGRAM, SOME INFORMATION MAY BE OMITTED. This clinical summary was aggregated from multiple sources. Caution should be exercised in using it in the provision of clinical care. This summary normalizes information from multiple sources, and as a consequence, information in this document may materially change the coding, format and clinical context of patient data. In addition, data may be omitted in some cases. CLINICAL DECISIONS SHOULD BE BASED ON THE PRIMARY CLINICAL RECORDS. [employer] provides no warranty or guarantee of the accuracy or completeness of information in this document.
[2025-07-04] MEDS: Lactated Ringers 1,000 ML 15 ML IV (07:30)
[2025-07-04 07:54] LABS: Hematocrit 37.8 % (37-47); Hemoglobin 13.4 g/dL (12.0-15.0); Immature Granulocytes Count 0.040 X10^3/uL (0.0-0.0); Mean Corp Hgb Conc 35.4 g/dL (32-36); Mean Corpuscular Volume 91.3 fL (81-99); Mean Platelet Vol. 10.8 fl (6.2-12.0); NRBC Flagged by Analyzer 0 % (0-5); Platelet Count 260 K/mm3 (150-450); RBC Distribution Width CV 12.0 % (11.6-14.6); RBC Distribution Width SD 40.3 fl (35.1-43.9); Red Blood Count 4.14 M/mm3 (4.2-5.4); White Blood Count 11.5 K/mm3 (4.4-11.0)
--- NOTE | 2025-07-04 07:56 | PCM.PRE.AN2 ---
ASA Classification* ASA Classification ASA Classification: 2 (HTN. Pt has had hx of PONV but has had multiple anesthetics since, with no PONV issues) Assessment & Plan Anesthesia* Anesthesia Assessment Anesthesia Assessment: Discussed sedation and/or anesthesia options, risks, benefits, and alternatives with patient/parents/legal guardian/POA. Questions invited. The patient/parents/legal guardian/POA seems to understand and agrees to proceed with anesthesia plan. Reviewed the physical assessment, medical history, allergy history and patient home medications list prior to surgery/procedure/anesthetic and documented any changes. Performed airway and anesthesia risk assessments. Anesthesia Type Anesthesia Type: General History Source History Obtained from:: Patient and Chart Anesthesia Focused Assessment* Temperature: 98.0 F Pulse Rate: 76 Blood Pressure: 150/92 Respiratory Rate: 18 Pulse Ox: 98 Oxygen Delivery Method: Room Air Airway Assessment Mouth opens: >3 cm Mallampati Score: II Teeth Condition: Missing (poor dentition) Neck Range of motion (ROM): Full ROM Labs Anesthesia Preop lab: CBC WBC, (4.4-11.0) 11.5 K/mm3 H Today, 07:35 RBC, (4.2-5.4) 4.14 M/mm3 L Today, 07:35 Hgb, (12.0-15.0) 13.4 g/dL Today, 07:35 Hct, (37-47) 37.8 % Today, 07:35 Plt Count, (150-450) 260 K/mm3 Today, 07:35 CHEMISTRY Potassium, (3.3-5.1) 4.1 mmol/L 05/20/25, 13:40 Sodium, (133-145) 127 mmol/L L 05/20/25, 13:40 BUN, (4-19) 17 mg/dL 05/20/25, 13:40 Creatinine, (0.70-1.20) 0.90 mg/dL 05/20/25, 13:40 Glucose, (70-99) 158 mg/dL H 05/20/25, 13:40 POC Glucose, (74-106) 113 mg/dL H 05/20/25, 18:32 COAG Pre-Assessment Diagnosis/Proposed Procedure Planned Operative Procedure(s): (L) Percutaneous,Nephrostolithomy Anesthesia History 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 When Was Last Pacemaker Check QUESTION #4 FULL TEXT: You/Your Family Experience fever (hyperthermia) with Anesthesia Last Oral Intake Last Oral intake: Last Oral Intake NPO since 05:30 07/04/25 07:46 Meds taken in AM with sips of Yes 07/04/25 07:46 water? 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 Female Yes 06/22/25 08:42 HX of Motion Sickness Yes 06/22/25 08:42 HX of N/V After Surgery Yes 06/22/25 08:42 Non-Smoker Yes 06/22/25 08:42 Duration of Surgery greater No 06/22/25 08:42 than 60 minutes Number of Risk Factors 4 06/22/25 08:42 PONV Score Severe Risk 06/22/25 08:42 Height & Weight Height & Weight: Anesthesia: Height & Weight Height 5 ft 6 in 07/04/25 07:46 Weight: 89 kg 07/04/25 07:46 Body Mass Index (BMI) 31.6 07/04/25 07:46 Respiratory Assessment Respiratory Assessment - pig iron loader: Respiratory Tract Infection Hx - pig iron loader Hx Respiratory Tract Infection No 06/22/25 08:42 STOP Sleep Apnea STOP Sleep Apnea - pig iron loader: STOP Sleep Apnea - pig iron loader Hx Hypertension Yes: ON MED, UNCONTROLLED 06/22/25 08:42 PER PT Hx Sleep Apnea No 06/22/25 08:42 CPAP No 06/22/25 08:42 BIPAP Do you snore loudly (louder No 06/22/25 08:42 than talking or can be heard Do you often feel tired/ No 06/22/25 08:42 fatigued/ sleepy during daytime? Has anyone observed you stop No 06/22/25 08:42 breathing during sleep? STOP Results Negative 06/22/25 08:42 QUESTION #5 FULL TEXT : Do you snore loudly (louder than talking or can be heard through closed doors)? 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 Specify any problems Hx of Preganancy in last 3 N/A 06/22/25 08:42 Months Nurse Filling Out Transfusion NBUCHER 06/22/25 08:42 & Questions: Date: 06/22/25 06/22/25 08:42 Time: 08:43 06/22/25 08:42 Patient unable to answer at this time (ie. confused, unrespo /Reproduction History /Reproductive History - pig iron loader: /Reproductive Hx- pig iron loader Hx Now No 06/22/25 08:42 Gestational Age (in weeks): EDC: Hx Hx Para Hx Section SAB No 06/22/25 08:42 Does the father of the baby or his family experience fever w Father of the baby Malignant Hypertension history comment Active Medications Active Medications: Current Medications Generic Name Dose Route Start Last Admin Trade Name Freq PRN Reason Stop Dose Admin Cefazolin Sodium 2 gm/ Sodium 110 mls @ 200 mls/hr 07/04/25 09:00 Chloride IV 07/04/25 09:32 INTRAOP ONE Lactated Ringer's 1,000 mls @ 15 mls/hr 07/04/25 07:00 07/04/25 07:30 IV 15 mls/hr .Q48H SAPNA Administration PFSH Medical History Wears glasses Hx of hysterectomy Cancer Arthritis Kidney stone Back pain Difficulty swallowing History of IBS Gastric reflux Shortness of breath on exertion History of edema History of echocardiogram History of irregular heartbeat Former smoker Hypertension Home Medications ?Medication ?Instructions ?Recorded ?Last Taken ?Type acetaminophen 500 mg tablet 1,000 mg PO Q6H PRN PRN Pain 09/06/19 07/03/25 17:00 History zinc amino acid chelate 50 mg 100 mg PO DAILY cold prevention 09/06/19 09/05/19 History tablet amlodipine 10 mg tablet 10 mg PO DAILY 05/20/25 07/04/25 05:30 History atenolol 100 mg tablet 100 mg PO BID 05/20/25 07/04/25 05:30 History clonidine HCl 0.1 mg tablet 0.2 mg PO BID 05/20/25 07/04/25 05:30 History losartan 100 mg tablet 100 mg PO DAILY 05/20/25 07/04/25 05:30 History spironolactone 25 mg tablet 25 mg PO DAILY blood pressure 05/20/25 07/03/25 08:00 History Allergy/AdvReac Type Severity Reaction Status Date / Time Dressing: Non-Medicated Allergy Severe rash Verified 07/04/25 07:43 (band aid) latex Allergy Severe rash Verified 07/04/25 07:43 Environmental Allergies: AdvReac Severe Hives Verified 07/04/25 07:43 Uncoded (metals) Surgical History (Updated 06/22/25 @ 08:46 by Ayse Hayes) History of ureteroscopy Hx of vaginal surgery History of lumpectomy of both breasts History of cystoscopy Social History Smoking Status: Former smoker Review of Systems (Anesthesia) ROS Narrative System reviewed and no additional complaints, except as documented. Physical Exam Const alert, oriented x3 and average body habitus Resp normal respiratory effort, normal air movement and clear to auscultation bilaterally Cardio regular rate, regular rhythm and no murmurs; Negative for diaphoretic
--- NOTE | 2025-07-04 08:00 | RAD_ITS ---
PROCEDURE: FLUOROSCOPY 1 HR OR LESS 07/04/2025 REASON FOR EXAM: Intraoperative fluoroscopic services provided for percutaneous nephrolithotomy. TECHNIQUE: Procedure Code: RADFL Modality: DX Procedure: FLUOROSCOPY 1 HR OR LESS. 51.8 seconds of fluoroscopy. 28.56 mGy radiation dose. 3 images were submitted. COMPARISON: None FINDINGS: Intraoperative fluoroscopic services provided for percutaneous nephrolithotomy. RAD/Fluoroscopy 1 Hr or Less IMPRESSION: Intraoperative fluoroscopic services provided for percutaneous nephrolithotomy. Reading Location: [place] [address]
[2025-07-04 08:31] LABS: Anion Gap 12 (5-15); BUN 15 mg/dL (4-19); BUN/Creat Ratio 21.7 RATIO (10-20); Calcium,Total 9.5 mg/dL (7.6-11.0); Carbon Dioxide 20.3 mmol/L (21.0-32.0); Chloride 104 mmol/L (98-108); Estimated Creatinine Clearance 67.23 ml/min (50-250); Glucose 123 mg/dL (70-99); Potassium 4.1 mmol/L (3.3-5.1)
--- NOTE | 2025-07-04 09:00 | FORE_PTH ---
PATIENT: PEDRO VILLATORO LOC: MS3 U#:[id number] AGE/SX: 75/F ROOM: [facility] RE07/04/[address]: Dr. Mekhi Joseph MD : 1950 BED: 1 DIS: 07/05/2025 SPEC #: [id number] RECD: 07/04/25 13:52 STATUS: MANASA TOLENTINO #: [id number] HECTOR: 07/04/25 09:[address]: Mekhi Joseph DEPT: SURGICAL PATHOLOGY RECD BY: Ish Varma ENTERED: 07/04/25 14:23 SP TYPE: FOREIGN B OCTAVIA DR: Dr. Liv Winchester MD Tissues: A - FOREIGN BODY Procedures: Surgery Specimen Level I HEADER OPERATION: Percutaneous, nephrostolithomy PRE-OP DIAGNOSIS: Kidney stone, left TISSUE SUBMITTED: A- Left ureteral stent MICROSCOPIC DIAGNOSIS A. cloth neutralizer, left ureter: - Ureteral stent (gross examination only) MICROSCOPIC DESCRIPTION A microscopic examination was not performed. GROSS DESCRIPTION A. Received in formalin labeled with the patient's name and date of . Designated as left ureteral stent is a 9.1 cm in length by 0.2 cm in diameter brown to black synthetic tube with attached, calcified material. No sections are submitted. The specimen is for gross examination only. [place] 07/04/2025 CPT:37956
[2025-07-04] MEDS: Lactated Ringers 1,000 ML 1000 ML IV (11:19)
[2025-07-04] MEDS: Cefazolin 1 GM/5 ML Vial 2 GM IV (11:25)
[2025-07-04] MEDS: Lidocaine 1% (5 ml sdv) 5 ML Vial IV (11:25)
[2025-07-04] MEDS: fentaNYL 100 MCG/2 ML Ampul IV (11:37)
--- NOTE | 2025-07-04 12:25 | PCM.DC ---
Discharge Instructions DC O2, CPAP, BIPAP needs Home O2 Discharge instructions: No Dressing / Incision Discharge Activity: Return to Normal Activity and May Not Drive (while taking narcotic pain medications.) Dressing / Incision Call your doctor if you observe: Fever of 101 or Higher Follow Up Care Please Follow Up With: Mekhi Joseph MD When: Call [phone] for an appointment Test Results: Test results from this visit will be discussed in further detail at your follow-up appointment, if applicable. Discharge Plan Admission Primary Reason for Your Visit: perc removal of stone Attending Provider: Mekhi Joseph Primary Care Provider: Liv Winchester Instructions Print Language: Kyrgyz Discharge Orders/Prescriptions Prescriptions: New ciprofloxacin HCl [Cipro] 500 mg tablet 500 mg PO BID Qty: 10 0RF Continued acetaminophen 500 MG tablet 1,000 mg PO Q6H PRN PRN (Reason: Pain ) zinc amino acid chelate 50 MG tablet 100 mg PO DAILY clonidine HCl 0.1 mg tablet 0.2 mg PO BID atenolol 100 mg tablet 100 mg PO BID spironolactone 25 mg tablet 25 mg PO DAILY amlodipine 10 mg tablet 10 mg PO DAILY losartan 100 mg tablet 100 mg PO DAILY Other Ambulatory Orders: Basic Metabolic Profile (BMP) (Routine) Timeframe: [id number] Facility: [facility] - Location: Laboratory Ordered By: Dr. Carlos Leiva CBC-Complete Blood Cnt No Diff (Routine) Timeframe: [id number] Facility: [facility] - Location: Laboratory Ordered By: Dr. Carlos Leiva Referrals / Follow Up: Liv Winchester MD [Primary Care Provider, Internal Medicine] Disposition Disposition (needs filled in before D/C Order can be placed): Home, Self Care
--- NOTE | 2025-07-04 12:28 | PCM.OPRPT ---
Operative Report (Standard) Operative Information Date of Procedure: 07/04/25 Pre-Operative Diagnosis: Large left renal calculi and retained stent fragment Post-Operative Diagnosis: The same Surgery/Procedure Performed: Establishment of a percutaneous access to the left kidney establishment of nephrostomy tube left percutaneous nephrostolithotomy for a large stone greater than 2.5 cm left nephrostogram register repairer: No Type of Anesthesia: General RN Documented Start/Stop Times: Operation Date: 07/04/25 09:00 Case Time Into Pre-Op 07/04/25 06:58 Out of Pre-Op 07/04/25 11:17 Anesthesia Start 07/04/25 11:20 Into Room 07/04/25 11:20 Procedure Start 07/04/25 11:44 Procedure End 07/04/25 12:14 Anesthesia End 07/04/25 12:23 Out of Room 07/04/25 12:23 Procedure Start Time: 11:44 Procedure Stop Time: 12:14 Select all DRAINS/GRAFTS/IMPLANTS that apply: Drains Drain details: Nephrostomy tube Estimated Blood Loss: 25 cc Specimen collected: Yes Description of specimen(s) removed: Stent fragment removed Description of surgery: Indications a 75-year-old female who had a retained stent from a long time ago after cancer diagnosis has been treated for her cancer she retained the stent never had follow-up even though she was given instructions to follow-up with with us she came into the office and she had stone stuck in her kidney with a retained stent she already had the bladder stone removed and the stent in the bladder and the ureter removed and were today we can do a percutaneous approach to the left kidney remove this stone in the kidney and remove the fragment fragment of the stent and she has a stent in for the last procedure we will leave this in. Patient was taken back to the operating room after induction of anesthesia she was then placed facedown on the operating room table arms were put out in the sides all her pressure points were padded then using fluoroscopy identified the puncture site to the left kidney into the renal pelvis through the lower mid pole calyx and then patient was prepped and draped in usual fashion I then used the two-part 20-gauge needle and using fluoroscopy I advanced the needle to the stone and then once was the needle was on the stone then I pulled out the middle part of the stylette advanced a wire the wire coiled around the kidney stone I then advanced the balloon dilator over the wire and balloon dilated the tract right to the stone through the kidney once that was in place then we balloon dilated the tract I put the sheath over the balloon and then went into first I could not quite see where the stone was and then then came through a small little puncture and then there was a stone I was in the renal pelvis then using ultrasonic lithotripter a bit large fragment that was about 3 cm in size was treated with a large ultrasonic lithotripter and removed off the stent the other stent was also next at the stent but this is a new stent that was just put in a week ago I remove the entire stone with the ultrasonic lithotripter and once the stone was removed completely then I used a grasper to grab the stent fragment and this was removed completely we then used fluoroscopy to check there was another fragment in the upper pole I went at the upper pole and treated the stone with ultrasonic lithotripsy and then after complete removal of the stone and the stent there I nephrostomy tube was put in into the left kidney and nephrostogram was then performed I then removed the sheath patient anesthetic was reversed we stitched the nephrostomy tube into her skin she was taken back to the PACU in good condition successful removal of stone and stent fragment should be kept overnight for observation and will remove the nephrostomy tube tomorrow and remove the stent the new stent was put in last week and next week in the office. Surgical Findings: Stent fragment removed and the entire stone removed nephrostomy tube placed Complications Complications: No Admit VTE Documentation VTE Present on Admission: No VTE Mechan Device Prophylaxis: SCD's VTE Pharm Prophylaxis ordered?: No
--- NOTE | 2025-07-04 12:36 | PCM.POST.ANE ---
Anesthesia: Postop Eval I Current Vital Signs Temperature: 97.5 F Pulse Rate: 68 Blood Pressure: 147/90 Respiratory Rate: 18 Pulse Ox: 98 Assessment Airway patent: Yes Spontaneous unlabored respirations: Yes nausea: No Vomiting: No Anesthesia Complication: No Fluid Hydration Crystalloid volume administer (ml): 1,000 Total IV fluid infused: 1,000 Progress Note Anesthesia document: Postop Eval 1 completed: Yes
[2025-07-04] MEDS: 0.9% Normal Saline (1000mL) 1,000 ML 125 ML IV ×2 (13:51→21:42)
--- NOTE | 2025-07-04 16:29 | POSTOPAN2_ITS ---
Anesthesia Postop Eval I Sum Postop Eval Completion status Anesthesia document: Postop Eval 1 completed: Yes Anesthesia Postop Eval I Summary Anesthesia Postop Eval I Summary: Anesthesia Postop Eval I: Assessment Summary Airway patent Yes 07/04/25 12:36 END LATHE OPERATOR.[email or web address] Spontaneous unlabored Yes 07/04/25 12:36 END LATHE OPERATOR.ELIO respirations Mental status nausea No 07/04/25 12:36 END LATHE OPERATOR.JOSEOBY Vomiting No 07/04/25 12:36 END LATHE OPERATOR.JOSEOBIdris Anesthesia Postop Eval I: Fluid Summary Crystalloid volume administer 1,000 07/04/25 12:36 END LATHE OPERATOR.SKOBY (ml) Colloids volume administered ( ml) Blood Product volume administered (ml) Total IV fluid infused 1,000 07/04/25 12:36 END LATHE OPERATOR.JOSEOBIdris Anesthesia Postop Eval I: Summary Notes Anesthesia Complication No 07/04/25 12:36 END LATHE OPERATOR.ELIO Anesthesia Complication Comment: Post-operative progress note Anesthesia: Postop Eval II Evaluation Mental status: Awake Pain Level: 0 nausea: No Vomiting: No Complications Anesthesia Complication: No
--- NOTE | 2025-07-04 16:29 | PCM.POSTANE2 ---
Anesthesia Postop Eval I Sum Postop Eval Completion status Anesthesia document: Postop Eval 1 completed: Yes Anesthesia Postop Eval I Summary Anesthesia Postop Eval I Summary: Anesthesia Postop Eval I: Assessment Summary Airway patent Yes 07/04/25 12:36 ADULT SCHOOL COUNSELOR.[email or web address] Spontaneous unlabored Yes 07/04/25 12:36 ADULT SCHOOL COUNSELOR.ELIO respirations Mental status nausea No 07/04/25 12:36 ADULT SCHOOL COUNSELOR.[email or web address] Vomiting No 07/04/25 12:36 ADULT SCHOOL COUNSELOR.JOSEOBIdris Anesthesia Postop Eval I: Fluid Summary Crystalloid volume administer 1,000 07/04/25 12:36 ADULT SCHOOL COUNSELOR.SKOBY (ml) Colloids volume administered ( ml) Blood Product volume administered (ml) Total IV fluid infused 1,000 07/04/25 12:36 ADULT SCHOOL COUNSELOR.JOSEOBIdris Anesthesia Postop Eval I: Summary Notes Anesthesia Complication No 07/04/25 12:36 ADULT SCHOOL COUNSELOR.ELIO Anesthesia Complication Comment: Post-operative progress note Anesthesia: Postop Eval II Evaluation Mental status: Awake Pain Level: 0 nausea: No Vomiting: No Complications Anesthesia Complication: No
[2025-07-05 00:55] VITALS: BP 126/79; PULSE 76; RESP 16; TEMP 36.6; O2SAT 94
[2025-07-05 04:40] VITALS: BP 143/91; PULSE 75; RESP 17; TEMP 36.6; O2SAT 97
--- NOTE | 2025-07-05 07:30 | PN.URO_ITS ---
Subjective Subjective Nephrostomy tube removed and Griffin catheter removed patient can go home later today nurses can place a dressing on the nephrostomy tube site if it is bleeding Objective Data Objective Data Vital Signs: Vital Signs Temp Pulse Resp BP Pulse Ox O2 Del Method 97.8 F 75 17 143/91 H 97 Room Air 07/05/25 04:40 07/05/25 04:40 07/05/25 04:40 07/05/25 04:40 07/05/25 04:40 07/05/25 04:40 Oxygen Delivery Method Room Air Weight: 89 kg Body Mass Index (BMI) 31.6 Intake & Output: Intake and Output for Last 24 Hours 07/03/25 07/04/25 07/05/25 23:59 23:59 23:59 Intake Total 2276.75 / 2276.75 355 / 355 Output Total 835 / 835 400 / 400 Balance 1441.75 / 1441.75 -45 / -45 Lab / Micro Data 07/04/25 07:35 07/04/25 07:35 Labs: Laboratory Results - last 24 hr 07/04/25 07:35: WBC 11.5 H, RBC 4.14 L, Hgb 13.4, Hct 37.8, MCV 91.3, MCH 32.4 H , MCHC 35.4, RDW Std Deviation 40.3, RDW Coeff of Fernie 12.0, Plt Count 260, MPV 10.8, Immature Gran % (Auto) 0.300, Neut % (Auto) 80.1 H, Lymph % (Auto) 13.6 L, [place] % (Auto) 4.4, Eos % (Auto) 1.0, Baso % (Auto) 0.6, Absolute Neuts (auto) 9.2 H, Absolute Lymphs (auto) 1.56, Nucleated RBC % 0, Sodium 136, Potassium 4.1, Chloride 104, Carbon Dioxide 20.3 L, Anion Gap 12, BUN 15, Creatinine 0.70, Estim Creat Clear Calc 67.23, Est GFR (MDRD) Non-Af 90, BUN/Creatinine Ratio 21.7 H, Glucose 123 H, Calcium 9.5 Radiography Diagnostic Testing: Radiology Impression Fluoroscopy 07/04/25 08:00 IMPRESSION: Intraoperative fluoroscopic services provided for percutaneous nephrolithotomy. Reading Location: [place] [id number]
--- NOTE | 2025-07-05 10:01 | CASEMGMT ---
Noted dc order placed. KRISTINE CM into pt room, pt sitting up in bed in no distress. Pt denies any homegoing needs. Pt states she lives in a 7[address] sq ft home with furniture strategically placed for ambulation. Pt states she uses a cane and has multiple family members and neighbors who can assist her and check on her.
--- NOTE | 2025-07-05 10:49 | PHA.DC_ITS ---
Pharmacy [facility] has performed discharge medication counseling for this patient. The patient was counseled on the following discharge medications and changes in medications for homegoing review. - Ciprofloxacin 500 mg tablet The Reason for Use, instructions for use, and potential side effects were reviewed for all new medications. The patient's questions regarding all of their medications were answered. The patient was able to verbally demonstrate an understanding of their discharge medications. Medications at Discharge Home Medications acetaminophen 500 mg tablet 1,000 mg PO Q6H PRN PRN Pain 09/06/19 zinc amino acid chelate 50 mg tablet 100 mg PO DAILY cold prevention 09/06/19 amlodipine 10 mg tablet 10 mg PO DAILY 05/20/25 atenolol 100 mg tablet 100 mg PO BID 05/20/25 clonidine HCl 0.1 mg tablet 0.2 mg PO BID 05/20/25 losartan 100 mg tablet 100 mg PO DAILY 05/20/25 spironolactone 25 mg tablet 25 mg PO DAILY blood pressure 05/20/25 ciprofloxacin HCl 500 mg tablet (Cipro) 500 mg PO BID #10 tabs 07/04/25
[2025-07-05 10:51] VITALS: BP 139/81; PULSE 69; RESP 18; TEMP 36.7; O2SAT 99
[2025-07-05] MEDS: FLU VACCINE HIGH DOSE 25-26(65YR UP) 180 MCG/0.5 ML SYRINGE IM (11:12)
[2025-07-05 13:37] VITALS: BP 117/70; PULSE 68; RESP 18; TEMP 36.6; O2SAT 97
== END 2025-07-05 13:53 | disposition home or self-care (01) ==
LOC: SDC 13:19 → MS3 13:19
PROVIDERS: Student in an Organized Health Care Education/Training Program; Admitting Provider Urology; PCP Internal Medicine; Referring Provider Urology; Visit Provider Urology
PROC: (CPT 50081; principal; 2025-07-04 08:40)
DX: N20.0 Calculus of kidney (principal); Z87.891 Personal history of nicotine dependence; N21.0 Calculus in bladder
CPT/HCPCS: 50081; 76000; 80048; 85025; 88300; 93005; 94668; 96361; 96365; 96366; 99221; C1769; G0378; J0744; J2405